=== PATIENT | female | born 1940 | race Caucasian/White ===

== ENCOUNTER 2020-03-30 15:22 | Outpatient (CLI) | payer OTHER, SELFPAY ==
--- NOTE | ~2020-03-30 | MM_ITS ---
EXAMINATION: MM screening [facility] BI w justyna HISTORY: Screening TECHNIQUE: Craniocaudal and mediolateral oblique 3-D tomosynthesis images were obtained and synthetic 2-D images were generated. CAD analysis was submitted and interpreted. COMPARISON: Comparison to multiple prior studies sequentially, with oldest reviewed study dated 08/2013. BREAST PARENCHYMAL COMPOSITION: The breasts are extremely dense, which lowers the sensitivity of mamm ography. FINDINGS: There are benign bilateral breast calcifications. There is no evidence of suspicious mass, calcification, or architectural distortion to suggest malignancy in either breast. There has been no suspicious interval change. IMPRESSION: 1. No mammographic evidence of malignancy. 2. Recommend routine screening mammography in one year. BI-RADS Category 2: Benign finding(s). Reviewed, dictated and finalized at location A. [place] [employer]
== END 2020-03-30 15:23 | disposition home or self-care (01) ==
PROVIDERS: PCP Family Medicine; Visit Provider Nurse Practitioner Family
DX: Z12.31 Encounter for screening mammogram for malignant neoplasm of breast (principal)
CPT/HCPCS: 77063; 77067

== ENCOUNTER 2021-07-19 13:57 | Outpatient (CLI) | payer OTHER, SELFPAY ==
--- NOTE | ~2021-07-19 | DEXA_ITS ---
Bone Density Report Name: THERESA CRAWFORD Age: 81 Sex: Female Ethnicity: White Date of : 1940 Indication: osteopenia; height loss; Referring Provider: MONICA GORDON Study: Bone densitometry was performed. Exam Date: July 19, 2021 Accession number: [id number] Bone Density: Region BMD T-score Z-score Classification AP Spine(L1-L4) 0.814 -2.1 0.7 Osteopenia Femoral Neck (Left) 0.624 -2.0 0.4 Osteopenia Total Hip (Left) 0.710 -1.9 0.3 Osteopenia Femoral Neck (Right) 0.693 -1.4 1.0 Osteopenia Total Hip (Right) 0.689 -2.1 0.1 Osteopenia Total Hip Mean 0.700 -2.0 0.2 Osteopenia World Health Organization criteria for BMD impression classify patients as: Normal (T-score at or above -1.0), Osteopenia (T-score between -1.0 and -2.5), or Osteoporosis (T-score at or below -2.5). 10-year Fracture Risk(1): Major Osteoporotic Fracture 15% Hip Fracture 4.6% Reported Risk Factors: [place] (), Neck BMD=0.624, BMI=23.3 (1) FRAX(R) Version 3.08. Fracture probability calculated for an untreated patient. Fracture probability may be lower if the patient has received treatment. Previous Exams: Region Exam Age BMD T-score BMD Change BMD Change Date g/cm2 vs Baseline vs Previous AP Spine (L1-L4) 07/19/2021 81 0.814 -2.1 0.003 (0.4%) 0.008 (1.0%) 02/26/2018 78 0.806 -2.2 -0.005 (-0.6%) -0.005 (-0.6%) 02/04/2016 76 0.811 -2.1 Total Hip(Left) 07/19/2021 81 0.710 -1.9 -0.072 (-9.2%) -0.111 (-13.5% 02/26/2018 78 0.821 -1.0 0.040 (5.1%)* 0.040 (5.1%)* 02/04/2016 76 0.781 -1.3 Total Hip(Right) 07/19/2021 81 0.689 -2.1 -0.055 (-7.3%) -0.101 (-12.8% 02/26/2018 78 0.791 -1.2 0.047 (6.3%)* 0.047 (6.3%)* 02/04/2016 76 0.744 -1.6 *Denotes significance at 95% confidence level, LSC for AP Spine = 0.022 g/cm2, LSC for Total Hip = 0.027 g/cm2 Clinical Information Provided by Patient: Has used the following medications: Vitamin D Patient maximum height was 67 Menopause Age: 49 Onset of menses at age 10 Number of children 2 Impression: The patient has low bone mass, based on the Total Spine T-score. The patient has an estimated ten-year risk of hip fracture of 4.6% and an estimated ten-year risk of major fracture of 15%, based on the WHO FRAX algorithm. The BMD for the Total Hip(Left) decreased, changing by -13.5% since the last DXA exam. The BMD for the Total Hip(Right) decreased,
== END 2021-07-19 13:58 | disposition home or self-care (01) ==
PROVIDERS: PCP Family Medicine; Visit Provider Nurse Practitioner
DX: Z78.0 Asymptomatic menopausal state (principal); M85.851 Other specified disorders of bone density and structure, right thigh; M85.852 Other specified disorders of bone density and structure, left thigh; M85.88 Other specified disorders of bone density and structure, other site
CPT/HCPCS: 77080

== ENCOUNTER 2021-12-19 11:22 | Emergency (ER) | payer OTHER, SELFPAY ==
[2021-12-19 11:30] VITALS: BP 129/86; PULSE 87; RESP 16; TEMP 36.5; O2SAT 97
[2021-12-19 11:33] VITALS: BP 129/86; PULSE 87; RESP 16; TEMP 36.5; O2SAT 97
--- NOTE | 2021-12-19 11:44 | ED.DIZZY ---
HPI - Dizziness General Chief Complaint: Dizziness Stated Complaint: dizzy Time Seen by Provider: 12/19/21 11:42 Mode of arrival: ambulatory Limitations: no limitations History of Present Illness HPI Narrative: 81-year-old female presents with concern for dizziness. She reports a sensation of the room spinning that she has had on and off for a while now, at least for more than 1 week. Reports today the dizziness was not improving like it has been over the past week. She reports history of similar symptoms. Reports she has an appointment with her primary care doctor on Sunday. She denies headache, weakness in any extremity, difficulty speaking or swallowing. She denies nasal congestion, rhinorrhea, sore throat, cough. MD elicited complaint: dizziness Related Data Allergies Allergy/AdvReac Type Severity Reaction Status Date / Time No Known Allergies Allergy Unverified 12/19/21 11:31 Review of Systems Review of Systems: CONSTITUTIONAL: Denies malaise, chills, sweats, or fever. EYES: Denies visual changes, ENT: Denies rhinorrhea, congestion, sinus pain, otalgia or sore throat. CARDIOVASCULAR: Denies chest pain, palpitations, or edema. RESPIRATORY: Denies cough or dyspnea. GASTROINTESTINAL: Denies nausea, vomiting NEUROLOGIC: Denies numbness, weakness, or headache. Reports dizziness All systems reviewed & are unremarkable except as noted in HPI and below PMFSH Past Medical History Medical History GERD without esophagitis Hyperlipidemia Hypertension Osteopenia started Fosamax 12/2016? Postmenopausal status (age-related) (natural) Vertigo Family History Family History Mother Family history of heart disease in male family member before age 55 Social History Social History Smoking status: Never smoker Second hand tobacco smoke exposure: No Alcohol intake: current Comments At time of signature, agree with nursing past medical, surgical, social and family history. There is no relevant family history pertinent to the presenting complaint Exam Narrative: GENERAL: Well-appearing, well-nourished, and in no acute distress. HEAD: Normocephalic, atraumatic. EYES: PERRLA, sclera clear, and EOMI. No nystagmus. ENT: Nares clear. Mucous membranes moist. TM pearly adorno with sharp light reflex on the left, dull light reflex and slightly bulging on the right no tragal tenderness. NECK: Supple. No lymphadenopathy. CHEST: No respiratory distress. Speaks in full sentences. HEART: Regular rate and rhythm. No murmur heard. Normal peripheral pulses. SKIN: Warm, dry, no visible rash. NEURO: Alert and oriented x3. No focal deficits. Cranial nerves II through XII grossly intact PSYCH: Normal mood and affect Course Course Emergency Course: Patient is aware of diagnosis, understands and agrees to treatment plan. Anticipatory guidance given. Patient agrees to follow-up as directed and is aware of reasons to seek care at the emergency department. Portions of this record may have been created with voice recognition software Level of Care: Express Care Visit Vital Signs Vital signs: Vital Signs Temperature 97.7 F 12/19/21 11:30 Pulse Rate 87 12/19/21 11:30 Respiratory Rate 16 12/19/21 11:30 Blood Pressure 129/86 12/19/21 11:30 Pulse Oximetry 97 12/19/21 11:30 Temperature 97.7 F 12/19/21 11:33 Pulse Rate 87 12/19/21 11:33 Respiratory Rate 16 12/19/21 11:33 Blood Pressure 129/86 12/19/21 11:33 Pulse Oximetry 97 12/19/21 11:33 Reviewed. MDM - Dizziness MDM Narrative Medical decision making narrative: Discussed limited diagnostic utility [facility] for dizziness, advised that I can do an examination including a neuro examination but I cannot rule out any serious causes of dizziness. Patient and her accompanying visitor madhav
== END 2021-12-19 11:59 | disposition home or self-care (01) ==
PROVIDERS: Emergency Provider Nurse Practitioner; PCP Nurse Practitioner
DX: R42 Dizziness and giddiness (principal); H65.01 Acute serous otitis media, right ear; K21.9 Gastro-esophageal reflux disease without esophagitis; E78.5 Hyperlipidemia, unspecified; I10 Essential (primary) hypertension; M85.80 Other specified disorders of bone density and structure, unspecified site
CPT/HCPCS: 99213; G0463

== ENCOUNTER → 2021-12-28 10:46 | Outpatient (CLI) | payer OTHER, SELFPAY ==
--- NOTE | ~2021-12-28 | US_ITS ---
EXAMINATION: US carotid duplex BI DATE: 12/28/2021 11:10 INDICATION: Dizziness TECHNIQUE: Grayscale, color Doppler, and pulsed Doppler images of the cervical carotid arteries were obtained. The degree of vessel stenosis is placed in one of the following categories: normal, <50%, 5 0-69%, >=70% but less than near-occlusion, near-occlusion, or total occlusion. Note that percent sten osis relative to normal distal artery lumen diameter is indirectly measured from velocity measurement s as described by Zhang, et al. Radiology 2003; 229:340-346. Notes: Normal: Peak systolic velocity <125 centimeters/sec and no plaque <50%. Peak systolic velocity <125 ( EDV <40; ICA/CCA PSV ratio <2.0; used these factors only a tandem lesions or low cardiac output or co ntralateral disease) 50-69 %: PSV 125-230 (EDV 40-100; ratio 2-4) >= 70% but less than near occlusion: PSV greater than 230 (EDV > 100; ratio> 4.0) Near Occlusion: PSV that is variable; markedly narrowed lumen Occlusion: Absent flow on color/spectral Doppler and no lumen on adorno scale. COMPARISON: None. FINDINGS: RIGHT: The right common carotid artery (CCA) peak systolic velocity (PSV) is 63 cm/s. The right internal car otid artery (ICA) PSV is 81 cm/s. The right ICA end-diastolic velocity (EDV) is 13 cm/s. The right IC A/CCA PSV ratio is 1.3. The external carotid artery (ECA) PSV is 83 cm/s. There is antegrade flow in the right vertebral artery. LEFT: The left CCA PSV is 77 cm/s. The left ICA PSV is 74 cm/s. The left ICA EDV is 13 cm/s. The left ICA/C CA PSV ratio is 1.0. The ECA PSV is 86 cm/s. There is antegrade flow in the left vertebral artery. IMPRESSION: 1. Less than 50% stenosis in the right internal carotid artery by sonographic criteria. 2. Less than 50% stenosis in the left internal carotid artery by sonographic criteria. Reviewed, dictated and finalized at location B. IMPRESSION: 1. Less than 50% stenosis in the right internal carotid artery by sonographic saturnino tompkins. 2. Less than 50% stenosis in the left internal carotid artery by sonographic rody cruz.
== END ==
PROVIDERS: PCP Nurse Practitioner; Visit Provider Nurse Practitioner
DX: I65.23 Occlusion and stenosis of bilateral carotid arteries (principal); R42 Dizziness and giddiness; R09.89 Other specified symptoms and signs involving the circulatory and respiratory systems
CPT/HCPCS: 93880

== ENCOUNTER 2022-02-09 09:23 | Observation (INO) | payer OTHER, SELFPAY ==
[2022-02-09] VITALS (8 sets, daily range): BP systolic 104–159; BP diastolic 48–130; PULSE 72–103; RESP 12–20; TEMP 36.6–38.1; O2SAT 89–98; BMI 22.6
--- NOTE | ~2022-02-09 | MR_ITS ---
EXAMINATION: MR MRCP wo/w con/w 3D wo ind DATE: 02/09/2022 18:03 INDICATION: Abnormal liver function tests. TECHNIQUE: Magnetic resonance imaging (MRI) of the abdomen was performed without and with 12 mL Multi Jesse intravenous contrast. Sequences included coronal T2-weighted FS FSE, coronal T2-weighted FSE, a xial T1-weighted LAVA, coronal FS FIESTA, axial dual-echo T1-weighted SPGR, coronal lava-FLEX, sagitt al T2-weighted FSE, axial T2-weighted FSE, and axial DWI. Thick-slab T2-weighted FSE images were obta ined for magnetic resonance cholangiopancreatography (MRCP). Maximum intensity projection 3-D reconst ructions of the volumetric data were created by the technologist. Postcontrast sequences included cor onal LAVA-flex and time course of axial T1-weighted LAVA. COMPARISON: CT abdomen and pelvis 02/09/2022, abdomen ultrasound 02/09/2022 FINDINGS: ABDOMEN MRI: There is a large sliding hiatal hernia. There are trace pleural effusions. Cardiomegaly is noted. No pericardial effusion. The liver is normal. The gallbladder is normal in size. The pancre atic duct is mildly dilated. There are dilated pancreatic duct sidechains. The spleen, adrenal glands , and right kidney are normal. There is a 10 mm cyst in left kidney. There is diverticulosis of the c olon without evidence of diverticulitis. There are no pathologically enlarged lymph nodes. There is n o free intraperitoneal fluid. ABDOMEN MRCP: The common duct is normal and measures 6 mm. IMPRESSION: 1. Large sliding hiatal hernia. 2. Mildly dilated pancreatic duct with dilated pancreatic duct sidechains, most likely chronic pancre atitis. Reviewed, dictated and finalized at location A. LIFT TRUCK OPERATOR IMPRESSION: 1. Large sliding hiatal hernia. 2. Mildly dilated pancreatic duct with dilated pancreatic duct sidechains, most likely chronic pancreatitis.
--- NOTE | ~2022-02-09 | CT_ITS ---
EXAMINATION: CT abdomen pelvis w con INDICATION: Abdominal pain TECHNIQUE: Computed tomographic images of the abdomen and pelvis were obtained after the administrati on of 100 cc of Omnipaque 350 intravenous contrast. The dose-length product (DLP) was 358.68 mGy-cm. Automated exposure control and iterative reconstruction technique were employed. COMPARISON: None available FINDINGS: Cardiomegaly is noted. There is calcified coronary artery atherosclerosis. There is a large hiatal hernia with much of the stomach intrathoracic in location. This results in mild passive atele ctasis in the adjacent lower lobes. The liver and adrenal glands are normal. There is a 7 mm hypoatte nuating lesion of the spleen likely reflecting a lymphangioma or hemangioma. Stones are present in th e gallbladder. There appears to be mild pericholecystic fat stranding. The common bile duct measures up to 8 mm. The pancreas is normal. The mildly prominent pancreatic duct measures up to 3 mm. There i s calcified atherosclerosis of the aorta and many of the other arteries. Cysts of the kidneys measure up to 12 mm on the left. No pathologically enlarged abdominal or pelvic lymph nodes are identified. Colonic diverticulosis is present without evidence of diverticulitis. There is no free intraperitonea l gas or evidence of bowel obstruction. There is an umbilical hernia containing fat. A moderate volum e of colonic stool is present. The appendix is normal. There is questionable wall thickening of the c ecum. There is moderate lumbar spondylosis. IMPRESSION: 1. Cholelithiasis with possible mild fat stranding adjacent to the gallbladder which could reflect ch olecystitis. Correlate for right upper quadrant tenderness. 2. Large hiatal hernia containing much of the stomach. 3. Questionable wall thickening of the cecum. Recommend correlation with colonoscopy history. Reviewed, dictated and finalized at location B. SAMPLER IMPRESSION: 1. Cholelithiasis with possible mild fat stranding adjacent to the gallbladder which could reflect cholecystitis. Correlate for right upper quadrant tendernes s. 2. Large hiatal hernia containing much of the stomach. 3. Questionable wall thickening of the cecum. Recommend correlation with colono scopy history.
--- NOTE | ~2022-02-09 | US_ITS ---
EXAMINATION: US abdomen limited DATE: 02/09/2022 16:08 INDICATION: Elevated liver function tests, possible cholecystitis TECHNIQUE: Multiple grayscale and Doppler ultrasound images of the abdomen were obtained. COMPARISON: CT from today FINDINGS: Bowel gas obscures visualization of the pancreas. The visualized portions of the pancreas a re unremarkable. The liver is normal with normal echogenicity and echotexture. No surface nodularity. Normal hepatopetal flow in the main portal vein. Stones are present in the nondistended gallbladder. There is no definite gallbladder wall thickening or pericholecystic fluid. The normal common bile du ct measures 6 mm. There is a questionable stone in the common bile duct. There was no sonographic Mur phy sign. IMPRESSION: 1. Cholelithiasis without definite additional findings of cholecystitis. 2. Possible choledocholithiasis. Reviewed, dictated and finalized at location B. [employer]
[2022-02-09 10:26] LABS: Basophils Percent Auto 0.3 % (0.2-1.2); Eosinophils Percent Auto 0.1 % (0-4.4); Hematocrit 44.1 % (37.0-47.0); Immature Granulocyte Absolute 0.03 K/mm3 (0.00-0.031); Immature Granulocyte Percent A 0.3 % (0-0.5); Lymphocytes Percent Auto 7.5 % (18.3-44.2); Mean Corpuscular HGB Conc 31.7 g/dl (32-36); Mean Corpuscular Hemoglobin 30.2 pg (26-34); Mean Corpuscular Volume 95.2 fl (80-100); Mean Platelet Volume 9.9 fl (7.4-10.4); Monocytes Absolute Auto 0.4 K/mm3 (0.1-0.6); Monocytes Percent Auto 3.2 % (2.6-8.5); Neutrophils Absolute Auto 10.6 K/mm3 (1.3-6.7); Neutrophils Percent Auto 88.6 % (45.5-73.1); Platelet Count Result 203 k/mm3 (150-375); Red Blood Count 4.63 M/mm3 (4.2-5.4); Red Cell Distribution Width 13.3 % (11.5-14.5)
[2022-02-09 10:37] LABS: Lactic Acid Reflex 3.3 mmol/L (0.7-2.0)
[2022-02-09 10:39] LABS: Alanine Aminotransferase 119 U/L (6-35); Albumin Level 4.3 g/dL (3.5-5.1); Alkaline Phosphatase 128 U/L (38-126); Anion Gap 15 mmol/L (8-16); Aspartate Amino Transferase 526 U/L (14-36); Blood Urea Nitrogen 15 mg/dL (7-17); Calcium 9.2 mg/dL (8.4-10.2); Carbon Dioxide 27 mmol/L (22-30); Chloride 103 mmol/L (98-107); Estimated CRCL calculation 43 ml/min; Estimated Glomerular Filt Rate > 60; Glucose 109 mg/dL (65-110); Lipase 276 U/L (23-300); Sodium 145 mmol/L (137-145)
--- NOTE | 2022-02-09 11:03 | ED.ABDPAIN ---
HPI - Abdominal Pain General Chief Complaint: Abdominal Pain Stated Complaint: abd pain Time Seen by Provider: 02/09/22 10:45 Source: patient and family Limitations: no limitations History of Present Illness HPI narrative: 82 years old white female presents with upper abdominal pain started last night associated with nausea and shaking and fever. She denies having similar symptoms. Last meal was this morning. History of hypertension, hyperlipidemia, does not smoke or drink or uses drugs, no history of abdominal surgery. She denies any chest pain or shortness of breath. She is not on aspirin or any anticoagulant medication Related Data Home Medications Medication Instructions Recorded Confirmed alendronate 70 mg tablet 70 mg PO WEEKLY 02/09/22 verapamil 180 mg 24 hr 240 mg PO DAILY 02/09/22 capsule,extended release Allergies Allergy/AdvReac Type Severity Reaction Status Date / Time No Known Allergies Allergy Verified 02/09/22 09:58 Review of Systems Review of Systems: All systems reviewed & are unremarkable except as noted in HPI and below PMFSH Past Medical History Medical History GERD without esophagitis Hyperlipidemia Hypertension Osteopenia started Fosamax 12/2016? Postmenopausal status (age-related) (natural) Vertigo Family History Family History Mother Family history of heart disease in male family member before age 55 Social History Social History Smoking status: Never smoker Second hand tobacco smoke exposure: No Alcohol intake: current Substance use: never Substance use type: does not use Exam Narrative: General appearance: Well-developed, well-nourished Skin: Normal color Head: Normocephalic, nontraumatic Eyes: Clear conjunctiva ENT: Oropharynx normal, ears normal, nose normal Neck: Supple, nontender Chest and respiratory: Airway patent, no respiratory distress, no accessory muscle use Heart: Regular rate/rhythm Abdomen: Soft, nontender, no organomegaly, quiet bowel sounds Vascular: Normal peripheral pulses, normal capillary refill. Musculoskeletal: Normal range of motion, nontender back Neurologic: Alert and oriented ?3, CNP is normal as tested, no gross motor deficit Course Consultations Consultation #1: Dr. Tovar Date: 02/09/22 Time: 14:07 Vital Signs Vital signs: Vital Signs Temperature 38.1 C H 02/09/22 09:56 Pulse Rate 103 H 02/09/22 09:56 Respiratory Rate 18 02/09/22 09:56 Blood Pressure 159/130 H 02/09/22 09:56 Pulse Oximetry 98 02/09/22 09:56 Temperature 38.1 C H 02/09/22 09:56 Pulse Rate 82 02/09/22 12:57 Respiratory Rate 14 02/09/22 12:57 Blood Pressure 104/77 02/09/22 12:57 Pulse Oximetry 89 L 02/09/22 12:58 Oxygen Delivery Nasal Cannula 02/09/22 12:58 Oxygen Flow Rate 2 02/09/22 12:58 MDM - Abdominal Pain Differential Diagnosis Differential diagnosis: Likely abdominal pain, acute appendicitis, constipation, diverticulitis and pancreatitis Lab Data Result diagrams: 02/09/22 10:20 02/09/22 10:20 Labs: Lab Results 02/09/22 02/09/22 02/09/22 Range/Units 10:20 10:20 10:20 WBC 12.0 H (4.5-10.0) K/mm3 RBC 4.63 (4.2-5.4) M/mm3 Hgb 14.0 (12.0-15.0) g/dL Hct 44.1 (37.0-47.0) % MCV 95.2 (80-100) fl MCH 30.2 (26-34) pg MCHC 31.7 L (32-36) g/dl RDW 13.3 (11.5-14.5) % Plt Count 203 (150-375) k/mm3 MPV 9.9 (7.4-10.4) fl Immature Gran % (Auto) 0.3 (0-0.5) % Neut % (Auto) 88.6 H (45.5
[2022-02-09] MEDS: SODIUM CHLORIDE 0.9% IV 1,000 ML 999 ML IV CONT (11:32)
[2022-02-09] MEDS: ONDANSETRON INJ 4 MG/2 ML VIAL IV PUSH (11:34)
[2022-02-09] MEDS: MORPHINE SULFATE (*CRX) 4 MG/ML INJ IV PUSH ×2 (11:36→16:51)
[2022-02-09 12:00] LABS: Appearance Urine Clear (Clear); Bilirubin Urine Negative (Negative); Blood Urine Trace-intact (Negative); Color Urine Yellow (Yellow); Glucose Urine UA Negative (Negative); Ketones Urine Negative (Negative); Leukocyte Esterase Ur Negative LEU/UL (Negative); Nitrate Urine Negative (Negative); Protein Urine Negative (Negative); Specific Grav Ur 1.015 (1.001-1.035)
[2022-02-09 12:13] LABS: Bacteria Urine Trace /hpf; Mucus Urine Rare /lpf; WBC Urine 0-3 /hpf
[2022-02-09 12:19] LABS: Add Urine Microscopic? YES
[2022-02-09 12:25] LABS: SARS-CoV-2 RNA PCR Negative
[2022-02-09 13:23] LABS: Reflex Lactic Acid Yes or No Add Lactic
--- NOTE | 2022-02-09 13:57 | PC.NURSE ---
ERP in to see pt for initial assessment.
--- NOTE | 2022-02-09 14:11 | ECG_ITS ---
Measurements Intervals Dike Rate: 74 P: 264 VT: 116 QRS: 9 QRSD: 101 T: 58 QT: 407 QTc: 452 Interpretive Statements ECTOPIC ATRIAL RHYTHM CHANGES TO SINUS RHYTHM LOW QRS VOLTAGE IN LIMB LEADS BORDERLINE R WAVE PROGRESSION, ANTERIOR LEADS BASELINE ARTIFACT- I, II, III, AVL, AVF NO PREVIOUS ECG AVAILABLE FOR COMPARISON ABNORMAL ECG Electronically Signed On 02-09-2022 14:39:51 WAFER CUTTER by Farrukh Fregoso D.O.
[2022-02-09 14:15] LABS: Lactic Acid 0.9 mmol/L (0.7-2.0)
--- NOTE | 2022-02-09 15:21 | PM.CNGS ---
Assessment and Plan Assessment and plan (1) Acute cholecystitis: Code(s): K81.0 - Acute cholecystitis Status: Acute Assessment and Plan: CT reviewed and showed cholelithiasis with possible mild inflammatory stranding without other findings of cholecystitis. She presented with leukocytosis, elevated LFTs, and fever. Her abdominal pain is the in the LLQ and she is only tender in this area, which is atypical for the gallbladder. Would recommend continuing IV antibiotics, IV fluids, keep NPO, and will order a RUQ abdominal ultrasound to further evaluate for acute cholecystitis. (2) Sepsis: Code(s): A41.9 - Sepsis, unspecified organism Status: Acute Assessment and Plan: Criteria met on admission with leukocytosis, fever, and tachycardia. Lactic acid also 3.3 but down to 0.9 after IV fluids. Could be related to acute cholecystitis, see plan above. No other obvious sources of infection. Continue IV antibiotics and IV fluids. No blood cx drawn prior to antibiotics, which could be ordered if she continues to have a fever. Management per Hospitalist. (3) Hiatal hernia: Code(s): K44.9 - Diaphragmatic hernia without obstruction or gangrene Status: Acute Assessment and Plan: Large hiatal hernia noted on CT. Does have some history of GERD. Patient was unaware of this and we discussed these findings. This is not her acute issue at this time and can be followed up as an outpatient. (4) GERD without esophagitis: Code(s): K21.9 - Gastro-esophageal reflux disease without esophagitis Status: Acute (5) History of colon polyps: Code(s): Z86.010 - Personal history of colonic polyps Status: Acute Assessment and Plan: Last documented colonoscopy was 2011 and she thought she had a repeat a few years ago here at [facility], but I do not see any record of this. Recommended f/u with PCP to evaluate need for repeat colonoscopy due to CT findings of possible cecal wall thickening. (6) Hypertension: Qualifiers: Hypertension type: essential hypertension Qualified Code(s): I10 - Essential (primary) hypertension Code(s): I10 - Essential (primary) hypertension Status: Acute Plan I have discussed the patient's case and plan of care with Dr. Tovar. Thank you for allowing us to see the patient in consultation and we will continue to follow along with you. History of Present Illness Consult details Consult date: 02/09/22 Reason for consult: other (Cholelithiasis with possible acute cholecystitis) Requesting physician: Nicholas Lopez MD Narrative: This is an 82-year-old woman with a history of GERD, hypertension, hyperlipidemia, and recent question of possible atrial fibrillation. She noticed a sudden onset mid to left lower abdominal pain about 1-2 hours after eating dinner last night. She reportedly ate a salad and BLT for dinner. Denies any nausea or vomiting. Her abdominal pain continued to worsen throughout the night. This morning, she woke up and ate toast for breakfast. She continued to have abdominal pain and called her daughter, who brought her into the ER for evaluation. In the ER, she did have 1 episode of vomiting and was found to have a temperature of a 100.6? F with a heart rate of 103. [place] [address], normal lipase, total bilirubin 1.0, AST 526, ALT 119, alk-phos 128. Lactic acid was found to be 3.3 and came down to 0.9 after IV fluid hydration. Urinalysis essentially negative. COVID negative. CT scan of the abdomen and pelvis showed cholelithiasis with possible mild fat stranding adjacent to the gallbladder which could reflect cholecystitis, large hiatal hernia containing much of the stomach, and questionable wall thickening of the cecum. The ED physician consulted our service due to the cholelithiasis with possible cholecystitis. She is now seen in the ER with her daughter. She lives alone and is indepe
--- NOTE | 2022-02-09 15:29 | PM.IMHP ---
H&P: HPI History of Present Illness Date/Time: 02/09/22 15:29 Chief Complaint: Abdominal pain Narrative: This is an 82-year-old female patient who presented to the emergency room today with upper abdominal pain that started last night. She also had nausea and fever and chills. She has not had any previous similar symptoms. Her last meal was this morning. The patient stated that she has been in the emergency room since 12/30 this morning. She has a history of hypertension and hyperlipidemia. The CT of the abdomen was read as 1. Cholelithiasis with possible mild fat stranding adjacent to the gallbladder which could reflect cholecystitis. Correlate for right upper quadrant tenderness. 2. Large hiatal hernia containing much of the stomach. 3. Questionable wall thickening of the cecum. Recommend correlation with colonoscopy history. Zosyn was started in the emergency room as well as IV fluids and morphine. When I talked to the patient she was no longer having any tenderness. Surgery has been consulted and ordered an ultrasound of the abdomen. White count is 12.0. Lactic acid 3.3 and is now 0.9. AST is 526 and ALT is 119 alkaline phosphatase 128. She was negative for COVID. The patient appears to be more comfortable now initially the patient was admitted to inpatient status and has been changed to observation status on the date of service of 02/09/2022. Review of Systems Review of Systems: See HPI All systems reviewed & are unremarkable except as noted in HPI and below Constitutional: Constitutional: Reports as per HPI and Reports no additional constitutional complaints Eyes: Eyes: Reports as per HPI and Reports no additional eye complaints ENT: Reports system reviewed and no additional complaints, except as documented and Reports Normal hearing present Cardiovascular: Cardiovascular: Reports no additional cardiovascular complaints Respiratory: Respiratory: Reports no additional respiratory complaints and Reports no additional respiratory complaints Gastrointestinal: Gastrointestinal: Reports as per HPI and Reports no additional gastrointestinal complaints Musculoskeletal: Musculoskeletal: Reports no additional musculoskeletal complaints Integumentary/Breasts: Skin/Breast: Reports system reviewed and no additional complaints, except as docu and Reports as per HPI Neurologic: Reports system reviewed and no additional complaints, except as documented, Reports as per HPI and Reports Normal hearing present Psychiatric: Psychiatric: Reports no additional psychiatric complaints and Reports as per HPI Endocrine: Endocrine: Reports no additional endocrine complaints Hematologic/Lymphatic: Hematologic/Lymphatic: Reports no additional hematologic/lymphatic complaints Allergic/Immunologic: Allergic/Immunologic: Reports no additional allergic/immunologic complaints [facility] Past Medical History Medical History GERD without esophagitis Hyperlipidemia Hypertension Osteopenia started Fosamax 12/2016? Postmenopausal status (age-related) (natural) Vertigo Surgical History Surgical History (Updated 02/09/22 @ 16:28 by Yecenia Patel NP) H/O cataract extraction H/O colonoscopy with polypectomy H/O dilation and curettage History of removal of pigmented skin lesion Family History Family History Mother Family history of heart disease in male family member before age 55 Social History Social History (Updated 02/09/22 @ 16:29 by Yecenia Patel NP) Social History: The patient is and lives alone. She has 2 children. 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 Her daughter is the durable power commercial litigation attorney for healthcare. Code status full code Smoking status: Never smoker Second curtis
[2022-02-09] MEDS: SODIUM CHLORIDE 0.9% IV 1,000 ML 125 ML IV CONT (16:12)
--- NOTE | 2022-02-09 16:15 | ADMGEN ---
This patient, Catalina Byrd, was admitted to Medical Room 258-01. Patient/family oriented to hospital policies and general routines including ID bracelet, bed and alarms, visiting hours, pain management, procedures, bathroom and other care routines, personal items, smoking policy, room service/diet, and visiting hours. Information on how to activate the Rapid Response Team has been discussed. Patient/Family are encouraged to report perceived risks to care and to ask questions if they do not understand what they are told or what they should do.
[2022-02-09] MEDS: PANTOPRAZOLE SODIUM IV 40 MG VIAL IV PUSH (20:21)
[2022-02-10 04:50] VITALS: BP 92/44; PULSE 60; RESP 12; TEMP 36.6; O2SAT 92
[2022-02-10] MEDS: SODIUM CHLORIDE 0.9% IV 500 ML IV CONT (05:05)
[2022-02-10 05:56] LABS: Alanine Aminotransferase 81 U/L (6-35); Albumin Level 3.2 g/dL (3.5-5.1); Alkaline Phosphatase 83 U/L (38-126); Anion Gap 10 mmol/L (8-16); Aspartate Amino Transferase 131 U/L (14-36); Bilirubin,Total 0.8 mg/dL (0.2-1.3); Blood Urea Nitrogen 15 mg/dL (7-17); CRP 5.5 mg/dL (<1.0); Calcium 7.9 mg/dL (8.4-10.2); Carbon Dioxide 26 mmol/L (22-30); Chloride 106 mmol/L (98-107); Estimated CRCL calculation 39 ml/min; Estimated Glomerular Filt Rate 60; Glucose 93 mg/dL (65-110); Potassium 3.7 mmol/L (3.4-5.0); Sodium 142 mmol/L (137-145)
[2022-02-10 05:57] LABS: Basophils Percent Auto 0.6 % (0.2-1.2); Eosinophils Absolute Auto 0.1 K/mm3 (0-0.3); Eosinophils Percent Auto 1.1 % (0-4.4); Hematocrit 37.4 % (37.0-47.0); Hemoglobin 11.7 g/dL (12.0-15.0); Immature Granulocyte Absolute 0.03 K/mm3 (0.00-0.031); Immature Granulocyte Percent A 0.4 % (0-0.5); Lymphocytes Absolute Auto 1.37 K/mm3 (0.9-3.2); Lymphocytes Percent Auto 18.9 % (18.3-44.2); Mean Corpuscular HGB Conc 31.3 g/dl (32-36); Mean Corpuscular Hemoglobin 30.5 pg (26-34); Mean Corpuscular Volume 97.7 fl (80-100); Mean Platelet Volume 10.6 fl (7.4-10.4); Monocytes Absolute Auto 0.7 K/mm3 (0.1-0.6); Monocytes Percent Auto 10.1 % (2.6-8.5); Neutrophils Percent Auto 68.9 % (45.5-73.1); Platelet Count Result 162 k/mm3 (150-375); Red Blood Count 3.83 M/mm3 (4.2-5.4); Red Cell Distribution Width 13.7 % (11.5-14.5); White Blood Count 7.2 K/mm3 (4.5-10.0)
[2022-02-10 06:28] VITALS: BP 114/57
[2022-02-10] MEDS: SODIUM CHLORIDE 0.9% IV 1,000 ML 125 ML IV CONT (07:19)
[2022-02-10 08:00] VITALS: BP 119/65; PULSE 57; RESP 18; TEMP 36.7; O2SAT 96
[2022-02-10 09:07] VITALS: O2SAT 94
[2022-02-10] MEDS: PANTOPRAZOLE SODIUM IV 40 MG VIAL IV PUSH ×2 (09:15→20:21)
--- NOTE | 2022-02-10 10:57 | PM.IMPN ---
Progress Note: A&P Assessment and Plan (1) Acute cholecystitis: Code(s): K81.0 - Acute cholecystitis Status: Acute Assessment and Plan: -The patient has been placed on Zosyn. -she has mild leukocytosis with white count being 12.0. -she was given morphine in the emergency room which seemed to control her pain. -this is her 1st attack of cholelithiasis. She has had no previous attacks. -surgery has been consulted. -she has elevated liver enzymes. I suspect that she may have choledocholithiasis. I did order MRCP and consult GI as well. -blood cultures are pending. -the patient had a fever initially. -patient is NPO -IV Zofran -continue with IV fluids. (2) History of colon polyps: Code(s): Z86.010 - Personal history of colonic polyps Status: Acute Assessment and Plan: -DATE OF PROCEDURE: July 27, 2011. HISTORY OF PRESENT ILLNESS: This very pleasant lady is being evaluated for colon cancer and polyp screening. POSTOPERATIVE DIAGNOSES: 1. Polyp of the cecum. 2. Scattered diverticulosis coli. 3. Polyp of the mid transverse colon. 4. Polyp at 30 cm. 5. Internal hemorrhoidal tissue. (3) Hyperlipidemia: Qualifiers: Hyperlipidemia type: unspecified Qualified Code(s): E78.5 - Hyperlipidemia, unspecified Code(s): E78.5 - Hyperlipidemia, unspecified Status: Acute Assessment and Plan: -hold simvastatin as the patient already has elevated liver enzymes. (4) Hypertension: Qualifiers: Hypertension type: essential hypertension Qualified Code(s): I10 - Essential (primary) hypertension Code(s): I10 - Essential (primary) hypertension Status: Acute Assessment and Plan: Patient's blood pressure is on the soft side. (5) GERD without esophagitis: Code(s): K21.9 - Gastro-esophageal reflux disease without esophagitis Status: Acute Assessment and Plan: -IV Protonix. Subjective Date/time seen: 02/10/22 10:57 Patient was seen during the morning rounds today. No new overnight complaints. Mild nausea, no vomiting. No sob or chest pain. Review of Systems Review of Systems: All systems reviewed & are unremarkable except as noted in HPI and below (the history and physical exam.) Constitutional: Constitutional: Reports as per HPI and Reports no additional constitutional complaints Eyes: Eyes: Reports as per HPI and Reports no additional eye complaints ENT: Reports system reviewed and no additional complaints, except as documented and Reports Normal hearing present Cardiovascular: Cardiovascular: Reports no additional cardiovascular complaints Respiratory: Respiratory: Reports no additional respiratory complaints and Reports no additional respiratory complaints Gastrointestinal: Gastrointestinal: Reports as per HPI and Reports no additional gastrointestinal complaints Musculoskeletal: Musculoskeletal: Reports no additional musculoskeletal complaints Integumentary/Breasts: Skin/Breast: Reports system reviewed and no additional complaints, except as docu and Reports as per HPI Neurologic: Reports system reviewed and no additional complaints, except as documented, Reports as per HPI and Reports Normal hearing present Psychiatric: Psychiatric: Reports no additional psychiatric complaints and Reports as per HPI Endocrine: Endocrine: Reports no additional endocrine complaints Hematologic/Lymphatic: Hematologic/Lymphatic: Reports no additional hematologic/lymphatic complaints Allergic/Immunologic: Allergic/Immunologic: Reports no additional allergic/immunologic complaints Exam Const: General: cooperative, healthy appearing, comfortable, no acute distress, well developed, alert, awake, Physically active, average body habitus and well nourished Nutritional Appearance: average body habitus and well nourished Orientation/consciousness: oriented to person, oriented to place, oriented to time and patient oriented x3 Limitations: n
--- NOTE | 2022-02-10 11:04 | PM.PNGS ---
Progress Note: A&P Assessment and Plan (1) Acute cholecystitis: Code(s): K81.0 - Acute cholecystitis Status: Acute Assessment and Plan: exam benign, labs improved, cont abx, long d/w pt and she would prefer conservative mgmt c abx, low fat diet, will start diet and if brendan well can d/c home c f/u as outpt Subjective Subjective Date/Time Seen: 02/10/22 11:04 Pt feels much better, no further pain, wants to eat and go home Review of Systems Review of Systems: All systems reviewed & are unremarkable except as noted in HPI and below Exam Const: General: cooperative, comfortable and no acute distress Resp: Auscultation: clear to auscultation bilaterally Cardio: Rate: regular rate Rhythm: regular rhythm GI: Inspection: normal to inspection, no edema and non-distended GI Palp: No abdominal tenderness, Yes Soft to palpation, No Tenderness to palpation present (GI), No Guarding due to palpation present (GI) and No Rigid due to palpation Objective Data Vital Signs Vital Signs: Vital Signs - 24 hr 02/09/22 11:56 02/09/22 12:57 02/09/22 12:58 Temperature Pulse Rate 80 82 Respiratory Rate 20 14 Blood Pressure 115/51 L 104/77 Pulse Oximetry 94 89 L Oxygen Delivery Nasal Cannula Oxygen Flow Rate 2 02/09/22 15:27 02/09/22 15:35 02/09/22 17:00 Temperature Pulse Rate 82 82 Respiratory Rate 16 16 Blood Pressure 122/58 L 122/70 Pulse Oximetry 95 95 Oxygen Delivery Room Air Oxygen Flow Rate 02/09/22 16:15 02/09/22 20:02 02/09/22 20:00 Temperature 36.6 C 36.7 C Pulse Rate 74 72 Respiratory Rate 16 12 Blood Pressure 120/72 115/48 L Pulse Oximetry 90 91 Oxygen Delivery Room Air Oxygen Flow Rate 02/10/22 04:50 02/10/22 06:28 02/10/22 09:07 Temperature 36.6 C Pulse Rate 60 Respiratory Rate 12 Blood Pressure 92/44 L 114/57 L Pulse Oximetry 92 94 Oxygen Delivery Room Air Oxygen Flow Rate 02/10/22 08:00 Temperature 36.7 C Pulse Rate 57 L Respiratory Rate 18 Blood Pressure 119/65 Pulse Oximetry 96 Oxygen Delivery Oxygen Flow Rate Intake/Output Intake/Output: Intake & Output 11/08/22 11/09/22 11/10/22 11/11/22 23:59 23:59 23:59 23:59 Intake Total 1100 1050 Output Total 0 300 Balance 1100 750 Meds/Results Medications: Active Medications Generic Name Dose Route Start Last Admin Trade Name Freq PRN Reason Stop Dose Admin Piperacillin/Tazobactam/Dextrose 3.375 gm in 50 mls @ 100 mls/hr 02/09/22 18:00 02/10/22 05:05 Zosyn 3.375 Gm/D5w 50ml Pm IVPB 100 mls/hr Q6HR ABBEY Administration Sodium Chloride 1,000 mls @ 83 mls/hr 02/09/22 14:15 02/10/22 07:19 Normal Saline Iv IV CONT 125 mls/hr .Q12H3M ABBEY Administration Morphine Sulfate 2 mg 02/10/22 05:02 Morphine Sulfate (*Crx) 2 Mg/Ml Inj IV PUSH Q4H PRN Pain Rated 7-10 Ondansetron HCl 4 mg 02/09/22 14:13 Ondansetron Inj 4 Mg/2 Ml Vial IV PUSH Q4H PRN Nausea Pantoprazole Sodium 40 mg 02/09/22 21:00 02/10/22 09:15 Pantoprazole Sodium Iv 40 Mg Vial IV PUSH 40 mg Q12HR ABBEY Administration Radiology Results: ITS Impressions Abdomen/Pelvis CT 02/09/22 10:53 IMPRESSION: 1. Cholelithiasis with possible mild fat stranding adjacent to the gallbladder which could reflect cholecystitis. Correlate for right upper quadrant tenderness. 2. Large hiatal hernia containing much of the stomach. 3. Questionable wall thickening of the cecum. Recommend correlation with colonoscopy history. Abdomen Ultrasound 02/09/22 16:20 IMPRESSION: 1. Cholelithiasis without definite additional findings of cholecystitis. 2. Possible choledocholithiasis. MRCP 02/09/22 18:04 IMPRESSION: 1. Large sliding hiatal hernia. 2. Mildly dilated pancreatic duct with dilated pancreatic duct sidechains, most likely chronic pancreatitis. Labs Labs: Laboratory Results - last 24 hr 02/09/22 02/09/22 02/09/22 11:4
--- NOTE | 2022-02-10 11:41 | WPDGICN ---
Assessment and Plan Assessment and plan (1) Sepsis: Code(s): A41.9 - Sepsis, unspecified organism Status: Acute Assessment and Plan: improved and doing better medical treatment (2) Acute cholecystitis: Code(s): K81.0 - Acute cholecystitis Status: Acute Assessment and Plan: surgery on board but she is responding to medical treatment MRCP reviewed, no need of ERCP (3) Abdominal pain: Code(s): R10.9 - Unspecified abdominal pain Status: Acute Assessment and Plan: resolved, agree to start diet as tolerated (4) Hiatal hernia: Code(s): K44.9 - Diaphragmatic hernia without obstruction or gangrene Status: Acute GI Consult Note Consult date/time: 02/10/22 11:41 Reason for consult: abdominal pain, cholecystitis HPI: Catalina Byrd is a 82 year old female with history of GERD, hypertension, atrial fibrillation.? She was admitted with sudden onset mid to left lower abdominal pain about 1-2 hours after eating dinner the night of admission that progressively worsened.?Denies any nausea or vomiting.? In the ER, she had 1 episode of vomiting and low grade fever with temperature of a 100.6? F with a heart rate of 103.? [place] [address], normal lipase, total bilirubin 1.0, AST 526, ALT 119, alk-phos 128.? Lactic acid was found to be 3.3 and came down to 0.9 after IV fluid hydration.? Urinalysis negative.? COVID negative.? CT scan of the abdomen and pelvis showed cholelithiasis with possible mild fat stranding adjacent to the gallbladder which could reflect cholecystitis, large hiatal hernia containing much of the stomach, and questionable wall thickening of the cecum.?MRCP reviewed and showed ?Large sliding hiatal hernia, mildly dilated pancreatic duct with dilated pancreatic duct sidechains, most likely chronic pancreatitis Her last colonoscopy with polypectomy was in 2011. She is feeling much better now. Review of Systems Review of Systems: All systems reviewed & are unremarkable except as noted in HPI and below Constitutional: Constitutional: Reports no additional constitutional complaints, Reports fever(s) (Only in the ER), Denies headache(s), Denies poor appetite and Denies weakness Eyes: Eyes: Reports no additional eye complaints ENT: Reports system reviewed and no additional complaints, except as documented Cardiovascular: Cardiovascular: Reports no additional cardiovascular complaints, Denies chest pain at rest, Denies chest pain with activity and Denies leg edema Respiratory: Respiratory: Reports no additional respiratory complaints, Denies cough and Denies dyspnea Gastrointestinal: Gastrointestinal: Reports as per HPI and Reports no additional gastrointestinal complaints Genitourinary: Genitourinary: Reports no additional female genitourinary complaints Musculoskeletal: Musculoskeletal: Reports no additional musculoskeletal complaints Integumentary/Breasts: Skin/Breast: Reports system reviewed and no additional complaints, except as docu Neurologic: Reports system reviewed and no additional complaints, except as documented Psychiatric: Psychiatric: Reports no additional psychiatric complaints [facility] Past Medical History Medical History (Updated 02/10/22 @ 12:12 by Berto Grant MD) Abdominal pain GERD without esophagitis Hyperlipidemia Hypertension Osteopenia started Fosamax 12/2016? Postmenopausal status (age-related) (natural) Vertigo Surgical History Surgical History (Updated 02/09/22 @ 16:28 by Yecenia Patel NP) H/O cataract extraction H/O colonoscopy with polypectomy H/O dilation and curettage History of removal of pigmented skin lesion Family History Family History Mother Family history of heart disease in male family member before age 55 Social History Social History (Updated 02/09/22 @ 16:29 by Yecenia Patel NP) Social His
--- NOTE | 2022-02-10 12:52 | PC.NURSE ---
On 02/10/22, the student, [Nathalia Coto], provided care and completed [facility] documentation on this patient. I have reviewed the student's documentation and agree with the findings.
[2022-02-10 13:49] VITALS: BP 114/41; PULSE 74; RESP 16; TEMP 36.6; O2SAT 93
[2022-02-10] MEDS: SODIUM CHLORIDE 0.9% IV 1,000 ML 83 ML IV CONT (17:27)
[2022-02-10 19:57] VITALS: BP 122/74; PULSE 67; RESP 16; TEMP 36.9; O2SAT 95
[2022-02-11 05:24] VITALS: BP 122/54; PULSE 72; RESP 20; TEMP 36.7; O2SAT 93
[2022-02-11 06:19] LABS: Hematocrit 35.2 % (37.0-47.0); Mean Corpuscular HGB Conc 31.3 g/dl (32-36); Mean Corpuscular Hemoglobin 30.4 pg (26-34); Mean Corpuscular Volume 97.2 fl (80-100); Mean Platelet Volume 10.8 fl (7.4-10.4); Platelet Count Result 158 k/mm3 (150-375); Red Blood Count 3.62 M/mm3 (4.2-5.4); Red Cell Distribution Width 13.6 % (11.5-14.5)
[2022-02-11 06:31] LABS: Alanine Aminotransferase 57 U/L (6-35); Alkaline Phosphatase 86 U/L (38-126); Anion Gap 6 mmol/L (8-16); Aspartate Amino Transferase 57 U/L (14-36); Bilirubin,Total 0.6 mg/dL (0.2-1.3); Blood Urea Nitrogen 16 mg/dL (7-17); Calcium 7.5 mg/dL (8.4-10.2); Carbon Dioxide 25 mmol/L (22-30); Chloride 110 mmol/L (98-107); Estimated CRCL calculation 39 ml/min; Estimated Glomerular Filt Rate 60; Glucose 94 mg/dL (65-110); Potassium 3.8 mmol/L (3.4-5.0); Sodium 141 mmol/L (137-145)
[2022-02-11] MEDS: PANTOPRAZOLE SODIUM IV 40 MG VIAL IV PUSH (08:52)
--- NOTE | 2022-02-11 09:06 | PM.IMPN ---
Progress Note: A&P Assessment and Plan (1) Acute cholecystitis: Code(s): K81.0 - Acute cholecystitis Status: Acute Assessment and Plan: Consult GI and surgery pending, continue Zosyn Abdominal ultrasound showed possible choledocholithiasis, MRCP ruled this out, only finding is cholelithiasis without cholecystitis, no need for ERCP, advance diet as tolerated, recommending low-fat diet Could potentially be discharged today on antibiotics if okay with GI and surgery teams and patient tolerating p.o. intake LFTs improved significantly, afebrile, leukocytosis resolved MRCP indicative of chronic pancreatitis but no acute cholecystitis suspected, lipase under 300, no signs of pancreatitis (2) History of colon polyps: Code(s): Z86.010 - Personal history of colonic polyps Status: Acute (3) Hyperlipidemia: Qualifiers: Hyperlipidemia type: unspecified Qualified Code(s): E78.5 - Hyperlipidemia, unspecified Code(s): E78.5 - Hyperlipidemia, unspecified Status: Acute (4) Hypertension: Qualifiers: Hypertension type: essential hypertension Qualified Code(s): I10 - Essential (primary) hypertension Code(s): I10 - Essential (primary) hypertension Status: Acute (5) GERD without esophagitis: Code(s): K21.9 - Gastro-esophageal reflux disease without esophagitis Status: Acute Assessment and Plan: Continue PPI Plan DVT prophylaxis with SCDs GI prophylaxis with PPI Code status full code Subjective Date/time seen: 02/11/22 09:06 Interval history: No overnight events noted. No chest pain or shortness of breath. No nausea, vomiting or diarrhea. No fevers or chills. Review of Systems Review of Systems: 12 point review of systems was assessed and was negative except as noted in the HPI Exam Narrative: General: No acute distress, alert and oriented per baseline HEENT: Atraumatic, normocephalic, mucous membranes moist CV: Regular rate and rhythm, S1, S2 Lungs: Clear to auscultation bilaterally, no rales or crackles noted, no wheezes, good air entry Abdomen: Soft, nontender, nondistended Extremities: Normal to inspection Skin: No rashes noted, no lesions or wounds seen Psych: Euthymic, normal affect Objective Data Vital Signs Vital Signs: Vital Signs - 24 hr 02/10/22 09:07 02/10/22 13:49 02/10/22 19:57 Temperature 97.9 F 98.5 F Pulse Rate 74 67 Respiratory Rate 16 16 Blood Pressure 114/41 L 122/74 Pulse Oximetry 94 93 95 Oxygen Delivery Room Air 02/11/22 05:24 Temperature 98.1 F Pulse Rate 72 Respiratory Rate 20 Blood Pressure 122/54 L Pulse Oximetry 93 Oxygen Delivery Intake/Output Intake/Output: Intake & Output 02/08/22 02/09/22 02/10/22 02/11/22 23:59 23:59 23:59 23:59 Intake Total 1100 2720 250 Output Total 0 600 600 Balance 1100 2120 -350 Meds/Results Medications: Active Medications Generic Name Dose Route Start Last Admin Trade Name Freq PRN Reason Stop Dose Admin Piperacillin/Tazobactam/Dextrose 3.375 gm in 50 mls @ 100 mls/hr 02/09/22 18:00 02/11/22 06:35 Zosyn 3.375 Gm/D5w 50ml Pm IVPB Infused Q6HR ABBEY Infusion Sodium Chloride 1,000 mls @ 83 mls/hr 02/09/22 14:15 02/10/22 19:40 Normal Saline Iv IV CONT Not Given .Q12H3M ABBEY Morphine Sulfate 2 mg 02/10/22 05:02 Morphine Sulfate (*Crx) 2 Mg/Ml Inj IV PUSH Q4H PRN Pain Rated 7-10 Ondansetron HCl 4 mg 02/09/22 14:13 Ondansetron Inj 4 Mg/2 Ml Vial IV PUSH Q4H PRN Nausea Pantoprazole Sodium 40 mg 02/09/22 21:00 02/11/22 08:52 Pantoprazole Sodium Iv 40 Mg Vial IV PUSH 40 mg Q12HR ABBEY Administration Radiology Results: ITS Impressions Abdomen/Pelvis CT 02/09/22 10:53 IMPRESSION: 1. Cholelithiasis with possible mild fat stranding adjacent to the gallbladder which could reflect cholecystitis. Correlate for right upper quadrant tenderness. 2. Large hiata
--- NOTE | 2022-02-11 12:47 | PM.DS ---
DS: Admitting Diagnosis Discharge Date February 11, 2022 Admitting Diagnosis Abdominal pain DS: Discharge Diagnosis Discharge Diagnosis (1) Acute cholecystitis: Code(s): K81.0 - Acute cholecystitis Status: Acute Assessment and Plan: Consult GI and surgery pending, continue Zosyn Abdominal ultrasound showed possible choledocholithiasis, MRCP ruled this out, only finding is cholelithiasis without cholecystitis, no need for ERCP, advance diet as tolerated, recommending low-fat diet Could potentially be discharged today on antibiotics if okay with GI and surgery teams and patient tolerating p.o. intake LFTs improved significantly, afebrile, leukocytosis resolved MRCP indicative of chronic pancreatitis but no acute cholecystitis suspected, lipase under 300, no signs of pancreatitis (2) History of colon polyps: Code(s): Z86.010 - Personal history of colonic polyps Status: Acute (3) Hyperlipidemia: Qualifiers: Hyperlipidemia type: unspecified Qualified Code(s): E78.5 - Hyperlipidemia, unspecified Code(s): E78.5 - Hyperlipidemia, unspecified Status: Acute (4) Hypertension: Qualifiers: Hypertension type: essential hypertension Qualified Code(s): I10 - Essential (primary) hypertension Code(s): I10 - Essential (primary) hypertension Status: Acute (5) GERD without esophagitis: Code(s): K21.9 - Gastro-esophageal reflux disease without esophagitis Status: Acute Assessment and Plan: Continue PPI Plan DVT prophylaxis with SCDs GI prophylaxis with PPI Code status full code DS: Summary Hospital Course Hospital Course: 82-year-old woman with a history of GERD, hypertension, hyperlipidemia, and recent question of possible atrial fibrillation.? She noticed a sudden onset mid to left lower abdominal pain about 1-2 hours after eating dinner last night.? She reportedly ate a salad and BLT for dinner.? Denies any nausea or vomiting.? Her abdominal pain continued to worsen throughout the night.? This morning, she woke up and ate toast for breakfast.? She continued to have abdominal pain and called her daughter, who brought her into the ER for evaluation.? In the ER, she did have 1 episode of vomiting and was found to have a temperature of a 100.6? F with a heart rate of 103.? [place] [address], normal lipase, total bilirubin 1.0, AST 526, ALT 119, alk-phos 128.? Lactic acid was found to be 3.3 and came down to 0.9 after IV fluid hydration.? Urinalysis essentially negative.? COVID negative.? CT scan of the abdomen and pelvis showed cholelithiasis with possible mild fat stranding adjacent to the gallbladder which could reflect cholecystitis, large hiatal hernia containing much of the stomach, and questionable wall thickening of the cecum.? The ED physician consulted our service due to the cholelithiasis with possible cholecystitis.? She is now seen in the ER with her daughter.? She lives alone and is independent.? She denies any abdominal pain at this time.? She reports her abdominal pain resolved after receiving the IV morphine in the ER.? She denies ever having this pain in the past.? No previous abdominal surgeries.? Her last colonoscopy with polypectomy was in 2011 and she was recommended to have a repeat colonoscopy in 5 years, but her daughter does not believe this is occurred.? She was also seen by a collar baster about a month ago for possible atrial fibrillation seen on an EKG by her PCP.? They had multiple EKGs in the office and were still unable to rule in or rule out atrial fibrillation, therefore she has had a body builder at home and supposed to be getting an echocardiogram. CT reviewed and showed cholelithiasis with possible mild inflammatory stranding without other findings of cholecystitis. She presented with leukocytosis, elevated LFTs, and fever. Her abdominal pain is the in the LLQ and she is only tender in this ar
== END 2022-02-11 13:32 | disposition home or self-care (01) ==
LOC: ANHED 14:13 → ANH2MED 17:10
PROVIDERS: Internal Medicine; Nurse Practitioner; Admitting Provider Family Medicine; Emergency Provider Emergency Medicine; PCP Nurse Practitioner; Visit Provider Student in an Organized Health Care Education/Training Program
DX: K80.00 Calculus of gallbladder with acute cholecystitis without obstruction (principal); A41.9 Sepsis, unspecified organism; K44.9 Diaphragmatic hernia without obstruction or gangrene; R10.10 Upper abdominal pain, unspecified; I10 Essential (primary) hypertension; E78.5 Hyperlipidemia, unspecified; R94.31 Abnormal electrocardiogram [ECG] [EKG]; N28.1 Cyst of kidney, acquired; K21.9 Gastro-esophageal reflux disease without esophagitis; Z20.822 Contact with and (suspected) exposure to COVID-19; K86.89 Other specified diseases of pancreas; M85.80 Other specified disorders of bone density and structure, unspecified site; K57.30 Diverticulosis of large intestine without perforation or abscess without bleeding; I70.0 Atherosclerosis of aorta; D72.829 Elevated white blood cell count, unspecified; F10.90 Alcohol use, unspecified, uncomplicated; R74.01 Elevation of levels of liver transaminase levels; Z86.010 Personal history of colon polyps; Z79.899 Other long term (current) drug therapy; Z82.49 Family history of ischemic heart disease and other diseases of the circulatory system
CPT/HCPCS: 36415; 51701; 74177; 74183; 76376; 76705; 80053; 81001; 83605; 83690; 83735; 84443; 85025; 85027; 86140; 87040; 93005; 96361; 96365; 96366; 96375; 96376; 99285; A9577; C9113; G0378; J2270; J2405; J2543; J7030; J7040; Q9967; U0003; U0005

== ENCOUNTER 2022-02-18 18:22 | Emergency (ER) | payer OTHER, SELFPAY ==
[2022-02-18] VITALS (22 sets, daily range): BP systolic 107–134; BP diastolic 65–93; PULSE 105–145; RESP 17–24; O2SAT 93–97
--- NOTE | ~2022-02-18 | XR_ITS ---
EXAMINATION: XR chest 1V Exam Date/Time: 02/18/2022 18:55 [facility] HISTORY: Unresponsive EPISODE, RIGHT SIDE WEAKNESS Comparison: CT 02/09/2022, x-ray RIBS 03/18/2013. RESULT: Lines, tubes, and devices: None. Lungs and pleura: Senescent change in bilateral perihilar and lower lung patchy densities, likely re presenting atelectasis. Cardiomediastinal silhouette: Stable. Large hernia. Other: No acute osseous or upper abdominal finding. IMPRESSION: No acute cardiopulmonary process. Reviewed, dictated and finalized at location K. GIACH
--- NOTE | ~2022-02-18 | CT_ITS ---
EXAMINATION: CT brain wo con DATE: 02/18/2022 19:04 INDICATION: Unresponsive . TECHNIQUE: Computed tomography (CT) of the head was performed without intravenous contrast. The mA wa s adjusted according to patient size. Iterative reconstruction technique was employed. The dose-lengt h product was 605.33 mGy-cm. COMPARISON: None FINDINGS: No acute intracranial hemorrhage or extra-axial fluid collection. 5.0 x 3.2 x 4.5 cm mixed density (including foci of fat), calcified likely extra-axial mass in the le ft anterior cranial fossa, with considerable surrounding vasogenic edema in the left hemisphere and 1 4 mm rightward midline shift (measured at point greatest displacement, at the anterior interhemispher ic fissure). No acute ischemic infarct. Unremarkable dural venous sinus attenuation. No acute osseous abnormality. There is erosion/fragmentation of the inner table of the skull at the b ase of the above-described mass which may suggest osseous origin/involvement. The aerated spaces are clear. Mild atrophy and chronic white matter change. 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 Atherosclerotic intracr anial calcification. Bilateral lens replacements. IMPRESSION: 5.0 cm mixed density likely extra-axial anterior cranial fossa. Intracranial mass with considerable a djacent vasogenic edema and 14 mm subfalcine herniation. Consider MRI without and with contrast for f urther evaluation. No CT evidence of acute infarct Results reported telephonically to Dr. Salazar by Dr. Gray at 7:16 PM on 02/18/2022. Reviewed, dictated and finalized at location K. 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 Intracranial ma ss with considerable adjacent vasogenic edema and 14 mm subfalcine herniation. Consider MRI without and with contrast for further evaluation. No CT evidence o f acute infarct Results reported telephonically to Dr. Salazar by Dr. Gray at 7:16 PM on .
--- NOTE | 2022-02-18 18:29 | ECG_ITS ---
Measurements Intervals [place] Rate: 145 P: [place]: 0 QRS: -22 QRSD: 111 T: 84 QT: 307 QTc: 478 Interpretive Statements ATRIAL FIBRILLATION WITH RAPID VENTRICULAR RESPONSE INCOMPLETE LEFT BUNDLE BRANCH BLOCK INFERIOR INFARCT, AGE INDETERMINATE ANTEROSEPTAL INFARCT, AGE INDETERMINATE ST-T WAVE ABNORMALITY IN HIGH LATERAL LEADS- CONSIDER ISCHEMIA BASELINE ARTIFACT- I, II, AVR, AVL, AVF, V6 ABNORMAL ECG COMPARED TO ECG 02/09/2022 14:35:06 ATRIAL FIBRILLATION NOW PRESENT MYOCARDIAL INFARCT FINDING NOW PRESENT Electronically Signed On 02-19-2022 6:58:24 FLARE STITCHER by Farrukh Fregoso D.O.
[2022-02-18 18:39] LABS: Glucose Point of Care 145 mg/dl (65-105)
--- NOTE | 2022-02-18 18:46 | PC.NURSE ---
Patient taken to CT at this time.
--- NOTE | 2022-02-18 18:56 | ED.AMS ---
HPI - Altered Mental Status General Chief Complaint: Altered Mental Status Stated Complaint: altered mental status Time Seen by Provider: 02/18/22 18:33 History of Present Illness HPI narrative: 82-year-old female presenting to the emergency department for evaluation of altered mental status. Patient does have a recent history of atrial fibrillation. Family states that the patient did have some increased confusion over the course of the day. Family member had been at the house and went to get the patient's mail. When he came back and he found the patient sitting in the recliner and had decreased responsiveness. Patient has no prior history of CVA and also no prior history of TIA. In route to the emergency department patient's mental status did begin to improve. Upon arrival in this department patient has no focal weakness. Only states that the patient is more confused than normal. Related Data Home Medications Medication Instructions Recorded Confirmed alendronate 70 mg tablet 70 mg PO WEEKLY 02/09/22 02/09/22 verapamil 180 mg 24 hr 240 mg PO DAILY 02/09/22 02/09/22 capsule,extended release Allergies Allergy/AdvReac Type Severity Reaction Status Date / Time No Known Allergies Allergy Verified 02/09/22 09:58 Review of Systems Review of Systems: CONSTITUTIONAL: Denies fever, chills, or sweats. EYES: Denies visual changes, redness, or discharge. ENT: Denies rhinorrhea, congestion, sore throat, or otalgia. CARDIOVASCULAR: Denies chest pain, palpitations, or edema. RESPIRATORY: Denies cough or dyspnea. GASTROINTESTINAL: Denies abdominal pain, nausea, vomiting, or diarrhea. GENITOURINARY: Denies dysuria or hematuria. SKIN: Denies rash or itching. MUSCULOSKELETAL: Denies back pain, joint pain, or myalgia. NEUROLOGIC: Altered mental status [facility] Past Medical History Medical History (Updated 02/18/22 @ 21:20 by Keyur Salazar MD) Abdominal pain GERD without esophagitis Hyperlipidemia Hypertension Osteopenia started Fosamax 12/2016? Postmenopausal status (age-related) (natural) Vertigo Surgical History Surgical History (Updated 02/09/22 @ 16:28 by Yecenia Patel NP) H/O cataract extraction H/O colonoscopy with polypectomy H/O dilation and curettage History of removal of pigmented skin lesion Family History Family History Mother Family history of heart disease in male family member before age 55 Social History Social History (Updated 02/09/22 @ 16:29 by Yecenia Patel NP) Social History: The patient is and lives alone. She has 2 children. 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 Her daughter is the durable power litigation attorney for healthcare. Code status full code Smoking status: Never smoker Second hand tobacco smoke exposure: No Alcohol intake: never Substance use: never Substance use type: does not use Lack of Transportation: No Lack of Food: Never True Current Housing: I Do Not Have Housing Concerned About Future Housing: No Difficulty Paying Gas/Electric Bills: No Difficulty Paying for Meds: No Currently Unemployed: No Education: Bachelor's Degree Difficulty w/ Childcare or Family Care: No Gender identity (if verbalized by the patient): Female Spiritual care concerns: No Exam Narrative: APPEARANCE: Well appearing, no pain, no distress, well-nourished. HEAD: normocephalic, atraumatic. EYES: PERRLA/EOMI, conjunctivae clear. NOSE: Normal no drainage THROAT: Pharynx clear, no exudate. NECK: Supple. No adenopathy, no masses. RESPIRATORY: Airway patent, respirations nonlabored. Clear to auscultation bilaterally, no rales, rhonchi, wheezing. CARDIOVASCULAR: Atrial fibrillation with rapid ventricular response ABDOMINAL: Soft, nontender, nondistended, normal bowel
[2022-02-18 19:04] LABS: Basophils Percent Auto 0.9 % (0.2-1.2); Eosinophils Percent Auto 0.6 % (0-4.4); Hematocrit 41.5 % (37.0-47.0); Hemoglobin 13.2 g/dL (12.0-15.0); Immature Granulocyte Absolute 0.09 K/mm3 (0.00-0.031); Lymphocytes Absolute Auto 2.86 K/mm3 (0.9-3.2); Mean Corpuscular HGB Conc 31.8 g/dl (32-36); Mean Corpuscular Hemoglobin 29.9 pg (26-34); Mean Corpuscular Volume 94.1 fl (80-100); Mean Platelet Volume 10.2 fl (7.4-10.4); Monocytes Percent Auto 11.5 % (2.6-8.5); Neutrophils Absolute Auto 5.1 K/mm3 (1.3-6.7); Platelet Count Result 291 k/mm3 (150-375); Red Blood Count 4.41 M/mm3 (4.2-5.4); Red Cell Distribution Width 13.5 % (11.5-14.5); White Blood Count 9.2 K/mm3 (4.5-10.0)
[2022-02-18 19:05] LABS: Basophils Absolute Auto 0.1 K/mm3 (0.0-0.1); Eosinophils Absolute Auto 0.1 K/mm3 (0-0.3); Monocytes Absolute Auto 1.1 K/mm3 (0.1-0.6)
--- NOTE | 2022-02-18 19:12 | PC.NURSE ---
Patient care report given to SCARLET Muse. All questions answered at this time and care turned over to SCARLET Muse.
[2022-02-18 19:14] LABS: Alanine Aminotransferase 18 U/L (6-35); Albumin Level 3.8 g/dL (3.5-5.1); Alkaline Phosphatase 97 U/L (38-126); Anion Gap 12 mmol/L (8-16); Aspartate Amino Transferase 27 U/L (14-36); Bilirubin,Total 0.4 mg/dL (0.2-1.3); Blood Urea Nitrogen 11 mg/dL (7-17); Calcium 8.7 mg/dL (8.4-10.2); Carbon Dioxide 21 mmol/L (22-30); Chloride 106 mmol/L (98-107); Estimated Glomerular Filt Rate > 60; Glucose 145 mg/dL (65-110); INR 1.2; Potassium 3.3 mmol/L (3.4-5.0); Prothrombin Time 14.4 Seconds (11.1-14.7); Sodium 139 mmol/L (137-145)
[2022-02-18] MEDS: SODIUM CHLORIDE 0.9% IV 1,000 ML 100 ML IV CONT (19:14)
[2022-02-18] MEDS: dilTIAZem HCl INJ 25 MG/5 ML VIAL 10 MG IV PUSH (19:14)
[2022-02-18 19:15] LABS: Partial Thromboplastin Time 28.8 SECONDS (22.3-36.8)
[2022-02-18] MEDS: dilTIAZem 100 MG/100 ML 100 MG/100 ML BAG IV CONT (19:22)
[2022-02-18 19:26] LABS: Troponin I < 0.012 ng/mL (0.000-0.034)
[2022-02-18 20:02] LABS: Appearance Urine Clear (Clear); Bilirubin Urine Negative (Negative); Blood Urine Trace-intact (Negative); Color Urine Yellow (Yellow); Glucose Urine UA Negative (Negative); Ketones Urine 1+ mg/dL (Negative); Leukocyte Esterase Ur Negative LEU/UL (Negative); Nitrate Urine Negative (Negative); Protein Urine Trace mg/dL (Negative); Specific Grav Ur >= 1.030 (1.001-1.035); Urobilinogen Urine 0.2 mg/dL (<2.0); pH Urine 5.5 (5.0-9.0)
[2022-02-18 20:08] LABS: Bacteria Urine Trace /hpf; Mucus Urine Rare /lpf; WBC Urine 0-3 /hpf
[2022-02-18 20:09] LABS: Add Urine Microscopic? YES
[2022-02-18] MEDS: levETIRAcetam 1000MG/NACL100ML 1,000 MG/100 ML BAG 400 MG IVPB (21:04)
--- NOTE | 2022-02-18 21:14 | PC.NURSE ---
[facility] called and postponed the ETA another 30-40 b/c the truck that was on the way rolled up on a 911 call. They will send the truck lights and sirens as soon as the truck is cleared. [facility] asking if patient can go without IV drip and panel monitor in which case they could send a basic truck sooner. [facility] informed patient cannot go without cm and IV drip.
== END 2022-02-18 22:12 | disposition short-term general hospital (02) ==
PROVIDERS: Emergency Medicine; Emergency Provider Emergency Medicine; PCP Nurse Practitioner
DX: I48.91 Unspecified atrial fibrillation (principal); R41.82 Altered mental status, unspecified; G93.89 Other specified disorders of brain; K21.9 Gastro-esophageal reflux disease without esophagitis; E78.5 Hyperlipidemia, unspecified; I10 Essential (primary) hypertension; M85.80 Other specified disorders of bone density and structure, unspecified site; Z98.49 Cataract extraction status, unspecified eye; I44.7 Left bundle-branch block, unspecified; R94.31 Abnormal electrocardiogram [ECG] [EKG]
CPT/HCPCS: 36415; 51701; 70450; 71045; 80053; 81001; 82948; 84484; 85025; 85610; 85730; 93005; 96365; 96366; 96368; 96375; 99285; J1100; J1953; J7030

== ENCOUNTER 2022-03-09 05:49 | Inpatient (IN) | payer OTHER, SELFPAY ==
[2022-03-09] VITALS (16 sets, daily range): BP systolic 99–153; BP diastolic 62–98; PULSE 74–139; RESP 16–22; TEMP 36.1–36.7; O2SAT 91–97; BMI 22.2
--- NOTE | ~2022-03-09 | CT_ITS ---
EXAMINATION: CT thoracic lumbar wo con DATE: 03/09/2022 06:42 INDICATION: Midline thoracic and lumbar pain with skin bruising. TECHNIQUE: Computed tomography (CT) of the thoracic and lumbar spine was performed without intravenou s contrast. Automated exposure control and iterative reconstruction technique were employed. The dose -length product was 1282.54 mGy-cm. COMPARISON: Thoracic and lumbar spine radiographs dated 03/18/[address] of the abdomen and pelvis d ated 02/09/2022 FINDINGS: Again seen is a moderate kyphosis centered at the thoracolumbar junction. No interval change in chron ic central endplate compression fractures with 20% central vertebral body height loss at T11 and T12. There is an acute appearing L1 compression fracture with 20% anterior to central vertebral body heig ht loss. Mild thoracic and lumbar spondylosis with multilevel mild disc height loss and small central disc protrusion resulting in mild central canal stenosis at T6-T7. Thoracic central canal is otherwi se patent throughout. There are disc bulges at L3-L4 through L5-S1 resulting in mild central canal st enosis at L3-L4 and L4-L5. Multilevel moderate to severe thoracic and mild lumbar facet osteoarthriti s with mild multilevel bilateral neural foraminal stenosis throughout the thoracic and lumbar spine. Calcified right upper lobe nodule consistent with old granulomatous disease. Small bilateral pleural effusions and compressive atelectasis in the dependent left side of both lungs. Scattered mild smooth septal line thickening consistent with mild pulmonary edema. Cardiomegaly with biatrial enlargement. Atherosclerotic coronary artery calcifications. Aortic valve calcification and mild ectasia of the a scending thoracic aorta which measures up to 4.1 cm in maximal diameter. No pathologically enlarged t horacic lymphadenopathy. Minimal edema in the fat immediately adjacent to the L1 compression fracture . Lumbar paravertebral soft tissues are otherwise unremarkable. IMPRESSION: 1. Acute L1 compression fracture with 20% anterior and central vertebral body height loss with no gina nge in additional mild T11 and T12 compression fractures. 2. Moderate kyphosis centered at the thoracolumbar junction with mild thoracic and lumbar spondylosis . 3. Likely congestive heart failure with cardiomegaly, mild pulmonary edema and small bilateral pleura l effusions. 4. Aortic valve calcific location and mildly ectatic ascending thoracic aorta measuring up to 4.1 cm. Reviewed, dictated and finalized at location [facility]. [employer] IMPRESSION: 1. Acute L1 compression fracture with 20% anterior and central vertebral body h eight loss with no change in additional mild T11 and T12 compression fractures. 2. Moderate kyphosis centered at the thoracolumbar junction with mild thoracic and lumbar spondylosis. 3. Likely congestive heart failure with cardiomegaly, mild pulmonary edema and small bilateral pleural effusions. 4. Aortic valve calcific location and mildly ectatic ascending thoracic aorta m easuring up to 4.1 cm.
--- NOTE | 2022-03-09 06:03 | ED.GENADULT ---
HPI - General Adult General Chief complaint: Back Pain/Injury <Meño Torrez MD - Last Filed: 03/09/22 19:11> Stated complaint: LOW BACK PAIN <Meño Torrez MD - Last Filed: 03/09/22 19:11> Time Seen by Provider: 03/09/22 06:02 <Meño Torrez MD - Last Filed: 03/09/22 19:11> History of Present Illness HPI narrative: 82-year-old female presenting ED with intermittent back pain over the last several days. Patient recently discharged from hospital and has been walking around the house with a walker. She has been complaining of intermittent back pain over last several days located in the lower thoracic spine. However last 2 nights this has gotten significantly worse. The patient denies any trauma, fever, chills, neurologic deficits, bowel incontinence, urinary difficulty. <Meño Torrez MD - Last Filed: 03/09/22 19:11> Related Data Home medications: Home Medications Medication Instructions Recorded Confirmed apixaban 5 mg tablet 2.5 mg PO BID 03/07/22 03/09/22 atorvastatin 40 mg tablet 40 mg PO DAILY 03/07/22 03/09/22 empagliflozin 10 mg tablet 10 mg PO DAILY 03/07/22 03/09/22 levetiracetam 500 mg tablet 500 mg PO Q12H 03/07/22 03/09/22 metoprolol tartrate 50 mg tablet 50 mg PO BID 03/07/22 03/09/22 prednisone 5 mg tablet 5 mg PO DAILY 03/07/22 03/09/22 sacubitril 24 mg-valsartan 26 mg 1 tablet PO BID 03/07/22 03/09/22 tablet spironolactone 25 mg tablet 12.5 mg PO DAILY 03/07/22 03/09/22 meclizine 12.5 mg tablet 12.5 mg PO TID PRN Dizziness 03/09/22 03/09/22 <Meño Torrez MD - Last Filed: 03/09/22 19:11> Allergies/adverse reactions: Allergies Allergy/AdvReac Type Severity Reaction Status Date / Time No Known Allergies Allergy Verified 03/07/22 13:32 <Meño Torrez MD - Last Filed: 03/09/22 19:11> Review of Systems Review of Systems: CONSTITUTIONAL: Denies night sweats. EYES: No eye pain ENT: Denies rhinorrhea CARDIOVASCULAR: Denies palpitations RESPIRATORY: Denies hemoptysis GASTROINTESTINAL: Denies hematemesis GENITOURINARY: Denies hematuria. SKIN: Denies rash MUSCULOSKELETAL: Denies myalgia. NEUROLOGIC: Denies weakness. PSYCHIATRIC: Denies delusions <Meño Torrez MD - Last Filed: 03/09/22 19:11> [facility] Past Medical History Medical History: Medical History Abdominal pain Afib Atrial fibrillation with rapid ventricular response Diabetes GERD without esophagitis History of colon polyps Hyperlipidemia Hypertension Osteopenia started Fosamax 12/2016? Postmenopausal status (age-related) (natural) Vertigo <Meño Torrez MD - Last Filed: 03/09/22 19:11> Surgical History Surgical History: Surgical History H/O cataract extraction H/O colonoscopy with polypectomy H/O dilation and curettage History of removal of pigmented skin lesion <Meño Torrez MD - Last Filed: 03/09/22 19:11> Family History Family History: Family History Mother Family history of heart disease in male family member before age 55 <Meño Torrez MD - Last Filed: 03/09/22 19:11> Social History Social History: Social History Social History: The patient is and lives alone. She has 2 children. 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 Her daughter is the durable power energy attorney for healthcare. Code status full code Smoking status: Never smoker Second hand tobacco smoke exposure: No Alcohol intake: never Substance use: never Substance use type: does not use Lack of Transportation: No Lack of Food: Never True Current Housing: I Have Housing Concerned About Future H
[2022-03-09] MEDS: methocarbamoL 750 MG TABLET 1500 MG PO (06:41)
[2022-03-09] MEDS: HYDROcodone/acetaminophen (*CRX) 5-325 MG TABLET 1 TAB PO (06:41)
[2022-03-09 07:45] LABS: Glucose Point of Care 112 mg/dl (65-105)
--- NOTE | 2022-03-09 07:46 | PC.NURSE ---
BS 112
[2022-03-09 08:08] LABS: Basophils Percent Auto 0.2 % (0.2-1.2); Eosinophils Percent Auto 0.1 % (0-4.4); Hemoglobin 12.4 g/dL (12.0-15.0); Immature Granulocyte Absolute 0.11 K/mm3 (0.00-0.031); Immature Granulocyte Percent A 0.7 % (0-0.5); Lymphocytes Absolute Auto 1.84 K/mm3 (0.9-3.2); Lymphocytes Percent Auto 12.1 % (18.3-44.2); Mean Corpuscular HGB Conc 31.8 g/dl (32-36); Mean Corpuscular Hemoglobin 30.4 pg (26-34); Mean Corpuscular Volume 95.6 fl (80-100); Mean Platelet Volume 11.5 fl (7.4-10.4); Monocytes Percent Auto 6.3 % (2.6-8.5); Neutrophils Absolute Auto 12.2 K/mm3 (1.3-6.7); Neutrophils Percent Auto 80.6 % (45.5-73.1); Platelet Count Result 171 k/mm3 (150-375); Red Blood Count 4.08 M/mm3 (4.2-5.4); Red Cell Distribution Width 14.6 % (11.5-14.5); White Blood Count 15.2 K/mm3 (4.5-10.0)
[2022-03-09 08:15] LABS: Alanine Aminotransferase 11 U/L (6-35); Albumin Level 3.1 g/dL (3.5-5.1); Alkaline Phosphatase 98 U/L (38-126); Anion Gap 1 mmol/L (8-16); Aspartate Amino Transferase 14 U/L (14-36); Bilirubin,Total 0.8 mg/dL (0.2-1.3); Blood Urea Nitrogen 18 mg/dL (7-17); Calcium 8.3 mg/dL (8.4-10.2); Carbon Dioxide 23 mmol/L (22-30); Chloride 106 mmol/L (98-107); Estimated Glomerular Filt Rate > 60; Glucose 115 mg/dL (65-110); Potassium 3.6 mmol/L (3.4-5.0); Sodium 130 mmol/L (137-145)
[2022-03-09 08:34] LABS: Erythrocyte Sedimentation Rate 16 mm/hr (0-20)
--- NOTE | 2022-03-09 09:57 | ECG_ITS ---
Measurements Intervals [place] Rate: 132 P: ID: 0 QRS: 15 QRSD: 103 T: 95 QT: 299 QTc: 444 Interpretive Statements ATRIAL FIBRILLATION WITH RAPID VENTRICULAR RESPONSE INDETERMINATE AXIS LOW QRS VOLTAGE IN EXTREMITY LEADS [QRS DEFLECTION < 0.5 mV IN LIMB LEADS] INCOMPLETE LEFT BUNDLE BRANCH BLOCK COMPARED TO ECG 02/18/2022 18:33:41 NO SIGNIFICANT CHANGES Electronically Signed On 03-10-2022 7:26:55 [employer] by Kapil Figueroa M.D.
[2022-03-09] MEDS: SODIUM CHLORIDE 0.9% IV 1,000 ML 999 ML IV CONT (10:07)
[2022-03-09 10:20] LABS: Influenza A QL RT-PCR Negative (Negative); Influenza B QL RT-PCR Negative (Negative); RSV RNA, RT-PCR Negative (Negative); SARS-CoV-2 RNA PCR Negative
[2022-03-09 10:42] LABS: Appearance Urine Clear (Clear); Bilirubin Urine Negative (Negative); Blood Urine Trace-lysed (Negative); Color Urine Yellow (Yellow); Glucose Urine UA 3+ mg/dL (Negative); Ketones Urine 1+ mg/dL (Negative); Leukocyte Esterase Ur Negative LEU/UL (Negative); Nitrate Urine Negative (Negative); Protein Urine Negative (Negative); Urobilinogen Urine 0.2 mg/dL (<2.0)
[2022-03-09 10:46] LABS: Troponin I 0.052 ng/mL (0.000-0.034)
[2022-03-09 10:50] LABS: Mucus Urine Rare /lpf; RBC Urine 0-2 /hpf (0-2); Squamous Epithelial Cell Urine Rare /hpf (Few); WBC Urine 0-3 /hpf
[2022-03-09 11:05] LABS: Add Urine Microscopic? YES
[2022-03-09] MEDS: SODIUM CHLORIDE 0.9% IV 1,000 ML 60 ML IV CONT (11:16)
[2022-03-09] MEDS: DIGOXIN INJ 250 MCG/ML 2 ML AMP (*BKC) 500 MCG IV PUSH (11:16)
--- NOTE | 2022-03-09 12:37 | PM.IMHP ---
H&P: HPI History of Present Illness Date/Time: 03/09/22 12:37 Chief Complaint: Lower back pain Narrative: This is an 82-year-old female patient who is a poor historian. She came in today with acute on chronic lower back pain. She also has a history of atrial fibrillation on anticoagulation. Her white count was noted to be 15.2. Her sodium is 130. Her troponin is 0.052. Her C reactive protein is 3.0. She is found to be negative for influenza A/B RSV and COVID. Thoracic lumbar and spine CT was read as . Acute L1 compression fracture with 20% anterior and central vertebral body height loss with no change in additional CHRONIC mild T11 and T12 compression fractures. The patient was given IV fluids, Zofran, Vicodin, Robaxin, and digoxin. The patient remains in AFib with RVR I did order Lopressor IV. The patient tells me that she is only having pain when she moves. Dr. Cortes was consulted per the ED provider due to elevated cardiac enzymes. Her EKG was read as atrial fibrillation with rapid ventricular response of 132. Probable inferior myocardial infarction probably old. The patient is being admitted to inpatient status on the date of service of 03/09/2022. Review of Systems Review of Systems: See HPI. The patient is a poor historian. All systems reviewed & are unremarkable except as noted in HPI and below Constitutional: Constitutional: Reports as per HPI and Reports no additional constitutional complaints Eyes: Eyes: Reports as per HPI and Reports no additional eye complaints ENT: Reports system reviewed and no additional complaints, except as documented and Reports Normal hearing present Cardiovascular: Cardiovascular: Reports no additional cardiovascular complaints Respiratory: Respiratory: Reports no additional respiratory complaints and Reports no additional respiratory complaints Gastrointestinal: Gastrointestinal: Reports as per HPI and Reports no additional gastrointestinal complaints Musculoskeletal: Musculoskeletal: Reports no additional musculoskeletal complaints Integumentary/Breasts: Skin/Breast: Reports system reviewed and no additional complaints, except as docu and Reports as per HPI Neurologic: Reports system reviewed and no additional complaints, except as documented, Reports as per HPI and Reports Normal hearing present Psychiatric: Psychiatric: Reports no additional psychiatric complaints and Reports as per HPI Endocrine: Endocrine: Reports no additional endocrine complaints Hematologic/Lymphatic: Hematologic/Lymphatic: Reports no additional hematologic/lymphatic complaints Allergic/Immunologic: Allergic/Immunologic: Reports no additional allergic/immunologic complaints [facility] Past Medical History Medical History (Updated 03/09/22 @ 14:43 by Yecenia Patel NP) Abdominal pain Afib Atrial fibrillation with rapid ventricular response Diabetes GERD without esophagitis History of colon polyps Hyperlipidemia Hypertension Osteopenia started Fosamax 12/2016? Postmenopausal status (age-related) (natural) Vertigo Surgical History Surgical History H/O cataract extraction H/O colonoscopy with polypectomy H/O dilation and curettage History of removal of pigmented skin lesion Family History Family History Mother Family history of heart disease in male family member before age 55 Social History Social History (Updated 03/09/22 @ 14:18 by Yecenia Patel NP) Social History: The patient is and lives alone. She has 2 children. 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 Her daughter is the durable power family law attorney for healthcare. Code status full code Smoking status: Never smoker Second hand tobacco smoke exposure: No Alcohol intak
[2022-03-09] MEDS: METOPROLOL TARTRATE INJ 5 MG/5 ML VIAL IV PUSH (13:28)
[2022-03-09 14:12] LABS: Troponin I 0.046 ng/mL (0.000-0.034)
[2022-03-09 15:04] LABS: Digoxin 1.1 ng/mL (0.8-2.0)
--- NOTE | 2022-03-09 15:36 | PM.CNCAR ---
Assessment and Plan Assessment and plan (1) Atrial fibrillation with rapid ventricular response: Code(s): I48.91 - Unspecified atrial fibrillation Status: Acute Assessment and Plan: Paroxysmal atrial fibrillation. Currently in atrial fibrillation with rapid ventricular response. She is asymptomatic. Discontinue digoxin Her home metoprolol tartrate 50 mg b.i.d. has been restarted which I agree with 5mg IV Lopressor p.r.n. Systemic anticoagulation for stroke prophylaxis with apixaban 5mg b.i.d. (does not require dose adjustment, her weight is >60kg) Obtain 2D echocardiogram with Doppler If unable to adequately rate control her with metoprolol would recommend amiodarone. History of Present Illness History of Present Illness Consult date/time: 03/09/22 15:36 Requesting physician: Nicholas Lopez MD Consult reason: atrial fibrillation Reason For Visit: Acute L1 Compression Fracture,A Fib w/RVR Narrative: Ms. Byrd is an 82-year-old female with a past medical history of hypertension, hyperlipidemia, GERD, vertigo and osteopenia. This is a patient who was recently seen in our office by Dr. Gandhi because of concern for atrial fibrillation. Patient did not have any prior history of atrial fibrillation but EKG performed in her primary care doctor's office raised concern for this. EKGs performed in our office could not rule or rule out atrial fibrillation. Therefore, she was placed on a 30 day hospital monitor which she wore for 19 days. The monitor did reveal a 13% atrial fibrillation burden. The patient had not followed up because she was hospitalized at [facility]. She comes to the hospital today with complaint of back pain was found to have a lumbar fracture. In the emergency department she was found to be in atrial fibrillation with rapid ventricular response. She was given digoxin which has helped control her heart rate to some extent. Currently, she remains in atrial fibrillation with a heart rate in the 110-120bpm range. She denies any palpitations, chest pain, shortness of breath. She is in a significant amount of pain because of her back fracture. Review of Systems Constitutional: Constitutional: Denies chills, Denies fever(s), Denies headache(s) and Denies malaise Eyes: Eyes: Denies change in vision ENT: Reports Normal hearing present, Denies dizziness, Denies headache(s) and Denies hearing loss Cardiovascular: Cardiovascular: Denies chest pain, Denies chest pain at rest, Denies chest pain with activity, Denies syncope, Denies leg edema, Denies palpitations, Denies dyspnea and Denies dyspnea on exertion Respiratory: Respiratory: Denies cough, Denies dyspnea, Denies dyspnea on exertion and Denies wheezing Gastrointestinal: Gastrointestinal: Denies abdominal pain, Denies constipation and Denies diarrhea Genitourinary: Genitourinary: Denies hematuria and Denies dysuria Musculoskeletal: Musculoskeletal: Denies myalgias, Denies arthralgias and Denies muscle cramps Integumentary/Breasts: Skin/Breast: Denies wounds Neurologic: Reports Normal hearing present, Denies confusion, Denies dizziness, Denies syncope and Denies headache(s) Psychiatric: Psychiatric: Denies anxiety, Denies confusion and Denies depression Endocrine: Endocrine: Denies cold intolerance, Denies flushing, Denies heat intolerance and Denies palpitations Hematologic/Lymphatic: Hematologic/Lymphatic: Denies easy bleeding and Denies easy bruising Allergic/Immunologic: Allergic/Immunologic: Denies wheezing PMFSH Past Medical History Medical History Abdominal pain Afib Atrial fibrillation with rapid ventricular response Diabetes GERD without esophagitis History of colon polyps Hyperlipidemia Hypertension Osteopenia started Fosamax 12/2016? Postmenopausal status (age-related) (natural) Vertigo Surgical History Surgical History
[2022-03-09 16:45] LABS: Anion Gap 4 mmol/L (8-16); Blood Urea Nitrogen 15 mg/dL (7-17); Calcium 7.8 mg/dL (8.4-10.2); Carbon Dioxide 25 mmol/L (22-30); Chloride 109 mmol/L (98-107); Estimated CRCL calculation 57 ml/min; Estimated Glomerular Filt Rate > 60; Glucose 144 mg/dL (65-110); Potassium 3.9 mmol/L (3.4-5.0); Sodium 138 mmol/L (137-145)
[2022-03-09 17:01] LABS: Troponin I 0.056 ng/mL (0.000-0.034)
[2022-03-09] MEDS: fentaNYL CITRATE INJ (*CRX) 100 MCG/2 ML VIAL 25 MCG IV PUSH ×2 (17:11→21:49)
--- NOTE | 2022-03-09 17:29 | WPDNEUROSGCN ---
Assessment and Plan Assessment and plan (1) Compression fracture: Status: Acute Plan Assessment: This patient presents with the acute onset of back pain. She denies any trauma. However, was able to his Ca fairly acute looking abrasion across her right thoracolumbar paraspinal area. She does not know how this abrasion developed. She appears to be neurologically intact. Recommendations: I am going to arrange for her to have a lumbosacral corset to wear when she is out of bed. Physical therapy and occupational therapy will be useful in helping mobilize her. If she does not respond to bracing in the next week or 2, then vertebroplasty or kyphoplasty may be worthwhile considering. She should have neurologic checks with her vital signs. I should be contacted with any deterioration in her neurologic status. She will need follow-up with neurosurgery in approximately 6 weeks with x-rays of the lumbar spine. I attempted to reach her daughter, Elizabeth, and left a voicemail. Please feel free to contact me at [phone] to discuss this further. 60 minutes were spent in the activities documented in this note. Greater than 50% of the time was spent [id number] with the patient. [facility] Past Medical History Medical History Abdominal pain Afib Atrial fibrillation with rapid ventricular response Diabetes GERD without esophagitis History of colon polyps Hyperlipidemia Hypertension Osteopenia started Fosamax 12/2016? Postmenopausal status (age-related) (natural) Vertigo Surgical History Surgical History H/O cataract extraction H/O colonoscopy with polypectomy H/O dilation and curettage History of removal of pigmented skin lesion Family History Family History Mother Family history of heart disease in male family member before age 55 Social History Social History Social History: The patient is and lives alone. She has 2 children. 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 Her daughter is the durable power waist pleater for healthcare. Code status full code Smoking status: Never smoker Second hand tobacco smoke exposure: No Alcohol intake: never Substance use: never Substance use type: does not use Lack of Transportation: No Lack of Food: Never True Current Housing: I Have Housing Concerned About Future Housing: No Difficulty Paying Gas/Electric Bills: No Difficulty Paying for Meds: No Currently Unemployed: No Education: Bachelor's Degree Difficulty w/ Childcare or Family Care: No Gender identity (if verbalized by the patient): Female Spiritual care concerns: No Meds Home Medications and Allergies Home Medications Medication Instructions Recorded Confirmed Type omeprazole 20 mg capsule,delayed 20 mg PO DAILY #90 caps 10/27/21 03/09/22 Rx release cholecalciferol (vitamin D3) 50 See Rx Instructions .Route 11/14/21 03/09/22 Rx mcg (2,000 unit) tablet (Vitamin .COMPLEX #90 tabs D3) apixaban 5 mg tablet 2.5 mg PO BID 03/07/22 03/09/22 History atorvastatin 40 mg tablet 40 mg PO DAILY 03/07/22 03/09/22 History empagliflozin 10 mg tablet 10 mg PO DAILY 03/07/22 03/09/22 History levetiracetam 500 mg tablet 500 mg PO Q12H 03/07/22 03/09/22 History metoprolol tartrate 50 mg tablet 50 mg PO BID 03/07/22 03/09/22 History prednisone 5 mg tablet 5 mg PO DAILY 03/07/22 03/09/22 History sacubitril 24 mg-valsartan 26 mg 1 tablet PO BID 03/07/22 03/09/22 History tablet spironolactone 25 mg tablet 12.5 mg PO DAILY 03/07/22 03/09/22 History meclizine 12.5 mg tablet 12.5 mg PO TID PRN Dizziness 03/09/22 03/09/22 History [place]
[2022-03-09] MEDS: SACUBITRIL/VALSARTAN 24-26 MG TABLET 1 TAB PO (17:30)
[2022-03-09] MEDS: APIXABAN 2.5 MG TABLET PO (17:30)
[2022-03-09 17:32] LABS: Glucose Point of Care 170 mg/dl (65-105)
[2022-03-09 17:38] LABS: Eosinophil Urine None Seen % (None Seen)
[2022-03-09] MEDS: levETIRAcetam 500 MG TABLET PO (20:09)
[2022-03-09] MEDS: METOPROLOL TARTRATE 50 MG TAB PO (20:09)
[2022-03-09 20:57] LABS: Glucose Point of Care 127 mg/dl (65-105)
[2022-03-10] VITALS (16 sets, daily range): BP systolic 104–146; BP diastolic 58–98; PULSE 90–125; RESP 14–18; TEMP 36–36.6; O2SAT 91–98
[2022-03-10] MEDS: HYDROcodone/acetaminophen (*CRX) 5-325 MG TABLET 1 TAB PO (00:23)
[2022-03-10 05:11] LABS: Basophils Percent Auto 0.3 % (0.2-1.2); Eosinophils Percent Auto 0.4 % (0-4.4); Hematocrit 40.6 % (37.0-47.0); Hemoglobin 12.7 g/dL (12.0-15.0); Immature Granulocyte Absolute 0.09 K/mm3 (0.00-0.031); Immature Granulocyte Percent A 0.8 % (0-0.5); Lymphocytes Absolute Auto 1.96 K/mm3 (0.9-3.2); Lymphocytes Percent Auto 17.8 % (18.3-44.2); Mean Corpuscular HGB Conc 31.3 g/dl (32-36); Mean Corpuscular Hemoglobin 30.2 pg (26-34); Mean Corpuscular Volume 96.4 fl (80-100); Mean Platelet Volume 11.6 fl (7.4-10.4); Monocytes Absolute Auto 0.7 K/mm3 (0.1-0.6); Monocytes Percent Auto 5.9 % (2.6-8.5); Neutrophils Absolute Auto 8.3 K/mm3 (1.3-6.7); Neutrophils Percent Auto 74.8 % (45.5-73.1); Platelet Count Result 190 k/mm3 (150-375); Red Blood Count 4.21 M/mm3 (4.2-5.4); Red Cell Distribution Width 14.6 % (11.5-14.5)
[2022-03-10 05:27] LABS: Anion Gap 4 mmol/L (8-16); Blood Urea Nitrogen 13 mg/dL (7-17); Calcium 7.8 mg/dL (8.4-10.2); Carbon Dioxide 24 mmol/L (22-30); Chloride 111 mmol/L (98-107); Estimated CRCL calculation 49 ml/min; Estimated Glomerular Filt Rate > 60; Glucose 102 mg/dL (65-110); Lactic Acid Reflex 1.4 mmol/L (0.7-2.0); Potassium 3.8 mmol/L (3.4-5.0); Sodium 139 mmol/L (137-145)
[2022-03-10 05:34] LABS: Hemoglobin A1C 6.8 % (<5.7)
[2022-03-10 08:55] LABS: Glucose Point of Care 106 mg/dl (65-105)
[2022-03-10] MEDS: APIXABAN 2.5 MG TABLET PO ×2 (08:57→18:16)
[2022-03-10] MEDS: PANTOPRAZOLE 40 MG TABLET PO (08:58)
[2022-03-10] MEDS: SACUBITRIL/VALSARTAN 24-26 MG TABLET 1 TAB PO (08:58)
[2022-03-10] MEDS: METOPROLOL TARTRATE 50 MG TAB PO (08:58)
[2022-03-10] MEDS: CHOLECALCIFEROL 1,000 UNITS TABLET 1000 UNITS BY MOUTH (08:58)
[2022-03-10] MEDS: EMPAGLIFLOZIN 10 MG TABLET PO (08:58)
[2022-03-10] MEDS: predniSONE 5 MG TABLET PO (08:58)
[2022-03-10] MEDS: ATORVASTATIN 40 MG TABLET PO (08:58)
[2022-03-10] MEDS: levETIRAcetam 500 MG TABLET PO ×2 (08:58→21:58)
[2022-03-10] MEDS: fentaNYL CITRATE INJ (*CRX) 100 MCG/2 ML VIAL 25 MCG IV PUSH ×2 (09:01→13:31)
--- NOTE | 2022-03-10 09:19 | PM.PNCARD ---
Progress Note: A&P Assessment and Plan (1) Atrial fibrillation with rapid ventricular response: Code(s): I48.91 - Unspecified atrial fibrillation Status: Acute Assessment and Plan: Paroxysmal atrial fibrillation. Currently in atrial fibrillation with rapid ventricular response. She is asymptomatic. Metoprolol not providing adequate rate control Will initiate IV amiodarone this morning 5mg IV Lopressor p.r.n. Systemic anticoagulation for stroke prophylaxis with apixaban 5mg b.i.d. (does not require dose adjustment, her weight is >60kg) Echo pending Subjective Date/time seen: 03/10/22 09:19 Cardiology follow up for atrial fibrillation Interval history: She remains in atrial fibrillation this morning with rate ranging mostly from 120-140. She is in a significant amount of pain from her back injury but denies any palpitations, shortness of breath, chest pain Review of Systems Constitutional: Constitutional: Denies chills, Denies fever(s), Denies headache(s) and Denies malaise Eyes: Eyes: Denies change in vision ENT: Reports Normal hearing present, Denies dizziness, Denies headache(s) and Denies hearing loss Cardiovascular: Cardiovascular: Denies chest pain, Denies chest pain at rest, Denies chest pain with activity, Denies syncope, Denies leg edema, Denies palpitations, Denies dyspnea and Denies dyspnea on exertion Respiratory: Respiratory: Denies cough, Denies dyspnea, Denies dyspnea on exertion and Denies wheezing Gastrointestinal: Gastrointestinal: Denies abdominal pain, Denies constipation and Denies diarrhea Genitourinary: Genitourinary: Denies hematuria and Denies dysuria Musculoskeletal: Musculoskeletal: Denies myalgias, Denies arthralgias and Denies muscle cramps Integumentary/Breasts: Skin/Breast: Denies wounds Neurologic: Reports Normal hearing present, Denies confusion, Denies dizziness, Denies syncope and Denies headache(s) Psychiatric: Psychiatric: Denies anxiety, Denies confusion and Denies depression Endocrine: Endocrine: Denies cold intolerance, Denies flushing, Denies heat intolerance and Denies palpitations Hematologic/Lymphatic: Hematologic/Lymphatic: Denies easy bleeding and Denies easy bruising Allergic/Immunologic: Allergic/Immunologic: Denies wheezing Exam Const: General: no acute distress, alert, awake and uncomfortable; No confusion Orientation/consciousness: patient oriented x3 and No confusion HENMT: Head: normal to inspection Eyes: General: appearance normal, both eyes and all related structures Pupils: Equal, round and reactive pupils present Neck: Neck: normal visual inspection, supple and no JVD Carotids: normal carotid upstroke Resp: Effort & Inspection: normal respiratory effort Auscultation: clear to auscultation bilaterally Cardio: Rhythm: abnormal rhythm irregularly irregular Heart sounds: S1 normal heart sound present, S2 normal heart sound present and no murmurs GI: Auscultation: normal bowel sounds Skin: General skin exam: normal color Neuro: General: patient oriented x3 and No confusion Cranial nerves: Yes Equal, round and reactive pupils present and Yes Normal hearing present Extrem: General: normal to inspection Psych: Appearance: grossly normal Mental Status: mental status grossly normal Objective Data Vital Signs Vital Signs: Vital Signs - 24 hr 03/09/22 10:08 03/09/22 11:06 03/09/22 11:16 Temperature Pulse Rate 90 74 139 H Respiratory Rate 21 H 17 Blood Pressure 101/86 118/86 Pulse Oximetry 95 96 Oxygen Delivery 03/09/22 12:13 03/09/22 13:28 03/09/22 13:49 Temperature Pulse Rate 114 H 123 H 97 Respiratory Rate 17 20 Blood Pressure 141/72 H 142/98 H Pulse Oximetry 94 94 Oxygen Delivery 03/09/22 13:54 03/09/22 14:35 03/09/22 14:35 Temperature 36.1 C L Pulse Rate 97 86 86 Respiratory Rate 16 Blood Pressure 153/72 H Pulse Oximetry 91 Oxygen Delivery 03/09/22 16:00 03/09/22
--- NOTE | 2022-03-10 09:42 | PCPTNOTE ---
Attempted PT evaluation. pt brace not present and per RN pt resting at this time. Will follow
[2022-03-10] MEDS: AMIODARONE 150 MG/D5W 100 ML 150 MG/100 ML BAG 600 MG IV CONT (10:35)
[2022-03-10] MEDS: AMIODARONE 360 MG/D5W 200 ML 360 MG/200 ML BAG 33.33 MG IV CONT (11:16)
[2022-03-10 12:11] LABS: Glucose Point of Care 132 mg/dl (65-105)
--- NOTE | 2022-03-10 13:43 | PM.IMPN ---
Progress Note: A&P Assessment and Plan (1) Atrial fibrillation with rapid ventricular response: Code(s): I48.91 - Unspecified atrial fibrillation Status: Acute Assessment and Plan: The patient has chronic AFib on apixaban and metoprolol -noted to have AFib/RVR in ED -the patient was given digoxin and Lopressor in the emergency room with improvement. -RVR persistent despite metoprolol -Amio added with benefit. -Continue apixaban. -Appreciate cards input (2) Acute hyponatremia: Code(s): E87.1 - Hypo-osmolality and hyponatremia Status: Acute Assessment and Plan: Na 130 on admission. Suspect SIADH from pain or related to the spironolactone -started on gently hydration -Na better and normal -stop IV fluids (3) Closed compression fracture of L1 vertebra: Code(s): S32.010A - Wedge compression fracture of first lumbar vertebra, initial encounter for closed fracture Status: Acute Assessment and Plan: CT showing acute L1 compression fracture with chronic T11 and T12 fractures -PT and OT consulted -neurosurgery consulted and appreciate their input -continue current analgesics -lumosacral corset recommended. (4) GERD without esophagitis: Code(s): K21.9 - Gastro-esophageal reflux disease without esophagitis Status: Acute Assessment and Plan: Stable. Continue with omeprazole (5) Hypertension: Qualifiers: Hypertension type: essential hypertension Qualified Code(s): I10 - Essential (primary) hypertension Code(s): I10 - Essential (primary) hypertension Status: Acute Assessment and Plan: Patient's blood pressure was reviewed on 03/10 Blood pressure remains well controlled. Will continue current medications. (6) Congestive heart failure: Code(s): I50.9 - Heart failure, unspecified Status: Acute Assessment and Plan: -type unknown. Her chest x-ray shows cardiomegaly with possible pulmonary congestion. -the patient had been on spironolactone but it is on hold due to the low sodium. -continue with Entresto and metoprolol -follow up on Echo -Cardiology following (7) Diabetes: Code(s): E11.9 - Type 2 diabetes mellitus without complications Status: Acute Assessment and Plan: A1c 6.8. The patient's blood glucose was reviewed on 03/10 Glucose remains well controlled. Continue AccuCheks covering with sliding scale. Hypoglycemia protocol available as needed. Continue to monitor (8) Elevated troponin: Code(s): R77.8 - Other specified abnormalities of plasma proteins Status: Acute Assessment and Plan: Troponins elevated but flat. Probably related to the AFib with RVR. EKG showing no acute findings and overall no significant changes from prior. Follow up on echo results. Subjective Date/time seen: 03/10/22 13:43 Interval history: 82yo female with AFib, DM and CHF here for low back pain. Patient states her back pain is better today. No chest pain. Denies palpitations. No shortness of breath. She has not been out of bed yet today. Heart rate was poorly controlled so amiodarone started today. Exam Narrative: AF 97.2 115/86 95 14 91%ra Gen - NARD Chest - Left basilar crackles otherwise clear CV - irregularly irregular. Telemetry showing atrial fibrillation with heart rate currently controlled. Abd - Soft, NT/ND, Positive BS Ext - No pedal edema Psych - Nml mood buth odd affect Skin - Warm and dry Objective Data Vital Signs Vital Signs: Vital Signs - 24 hr 03/09/22 13:49 03/09/22 13:54 03/09/22 14:35 Temperature Pulse Rate 97 97 86 Respiratory Rate 20 Blood Pressure 142/98 H Pulse Oximetry 94 Oxygen Delivery 03/09/22 14:35 03/09/22 16:00 03/09/22 16:00 Temperature 96.9 F L 98.0 F Pulse Rate 86 113 H 113 H Respiratory Rate 16 20 Blood Pressure 153/72 H 127/76 Pulse Oximetry 91
[2022-03-10 16:51] LABS: Glucose Point of Care 139 mg/dl (65-105)
--- NOTE | 2022-03-10 16:57 | PCCCNOTE ---
Phone call received from Kapil Landeros requesting PT notes to be reviewed. Fax'd available PT notes as requested.
[2022-03-10] MEDS: AMIODARONE 360 MG/D5W 200 ML 360 MG/200 ML BAG 16.67 MG IV CONT (18:15)
[2022-03-10 21:02] LABS: Glucose Point of Care 109 mg/dl (65-105)
[2022-03-11] VITALS (17 sets, daily range): BP systolic 90–147; BP diastolic 53–110; PULSE 94–130; RESP 14–18; TEMP 36.1–36.7; O2SAT 92–98
--- NOTE | 2022-03-11 | ECHO_ITS ---
Patient Info Name: Catalina Byrd Age: 82 years : 1940 Gender: Female Ht: 66 in Wt: 138 lbs BSA: 1.71 m2 HR: 93 bpm BP: 124 / 88 mmHg Heart Rhythm: Atrial Fibrillation Technical Quality: Good Exam Date: 03/11/2022 7:07 AM Exam Location: [facility] Card Pulmonary Patient Status: Inpatient Admit Date: 03/09/2022 Staff Ordering Physician: Yecenia Patel NP Equity Sales Assistant: Samantha Garcia RDCS Attending Provider: Benita Espinal DO Referring Physician: Amanda CRAWFORD; Exam Type: CA echo doppler color flow Study Info Indications I51.7 - Cardiomegaly Complete two-dimensional, color flow and Doppler transthoracic echocardiogram is performed. Summary 1. Complete two-dimensional, color flow and Doppler transthoracic echocardiogram is performed. 2. Normal left ventricular size and systolic contractility. 3. Severely dilated left atrium. 4. Thickened myxomatous appearing mitral valve leaflets with significant posterior leaflet prolapse and moderate regurgitation. 5. Trivial aortic regurgitation. Left Ventricle Left ventricular chamber dimension is normal. Left ventricular systolic function is normal, estimated at 60-65%. The left ventricular diastolic function is indeterminate. Right Ventricle Right ventricular chamber dimension is normal. Left Atria Left atrial chamber dimension is severely enlarged. Right Atria Right atrial chamber dimension is mildly enlarged. Aortic Valve The aortic valve is normal. Pulmonic Valve The pulmonic valve is normal. There is trace pulmonic regurgitation. Mitral Valve The mitral valve has thickened leaflets and posterior prolapse. There is moderate mitral valve regurgitation. Tricuspid Valve The tricuspid valve leaflets are normal. Pericardium/Pleural The pericardium appears normal. Aorta The aortic root size at the sinus of Valsalva is normal. Left Ventricular Outflow Tract Name Value Normal LVOT 2D LVOT Diameter 2.1 cm LVOT Doppler LVOT Peak Gradient 2 mmHg LVOT Mean Gradient 1 mmHg LVOT VTI 12 cm LVOT VTI/AV VTI Ratio 0.6 LVOT Stroke Volume 40 ml LVOT CO 11.6 l/min LVOT CI 6.8 l/min/m2 Pulmonic Valve Name Value Normal PV Doppler PV Peak Gradient 2 mmHg Mitral Valve Name Value Normal MV Doppler MV Peak Gradient 13 mmHg MV Mean Gradient 6 mmHg
[2022-03-11] MEDS: HYDROcodone/acetaminophen (*CRX) 5-325 MG TABLET 1 TAB PO ×2 (05:01→16:53)
[2022-03-11] MEDS: AMIODARONE 360 MG/D5W 200 ML 360 MG/200 ML BAG 16.67 MG IV CONT ×2 (05:10→16:47)
[2022-03-11 05:55] LABS: Albumin Level 3.1 g/dL (3.5-5.1); Anion Gap 6 mmol/L (8-16); Blood Urea Nitrogen 14 mg/dL (7-17); Calcium 7.9 mg/dL (8.4-10.2); Carbon Dioxide 25 mmol/L (22-30); Chloride 105 mmol/L (98-107); Estimated CRCL calculation 49 ml/min; Estimated Glomerular Filt Rate > 60; Glucose 105 mg/dL (65-110); Magnesium 1.9 mg/dL (1.6-2.3); Phosphorus 3.3 mg/dL (2.5-4.5); Potassium 3.8 mmol/L (3.4-5.0); Sodium 136 mmol/L (137-145)
[2022-03-11] MEDS: predniSONE 5 MG TABLET PO (09:42)
[2022-03-11] MEDS: SACUBITRIL/VALSARTAN 24-26 MG TABLET 1 TAB PO (09:42)
[2022-03-11] MEDS: EMPAGLIFLOZIN 10 MG TABLET PO (09:43)
[2022-03-11] MEDS: APIXABAN 2.5 MG TABLET PO ×2 (09:43→16:53)
[2022-03-11] MEDS: ATORVASTATIN 40 MG TABLET PO (09:43)
[2022-03-11] MEDS: CHOLECALCIFEROL 1,000 UNITS TABLET 1000 UNITS BY MOUTH (09:43)
[2022-03-11] MEDS: PANTOPRAZOLE 40 MG TABLET PO (09:43)
[2022-03-11] MEDS: levETIRAcetam 500 MG TABLET PO ×2 (09:43→21:21)
--- NOTE | 2022-03-11 10:15 | PM.IMPN ---
Progress Note: A&P Assessment and Plan (1) Atrial fibrillation with rapid ventricular response: Code(s): I48.91 - Unspecified atrial fibrillation Status: Acute Assessment and Plan: The patient has chronic AFib on apixaban and metoprolol -noted to have AFib/RVR felt related to pain and given digoxin and Lopressor in the ED with improvement. -RVR persistent despite metoprolol so changed to Amio added but still tachycardic at rest -Continue apixaban. -add back low dose metoprolol -Appreciate cards input (2) Acute hyponatremia: Code(s): E87.1 - Hypo-osmolality and hyponatremia Status: Acute Assessment and Plan: Na 130 on admission. Suspect SIADH from pain or related to the spironolactone -started on gently hydration -Na better and remaining normal -follow (3) Closed compression fracture of L1 vertebra: Code(s): S32.010A - Wedge compression fracture of first lumbar vertebra, initial encounter for closed fracture Status: Acute Assessment and Plan: CT showing acute L1 compression fracture with chronic T11 and T12 fractures -PT and OT following -neurosurgery consulted and appreciate their input -continue current analgesics -lumbosacral corset recommended (4) Elevated troponin: Code(s): R77.8 - Other specified abnormalities of plasma proteins Status: Acute Assessment and Plan: Troponins elevated but flat. Probably related to the AFib with RVR. EKG showing no acute findings and overall no significant changes from prior. Follow up on echo results. (5) Hypertension: Qualifiers: Hypertension type: essential hypertension Qualified Code(s): I10 - Essential (primary) hypertension Code(s): I10 - Essential (primary) hypertension Status: Acute Assessment and Plan: Patient's blood pressure was reviewed on 03/11 Blood pressure remains well controlled. Will continue current medications. Monitor to see how she toelrates metoprolol (6) Congestive heart failure: Code(s): I50.9 - Heart failure, unspecified Status: Acute Assessment and Plan: -type unknown. Her chest x-ray shows cardiomegaly with possible pulmonary congestion. -the patient had been on spironolactone but it is on hold due to the low sodium. -continue with Entresto and resume metoprolol -follow up on Echo -Cardiology following (7) Diabetes: Code(s): E11.9 - Type 2 diabetes mellitus without complications Status: Acute Assessment and Plan: A1c 6.8. The patient's blood glucose was reviewed on 03/11 Glucose remains well controlled. Continue AccuCheks covering with sliding scale. Hypoglycemia protocol available as needed. Continue to monitor (8) GERD without esophagitis: Code(s): K21.9 - Gastro-esophageal reflux disease without esophagitis Status: Acute Assessment and Plan: Stable. Continue with omeprazole Subjective Date/time seen: 03/11/22 10:15 Interval history: 82yo female with AFib, DM and CHF here for low back pain. Patient is feeling okay. She slept poorly last night secondary to interruptions. She continues to have the low back pain. No chest pain or abdominal pain. No nausea or vomiting. She was up to the chair yesterday. She is walking to the bathroom with therapy. Her daughter is in the room and she was updated with patient permission. Daughter is requesting halfway placement for patient. Exam Narrative: AF 98.1 123/73 120 14 93% room air Gen - NARD Chest - few basilar rhonchi that improved with deep inspiration, nml RR CV - tachycardic, irregular. Telemetry showing atrial fibrillation with poorly controlled heart rate. Abd - Soft, NT/ND, Positive BS Ext - No pedal edema. 2+ DP bilaterally Psych - Nml mood but odd affect; ST[place] Skin - feet are cool to touch Objective Data Vital Signs Vital Signs: Vital Signs - 24 hr 03/10/22
--- NOTE | 2022-03-11 12:07 | PM.PNCARD ---
Progress Note: A&P Assessment and Plan (1) Atrial fibrillation with rapid ventricular response: Code(s): I48.91 - Unspecified atrial fibrillation Status: Acute Plan 82-year-old lady with atrial fibrillation previous event monitor demonstrated about 13% AF burden she is currently in AF in a persistent fashion. Evaluation at [facility] did apparently demonstrate reduced ejection fraction. A beta-stanley was not providing adequate rate control. Evaluation as a shaver study also demonstrated LV systolic dysfunction possibly tachycardia mediated. She will resume her metoprolol and increase the dose to 50 mg b.i.d. at this time. Hopefully this will provide reasonable rate control along with the amiodarone that has been started yesterday. It is also possible that the amiodarone will convert this patient to sinus rhythm. Will continue to follow with you. Kapil Figueroa MD [facility] Subjective Date/time seen: Date of service: 03/11/22 12:08 Interval history: Follow-up visit in this 82-year-old woman with: Paroxysmal atrial fibrillation during this hospital stay appears to be essentially persistent. She is hospitalized because of a significant compression fracture and lumbar back pain. Patient is resting comfortably actually sleeping in the chair when I came in the room to see her does not have any cardiac complaints. He was started on intravenous amiodarone yesterday to try to provide better rate control. Heart rate is still 110-120. Metoprolol for some reason had been stopped. Notes from design studio consultant at [facility] as well as Dr. Gandhi from our practice have been reviewed. Exam Const: General: comfortable and no acute distress Other: Elderly lady comfortable sitting in the chair sleeping upon awakening does not have any cardiac complaints HENMT: Mouth: Yes dry mucous membranes Eyes: Sclera: sclerae normal Neck: Neck: supple and no JVD Resp: Effort & Inspection: normal respiratory effort Cardio: Rate: tachycardic Rhythm: abnormal rhythm irregularly irregular GI: GI Palp: Yes Soft to palpation Auscultation: normal bowel sounds Skin: General skin exam: normal color Neuro: Other: Alert and oriented Objective Data Vital Signs Vital Signs: Vital Signs - 24 hr 03/10/22 14:28 03/10/22 16:00 03/10/22 18:15 Temperature 36.0 C L Pulse Rate 97 113 H Respiratory Rate 14 Blood Pressure 104/58 L 104/58 L Pulse Oximetry 98 Oxygen Delivery Room Air 03/10/22 14:00 03/10/22 16:00 03/10/22 18:00 Temperature Pulse Rate 93 100 92 Respiratory Rate Blood Pressure Pulse Oximetry Oxygen Delivery 03/10/22 16:00 03/10/22 20:00 03/11/22 00:00 Temperature 36.6 C 36.1 C L Pulse Rate 117 H 119 H Respiratory Rate 16 18 Blood Pressure 119/69 147/110 H Pulse Oximetry 94 94 Oxygen Delivery Room Air 03/11/22 00:00 03/11/22 04:00 03/11/22 05:08 Temperature Pulse Rate 120 H Respiratory Rate Blood Pressure Pulse Oximetry Oxygen Delivery Room Air Room Air 03/11/22 05:10 03/11/22 04:00 03/10/22 20:00 Temperature 36.1 C L Pulse Rate 122 H 114 H 94 Respiratory Rate 18 Blood Pressure 124/88 Pulse Oximetry 97 Oxygen Delivery 03/10/22 22:00 03/11/22 00:00 03/11/22 02:00 Temperature Pulse Rate 98 114 H 113 H Respiratory Rate Blood Pressure Pulse Oximetry Oxygen Delivery 03/11/22 04:00 03/11/22 06:00 03/11/22 08:00 Temperature 36.7 C Pulse Rate 106 H 103 H 120 H Respiratory Rate 14 Blood Pressure 123/73 Pulse Oximetry 93 Oxygen Delivery 03/11/22 11:21 03/11/22 08:00 Temperature Pulse Rate 106 H Respiratory Rate Blood Pressure Pulse Oximetry Oxygen Delivery Room Air Intake/Output Intake/Output: Intake & Output 03/08/22 03/09/22 03/10/22 03/11/22 23:59 23:59 23:59 23:59 Intake Total 1060 1875 690 Output Total 150 1575 650 Balance
[2022-03-11] MEDS: METOPROLOL TARTRATE 25 MG TABLET PO (12:31)
[2022-03-11 13:24] LABS: Glucose Point of Care 219 mg/dl (65-105)
[2022-03-11 16:34] LABS: Glucose Point of Care 149 mg/dl (65-105)
[2022-03-11 20:44] LABS: Glucose Point of Care 188 mg/dl (65-105)
[2022-03-11] MEDS: METOPROLOL TARTRATE 50 MG TAB PO (21:22)
[2022-03-12] VITALS (16 sets, daily range): BP systolic 92–144; BP diastolic 47–90; PULSE 55–130; RESP 12–30; TEMP 36.1–36.7; O2SAT 95–100
[2022-03-12] MEDS: HYDROcodone/acetaminophen (*CRX) 5-325 MG TABLET 1 TAB PO ×2 (00:38→09:16)
[2022-03-12] MEDS: AMIODARONE 360 MG/D5W 200 ML 360 MG/200 ML BAG 16.67 MG IV CONT (03:57)
[2022-03-12 04:59] LABS: Anion Gap 2 mmol/L (8-16); Blood Urea Nitrogen 14 mg/dL (7-17); Calcium 7.8 mg/dL (8.4-10.2); Carbon Dioxide 26 mmol/L (22-30); Chloride 108 mmol/L (98-107); Estimated CRCL calculation 49 ml/min; Estimated Glomerular Filt Rate > 60; Glucose 104 mg/dL (65-110); Magnesium 2.1 mg/dL (1.6-2.3); Potassium 3.3 mmol/L (3.4-5.0); Sodium 136 mmol/L (137-145)
[2022-03-12 08:24] LABS: Glucose Point of Care 101 mg/dl (65-105)
[2022-03-12] MEDS: POTASSIUM CHLORIDE 20 MEQ PACKET (FOR LIQUID) 40 MEQ PO (09:07)
[2022-03-12] MEDS: levETIRAcetam 500 MG TABLET PO ×2 (09:08→20:56)
[2022-03-12] MEDS: SACUBITRIL/VALSARTAN 24-26 MG TABLET 1 TAB PO ×2 (09:08→17:43)
[2022-03-12] MEDS: predniSONE 5 MG TABLET PO (09:08)
[2022-03-12] MEDS: PANTOPRAZOLE 40 MG TABLET PO (09:08)
[2022-03-12] MEDS: CHOLECALCIFEROL 1,000 UNITS TABLET 1000 UNITS BY MOUTH (09:08)
[2022-03-12] MEDS: APIXABAN 2.5 MG TABLET PO ×2 (09:08→17:43)
[2022-03-12] MEDS: EMPAGLIFLOZIN 10 MG TABLET PO (09:09)
[2022-03-12] MEDS: ATORVASTATIN 40 MG TABLET PO (09:09)
[2022-03-12] MEDS: METOPROLOL TARTRATE 50 MG TAB PO ×2 (09:09→20:56)
[2022-03-12 11:53] LABS: Glucose Point of Care 201 mg/dl (65-105)
[2022-03-12] MEDS: INSULIN ASPART (*BKC) 100 UNITS/ML SUB-Q (13:17)
--- NOTE | 2022-03-12 13:32 | ECG_ITS ---
Measurements Intervals [place] Rate: P: AL: QRS: QRSD: T: QT: QTc: Interpretive Statements Sinus rhythm INCOMPLETE LEFT BUNDLE BRANCH BLOCK Electronically Signed On 03-14-2022 16:14:57 [employer] by Tash Gandhi M.D.
--- NOTE | 2022-03-12 14:34 | PM.PNCARD ---
Progress Note: A&P Assessment and Plan (1) Atrial fibrillation with rapid ventricular response: Code(s): I48.91 - Unspecified atrial fibrillation Status: Acute Plan 82-year-old lady with paroxysmal atrial fibrillation. Started on amiodarone treatment over the weekend because of persistent AF. She has now medically converted to sinus rhythm. IV has been. She will start a maintenance dose of oral amiodarone. All keep the metoprolol going for now and observe her heart rate. Systemic anticoagulation with apixaban is in place. Kapil Figueroa MD [facility] Subjective Date/time seen: Date of service: 03/12/22 14:34 Interval history: Follow-up visit in this 82-year-old woman with: Paroxysmal atrial fibrillation which became more persistent during this hospitalization. Following loading with IV amiodarone for couple of days she has converted to sinus rhythm/sinus bradycardia. IV amiodarone has been discontinued. Today she is resting comfortably in bed does not have any cardiac complaints. Still reporting some mid to low back pain that is problematic if she tries to move. Exam Const: General: comfortable and no acute distress Other: Pleasant elderly lady sleeping with the head of the bed elevated about 30? when I came in the room to see her. HENMT: Mouth: Yes moist mucous membranes Eyes: Sclera: sclerae normal Neck: Neck: supple Resp: Effort & Inspection: normal respiratory effort Auscultation: clear to auscultation bilaterally Cardio: Rate: regular rate Rhythm: regular rhythm GI: GI Palp: Yes Soft to palpation Auscultation: normal bowel sounds Skin: General skin exam: normal color Neuro: Other: Alert and oriented x3 Objective Data Vital Signs Vital Signs: Vital Signs - 24 hr 03/11/22 16:00 03/11/22 16:47 03/11/22 16:47 Temperature 36.6 C Pulse Rate 94 96 96 Respiratory Rate 16 Blood Pressure 90/53 L Pulse Oximetry 92 Oxygen Delivery 03/11/22 16:00 03/11/22 18:00 03/11/22 16:00 Temperature Pulse Rate 96 106 H Respiratory Rate Blood Pressure Pulse Oximetry Oxygen Delivery Room Air 03/11/22 20:00 03/11/22 21:22 03/12/22 00:00 Temperature 36.5 C 36.2 C L Pulse Rate 95 101 H 97 Respiratory Rate 18 18 Blood Pressure 108/67 116/75 Pulse Oximetry 98 97 Oxygen Delivery 03/11/22 20:00 03/12/22 00:00 03/11/22 20:00 Temperature Pulse Rate 119 H Respiratory Rate Blood Pressure Pulse Oximetry Oxygen Delivery Room Air Room Air 03/11/22 22:00 03/12/22 00:00 03/12/22 02:00 Temperature Pulse Rate 97 96 91 Respiratory Rate Blood Pressure Pulse Oximetry Oxygen Delivery 03/12/22 04:00 03/12/22 04:00 03/12/22 04:00 Temperature 36.4 C Pulse Rate 105 H 110 H Respiratory Rate 18 Blood Pressure 141/73 H Pulse Oximetry 100 Oxygen Delivery Room Air 03/12/22 06:00 03/12/22 08:00 03/12/22 09:09 Temperature 36.3 C L Pulse Rate 112 H 115 H 130 H Respiratory Rate 30 H Blood Pressure 144/90 H Pulse Oximetry 99 Oxygen Delivery 03/12/22 08:00 03/12/22 08:00 03/12/22 10:00 Temperature Pulse Rate 128 H 110 H Respiratory Rate Blood Pressure Pulse Oximetry Oxygen Delivery Room Air 03/12/22 12:00 03/12/22 12:00 Temperature 36.1 C L Pulse Rate 55 L 57 L Respiratory Rate 16 Blood Pressure 92/47 L Pulse Oximetry 95 Oxygen Delivery Intake/Output Intake/Output: Intake & Output 03/09/22 03/10/22 03/11/22 03/12/22 23:59 23:59 23:59 23:59 Intake Total 1060 1875 1510 450 Output Total 150 1575 1350 870 Balance 910 300 160 -420 Meds/Results Medications: Active Medications Generic Name Dose Route Start Last Admin Trade Name Freq PRN Reason Stop Dose Admin Acetaminophen 650 mg 03/11/22 10:28 Acetaminophen 325 Mg Tablet PO Q6H PRN Pain Rated 5 or Less Hydrocodone Bitart/Acetaminophen 1 tab 03/11/22 10:29 03/12/22 09:16
[2022-03-12 16:37] LABS: Glucose Point of Care 144 mg/dl (65-105)
[2022-03-12] MEDS: AMIODARONE HCL 200 MG TABLET PO (17:43)
--- NOTE | 2022-03-12 19:01 | PM.IMPN ---
Progress Note: A&P Assessment and Plan (1) Atrial fibrillation with rapid ventricular response: Code(s): I48.91 - Unspecified atrial fibrillation Status: Acute Assessment and Plan: The patient has AFib on apixaban and metoprolol -noted to have AFib/RVR felt related to pain and given digoxin and Lopressor in the ED with improvement. -RVR persistent despite metoprolol so Amio added and metoprolol stopped -still tachycardic at rest so metoprolol added back -she converted to NSR -Echo showing EF 60-65% with indeterminate diastolic dysfunction and MVP and moderate MR. LA severely dilated so may not maintain NSR. -Continue apixaban. -Continue oral Amiodarone -Appreciate cards input (2) Acute hyponatremia: Code(s): E87.1 - Hypo-osmolality and hyponatremia Status: Acute Assessment and Plan: Na 130 on admission. Suspect SIADH from pain or related to the spironolactone -started on gently hydration -Na better and remaining normal -IV fluids off now -follow (3) Closed compression fracture of L1 vertebra: Code(s): S32.010A - Wedge compression fracture of first lumbar vertebra, initial encounter for closed fracture Status: Acute Assessment and Plan: CT showing acute L1 compression fracture with chronic T11 and T12 fractures -PT and OT following -neurosurgery consulted and appreciate their input -continue current analgesics -lumbosacral corset recommended and is at bedside (4) Elevated troponin: Code(s): R77.8 - Other specified abnormalities of plasma proteins Status: Acute Assessment and Plan: Troponins elevated but flat. Probably related to the AFib with RVR. EKG showing no acute findings and overall no significant changes from prior. Echo as above (5) Hypertension: Qualifiers: Hypertension type: essential hypertension Qualified Code(s): I10 - Essential (primary) hypertension Code(s): I10 - Essential (primary) hypertension Status: Acute Assessment and Plan: Patient's blood pressure was reviewed on 03/12 Blood pressure remains well controlled. Will continue current medications. (6) Congestive heart failure: Code(s): I50.9 - Heart failure, unspecified Status: Acute Assessment and Plan: -Chronic diastolic CHF. Her chest x-ray shows cardiomegaly with possible pulmonary congestion. -the patient had been on spironolactone but it is on hold due to the low sodium. -continue with Entresto and metoprolol -Echo as above -Cardiology following (7) Diabetes: Code(s): E11.9 - Type 2 diabetes mellitus without complications Status: Acute Assessment and Plan: A1c 6.8. The patient's blood glucose was reviewed on 03/12 Glucose remains reasonably well controlled. Continue AccuCheks covering with sliding scale. Hypoglycemia protocol available as needed. Continue to monitor (8) GERD without esophagitis: Code(s): K21.9 - Gastro-esophageal reflux disease without esophagitis Status: Acute Assessment and Plan: Stable. Continue with omeprazole Subjective Date/time seen: 03/12/22 19:01 Interval history: 82yo female with AFib, DM and CHF here for low back pain. Up walking to the bathroom. No CP or SOB. Feels better. Exam Narrative: AF 97.2 101/53 63 12 96% room air Gen - NARD Chest - distant,clear BS CV - RRR. Telemetry showing NSR now Abd - Soft, NT/ND, Positive BS Ext - No pedal edema Psych - Nml mood but odd affect; [place] Skin - warm and dry Objective Data Vital Signs Vital Signs: Vital Signs - 24 hr 03/11/22 20:00 03/11/22 21:22 03/12/22 00:00 Temperature 97.7 F 97.2 F L Pulse Rate 95 101 H 97 Respiratory Rate 18 18 Blood Pressure 108/67 116/75 Pulse Oximetry 98 97 Oxygen Delivery 03/11/22 20:00 03/12/22 00:00 03/11/22 20:00 Temperature Pulse Rate 119 H Respiratory Rate Blood Pressure
[2022-03-12 20:19] LABS: Glucose Point of Care 148 mg/dl (65-105)
[2022-03-13] VITALS (12 sets, daily range): BP systolic 124–132; BP diastolic 55–74; PULSE 56–103; RESP 18; TEMP 36.5–36.9; O2SAT 97–99
[2022-03-13] MEDS: HYDROcodone/acetaminophen (*CRX) 5-325 MG TABLET 1 TAB PO ×3 (02:19→15:31)
[2022-03-13 04:54] LABS: Anion Gap 2 mmol/L (8-16); Blood Urea Nitrogen 13 mg/dL (7-17); Calcium 7.7 mg/dL (8.4-10.2); Carbon Dioxide 27 mmol/L (22-30); Chloride 109 mmol/L (98-107); Estimated CRCL calculation 43 ml/min; Estimated Glomerular Filt Rate > 60; Glucose 96 mg/dL (65-110); Magnesium 2.1 mg/dL (1.6-2.3); Potassium 3.6 mmol/L (3.4-5.0); Sodium 138 mmol/L (137-145)
[2022-03-13] MEDS: APIXABAN 2.5 MG TABLET PO ×2 (08:24→16:04)
[2022-03-13] MEDS: SACUBITRIL/VALSARTAN 24-26 MG TABLET 1 TAB PO ×2 (08:24→16:03)
[2022-03-13] MEDS: EMPAGLIFLOZIN 10 MG TABLET PO (08:24)
[2022-03-13] MEDS: ATORVASTATIN 40 MG TABLET PO (08:24)
[2022-03-13] MEDS: PANTOPRAZOLE 40 MG TABLET PO (08:25)
[2022-03-13] MEDS: CHOLECALCIFEROL 1,000 UNITS TABLET 1000 UNITS BY MOUTH (08:25)
[2022-03-13] MEDS: levETIRAcetam 500 MG TABLET PO (08:25)
[2022-03-13] MEDS: METOPROLOL TARTRATE 50 MG TAB PO (08:25)
[2022-03-13] MEDS: predniSONE 5 MG TABLET PO (08:26)
--- NOTE | 2022-03-13 09:13 | PM.PNCARD ---
Progress Note: A&P Assessment and Plan (1) Atrial fibrillation with rapid ventricular response: Code(s): I48.91 - Unspecified atrial fibrillation Status: Acute Assessment and Plan: Paroxysmal atrial fibrillation. Converted to sinus rhythm over the weekend on amiodarone. She remains in sinus rhythm this morning. Continue maintenance dose of amiodarone 200 mg daily Systemic anticoagulation for stroke prophylaxis with apixaban 5mg b.i.d. (does not require dose adjustment, her weight is >60kg) Echo Showed normal LV size and systolic function. She does have a severely dilated left atrium. Significant mitral posterior leaflet prolapse and moderate regurgitation Cardiology will sign off. Please not hesitate to contact us with any questions. Subjective Date/time seen: 03/13/22 09:13 cardiology follow-up for atrial fibrillation Interval history: She converted to sinus rhythm over the weekend. No chest pain, palpitations. Her back pain has significantly improved. States that she only has pain when she moves in certain positions in the pain lasts about 1 minute. She is eager to be discharged. Review of Systems Constitutional: Constitutional: Denies chills, Denies fever(s), Denies headache(s) and Denies malaise Eyes: Eyes: Denies change in vision ENT: Reports Normal hearing present, Denies dizziness, Denies headache(s) and Denies hearing loss Cardiovascular: Cardiovascular: Denies chest pain, Denies chest pain at rest, Denies chest pain with activity, Denies syncope, Denies leg edema, Denies palpitations, Denies dyspnea and Denies dyspnea on exertion Respiratory: Respiratory: Denies cough, Denies dyspnea, Denies dyspnea on exertion and Denies wheezing Gastrointestinal: Gastrointestinal: Denies abdominal pain, Denies constipation and Denies diarrhea Genitourinary: Genitourinary: Denies hematuria and Denies dysuria Musculoskeletal: Musculoskeletal: Denies myalgias, Denies arthralgias and Denies muscle cramps Integumentary/Breasts: Skin/Breast: Denies wounds Neurologic: Reports Normal hearing present, Denies confusion, Denies dizziness, Denies syncope and Denies headache(s) Psychiatric: Psychiatric: Denies anxiety, Denies confusion and Denies depression Endocrine: Endocrine: Denies cold intolerance, Denies flushing, Denies heat intolerance and Denies palpitations Hematologic/Lymphatic: Hematologic/Lymphatic: Denies easy bleeding and Denies easy bruising Allergic/Immunologic: Allergic/Immunologic: Denies wheezing Exam Const: General: comfortable, no acute distress, alert and awake; No confusion Orientation/consciousness: patient oriented x3 and No confusion Other: Pleasant elderly lady sitting in bed with HOB at 30 degrees HENMT: Head: normal to inspection Mouth: Yes moist mucous membranes and Yes dry mucous membranes Eyes: General: appearance normal, both eyes and all related structures Sclera: sclerae normal Pupils: Equal, round and reactive pupils present Neck: Neck: normal visual inspection, supple and no JVD Carotids: normal carotid upstroke Resp: Effort & Inspection: normal respiratory effort Auscultation: clear to auscultation bilaterally Cardio: Rate: regular rate Rhythm: regular rhythm Heart sounds: S1 normal heart sound present, S2 normal heart sound present and no murmurs Peripheral pulses: Peripheral pulses 2+ throughout GI: Auscultation: normal bowel sounds Skin: General skin exam: normal color Neuro: General: patient oriented x3 and No confusion Cranial nerves: Yes Equal, round and reactive pupils present and Yes Normal hearing present Other: Alert and oriented x3 Extrem: General: normal to inspection Psych: Appearance: grossly normal Mental Status: mental status grossly normal Objective Data Vital Signs Vital Signs: Vital Signs - 24 hr 03/12/22 10:00 03/12/22 12:00 03/12/22 12:00 Temperature 36.1 C L Pulse Rate 110 H 55 L 57 L Respiratory Rate 16 Blood P
[2022-03-13] MEDS: AMIODARONE HCL 200 MG TABLET PO (09:32)
[2022-03-13] MEDS: MAGNESIUM HYDROXIDE SUSP 30 ML UDC PO (11:27)
[2022-03-13] MEDS: polyethylene glycoL 3350 17 GM POWD.PACK PO (11:27)
[2022-03-13 12:20] LABS: Glucose Point of Care 130 mg/dl (65-105)
--- NOTE | 2022-03-13 15:05 | PM.DS ---
DS: Admitting Diagnosis Discharge Date 03/13/22 Admitting Diagnosis Back pain DS: Discharge Diagnosis Discharge Diagnosis (1) Atrial fibrillation with rapid ventricular response: Code(s): I48.91 - Unspecified atrial fibrillation Status: Acute (2) Acute hyponatremia: Code(s): E87.1 - Hypo-osmolality and hyponatremia Status: Acute (3) Closed compression fracture of L1 vertebra: Code(s): S32.010A - Wedge compression fracture of first lumbar vertebra, initial encounter for closed fracture Status: Acute (4) Elevated troponin: Code(s): R77.8 - Other specified abnormalities of plasma proteins Status: Acute (5) Hypertension: Qualifiers: Hypertension type: essential hypertension Qualified Code(s): I10 - Essential (primary) hypertension Code(s): I10 - Essential (primary) hypertension Status: Acute (6) Congestive heart failure: Code(s): I50.9 - Heart failure, unspecified Status: Acute (7) Diabetes: Code(s): E11.9 - Type 2 diabetes mellitus without complications Status: Acute (8) GERD without esophagitis: Code(s): K21.9 - Gastro-esophageal reflux disease without esophagitis Status: Acute DS: Summary Hospital Course Reason for hospitalization: 82yo female with AFib, DM? and CHF here for low back pain and found to have AFib/RVR. Please see H&P for details Hospital Course: The patient presented with acute on chronic lower back pain. The patient has a hx of AFib on apixaban and metoprolol. She was recently cardioverted. She had tachycardia felt related to pain and given digoxin and Lopressor in the ED with temporary improvement. Tachycardia persistent despite metoprolol so Amiodarone added. We continued her Eliquis. She converted to NSR. Troponins elevated but flat.? Probably related to the AFib with RVR.? EKG showing no acute findings and overall no significant changes from prior.? Echo showing EF 60-65% with indeterminate diastolic dysfunction and MVP and moderate MR. LA severely dilated so may not maintain NSR. Na was 130 on admission. Suspect SIADH from pain and/or related to the spironolactone. She was rehydrated with resolution of the hyponatremia. On admission, CT showing acute L1 compression fracture with chronic T11 and T12 fractures. Neurosurgery was consulted and a lumbosacral corset recommended and was at bedside. She worked with PT/OT. She did well with therapy. She was able to be discharged to rehab facility on 03/13/22. Status at Discharge Cognitive/behavioral status at discharge: Stable Time Spent with Patient Time attestation: Total time spent providing and/or coordinating discharge services: 35 minutes Time spent: Greater than 30 minutes Exam Narrative: AF 97.7 132/59 72 18 97% room air Gen - NARD Chest - CTA bilaterally CV - RRR. S1/S2 Abd - Soft, NT/ND, Positive BS Ext - No pedal edema Psych - Nml mood but odd affect; [place] Skin - warm and dry DS: Data Data Completed and Pending Labs on day of discharge: Labs from last 24 hours 03/13/22 03/13/22 03/12/22 11:57 04:05 20:00 Sodium 138 Potassium 3.6 Chloride 109 H Carbon Dioxide 27 Anion Gap 2 L BUN 13 Creatinine 0.80 Estim Creat Clear Calc 43 Estimated GFR > 60 Glucose 96 POC Capillary Glucose 130 H 148 H Calcium 7.7 L Magnesium 2.1 03/12/22 16:22 Sodium Potassium Chloride Carbon Dioxide Anion Gap BUN Creatinine Estim Creat Clear Calc Estimated GFR Glucose POC Capillary Glucose 144 H Calcium Magnesium Discharge Plan Discharge Attending physician on discharge: Bebo Jones Consulting providers: Jose Cortes ; Kapil Luque Discharging Clinician: Bbeo Jones Anticipated Discharge Date/Time: 03/13/22 15:16 Patient Disposition: SNF Activity: as tolerated Diet: diabetic Discharge Instructions: Us
[2022-03-13] MEDS: BISACODYL 10 MG SUPPOSITORY RECTAL (15:32)
[2022-03-13 15:56] LABS: EDCOVIDSCREEN Negative (Negative)
[2022-03-13 17:05] LABS: Glucose Point of Care 93 mg/dl (65-105)
[2022-03-13 20:11] LABS: Osmolality, Urine 404 mOsm/kg (50-1200)
== END 2022-03-13 17:45 | DRG 309 ==
LOC: ANHED 10:33 → ANHIMU 03-10 14:13
PROVIDERS: Emergency Medicine; Nurse Practitioner; Admitting Provider Student in an Organized Health Care Education/Training Program; Emergency Provider Emergency Medicine; PCP Family Medicine; Visit Provider Internal Medicine
DX: I48.19 Other persistent atrial fibrillation (principal); E22.2 Syndrome of inappropriate secretion of antidiuretic hormone; I50.32 Chronic diastolic (congestive) heart failure; S32.010A Wedge compression fracture of first lumbar vertebra, initial encounter for closed fracture; S30.810A Abrasion of lower back and pelvis, initial encounter; X58.XXXA Exposure to other specified factors, initial encounter; Z20.822 Contact with and (suspected) exposure to COVID-19; R00.0 Tachycardia, unspecified; I11.0 Hypertensive heart disease with heart failure; E11.9 Type 2 diabetes mellitus without complications; R77.8 Other specified abnormalities of plasma proteins; K21.9 Gastro-esophageal reflux disease without esophagitis; E78.5 Hyperlipidemia, unspecified; M85.80 Other specified disorders of bone density and structure, unspecified site; D72.829 Elevated white blood cell count, unspecified; Z79.01 Long term (current) use of anticoagulants; Z98.49 Cataract extraction status, unspecified eye
CPT/HCPCS: 36415; 51701; 72128; 72131; 80048; 80053; 80069; 80162; 81001; 82948; 83036; 83605; 83735; 83935; 84443; 84484; 85025; 85652; 85999; 86140; 87426; 87637; 93005; 93306; 97110; 97165; 97530; 97535; 99285; A9270; C9803; J0282; J1160; J1815; J3010; J7030; J7512

== ENCOUNTER 2022-03-20 19:57 | Observation (INO) | payer OTHER, SELFPAY ==
[2022-03-20] VITALS (19 sets, daily range): BP systolic 112–138; BP diastolic 59–67; PULSE 55–74; RESP 14–27; TEMP 36.4; O2SAT 92–99
--- NOTE | ~2022-03-20 | XR_ITS ---
XR chest 1V DATE: 03/20/2022 21:10 INDICATION: Altered mental state. History of hypertension. Atrial fibrillation with rapid ventricular response. Diabetes mellitus. TECHNIQUE: AP chest COMPARISON: 02/18/2022 AP chest FINDINGS: Cardiomegaly. There is aortic arch calcification and aortic unfolding. Large hiatal hernia. There is suggestion of bilateral lower lung infiltrate and/or atelectasis, greater on the left. The lungs otherwise appear clear. No pulmonary vascular congestion or pleural effusion or pneumothorax is detected. Bilateral glenohumeral osteoarthritis. There is suggestion of bilateral rotator cuff atrophy. Osteopenia. Levoscoliosis and degenerative change of the thoracic and lumbar spine. IMPRESSION: Cardiomegaly Suggestion of bilateral lower lung infiltrate or atelectasis, greater on the left Aortic atherosclerosis Large hiatal hernia Reviewed, dictated and finalized at location [facility]. 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
--- NOTE | ~2022-03-20 | CT_ITS ---
EXAMINATION: CT brain wo con DATE: 03/20/2022 20:58 INDICATION: Altered mental state. Patient overdosed on home medications. History of hypertension, sei zures, brain mass. TECHNIQUE: Computed tomography (CT) of the head was performed without intravenous contrast. The mA wa s adjusted according to patient size. Iterative reconstruction technique was employed. Exam dose: 98 3.67 mGy-cm total exam DLP. COMPARISON: 02/18/2022 CT brain FINDINGS: Again noted is a heterogeneous left frontal likely extra-axial mass with prominent calcific ations and some foci of fat, with very prominent surrounding vasogenic edema, measuring up to approxi mately 3.2 x 5 cm. There is some effacement of the left frontal horn and mild approximately 8 mm rightward midline shift in the frontal region, but considerably diminished compared to 02/18/2022. No intracranial hemorrhage. Bilateral carotid siphon internal carotid artery calcifications. Bilateral vertebral artery and basil ar artery calcifications. There is nonspecific diminished attenuation of the cerebral white matter, l ikely due to chronic small vessel ischemic changes. No subdural or epidural hematoma is noted. No fracture or bone destruction of the cranial vault. Included paranasal sinuses and mastoid air cell s are unremarkable. 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 Reviewed, dictated and finalized at location [facility]. 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
--- NOTE | 2022-03-20 20:40 | ECG_ITS ---
Measurements Intervals [place] Rate: 62 P: -42 MT: 128 QRS: -23 QRSD: 111 T: 43 QT: 418 QTc: 425 Interpretive Statements SINUS RHYTHM WITH OCCASIONAL SUPRAVENTRICULAR PREMATURE COMPLEXES POSSIBLE ANTERIOR MYOCARDIAL INFARCTION , OF INDETERMINATE AGE [30 ms Q WAVE IN V3/V4, OR R < 0.2 mV IN V4] INFERIOR MYOCARDIAL INFARCTION , PROBABLY OLD [40+ ms Q WAVE AND/OR ST/T ABNORMALITY IN II/aVF] ABNORMAL ECG COMPARED TO ECG 03/09/2022 10:11:27 SINUS RHYTHM NOW PRESENT MYOCARDIAL INFARCT FINDING NOW PRESENT Electronically Signed On 03-21-2022 15:30:48 [employer] by Huseyin Valadez M.D.
[2022-03-20] MEDS: SODIUM CHLORIDE 0.9% IV 1,000 ML 999 ML IV CONT (21:08)
[2022-03-20 21:19] LABS: Basophils Percent Auto 0.3 % (0.2-1.2); Hematocrit 45.9 % (37.0-47.0); Hemoglobin 14.1 g/dL (12.0-15.0); Immature Granulocyte Absolute 0.08 K/mm3 (0.00-0.031); Lymphocytes Absolute Auto 0.53 K/mm3 (0.9-3.2); Lymphocytes Percent Auto 6.8 % (18.3-44.2); Mean Corpuscular HGB Conc 30.7 g/dl (32-36); Mean Corpuscular Hemoglobin 29.4 pg (26-34); Mean Corpuscular Volume 95.8 fl (80-100); Mean Platelet Volume 10.7 fl (7.4-10.4); Monocytes Absolute Auto 0.4 K/mm3 (0.1-0.6); Monocytes Percent Auto 4.8 % (2.6-8.5); Neutrophils Absolute Auto 6.8 K/mm3 (1.3-6.7); Neutrophils Percent Auto 87.1 % (45.5-73.1); Platelet Count Result 351 k/mm3 (150-375); Red Blood Count 4.79 M/mm3 (4.2-5.4); Red Cell Distribution Width 14.7 % (11.5-14.5); White Blood Count 7.8 K/mm3 (4.5-10.0)
[2022-03-20 21:36] LABS: INR 1.2; Partial Thromboplastin Time 27.4 SECONDS (22.3-36.8); Prothrombin Time 14.8 Seconds (11.1-14.7)
[2022-03-20 21:38] LABS: Lactic Acid Reflex 1.8 mmol/L (0.7-2.0)
[2022-03-20 21:39] LABS: Alanine Aminotransferase 10 U/L (6-35); Albumin Level 3.9 g/dL (3.5-5.1); Alkaline Phosphatase 152 U/L (38-126); Anion Gap 4 mmol/L (8-16); Aspartate Amino Transferase 21 U/L (14-36); Bilirubin,Total 0.7 mg/dL (0.2-1.3); Blood Urea Nitrogen 30 mg/dL (7-17); Calcium 8.6 mg/dL (8.4-10.2); Carbon Dioxide 30 mmol/L (22-30); Chloride 101 mmol/L (98-107); Estimated Glomerular Filt Rate > 60; Glucose 171 mg/dL (65-110); Potassium 4.9 mmol/L (3.4-5.0); Sodium 135 mmol/L (137-145)
[2022-03-20 21:48] LABS: Troponin I < 0.012 ng/mL (0.000-0.034)
[2022-03-20 22:10] LABS: Glucose Point of Care 146 mg/dl (65-105)
[2022-03-20 22:41] LABS: Add Urine Microscopic? YES; Appearance Urine Clear (Clear); Bilirubin Urine Negative (Negative); Blood Urine Trace-Intact (Negative); Color Urine Light Yellow (Yellow); Glucose Urine UA 3+ mg/dL (Negative); Ketones Urine Negative (Negative); Leukocyte Esterase Ur Negative LEU/UL (Negative); Nitrate Urine Negative (Negative); Protein Urine Negative (Negative); pH Urine 5.5 (5.0-9.0)
[2022-03-20 22:49] LABS: Bacteria Urine 1+ /hpf; Budding Yeast Urine Present /hpf; Mucus Urine Rare /lpf; Squamous Epithelial Cell Urine Rare /hpf (Few); WBC Urine 0-3 /hpf
--- NOTE | 2022-03-20 23:15 | ED.GENADULT ---
HPI - General Adult General Chief complaint: Overdose Stated complaint: took am meds with pm meds by accident Time Seen by Provider: 03/20/22 20:06 History of Present Illness HPI narrative: Patient is an 82-year-old female who presents ER with altered mental status and accidental ingestion of home medications. She took her morning medications this evening. They consisted into hypertensives and oral antihyperglycemic's. Patient recently diagnosed with meningioma. She had vasogenic edema and was evaluated [facility]. She opted against surgical treatment. She has been managed with some prednisone. Patient is also on Keppra. She is on a blood thinner for her atrial fibrillation. Patient poor historian about what is occurring so history provided by daughter. She is also the POA Related Data Home Medications Medication Instructions Recorded Confirmed apixaban 5 mg tablet 2.5 mg PO BID 03/07/22 03/09/22 atorvastatin 40 mg tablet 40 mg PO DAILY 03/07/22 03/09/22 empagliflozin 10 mg tablet 10 mg PO DAILY 03/07/22 03/09/22 levetiracetam 500 mg tablet 500 mg PO Q12H 03/07/22 03/09/22 metoprolol tartrate 50 mg tablet 50 mg PO BID 03/07/22 03/09/22 prednisone 5 mg tablet 5 mg PO DAILY 03/07/22 03/09/22 sacubitril 24 mg-valsartan 26 mg 1 tablet PO BID 03/07/22 03/09/22 tablet spironolactone 25 mg tablet 12.5 mg PO DAILY 03/07/22 03/09/22 meclizine 12.5 mg tablet 12.5 mg PO TID PRN Dizziness 03/09/22 03/09/22 Allergies Allergy/AdvReac Type Severity Reaction Status Date / Time No Known Allergies Allergy Verified 03/07/22 13:32 Review of Systems Review of Systems: ROS unobtainable: Yes unobtainable due to mental status PMFSH Past Medical History Medical History Abdominal pain Afib Atrial fibrillation with rapid ventricular response Diabetes GERD without esophagitis History of colon polyps Hyperlipidemia Hypertension Osteopenia started Fosamax 12/2016? Postmenopausal status (age-related) (natural) Vertigo Surgical History Surgical History H/O cataract extraction H/O colonoscopy with polypectomy H/O dilation and curettage History of removal of pigmented skin lesion Family History Family History Mother Family history of heart disease in male family member before age 55 Social History Social History Social History: The patient is and lives alone. She has 2 children. 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 Her daughter is the durable power attorney lawyer for healthcare. Code status full code Smoking status: Never smoker Second hand tobacco smoke exposure: No Alcohol intake: never Substance use: never Substance use type: does not use Lack of Transportation: No Lack of Food: Never True Current Housing: I Have Housing Concerned About Future Housing: No Difficulty Paying Gas/Electric Bills: No Difficulty Paying for Meds: No Currently Unemployed: No Education: Bachelor's Degree Difficulty w/ Childcare or Family Care: No Gender identity (if verbalized by the patient): Female Spiritual care concerns: No Exam Narrative: GENERAL: Chronically ill-appearing, well-nourished, and in no acute distress. HEAD: Normocephalic, atraumatic. EYES: PERRL and EOMI. ENT: Mucous membranes moist. CHEST: Clear to auscultation. No respiratory distress. HEART: Regular rate and rhythm. Normal peripheral pulses. ABDOMEN: Soft, nontender, nondistended. EXTREMITIES: Normal range of motion. No edema. SKIN: Warm, dry, no rash. NEURO: Alert and oriented x2-3. PSYCH: Normal mood and affect. Course Course Emergency Course: I had a josh
[2022-03-21] VITALS (31 sets, daily range): BP systolic 97–131; BP diastolic 42–91; PULSE 53–75; RESP 14–29; TEMP 36.3–36.4; O2SAT 86–98; BMI 22.4; BMI 21.2
--- NOTE | 2022-03-21 00:20 | PM.IMHP ---
H&P: HPI History of Present Illness Date/Time: 03/21/22 00:20 Chief Complaint: OD on own meds Narrative: This is an 82-year-old female with past medical history significant for atrial fibrillation, rate controlled, GERD, Type 2 diabetes mellitus, osteopenia, meningioma. patient was brought to the emergency room after she took a handful of hold her medications from the morning time this happen in the presence of her daughter she was brought for evaluation after this incident however patient has been in her usual state of health she was recently diagnosed with meningioma which is being treated medically. daughter is also inquiring about the snf placement as well. Preliminary workup has been essentially nonrevealing. Patient tested negative for influenza A, influenza B and COVID-19. Review of Systems Review of Systems: ROS unobtainable: Yes unobtainable due to mental status (dementia) [facility] Past Medical History Medical History Abdominal pain Afib Atrial fibrillation with rapid ventricular response Diabetes GERD without esophagitis History of colon polyps Hyperlipidemia Hypertension Osteopenia started Fosamax 12/2016? Postmenopausal status (age-related) (natural) Vertigo Surgical History Surgical History H/O cataract extraction H/O colonoscopy with polypectomy H/O dilation and curettage History of removal of pigmented skin lesion Family History Family History Mother Family history of heart disease in male family member before age 55 Social History Social History Social History: The patient is and lives alone. She has 2 children. 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 Her daughter is the durable power litigation attorney associate for healthcare. Code status full code Smoking status: Never smoker Second hand tobacco smoke exposure: No Alcohol intake: never Substance use: never Substance use type: does not use Lack of Transportation: No Lack of Food: Never True Current Housing: I Have Housing Concerned About Future Housing: No Difficulty Paying Gas/Electric Bills: No Difficulty Paying for Meds: No Currently Unemployed: No Education: Bachelor's Degree Difficulty w/ Childcare or Family Care: No Gender identity (if verbalized by the patient): Female Spiritual care concerns: No Meds Home Medications and Allergies Home Medications Medication Instructions Recorded Confirmed Type omeprazole 20 mg capsule,delayed 20 mg PO DAILY #90 caps 10/27/21 03/09/22 Rx release cholecalciferol (vitamin D3) 50 See Rx Instructions .Route 11/14/21 03/09/22 Rx mcg (2,000 unit) tablet (Vitamin .COMPLEX #90 tabs D3) apixaban 5 mg tablet 2.5 mg PO BID 03/07/22 03/09/22 History atorvastatin 40 mg tablet 40 mg PO DAILY 03/07/22 03/09/22 History empagliflozin 10 mg tablet 10 mg PO DAILY 03/07/22 03/09/22 History levetiracetam 500 mg tablet 500 mg PO Q12H 03/07/22 03/09/22 History metoprolol tartrate 50 mg tablet 50 mg PO BID 03/07/22 03/09/22 History prednisone 5 mg tablet 5 mg PO DAILY 03/07/22 03/09/22 History sacubitril 24 mg-valsartan 26 mg 1 tablet PO BID 03/07/22 03/09/22 History tablet spironolactone 25 mg tablet 12.5 mg PO DAILY 03/07/22 03/09/22 History meclizine 12.5 mg tablet 12.5 mg PO TID PRN Dizziness 03/09/22 03/09/22 History acetaminophen 325 mg tablet (Mapap 650 mg PO Q6H PRN Pain Rated 5 Or 03/13/22 Rx (acetaminophen)) Less #30 tabs amiodarone 200 mg tablet (Pacerone) 200 mg PO DAILY@0800 #30 tabs 03/13/22 Rx polyethylene glycol 3350 17 gram 17 g PO QAM #14 ea 03/13/22 Rx oral powder packet (Miralax) hydrocodone
[2022-03-21 01:47] LABS: Influenza A QL RT-PCR Negative (Negative); Influenza B QL RT-PCR Negative (Negative); SARS-CoV-2 RNA PCR Negative
--- NOTE | 2022-03-21 01:55 | PC.NURSE ---
Per Verbal read back order Dr. Owusu give 0.5mg of Dilaudid instead of the 4mg of morphine for the patient pain.
[2022-03-21] MEDS: ONDANSETRON INJ 4 MG/2 ML VIAL IV PUSH (02:00)
[2022-03-21] MEDS: HYDROmorphone HCL INJ (*CRX) 1 MG/ML SYR 0.5 MG IV PUSH (02:00)
--- NOTE | 2022-03-21 02:11 | PC.NURSE ---
Patient has call light and keeps screaming down the kwok that she needs water. patient brought water and informed on how to use a call light.
--- NOTE | 2022-03-21 03:20 | PC.NURSE ---
Patient keeps yelling down the kwok at this time stating she needs to be repositioned. Patient keeps stating that this is ridiculous to be stuck in an uncomfortable bed all night. I am so mad I do not even want to be here but I have no way to leave.
--- NOTE | 2022-03-21 04:50 | PC.NURSE ---
Patient yelling down the kwok help. This RN and tech went in the room to put the patient on a bed judd. patient stated this is uncomfortable THis RN asked her if a bedside commode would work better the patient stated no
--- NOTE | 2022-03-21 06:15 | PC.NURSE ---
The patient was yelling down the kwok help. This RN went into the room. Patient states, I just want someone in my room I am uncomfortable this is ridiculous to stay in this room all night. This nurse informed the patient this is the only room we have available at thiss time. THis nurse brought this patient more blankets and more water. This patient tucked into bed at this time.
[2022-03-21] MEDS: DEXAMETHASONE 2 MG TABLET 10 MG PO (09:28)
--- NOTE | 2022-03-21 10:16 | PM.IMPN ---
Progress Note: A&P Assessment and Plan (1) Ingestion, drug, inadvertent or accidental: Code(s): T50.901A - Poisoning by unspecified drugs, medicaments and biological substances, accidental (unintentional), initial encounter Status: Acute Assessment and Plan: Patient took a handful of her home medications which includes antihypertensives, oral hypoglycemic agents, vitamins, statin, apixaban, Keppra. Sounds as though she took both her morning and evening dose at the same time. No adverse effects. Blood pressure is stable. Continue to monitor. patient can no longer be responsible for her home medications and will need 24 hour assistance. reportedly, patient's daughter is considering detention placement. Appreciate care coordination assistance. (2) Meningioma: Code(s): D32.9 - Benign neoplasm of meninges, unspecified Status: Acute Assessment and Plan: Per ED physician, recently diagnosed with meningioma with vasogenic edema, evaluated at [facility]. Patient opted for conservative management and is on prednisone 5 mg daily which will be continued following reconciliation of home medications. (3) Afib: Code(s): I48.91 - Unspecified atrial fibrillation Status: Acute Assessment and Plan: Recent admission for rapid ventricular response. Rate is controlled at this time. Continue with home medication regimen amiodarone 200 mg daily and metoprolol tartrate 50 mg b.i.d. Low dose Eliquis for stroke prophylaxis. (4) Hypertension: Qualifiers: Hypertension type: essential hypertension Qualified Code(s): I10 - Essential (primary) hypertension Code(s): I10 - Essential (primary) hypertension Status: Acute Assessment and Plan: Blood pressures are stable. Resume p.o. antihypertensives following medication reconciliation. (5) Closed compression fracture of L1 vertebra: Code(s): S32.010A - Wedge compression fracture of first lumbar vertebra, initial encounter for closed fracture Status: Acute Assessment and Plan: Recently admitted for this and evaluated by neurosurgery. Lumbosacral corset recommended when out of bed. Hopefully this can be brought from home and continued. Will proceed with PT / OT evaluation during admission. (6) GERD without esophagitis: Code(s): K21.9 - Gastro-esophageal reflux disease without esophagitis Status: Acute Assessment and Plan: No acute issues. Pantoprazole 40 mg daily. (7) Diabetes: Code(s): E11.9 - Type 2 diabetes mellitus without complications Status: Acute Assessment and Plan: Blood sugars are well controlled. Begin Accu-Cheks, sliding scale insulin, and hypoglycemic protocol. Resume home Jardiance. Check A1c Subjective Date/time seen: 03/21/22 10:16 Interval history: Date of service: 03/21/2022 Catalina Byrd is an 82-year-old female with a history of atrial fibrillation on chronic anticoagulation, diabetes, hypertension, hyperlipidemia, osteopenia, and recent hospitalization from 03/09 through 03/13 for atrial fibrillation with rapid ventricular response and acute L1 compression fracture with T11 and T12 compression fractures who is seen in follow-up after accidental ingestion of her home medications. The patient took a handful of her home medications in the presence of her daughter. She was unable to indicate why she did this but then later states I just got eager. it sounds as though she has been having some issues with confusion and has been a poor historian on review of previous provider notes. She does not seem to have any adverse effects from taking her home medications. She denies any loss of consciousness, fatigue, nausea, vomiting, dizziness, lightheadedness, increased confusion. Denies feeling weak but indicates that she has been having a hard time taking care for self. She states that she needs help getting ou
--- NOTE | 2022-03-21 11:51 | ADMGEN ---
This patient, Catalina Byrd, was admitted to Virtual Bed 3rd Floor-4, REMAINS BOARDED IN ED 11. UNABLE TO CONFIRM HOME MEDICATIONS AT TIME DUE TO PT. POOR HISTORIAN. CARE COORDINATION STATES PT'S DAUGHTER IS ON WAY BACK TO HOSPITAL FROM NEAR [facility]. Patient/family oriented to hospital policies and general routines including ID bracelet, bed and alarms, visiting hours, pain management, procedures, bathroom and other care routines, personal items, smoking policy, room service/diet, and visiting hours. Information on how to activate the Rapid Response Team has been discussed. Patient/Family are encouraged to report perceived risks to care and to ask questions if they do not understand what they are told or what they should do.
--- NOTE | 2022-03-21 11:59 | PCPTNOTE ---
Pt. refused to participate in phyical therapy evaluation at this time. Following. Nursing updated and aware.
--- NOTE | 2022-03-21 12:04 | PCOTNOTE ---
Pt. refused to participate in occupational therapy evaluation at this time. Following. Nursing updated and aware.
[2022-03-21 12:16] LABS: Glucose Point of Care 223 mg/dl (65-105)
[2022-03-21] MEDS: INSULIN ASPART (*BKC) 100 UNITS/ML SUB-Q (12:28)
--- NOTE | 2022-03-21 12:44 | PC.NURSE ---
pt's daughters, Nicci and Bina are here. Verified admit information. Home medications verified at this time.
--- NOTE | 2022-03-21 16:05 | PC.NURSE ---
floor nurse taking over pt. floor nurse to discharge patient. Floor nose given report.
--- NOTE | 2022-03-21 17:22 | PC.NURSE ---
report called to 315.1 nurse, Nikki. Dr. Hayes notified that pt's family would like to take her home tonight. Pt's daughter notified that has been notified of their wishes.
--- NOTE | 2022-03-21 17:33 | ADMGEN ---
This patient, Catalina Byrd, was admitted to [facility] Surg Room 315-01 at 1730. Patient/family oriented to hospital policies and general routines including ID bracelet, bed and alarms, visiting hours, pain management, procedures, bathroom and other care routines, personal items, smoking policy, room service/diet, and visiting hours. Information on how to activate the Rapid Response Team has been discussed. Patient/Family are encouraged to report perceived risks to care and to ask questions if they do not understand what they are told or what they should do.
[2022-03-21 17:48] LABS: Glucose Point of Care 106 mg/dl (65-105)
--- NOTE | 2022-03-21 20:23 | PC.NURSE ---
pharmacy was called no medication on floor of this pt at this time.
[2022-03-21] MEDS: APIXABAN 2.5 MG TABLET PO (20:39)
[2022-03-21] MEDS: levETIRAcetam 500 MG TABLET PO (20:39)
[2022-03-21] MEDS: METOPROLOL TARTRATE 50 MG TAB PO (20:40)
[2022-03-21] MEDS: SACUBITRIL/VALSARTAN 24-26 MG TABLET 1 TAB PO (20:40)
[2022-03-21 21:24] LABS: Glucose Point of Care 251 mg/dl (65-105)
[2022-03-21] MEDS: MORPHINE SULFATE (*CRX) 4 MG/ML INJ IV PUSH (21:25)
[2022-03-22 06:00] VITALS: BP 130/52; PULSE 61; RESP 16; TEMP 36.5; O2SAT 95
[2022-03-22] MEDS: HYDROcodone/acetaminophen (*CRX) 5-325 MG TABLET 1 TAB PO (06:36)
[2022-03-22 07:15] LABS: Hematocrit 39.2 % (37.0-47.0); Hemoglobin 12.4 g/dL (12.0-15.0); Mean Corpuscular HGB Conc 31.6 g/dl (32-36); Mean Corpuscular Hemoglobin 30.3 pg (26-34); Mean Corpuscular Volume 95.8 fl (80-100); Mean Platelet Volume 11.3 fl (7.4-10.4); Platelet Count Result 313 k/mm3 (150-375); Red Blood Count 4.09 M/mm3 (4.2-5.4); Red Cell Distribution Width 14.7 % (11.5-14.5); White Blood Count 10.4 K/mm3 (4.5-10.0)
[2022-03-22 07:16] LABS: Anion Gap 2 mmol/L (8-16); Blood Urea Nitrogen 26 mg/dL (7-17); Calcium 8.3 mg/dL (8.4-10.2); Carbon Dioxide 27 mmol/L (22-30); Chloride 109 mmol/L (98-107); Estimated CRCL calculation 43 ml/min; Estimated Glomerular Filt Rate > 60; Glucose 113 mg/dL (65-110); Potassium 4.4 mmol/L (3.4-5.0); Sodium 138 mmol/L (137-145)
[2022-03-22 08:01] LABS: Glucose Point of Care 127 mg/dl (65-105)
[2022-03-22 08:13] VITALS: PULSE 61
[2022-03-22] MEDS: APIXABAN 2.5 MG TABLET PO (08:13)
[2022-03-22] MEDS: CHOLECALCIFEROL 1,000 UNITS TABLET 2000 UNITS PO (08:13)
[2022-03-22] MEDS: ATORVASTATIN 40 MG TABLET PO (08:13)
[2022-03-22] MEDS: AMIODARONE HCL 200 MG TABLET PO (08:13)
[2022-03-22] MEDS: levETIRAcetam 500 MG TABLET PO (08:13)
[2022-03-22] MEDS: METOPROLOL TARTRATE 50 MG TAB PO (08:13)
[2022-03-22] MEDS: SPIRONOLACTONE 12.5 MG TABLET PO (08:14)
[2022-03-22] MEDS: predniSONE 5 MG TABLET PO (08:14)
[2022-03-22] MEDS: SACUBITRIL/VALSARTAN 24-26 MG TABLET 1 TAB PO (08:14)
[2022-03-22 08:26] LABS: Hemoglobin A1C 6.8 % (<5.7)
[2022-03-22] MEDS: EMPAGLIFLOZIN 10 MG TABLET PO (09:21)
[2022-03-22] MEDS: ACETAMINOPHEN 325 MG TABLET 650 MG PO (11:08)
--- NOTE | 2022-03-22 11:44 | PM.DS ---
DS: Admitting Diagnosis Discharge Date 03/22/2022 Admitting Diagnosis Medication Ingestion DS: Discharge Diagnosis Discharge Diagnosis (1) Ingestion, drug, inadvertent or accidental: Code(s): T50.901A - Poisoning by unspecified drugs, medicaments and biological substances, accidental (unintentional), initial encounter Status: Acute Assessment and Plan: Patient took both morning and evening doses of her home medications in the morning. No adverse effects noted. Blood pressure remained stable and no change in orientation/alertness. Patient can no longer be responsible for her home medications and will need 24 hour assistance. patient's daughter will be staying with her and they are in the process of transitioning to assisted living/alf facility (2) Meningioma: Code(s): D32.9 - Benign neoplasm of meninges, unspecified Status: Acute Assessment and Plan: Per ED physician, recently diagnosed with meningioma with vasogenic edema, evaluated at [facility]. Patient opted for conservative management and is on prednisone 5 mg daily (3) Afib: Code(s): I48.91 - Unspecified atrial fibrillation Status: Acute Assessment and Plan: Recent admission for rapid ventricular response. Rate controlled during this admission. Continue with home medication regimen amiodarone 200 mg daily and metoprolol tartrate 50 mg b.i.d. Low dose Eliquis for stroke prophylaxis. (4) Hypertension: Qualifiers: Hypertension type: essential hypertension Qualified Code(s): I10 - Essential (primary) hypertension Code(s): I10 - Essential (primary) hypertension Status: Acute Assessment and Plan: blood pressure stable. Continue home antihypertensives (5) Closed compression fracture of L1 vertebra: Code(s): S32.010A - Wedge compression fracture of first lumbar vertebra, initial encounter for closed fracture Status: Acute Assessment and Plan: Recently admitted for this and evaluated by neurosurgery. Lumbosacral corset recommended when out of bed. Patient's daughter reports patient has not had improvement with this and has been unwilling to use on several occasions. They will continue to follow-up with neurosurgery as an outpatient to consider alternative options for management (6) GERD without esophagitis: Code(s): K21.9 - Gastro-esophageal reflux disease without esophagitis Status: Acute Assessment and Plan: No acute issues. Pantoprazole 40 mg daily. (7) Diabetes: Code(s): E11.9 - Type 2 diabetes mellitus without complications Status: Acute Assessment and Plan: Blood sugars well controlled. continue home Jardiance DS: Summary Hospital Course Hospital Course: date of admission: 03/20/2022 date of discharge: 03/22/2022 Catalina Byrd is an 82-year-old female with a history of atrial fibrillation on chronic anticoagulation, diabetes, hypertension, hyperlipidemia, osteopenia, and recent hospitalization from 03/09 through 03/13 for atrial fibrillation with rapid ventricular response and acute L1 compression fracture with T11 and T12 compression fractures? who presented to the emergency department on 03/20/2022 following accidental ingestion of home medications. On presentation to the ED, her vital signs were stable, she was afebrile, laboratory workup essentially unremarkable. patient was admitted to the hospitalist service for further evaluation and management. Please see above for further details. Decision made for patient's daughter to stay with her full-time until alf or assisted living facility can be arranged. Patient will no longer be responsible for her own medications and will be monitored at all times. Spoke with the patient's daughter, Bina, via phone to provide updates on patient's hospital course and answer all questions. Discussed worrisome signs and symptoms for
[2022-03-22 12:18] LABS: Glucose Point of Care 201 mg/dl (65-105)
== END 2022-03-22 13:25 | disposition home or self-care (01) ==
LOC: ANHED 03-21 00:10 → ANH3MEDSUR 03-21 02:38
PROVIDERS: Admitting Provider Internal Medicine; Emergency Provider Emergency Medicine; PCP Family Medicine; Visit Provider Physician Assistant
DX: T50.901A Poisoning by unspecified drugs, medicaments and biological substances, accidental (unintentional), initial encounter (principal); D32.9 Benign neoplasm of meninges, unspecified; I48.91 Unspecified atrial fibrillation; I10 Essential (primary) hypertension; S32.010A Wedge compression fracture of first lumbar vertebra, initial encounter for closed fracture; K21.9 Gastro-esophageal reflux disease without esophagitis; E11.9 Type 2 diabetes mellitus without complications; G93.6 Cerebral edema; R41.82 Altered mental status, unspecified; I70.0 Atherosclerosis of aorta; R94.31 Abnormal electrocardiogram [ECG] [EKG]; Z20.822 Contact with and (suspected) exposure to COVID-19; E78.5 Hyperlipidemia, unspecified; M85.80 Other specified disorders of bone density and structure, unspecified site; R42 Dizziness and giddiness; K44.9 Diaphragmatic hernia without obstruction or gangrene; Z79.01 Long term (current) use of anticoagulants; Z79.52 Long term (current) use of systemic steroids; Z79.899 Other long term (current) drug therapy
CPT/HCPCS: 36415; 51701; 70450; 71045; 80048; 80053; 81001; 82948; 83036; 83605; 84484; 85025; 85027; 85610; 85730; 87636; 93005; 96374; 96375; 97161; 99285; A9270; G0378; J1170; J1815; J2270; J2405; J7030; J7512; J8540

== ENCOUNTER 2022-04-17 13:49 | Outpatient (CLI) | payer OTHER, SELFPAY ==
--- NOTE | ~2022-04-17 | XR_ITS ---
XR lumbar spine 2-3V DATE: 04/17/2022 14:11 INDICATION: Fracture TECHNIQUE: AP, lateral views COMPARISON: 03/2022 CT thoracic and lumbar spine FINDINGS: There is diffuse osteopenia. There appears to be interval increased fracture deformity at L1 with severe anterior wedging and prom inent increased loss of height, apparent new posterior projection at the spinal canal. Multilevel mild to moderate degenerative disc disease. There is associated mild retrolisthesis at L3- 4. The sacroiliac joints are intact. Calcification of the abdominal aorta without apparent aneurysm. IMPRESSION: Severe burst fracture of L1, increased in severity since 03/09/2022 Reviewed, dictated and finalized at location B. [employer]CHNICIAN
== END 2022-04-17 13:50 | disposition home or self-care (01) ==
LOC: ANHIMG 13:53
PROVIDERS: PCP Family Medicine; Visit Provider Neurological Surgery
DX: M54.50 Low back pain, unspecified (principal); S32.010A Wedge compression fracture of first lumbar vertebra, initial encounter for closed fracture; S32.011A Stable burst fracture of first lumbar vertebra, initial encounter for closed fracture; T14.90XA Injury, unspecified, initial encounter
CPT/HCPCS: 72100

== ENCOUNTER 2022-04-29 10:04 | Outpatient (CLI) | payer OTHER, SELFPAY ==
[2022-04-29 11:26] LABS: Alanine Aminotransferase 23 U/L (6-35); Alkaline Phosphatase 82 U/L (38-126); Anion Gap 8 mmol/L (8-16); Aspartate Amino Transferase 21 U/L (14-36); Bilirubin,Total 1.4 mg/dL (0.2-1.3); Blood Urea Nitrogen 39 mg/dL (7-17); Calcium 8.4 mg/dL (8.4-10.2); Carbon Dioxide 22 mmol/L (22-30); Chloride 109 mmol/L (98-107); Estimated Glomerular Filt Rate 60; Glucose 432 mg/dL (65-110); Potassium 5.7 mmol/L (3.4-5.0); Sodium 139 mmol/L (137-145)
[2022-04-29 13:45] LABS: Appearance Urine Slightly Cloudy (Clear); Bilirubin Urine Negative (Negative); Blood Urine Trace-lysed (Negative); Color Urine Light Yellow (Yellow); Glucose Urine UA 3+ mg/dL (Negative); Ketones Urine Trace mg/dL (Negative); Leukocyte Esterase Ur Negative LEU/UL (NEGATIVE); Nitrate Urine Negative (Negative); Protein Urine Negative (Negative); Specific Grav Ur 1.015 (1.001-1.035); Urobilinogen Urine 0.2 mg/dL (<2.0); pH Urine 5.5 (5.0-9.0)
[2022-04-29 13:55] LABS: Budding Yeast Urine Present /hpf; RBC Urine 0-2 /hpf (0-2); WBC Urine 0-3 /hpf (0-3)
[2022-04-29 14:02] LABS: Add Urine Microscopic? YES
== END 2022-04-29 10:05 | disposition home or self-care (01) ==
PROVIDERS: PCP Family Medicine; Visit Provider Nurse Practitioner
DX: R39.9 Unspecified symptoms and signs involving the genitourinary system (principal); E87.1 Hypo-osmolality and hyponatremia
CPT/HCPCS: 36415; 80053; 81001; 87086; 87088

== ENCOUNTER 2022-04-30 18:39 | Observation (INO) | payer OTHER, SELFPAY ==
[2022-04-30] VITALS (14 sets, daily range): BP systolic 99–117; BP diastolic 37–63; PULSE 55–89; RESP 14–27; TEMP 36.4; O2SAT 95–100
--- NOTE | ~2022-04-30 | XR_ITS ---
EXAMINATION: XR chest 1V portable DATE: 04/30/2022 19:21 INDICATION: Cough. TECHNIQUE: A single frontal view of the chest was obtained. COMPARISON: Chest single view 03/20/2022, CT abdomen and pelvis 02/09/2022 FINDINGS: There is mild atelectasis in left perihilar region. No pleural effusion or pneumothorax. Ca rdiomegaly is noted. There is a large hiatal hernia. IMPRESSION: 1. Large hiatal hernia. 2. Mild atelectasis in left perihilar region. 3. Cardiomegaly. Reviewed, dictated and finalized at location A. CULTURAL CROP FARM MANAGER
--- NOTE | ~2022-04-30 | CT_ITS ---
EXAMINATION: CT lumbar spine wo con DATE: 05/01/2022 13:42 INDICATION: Pain in back. TECHNIQUE: Computed tomography (CT) of the lumbar spine was performed without intravenous contrast. A utomated exposure control and iterative reconstruction technique were employed. The dose-length produ ct was 415.73 mGy-cm. COMPARISON: Lumbar spine CT 03/09/2022 FINDINGS: Partially visualized is a hiatal hernia. There are small pleural effusions. There is 4 degr ees dextrocurvature of lumbar spine. There is a burst fracture of L1 with 2/5 loss of height centrall y. Intervertebral disc heights are normal. The following disc levels are specifically discussed: L1-L2: The disc does not extend beyond the endplate margin. There is moderate right and severe left f acet joint osteoarthritis. There is no neural foraminal stenosis. There is no central canal stenosis. L2-L3: The disc is bulging. There is mild bilateral facet joint osteoarthritis. There is mild bilater al neural foraminal stenosis. There is no central canal stenosis. L3-L4: The disc is bulging. There is mild bilateral facet joint osteoarthritis. There is moderate and mild left neural foraminal stenosis. There is mild central canal stenosis. L4-L5: The disc is bulging. There is moderate bilateral facet joint osteoarthritis. There is moderate right and mild left neural foraminal stenosis. There is mild central canal stenosis. L5-S1: The disc is bulging. There is severe bilateral facet joint osteoarthritis. There is mild bilat eral neural foraminal stenosis. There is mild central canal stenosis. IMPRESSION: 1. L1 burst fracture, worsened from 03/09/2022. 2. Moderate lumbar spondylosis. Reviewed, dictated and finalized at location A. OMETALLURGICAL ENGINEER
--- NOTE | ~2022-04-30 | CT_ITS ---
EXAMINATION: CT brain wo con DATE: 04/30/2022 19:10 INDICATION: Confusion. TECHNIQUE: Computed tomography (CT) of the head was performed without intravenous contrast. The mA wa s adjusted according to patient size. Iterative reconstruction technique was employed. The dose-lengt h product was 605.33 mGy-cm. COMPARISON: Head CT 03/20/2022, 02/18/22 FINDINGS: There is a 5.5 x 3.7 cm extra-axial mass with calcifications and foci of fat overlying left frontal lobe. There is surrounding low-attenuation vasogenic edema. There are scattered areas of low attenuation in the cerebral white matter. There is no intracranial hemorrhage or acute ischemic infa rct. There is 7 mm rightward midline shift. The ventricles are normal in size. The paranasal sinuses are clear. There are likely changes of ocular lens replacement surgeries. IMPRESSION: 1. 5.5 cm extra-axial mass overlying left frontal lobe, stable from 02/18/2022, likely a meningioma. 2. 7 mm rightward midline shift. 3. Mild nonspecific cerebral white matter disease, which likely represents chronic small vessel ische rashmi disease. Reviewed, dictated and finalized at location A. OLATE TEMPERER IMPRESSION: 1. 5.5 cm extra-axial mass overlying left frontal lobe, stable from 02/18/2022, likely a meningioma. 2. 7 mm rightward midline shift. 3. 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
--- NOTE | 2022-04-30 18:52 | ECG_ITS ---
Measurements Intervals [place] Rate: 61 P: 32 [place]: 177 QRS: -9 QRSD: 110 T: 25 QT: 426 QTc: 431 Interpretive Statements SINUS RHYTHM ATRIAL PREMATURE COMPLEX INCOMPLETE LEFT BUNDLE BRANCH BLOCK ANTEROSEPTAL INFARCT, AGE INDETERMINATE INFERIOR INFARCT, AGE INDETERMINATE BASELINE ARTIFACT- I, II, III, AVL, AVF, V2 ABNORMAL ECG COMPARED TO ECG 03/20/2022 20:04:29 NO SIGNIFICANT CHANGES Electronically Signed On 04-30-2022 19:48:46 SERVICE ARCHITECT by Farrukh Fregoso D.O.
--- NOTE | 2022-04-30 19:00 | ED.GENADULT ---
HPI - General Adult General Chief complaint: Altered Mental Status Stated complaint: altered mental status Time Seen by Provider: 04/30/22 18:48 Source: RN notes reviewed History of Present Illness HPI narrative: Patient presents emergency department from [facility] via EMS for altered mental status. Per the family the patient is usually awake and alert x3 and is only been awake alert x2 the patient is also been more weak not getting up and moving around is much also noted to have a decreased appetite. The patient does have a known history of a brain mass that the family has elected to not treat surgically as she is currently on steroids and was recently changed to Decadron at the beginning of April for her vasogenic edema the patient has had no fevers or chills she denies any chest pain shortness of breath abdominal pain nausea or vomiting or any other symptoms Related Data Home Medications Medication Instructions Recorded Confirmed apixaban 5 mg tablet 2.5 mg PO BID 03/07/22 04/19/22 atorvastatin 40 mg tablet 40 mg PO DAILY 03/07/22 04/19/22 empagliflozin 10 mg tablet 10 mg PO DAILY 03/07/22 04/19/22 levetiracetam 500 mg tablet 500 mg PO Q12H 03/07/22 04/19/22 prednisone 5 mg tablet 5 mg PO DAILY 03/07/22 04/19/22 sacubitril 24 mg-valsartan 26 mg 1 tablet PO BID 03/07/22 04/19/22 tablet spironolactone 25 mg tablet 12.5 mg PO DAILY 03/07/22 04/19/22 polyethylene glycol 3350 17 17 g PO .COMPLEX 03/29/22 04/19/22 gram/dose oral powder (Miralax) cholecalciferol (vitamin D3) 50 2,000 unit PO DAILY 04/07/22 04/19/22 mcg (2,000 unit) tablet (Vitamin D3) metoprolol tartrate 50 mg tablet 25 mg PO BID 04/24/22 Allergies Allergy/AdvReac Type Severity Reaction Status Date / Time No Known Allergies Allergy Verified 04/30/22 21:27 Review of Systems Review of Systems: Gen.: Denies fevers or chills ENT: Denies congestion Respiratory: Denies shortness of breath or cough CV: Denies chest pain or palpitations GI: Denies abdominal pain nausea, emesis or diarrhea Musculoskeletal: Denies back pain or muscle pain Neuro: Reports weakness Skin: Denies rash Except as documented, all other systems reviewed and negative [facility] Past Medical History Medical History Abdominal pain Afib Atrial fibrillation with rapid ventricular response Diabetes GERD without esophagitis History of colon polyps Hyperlipidemia Hypertension Osteopenia started Fosamax 12/2016? Postmenopausal status (age-related) (natural) Vertigo Surgical History Surgical History H/O cataract extraction H/O colonoscopy with polypectomy H/O dilation and curettage History of removal of pigmented skin lesion Family History Family History Mother Family history of heart disease in male family member before age 55 Social History Social History Social History: The patient is and lives alone. She has 2 children. 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 Her daughter is the durable power car rental agent for healthcare. Code status full code Smoking status: Never smoker Second hand tobacco smoke exposure: No Alcohol intake: never Substance use: never Substance use type: does not use Lack of Transportation: No Lack of Food: Never True Current Housing: I Have Housing Concerned About Future Housing: No Difficulty Paying Gas/Electric Bills: No Difficulty Paying for Meds: No Currently Unemployed: No Education: Bachelor's Degree Difficulty w/ Childcare or Family Care: No Living arrangements: alone Occupation/Education: retired Gender identity (if verbalized by the patient): Fema
[2022-04-30] MEDS: SODIUM CHLORIDE 0.9% IV 1,000 ML 999 ML IV CONT (19:29)
--- NOTE | 2022-04-30 19:51 | PC.NURSE ---
1909 Assumed pt care from SCARLET Arana
[2022-04-30 20:15] LABS: Alanine Aminotransferase 17 U/L (6-35); Albumin Level 2.6 g/dL (3.5-5.1); Alkaline Phosphatase 83 U/L (38-126); Anion Gap 3 mmol/L (8-16); Aspartate Amino Transferase 15 U/L (14-36); Bilirubin,Total 1.6 mg/dL (0.2-1.3); Blood Urea Nitrogen 32 mg/dL (7-17); Calcium 7.9 mg/dL (8.4-10.2); Carbon Dioxide 22 mmol/L (22-30); Chloride 105 mmol/L (98-107); Creatine Kinase 56 U/L (30-135); Estimated CRCL calculation 42 ml/min; Estimated Glomerular Filt Rate > 60; Glucose 384 mg/dL (65-110); Potassium 4.5 mmol/L (3.4-5.0); Sodium 130 mmol/L (137-145)
[2022-04-30 20:57] LABS: Basophils Percent Auto 0.2 % (0.2-1.2); Hematocrit 38.5 % (37.0-47.0); Hemoglobin 12.1 g/dL (12.0-15.0); Immature Granulocyte Absolute 0.24 K/mm3 (0.00-0.031); Immature Granulocyte Percent A 2.2 % (0-0.5); Immature Platelet Fraction Pct 5.9 % (0.9-11.2); Lymphocytes Absolute Auto 0.29 K/mm3 (0.9-3.2); Lymphocytes Percent Auto 2.7 % (18.3-44.2); Mean Corpuscular HGB Conc 31.4 g/dl (32-36); Mean Corpuscular Hemoglobin 30.1 pg (26-34); Mean Corpuscular Volume 95.8 fl (80-100); Mean Platelet Volume 11.2 fl (7.4-10.4); Monocytes Absolute Auto 0.3 K/mm3 (0.1-0.6); Monocytes Percent Auto 3.1 % (2.6-8.5); Neutrophils Percent Auto 91.8 % (45.5-73.1); Red Blood Count 4.02 M/mm3 (4.2-5.4); Red Cell Distribution Width 16.6 % (11.5-14.5); White Blood Count 10.9 K/mm3 (4.5-10.0)
[2022-04-30 21:08] LABS: Lactic Acid Reflex 1.9 mmol/L (0.7-2.0)
[2022-04-30 21:10] LABS: INR 1.5; Prothrombin Time 17.5 Seconds (11.1-14.7)
[2022-04-30 21:11] LABS: Partial Thromboplastin Time 23.6 SECONDS (22.3-36.8)
[2022-04-30 21:31] LABS: Platelet Clumps Present; Platelet Estimate Adequate (Adequate)
[2022-04-30 21:32] LABS: Acanthocytes 1+ (NORMAL); Burr Cells 1+ (NORMAL); Ovalocytes 1+ (NORMAL); Poikilocytosis 1+ (NORMAL); Schistocytes None Seen (NORMAL)
[2022-04-30] MEDS: SODIUM CHLORIDE 0.9% IV 500 ML 999 ML IV CONT (21:37)
[2022-04-30 21:45] LABS: Appearance Urine Cloudy (Clear); Bilirubin Urine Negative (Negative); Blood Urine Negative (Negative); Color Urine Yellow (Yellow); Glucose Urine UA 3+ mg/dL (Negative); Ketones Urine 1+ mg/dL (Negative); Leukocyte Esterase Ur Negative LEU/UL (Negative); Nitrate Urine Negative (Negative); Protein Urine Negative (Negative); Urobilinogen Urine 0.2 mg/dL (<2.0); pH Urine 5.5 (5.0-9.0)
[2022-04-30 21:53] LABS: Bacteria Urine Trace /hpf; Budding Yeast Urine Present /hpf; Mucus Urine Rare /lpf; RBC Urine 0-2 /hpf (0-2); WBC Urine 0-3 /hpf
[2022-04-30 22:00] LABS: Add Urine Microscopic? YES
--- NOTE | 2022-04-30 22:02 | PM.IMHP ---
H&P: HPI History of Present Illness Date/Time: 04/30/22 22:02 Chief Complaint: Failure to thrive Narrative: This is an 82-year-old female with past medical history significant for type diabetes mellitus, meningioma, GERD, hypertension, atrial fibrillation, patient resides at assisted living facility was brought to the emergency room for evaluation by her daughter due to generalized weakness patient has not been able to get out of bed on her own has not been able to walk short distances according to daughter dizzy is something that she usually does noted a progressive decline over the course of 4 weeks or so. Patient also with lumbar vertebrae fracture and has been incontinent as well. History has been mainly obtained from daughter who is at bedside patient is oriented to person can not tell why she is in the hospital. Preliminary workup has been essentially nonrevealing. A CT of the head was reported as: FINDINGS: There is a 5.5 x 3.7 cm extra-axial mass with calcifications and foci of fat overlying left frontal lobe. There is surrounding low-attenuation vasogenic edema. There are scattered areas of low attenuation in the cerebral white matter. There is no intracranial hemorrhage or acute ischemic infarct. There is 7 mm rightward midline shift. The ventricles are normal in size. The paranasal sinuses are clear. There are likely changes of ocular lens replacement surgeries. IMPRESSION: 1. 5.5 cm extra-axial mass overlying left frontal lobe, stable from 02/18/2022, likely a meningioma. 2. 7 mm rightward midline shift. 3. Mild nonspecific cerebral white matter disease, which likely represents chronic small vessel ischemic disease. A chest x-ray was reported as: FINDINGS: There is mild atelectasis in left perihilar region. No pleural effusion or pneumothorax. Cardiomegaly is noted. There is a large hiatal hernia. IMPRESSION: 1. Large hiatal hernia. 2. Mild atelectasis in left perihilar region. 3. Cardiomegaly. Review of Systems Review of Systems: ROS unobtainable: Yes unobtainable due to mental status (Delirium) [facility] Past Medical History Medical History Abdominal pain Afib Atrial fibrillation with rapid ventricular response Diabetes GERD without esophagitis History of colon polyps Hyperlipidemia Hypertension Osteopenia started Fosamax 12/2016? Postmenopausal status (age-related) (natural) Vertigo Surgical History Surgical History H/O cataract extraction H/O colonoscopy with polypectomy H/O dilation and curettage History of removal of pigmented skin lesion Family History Family History Mother Family history of heart disease in male family member before age 55 Social History Social History Social History: The patient is and lives alone. She has 2 children. 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 Her daughter is the durable power associate attorney for healthcare. Code status full code Smoking status: Never smoker Second hand tobacco smoke exposure: No Alcohol intake: never Substance use: never Substance use type: does not use Lack of Transportation: No Lack of Food: Never True Current Housing: I Have Housing Concerned About Future Housing: No Difficulty Paying Gas/Electric Bills: No Difficulty Paying for Meds: No Currently Unemployed: No Education: Bachelor's Degree Difficulty w/ Childcare or Family Care: No Living arrangements: alone Occupation/Education: retired Gender identity (if verbalized by the patient): Female Spiritual care concerns: No Meds Home Medications and Allergies Home Medications Medicatio
[2022-04-30 22:27] LABS: Influenza A QL RT-PCR Negative (Negative); Influenza B QL RT-PCR Negative (Negative); SARS-CoV-2 RNA PCR Negative
[2022-04-30] MEDS: SODIUM CHLORIDE 0.9% IV 1,000 ML 80 ML IV CONT (23:01)
[2022-05-01] VITALS (10 sets, daily range): BP systolic 92–124; BP diastolic 40–60; PULSE 50–83; RESP 12–18; TEMP 36.2–36.8; O2SAT 95–100; BMI 23.8
[2022-05-01] MEDS: METOPROLOL TARTRATE 50 MG TAB PO ×2 (01:19→10:18)
[2022-05-01] MEDS: levETIRAcetam 500 MG TABLET PO ×3 (01:19→20:13)
[2022-05-01] MEDS: APIXABAN 2.5 MG TABLET PO ×3 (01:20→20:14)
[2022-05-01] MEDS: ACETAMINOPHEN 325 MG TABLET 650 MG PO (01:20)
[2022-05-01] MEDS: SACUBITRIL/VALSARTAN 24-26 MG TABLET 1 TAB PO ×3 (01:20→20:14)
--- NOTE | 2022-05-01 02:58 | PC.NURSE ---
Pt admitted to room 246 from the ER via cart. Pt resides at assisted living facility. Alert to self, year and states a different hospital. Pt forgetful. Unable to state why she is here. Yells at times and can be demanding. IVF infusing. Turn reposition, pt screams in pain. Pt states lower back hurts. Wound noted to mid-lower back . Pictures taken . Tolerated some water and jello. Coughed after eating some jello. Has teeth glasses left home. States new hearing aids ordered and was to get this week. Monitor fall precautions.
[2022-05-01] MEDS: HYDROcodone/acetaminophen (*CRX) 5-325 MG TABLET 1 TAB PO ×2 (05:26→18:06)
[2022-05-01 06:23] LABS: Alanine Aminotransferase 15 U/L (6-35); Albumin Level 2.1 g/dL (3.5-5.1); Alkaline Phosphatase 67 U/L (38-126); Anion Gap 3 mmol/L (8-16); Aspartate Amino Transferase 14 U/L (14-36); Bilirubin,Total 1.2 mg/dL (0.2-1.3); Blood Urea Nitrogen 27 mg/dL (7-17); Calcium 7.2 mg/dL (8.4-10.2); Carbon Dioxide 22 mmol/L (22-30); Chloride 110 mmol/L (98-107); Estimated CRCL calculation 57 ml/min; Estimated Glomerular Filt Rate > 60; Glucose 294 mg/dL (65-110); Sodium 135 mmol/L (137-145)
[2022-05-01 06:25] LABS: Basophils Percent Auto 0.2 % (0.2-1.2); Hematocrit 36.1 % (37.0-47.0); Hemoglobin 11.5 g/dL (12.0-15.0); Immature Granulocyte Percent A 1.9 % (0-0.5); Immature Platelet Fraction Pct 6.8 % (0.9-11.2); Lymphocytes Absolute Auto 0.29 K/mm3 (0.9-3.2); Lymphocytes Percent Auto 2.8 % (18.3-44.2); Mean Corpuscular HGB Conc 31.9 g/dl (32-36); Mean Corpuscular Hemoglobin 30.6 pg (26-34); Mean Platelet Volume 11.8 fl (7.4-10.4); Monocytes Absolute Auto 0.5 K/mm3 (0.1-0.6); Monocytes Percent Auto 4.8 % (2.6-8.5); Neutrophils Absolute Auto 9.3 K/mm3 (1.3-6.7); Neutrophils Percent Auto 90.3 % (45.5-73.1); Platelet Count Result 100 k/mm3 (150-375); Red Blood Count 3.76 M/mm3 (4.2-5.4); Red Cell Distribution Width 16.5 % (11.5-14.5); White Blood Count 10.4 K/mm3 (4.5-10.0)
--- NOTE | 2022-05-01 09:15 | PCOTNOTE ---
Attempted to see pt. for occupational therapy evaluation. Pt. has lumbosacral corset for out of bed activity from prior admit (03/09/22) with acute vertebral fx., which is not present in room at this time. Not mobilizing pt. until present due to safety concerns. Per nursing daughter will be visiting soon. Following.
[2022-05-01] MEDS: AMIODARONE HCL 200 MG TABLET PO (10:18)
[2022-05-01] MEDS: CHOLECALCIFEROL 1,000 UNITS TABLET 2000 UNITS PO (10:18)
[2022-05-01] MEDS: PANTOPRAZOLE 40 MG TABLET PO (10:18)
[2022-05-01] MEDS: predniSONE 5 MG TABLET PO (10:19)
--- NOTE | 2022-05-01 15:10 | PM.IMPN ---
Progress Note: A&P Assessment and Plan (1) Altered mental status: Code(s): R41.82 - Altered mental status, unspecified Status: Acute Assessment and Plan: Patient is confused Only oriented to self Has no recollections of events does not know which is in the hospital CT of the head reviewed 05/01/2022 interval history: 82-year-old female with different lobe mass was seen at the [facility] the neurosurgery recommended surgery to remove the mass however patient family has decided with conservative management with steroid, patient was started on dexamethasone however with medication patient is more agitated, and family is concerned about the dose of the medication, we have consulted neurologist further evaluation and management and further recommendation to follow, patient also has lumbar spine burst compression fracture on recent CT scan however a pain is worsening and we were consulted spine surgeon for further recommendation, unfortunately patient is unable to provide any review of symptoms, daughter is present in the room and discussed. (2) Weakness: Code(s): R53.1 - Weakness Status: Acute Assessment and Plan: Patient has been on oral steroids Compression fracture at L1 High has been nonambulatory PT OT consult (3) Dehydration: Code(s): E86.0 - Dehydration Status: Acute Assessment and Plan: Gentle hydration (4) Meningioma: Code(s): D32.9 - Benign neoplasm of meninges, unspecified Status: Acute Assessment and Plan: Medical management (5) Vasogenic cerebral edema: Code(s): G93.6 - Cerebral edema Status: Acute Assessment and Plan: No oral steroids (6) Afib: Code(s): I48.91 - Unspecified atrial fibrillation Status: Acute Assessment and Plan: Rate controlled (7) Closed compression fracture of L1 vertebra: Qualifiers: Encounter type: subsequent encounter Code(s): S32.010A - Wedge compression fracture of first lumbar vertebra, initial encounter for closed fracture Status: Acute Assessment and Plan: Consider neurosurgery consult (8) GERD without esophagitis: Code(s): K21.9 - Gastro-esophageal reflux disease without esophagitis Status: Acute Assessment and Plan: Co continue PPI Subjective Date/time seen: 05/01/22 15:10 Failure to thrive HPI-Narrative: This is an 82-year-old female with past medical history significant for type diabetes mellitus, meningioma, GERD, hypertension, atrial fibrillation,? patient resides at assisted living facility was brought to the emergency room for evaluation by her daughter due to generalized weakness patient has not been able to get out of bed on her own has not been able to walk short distances according to daughter dizzy is something that she usually does noted a progressive decline over the course of 4 weeks or so.? Patient also with lumbar vertebrae fracture and has been incontinent as well.? History has been mainly obtained from daughter who is at bedside patient is oriented to person can not tell why she is in the hospital.? Preliminary workup has been essentially nonrevealing.? A CT of the head was reported as: FINDINGS: There is a 5.5 x 3.7 cm extra-axial mass with calcifications and foci of fat overlying left frontal lobe. There is surrounding low-attenuation vasogenic edema. There are scattered areas of low attenuation in the cerebral white matter. There is no intracranial hemorrhage or acute ischemic infarct. There is 7 mm rightward midline shift. The ventricles are normal in size. The paranasal sinuses are clear. There are likely changes of ocular lens replacement surgeries. IMPRESSION: 1. 5.5 cm extra-axial mass overlying left frontal lobe, stable from 02/18/2022, likely a meningioma. 2. 7 mm rightward midline shift. 3. Mild nonspecific cerebral white matter disease, which likely represents chronic small vessel ischemic dis
[2022-05-01] MEDS: METOPROLOL TARTRATE 25 MG TABLET PO (20:13)
[2022-05-02] VITALS (10 sets, daily range): BP systolic 100–111; BP diastolic 48–58; PULSE 55–94; RESP 18–20; TEMP 36–36.6; O2SAT 96–98
[2022-05-02] MEDS: AMIODARONE HCL 200 MG TABLET PO (08:18)
[2022-05-02] MEDS: PANTOPRAZOLE 40 MG TABLET PO (08:18)
[2022-05-02] MEDS: polyethylene glycoL 3350 17 GM POWD.PACK PO (08:18)
[2022-05-02] MEDS: SACUBITRIL/VALSARTAN 24-26 MG TABLET 1 TAB PO ×2 (08:19→20:22)
[2022-05-02] MEDS: APIXABAN 2.5 MG TABLET PO ×2 (08:19→20:23)
[2022-05-02] MEDS: METOPROLOL TARTRATE 25 MG TABLET PO ×2 (08:19→20:23)
[2022-05-02] MEDS: predniSONE 5 MG TABLET PO (08:20)
[2022-05-02] MEDS: CHOLECALCIFEROL 1,000 UNITS TABLET 2000 UNITS PO (08:20)
[2022-05-02] MEDS: levETIRAcetam 500 MG TABLET PO ×2 (08:20→20:23)
--- NOTE | 2022-05-02 09:03 | WPDNEURCNPN ---
Assessment and Plan Assessment and plan (1) Altered mental status: Code(s): R41.82 - Altered mental status, unspecified Status: Acute (2) Weakness: Code(s): R53.1 - Weakness Status: Acute (3) Meningioma: Code(s): D32.9 - Benign neoplasm of meninges, unspecified Status: Acute (4) Vasogenic cerebral edema: Code(s): G93.6 - Cerebral edema Status: Acute Plan Catalina Byrd is a 82 year old female with a history of atrial fibrillation, hypertension, hyperlipidemia, meningioma presenting due to altered mental status. She has a history of meningioma which was being treated with steroids for associated vasogenic edema. Steroids are currently being held, presumably due to concerns for mental status changes and generalized weakness. Family has elected against surgical intervention as recommended by [facility] Neurosurgery. - Patient was previously getting Decadron 4mg QID, will reduce to 2mg BID and see if any improvement in mental status Consult date: 05/02/22 Reason for consult: Brain mass HPI: Catalina Byrd is a 82 year old female with a history of atrial fibrillation, hypertension, hyperlipidemia, meningioma presenting due to altered mental status. Patient came from assisted living and was brought in due to progressive generalized weakness as well as change in mentation. At baseline, patient is AOx3, but more recently has been AOx2. She has not been able to get out of bed or walk short distances. Daughter has noted a progressive decline over the course of 4 weeks which has also included urinary incontinence. Patient was taken to [place] ED where she had a CT head which showed L frontal extra-axial mass with 7mm midline shift, which is unchanged from CT obtained in March 2022. Infectious work-up including urinalysis was negative. Patient has had evaluation for the meningioma at [facility] and family elected for nonsurgical management. She was discharged on oral steroids and is currently on 5mg daily. She also has known L1 burst fracture, which seems to have worsened as noted on CT from this admission. Neurosurgery has been consulted. Patient denies any headache, vision changes, or any new focal neurological deficits. Review of Systems Constitutional: Constitutional: Reports weakness Eyes: Eyes: Reports no additional eye complaints ENT: Reports system reviewed and no additional complaints, except as documented Cardiovascular: Cardiovascular: Reports no additional cardiovascular complaints Respiratory: Respiratory: Reports no additional respiratory complaints Gastrointestinal: Gastrointestinal: Reports no additional gastrointestinal complaints Genitourinary: Genitourinary: Reports no additional female genitourinary complaints Musculoskeletal: Musculoskeletal: Reports back pain Integumentary/Breasts: Skin/Breast: Reports system reviewed and no additional complaints, except as docu Neurologic: Reports as per HPI Psychiatric: Psychiatric: Reports confusion PMFSH Past Medical History Medical History Abdominal pain Afib Atrial fibrillation with rapid ventricular response Diabetes GERD without esophagitis History of colon polyps Hyperlipidemia Hypertension Osteopenia started Fosamax 12/2016? Postmenopausal status (age-related) (natural) Vertigo Surgical History Surgical History H/O cataract extraction H/O colonoscopy with polypectomy H/O dilation and curettage History of removal of pigmented skin lesion Family History Family History Mother Family history of heart disease in male family member before age 55 Social History Social History Social History: The patient is and lives alone. She has 2 children. 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
--- NOTE | 2022-05-02 10:57 | PCPTNOTE ---
Patient refused treatment this session. Patient reported she has been up today and does not want to get back up at this time to work with therapy.
[2022-05-02] MEDS: HYDROcodone/acetaminophen (*CRX) 5-325 MG TABLET 1 TAB PO ×2 (12:23→20:22)
--- NOTE | 2022-05-02 12:27 | PM.IMPN ---
Progress Note: A&P Assessment and Plan (1) Altered mental status: Code(s): R41.82 - Altered mental status, unspecified Status: Acute Assessment and Plan: Patient is confused Only oriented to self Has no recollections of events does not know which is in the hospital CT of the head reviewed 05/02/2022 interval history: 82-year-old female with different lobe mass was seen at the [facility] the neurosurgery recommended surgery to remove the mass however patient family has decided with conservative management with steroid, patient was started on dexamethasone however with medication patient is more agitated, and family is concerned about the dose of the medication, we have consulted neurologist further evaluation and management and further recommendation to follow, today patient was seen by the neurologist and we discussed and plan is start lower dose of dexamathasone at 2mg BID and monitor, I also called patient daughter and discussed neurologist plan, this is more like palliative care, will have PT?OT worked with patient and patient may benefit from rehab, patient also has lumbar spine burst compression fracture on recent CT scan however a pain is worsening and we were consulted spine surgeon for further recommendation, repeat lumbar spine showed worsening of compression fracture,, unfortunately patient is unable to provide any review of symptoms. (2) Weakness: Code(s): R53.1 - Weakness Status: Acute Assessment and Plan: Patient has been on oral steroids Compression fracture at L1 High has been nonambulatory PT OT consult (3) Dehydration: Code(s): E86.0 - Dehydration Status: Acute Assessment and Plan: Gentle hydration (4) Meningioma: Code(s): D32.9 - Benign neoplasm of meninges, unspecified Status: Acute Assessment and Plan: Medical management (5) Vasogenic cerebral edema: Code(s): G93.6 - Cerebral edema Status: Acute Assessment and Plan: No oral steroids (6) Afib: Code(s): I48.91 - Unspecified atrial fibrillation Status: Acute Assessment and Plan: Rate controlled (7) Closed compression fracture of L1 vertebra: Qualifiers: Encounter type: subsequent encounter Code(s): S32.010A - Wedge compression fracture of first lumbar vertebra, initial encounter for closed fracture Status: Acute Assessment and Plan: Consider neurosurgery consult (8) GERD without esophagitis: Code(s): K21.9 - Gastro-esophageal reflux disease without esophagitis Status: Acute Assessment and Plan: Co continue PPI Subjective Date/time seen: 05/02/22 12:27 05/02/2022 interval history: 82-year-old female with different lobe mass was seen at the [facility] the neurosurgery recommended surgery to remove the mass however patient family has decided with conservative management with steroid, patient was started on dexamethasone however with medication patient is more agitated, and family is concerned about the dose of the medication, we have consulted neurologist further evaluation and management and further recommendation to follow, today patient was seen by the neurologist and we discussed and plan is start lower dose of dexamathasone at 2mg BID and monitor, I also called patient daughter and discussed neurologist plan, this is more like palliative care, will have PT?OT worked with patient and patient may benefit from rehab, patient also has lumbar spine burst compression fracture on recent CT scan however a pain is worsening and we were consulted spine surgeon for further recommendation, repeat lumbar spine showed worsening of compression fracture,, unfortunately patient is unable to provide any review of symptoms. Review of Systems Review of Systems: ROS unobtainable: Yes unobtainable due to mental status (Delirium) Exam Narrative: elderly frail Patient is comfortable, NAD HEENT: eye
--- NOTE | 2022-05-02 13:14 | WPDNEUROSGCN ---
Assessment and Plan Assessment and plan (1) Compression fracture of first lumbar vertebra: Code(s): S32.010A - Wedge compression fracture of first lumbar vertebra, initial encounter for closed fracture Status: Acute Assessment and Plan: Catalina Byrd is a 82 year old female who is familiar to me after being seen for an L1 fracture.? March 2022, she was consulted by Dr Luque who recommended an LSO, PT and OT.?At last visit 04/18/2022 her pain had significantly improved and she was able to accomplish her ADLs without difficulty.? Today upon examination, she appeared uncomfortable laying in the hospital bed, complained of pain to her ymail low back and with raising her RLE off the bed, pain to her low back was present. Repeat CT completed with showed progression of L1 compression fracture. It was discussed at a previous office visit as well as the consultation today about a possibility of a L1 kyphoplasty for pain relief to her fracture. The patient reported that she is against and does not wish to proceed with the kyphoplasty or any interventional treatments to her low back. At this point, we would recommend pain control as well as continuation of OT and PT. Case was discussed with Dr. Fletcher Review of Systems Review of Systems: All systems reviewed & are unremarkable except as noted in HPI and below PMFSH Past Medical History Medical History (Updated 05/02/22 @ 13:25 by Maite Stauffer APRN) Abdominal pain Afib Atrial fibrillation with rapid ventricular response Compression fracture of first lumbar vertebra Diabetes GERD without esophagitis History of colon polyps Hyperlipidemia Hypertension Osteopenia started Fosamax 12/2016? Postmenopausal status (age-related) (natural) Vertigo Surgical History Surgical History H/O cataract extraction H/O colonoscopy with polypectomy H/O dilation and curettage History of removal of pigmented skin lesion Family History Family History Mother Family history of heart disease in male family member before age 55 Social History Social History Social History: The patient is and lives alone. She has 2 children. 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 Her daughter is the durable power energy attorney for healthcare. Code status full code Smoking status: Never smoker Second hand tobacco smoke exposure: No Alcohol intake: never Substance use: never Substance use type: does not use Lack of Transportation: No Lack of Food: Never True Current Housing: I Have Housing Concerned About Future Housing: No Difficulty Paying Gas/Electric Bills: No Difficulty Paying for Meds: No Currently Unemployed: No Education: Bachelor's Degree Difficulty w/ Childcare or Family Care: No Living arrangements: alone Occupation/Education: retired Gender identity (if verbalized by the patient): Female Spiritual care concerns: No Meds Home Medications and Allergies Home Medications Medication Instructions Recorded Confirmed Type apixaban 5 mg tablet 2.5 mg PO BID 03/07/22 04/30/22 History atorvastatin 40 mg tablet 40 mg PO DAILY 03/07/22 04/30/22 History empagliflozin 10 mg tablet 10 mg PO DAILY 03/07/22 04/30/22 History levetiracetam 500 mg tablet 500 mg PO Q12H 03/07/22 04/30/22 History sacubitril 24 mg-valsartan 26 mg 1 tablet PO BID 03/07/22 04/30/22 History tablet acetaminophen 325 mg tablet (Mapap 650 mg PO Q6H PRN Pain Rated 5 Or 03/13/22 04/30/22 Rx (acetaminophen)) Less #30 tabs polyethylene glycol 3350 17 17 g PO .COMPLEX 03/29/22 04/30/22 History gram/dose oral powder (Miralax) cholecalciferol (vitamin D3) 50 2,000 unit PO DAILY
--- NOTE | 2022-05-02 13:33 | PCPTNOTE ---
Attempted to see patient for PT, however patient refused due to low back pain and patient not feeling well. Assisted patient with getting more comfortable in bed. RN aware of pain.
[2022-05-03] VITALS (11 sets, daily range): BP systolic 98–118; BP diastolic 50–63; PULSE 67–85; RESP 18–20; TEMP 36.2–36.7; O2SAT 96–98
[2022-05-03] MEDS: CHOLECALCIFEROL 1,000 UNITS TABLET 2000 UNITS PO (10:54)
[2022-05-03] MEDS: APIXABAN 2.5 MG TABLET PO ×2 (10:55→20:47)
[2022-05-03] MEDS: AMIODARONE HCL 200 MG TABLET PO (10:55)
[2022-05-03] MEDS: levETIRAcetam 500 MG TABLET PO ×2 (10:55→20:47)
[2022-05-03] MEDS: SACUBITRIL/VALSARTAN 24-26 MG TABLET 1 TAB PO ×2 (10:55→20:47)
[2022-05-03] MEDS: METOPROLOL TARTRATE 25 MG TABLET PO ×2 (10:56→20:46)
[2022-05-03] MEDS: PANTOPRAZOLE 40 MG TABLET PO (10:56)
[2022-05-03] MEDS: predniSONE 10 MG TABLET PO (10:57)
[2022-05-03] MEDS: predniSONE 2.5 MG TABLET PO (10:58)
--- NOTE | 2022-05-03 11:52 | WPDNEUROPN ---
Progress Note: A&P Assessment and Plan (1) Altered mental status: Code(s): R41.82 - Altered mental status, unspecified Status: Acute (2) Weakness: Code(s): R53.1 - Weakness Status: Acute (3) Meningioma: Code(s): D32.9 - Benign neoplasm of meninges, unspecified Status: Acute (4) Vasogenic cerebral edema: Code(s): G93.6 - Cerebral edema Status: Acute (5) Compression fracture of first lumbar vertebra: Code(s): S32.010A - Wedge compression fracture of first lumbar vertebra, initial encounter for closed fracture Status: Acute Plan Catalina Byrd is a 82 year old female with a history of atrial fibrillation, hypertension, hyperlipidemia, meningioma presenting due to altered mental status. She has a history of meningioma which is being treated with steroids for associated vasogenic edema. Steroid dose was reduced in hopes of improving mental status and generalized weakness. CK was normal, so steroid induced myopathy seems less likely. Patient appears more agitated today. Family has elected against surgical intervention as recommended by [facility]. Subjective Date/time seen: 05/03/22 11:52 Interval history: Catalina Byrd is a 82 year old female with a history of atrial fibrillation, hypertension, hyperlipidemia, meningioma presenting due to altered mental status. Patient came from assisted living and was brought in due to progressive generalized weakness as well as change in mentation. At baseline, patient is AOx3, but more recently has been AOx2. She has not been able to get out of bed or walk short distances. Daughter has noted a progressive decline over the course of 4 weeks which has also included urinary incontinence. Patient was taken to [place] ED where she had a CT head which showed L frontal extra-axial mass with 7mm midline shift, which is unchanged from CT obtained in March 2022. Infectious work-up including urinalysis was negative.? Patient has had evaluation for the [facility]ioma at [facility] and family elected for nonsurgical management. She was discharged on oral steroids . She also has known L1 burst fracture, which seems to have worsened as noted on CT from this admission. Neurosurgery has been consulted. Patient's daughter reports that when patient was receiving Decadron while admitted to [facility], she had a negative reaction to it so she was switched from Decadron 16mg per day to Prednisone 25mg per day. Daughter felt that patient was doing much better on the Prednisone compared to the Decadron, but still seemed to have worsening in cognition as well as overall functioning over the past 10 days. Yesterday, switched Decadron to predisone (at reduced dose of 12.5mg daily). CK level from 04/30 is normal. Review of Systems Review of Systems: ROS unobtainable: Yes unobtainable due to mental status Exam Const: General: comfortable and no acute distress HENMT: Mouth: Yes moist mucous membranes Eyes: Pupils: Equal, round and reactive pupils present EOM: EOMs intact bilaterally Resp: Effort & Inspection: normal respiratory effort Skin: General skin exam: normal color Neuro: Other: AOx self only. PERRL, EOMI, face symmetric. Upper extremity strength 4/5 bilaterally, lower extremity strength 2/5 bilaterally (no antigravity movement), patellar reflexes 2+ bilaterally, sensation is intact bilaterally to noxious stimuli. Extrem: General: normal to inspection Objective Data Vital Signs Vital Signs: Vital Signs - 24 hr 05/02/22 14:18 05/02/22 18:25 05/02/22 20:23 Temperature 36.4 C 36.4 C Pulse Rate 72 70 84 Respiratory Rate 18 18 Blood Pressure 108/58 L 110/57 L Pulse Oximetry 97 96 Oxygen Delivery 05/02/22 20:00 05/02/22 20:00 05/03/22 00:00 Temperature 36.6 C 36.5 C Pulse Rate 77 67 Respiratory Rate 18 18 Blood Pressure 111/55 L 98/50 L Pulse Oximetry 96 97 Oxygen Delivery Room Air 05/03/22 04:00 05/03/22 08:00 0
--- NOTE | 2022-05-03 14:46 | PM.IMPN ---
Progress Note: A&P Assessment and Plan (1) Altered mental status: Code(s): R41.82 - Altered mental status, unspecified Status: Acute Assessment and Plan: Patient is confused Only oriented to self Has no recollections of events does not know which is in the hospital CT of the head reviewed 05/03/2022 interval history: 82-year-old female with frontal lobe mass was seen at the [facility] the neurosurgery recommended surgery to remove the mass however patient family has decided with conservative management with steroid, patient was started on dexamethasone however with the medication patient is more agitated, and family is concerned about the dose of the medication, we have consulted neurologist further evaluation and management and further recommendation to follow, today patient was seen by the neurologist and we discussed and plan is start lower dose of dexamathasone at 2mg BID and monitor, however neurologist spoke with patient daughter and have decided to start on low dose of prednisone as patient is able tolerate, on 05/02 I also called patient daughter and discussed neurologist plan, this is more like palliative care, will have PT?OT worked with patient and patient may benefit from rehab, discussed with PT patient is too tired and does not want to participate in PT. patient also has lumbar spine burst compression fracture on recent CT scan however a pain is worsening and we were consulted spine surgeon for further recommendation, repeat lumbar spine showed worsening of compression fracture,, patient was seen by spine service and recommended kyphoplasty, however patient refused any surgical intervention, will continue PT/OT, unfortunately patient is unable to provide any review of symptoms. (2) Weakness: Code(s): R53.1 - Weakness Status: Acute Assessment and Plan: Patient has been on oral steroids Compression fracture at L1 High has been nonambulatory PT OT consult (3) Dehydration: Code(s): E86.0 - Dehydration Status: Acute Assessment and Plan: Gentle hydration (4) Meningioma: Code(s): D32.9 - Benign neoplasm of meninges, unspecified Status: Acute Assessment and Plan: Medical management (5) Vasogenic cerebral edema: Code(s): G93.6 - Cerebral edema Status: Acute Assessment and Plan: No oral steroids (6) Afib: Code(s): I48.91 - Unspecified atrial fibrillation Status: Acute Assessment and Plan: Rate controlled (7) Closed compression fracture of L1 vertebra: Qualifiers: Encounter type: subsequent encounter Code(s): S32.010A - Wedge compression fracture of first lumbar vertebra, initial encounter for closed fracture Status: Acute Assessment and Plan: Consider neurosurgery consult (8) GERD without esophagitis: Code(s): K21.9 - Gastro-esophageal reflux disease without esophagitis Status: Acute Assessment and Plan: Co continue PPI Subjective Date/time seen: 05/03/22 14:46 05/03/2022 interval history: 82-year-old female with frontal lobe mass was seen at the [facility] the neurosurgery recommended surgery to remove the mass however patient family has decided with conservative management with steroid, patient was started on dexamethasone however with the medication patient is more agitated, and family is concerned about the dose of the medication, we have consulted neurologist further evaluation and management and further recommendation to follow, today patient was seen by the neurologist and we discussed and plan is start lower dose of dexamathasone at 2mg BID and monitor, however neurologist spoke with patient daughter and have decided to start on low dose of prednisone as patient is able tolerate, on 05/02 I also called patient daughter and discussed neurologist plan, this is more like palliative care, will have PT?OT worked with patient and patient may benefit from r
[2022-05-03] MEDS: HYDROcodone/acetaminophen (*CRX) 5-325 MG TABLET 1 TAB PO (16:50)
[2022-05-04] VITALS (8 sets, daily range): BP systolic 100–115; BP diastolic 52–60; PULSE 66–84; RESP 14–20; TEMP 36.4–36.8; O2SAT 96–99
--- NOTE | 2022-05-04 08:17 | PCPTNOTE ---
Attempted to see patient for PT, however patient refused. Encouraged patient to participate in therapy and patient continued to refuse.
[2022-05-04] MEDS: polyethylene glycoL 3350 17 GM POWD.PACK PO (08:53)
[2022-05-04] MEDS: levETIRAcetam 500 MG TABLET PO (08:53)
[2022-05-04] MEDS: AMIODARONE HCL 200 MG TABLET PO (08:54)
[2022-05-04] MEDS: PANTOPRAZOLE 40 MG TABLET PO (08:54)
[2022-05-04] MEDS: CHOLECALCIFEROL 1,000 UNITS TABLET 2000 UNITS PO (08:55)
[2022-05-04] MEDS: METOPROLOL TARTRATE 25 MG TABLET PO (08:56)
[2022-05-04] MEDS: predniSONE 2.5 MG TABLET PO (08:56)
[2022-05-04] MEDS: predniSONE 10 MG TABLET PO (08:56)
[2022-05-04] MEDS: APIXABAN 2.5 MG TABLET PO (08:56)
[2022-05-04] MEDS: SACUBITRIL/VALSARTAN 24-26 MG TABLET 1 TAB PO (08:57)
--- NOTE | 2022-05-04 13:37 | PCPTNOTE ---
Asked patient if she wanted to work with PT this afternoon while assisting nursing pull patient up in bed. Patient refused PT this afternoon, stating no way!
--- NOTE | 2022-05-04 14:28 | PM.DS ---
DS: Admitting Diagnosis Discharge Date 05/04/2022 Admitting Diagnosis Failure to thrive DS: Discharge Diagnosis Discharge Diagnosis (1) Altered mental status: Code(s): R41.82 - Altered mental status, unspecified Status: Acute Assessment and Plan: Patient is confused Only oriented to self Has no recollections of events does not know which is in the hospital CT of the head reviewed 05/03/2022 interval history: 82-year-old female with frontal lobe mass was seen at the [facility] the neurosurgery recommended surgery to remove the mass however patient family has decided with conservative management with steroid, patient was started on dexamethasone however with the medication patient is more agitated, and family is concerned about the dose of the medication, we have consulted neurologist further evaluation and management and further recommendation to follow, today patient was seen by the neurologist and we discussed and plan is start lower dose of dexamathasone at 2mg BID and monitor, however neurologist spoke with patient daughter and have decided to start on low dose of prednisone as patient is able tolerate, on 05/02 I also called patient daughter and discussed neurologist plan, this is more like palliative care, will have PT?OT worked with patient and patient may benefit from rehab, discussed with PT patient is too tired and does not want to participate in PT. patient also has lumbar spine burst compression fracture on recent CT scan however a pain is worsening and we were consulted spine surgeon for further recommendation, repeat lumbar spine showed worsening of compression fracture,, patient was seen by spine service and recommended kyphoplasty, however patient refused any surgical intervention, will continue PT/OT, unfortunately patient is unable to provide any review of symptoms. (2) Weakness: Code(s): R53.1 - Weakness Status: Acute Assessment and Plan: Patient has been on oral steroids Compression fracture at L1 High has been nonambulatory PT OT consult (3) Dehydration: Code(s): E86.0 - Dehydration Status: Resolved Assessment and Plan: Gentle hydration (4) Meningioma: Code(s): D32.9 - Benign neoplasm of meninges, unspecified Status: Chronic Assessment and Plan: Medical management (5) Vasogenic cerebral edema: Code(s): G93.6 - Cerebral edema Status: Acute Assessment and Plan: No oral steroids (6) Afib: Code(s): I48.91 - Unspecified atrial fibrillation Status: Acute Assessment and Plan: Rate controlled (7) Closed compression fracture of L1 vertebra: Qualifiers: Encounter type: subsequent encounter Code(s): S32.010A - Wedge compression fracture of first lumbar vertebra, initial encounter for closed fracture Status: Acute Assessment and Plan: Consider neurosurgery consult (8) GERD without esophagitis: Code(s): K21.9 - Gastro-esophageal reflux disease without esophagitis Status: Acute Assessment and Plan: Co continue PPI DS: Summary Hospital Course Reason for hospitalization: Failure to thrive Narrative: This is an 82-year-old female with past medical history significant for type diabetes mellitus, meningioma, GERD, hypertension, atrial fibrillation,? patient resides at assisted living facility was brought to the emergency room for evaluation by her daughter due to generalized weakness patient has not been able to get out of bed on her own has not been able to walk short distances according to daughter dizzy is something that she usually does noted a progressive decline over the course of 4 weeks or so.? Patient also with lumbar vertebrae fracture and has been incontinent as well.? History has been mainly obtained from daughter who is at bedside patient is oriented to person can not tell why she is in the hospital.? Preliminary workup has been essentially no
--- NOTE | 2022-05-04 15:49 | PC.NURSE ---
On 05/04/22, the student, [Yvonne Gonzalez], provided care and completed [facility] documentation on this patient. I have reviewed the student's documentation and agree with the findings.
[2022-05-04 17:05] LABS: EDCOVIDSCREEN Negative (Negative)
== END 2022-05-04 19:24 | disposition home health service (06) ==
LOC: ANHED 22:13 → ANH2MED 23:22
PROVIDERS: Admitting Provider Internal Medicine; Emergency Provider Emergency Medicine; PCP Family Medicine; Visit Provider Family Medicine
DX: R41.82 Altered mental status, unspecified (principal); R53.1 Weakness; E86.0 Dehydration; D32.9 Benign neoplasm of meninges, unspecified; G93.6 Cerebral edema; I48.91 Unspecified atrial fibrillation; S32.010A Wedge compression fracture of first lumbar vertebra, initial encounter for closed fracture; Z20.822 Contact with and (suspected) exposure to COVID-19; K21.9 Gastro-esophageal reflux disease without esophagitis; R63.0 Anorexia; M47.816 Spondylosis without myelopathy or radiculopathy, lumbar region; Z68.23 Body mass index [BMI] 23.0-23.9, adult; R90.82 White matter disease, unspecified; R94.31 Abnormal electrocardiogram [ECG] [EKG]; K44.9 Diaphragmatic hernia without obstruction or gangrene; J98.11 Atelectasis; E11.9 Type 2 diabetes mellitus without complications; E78.5 Hyperlipidemia, unspecified; I11.9 Hypertensive heart disease without heart failure; M85.80 Other specified disorders of bone density and structure, unspecified site; Z79.52 Long term (current) use of systemic steroids; Z79.01 Long term (current) use of anticoagulants; Z79.891 Long term (current) use of opiate analgesic; Z79.899 Other long term (current) drug therapy; Z82.49 Family history of ischemic heart disease and other diseases of the circulatory system
CPT/HCPCS: 36415; 51702; 70450; 71045; 72131; 80053; 81001; 82550; 83605; 85025; 85055; 85610; 85730; 87426; 87636; 93005; 96360; 96361; 97161; 97165; 97530; 97535; 99285; A9270; C9803; G0378; J7030; J7040; J7512

== ENCOUNTER 2022-05-04 22:27 | Inpatient (IN) | payer OTHER, SELFPAY ==
[2022-05-04 22:22] VITALS: BP 103/56; PULSE 88; RESP 18; TEMP 36.6; O2SAT 97
[2022-05-04 22:27] VITALS: BP 103/56; PULSE 72; RESP 17; O2SAT 97
--- NOTE | 2022-05-04 22:39 | ECG_ITS ---
Measurements Intervals [place] Rate: 85 P: 39 [place]: 181 QRS: -6 QRSD: 114 T: 59 QT: 397 QTc: 473 Interpretive Statements SINUS RHYTHM WITH FREQUENT SUPRAVENTRICULAR PREMATURE COMPLEXES INCOMPLETE LEFT BUNDLE BRANCH BLOCK COMPARED TO ECG 04/30/2022 18:59:07 ATRIAL ECTOPIC ACTIVITY IS SEEN MORE FREQUENTLY Electronically Signed On 05-05-2022 14:45:16 BRIDGE MANAGER by Kapil Figueroa M.D.
[2022-05-04 22:45] VITALS: BP 101/58
[2022-05-04 23:05] LABS: Basophils Percent Auto 0.1 % (0.2-1.2); Eosinophils Percent Auto 0.4 % (0-4.4); Hematocrit 39.2 % (37.0-47.0); Hemoglobin 12.6 g/dL (12.0-15.0); Immature Granulocyte Absolute 0.22 K/mm3 (0.00-0.031); Immature Granulocyte Percent A 2.3 % (0-0.5); Immature Platelet Fraction Pct 7.5 % (0.9-11.2); Lymphocytes Absolute Auto 0.51 K/mm3 (0.9-3.2); Lymphocytes Percent Auto 5.3 % (18.3-44.2); Mean Corpuscular HGB Conc 32.1 g/dl (32-36); Mean Corpuscular Hemoglobin 29.7 pg (26-34); Mean Corpuscular Volume 92.5 fl (80-100); Mean Platelet Volume 11.9 fl (7.4-10.4); Monocytes Absolute Auto 0.2 K/mm3 (0.1-0.6); Monocytes Percent Auto 2.3 % (2.6-8.5); Neutrophils Absolute Auto 8.7 K/mm3 (1.3-6.7); Neutrophils Percent Auto 89.6 % (45.5-73.1); Platelet Count Result 90 k/mm3 (150-375); Red Blood Count 4.24 M/mm3 (4.2-5.4); Red Cell Distribution Width 17.1 % (11.5-14.5); White Blood Count 9.7 K/mm3 (4.5-10.0)
[2022-05-04 23:17] LABS: INR 1.1; Partial Thromboplastin Time 27.1 SECONDS (22.3-36.8); Prothrombin Time 13.9 Seconds (11.1-14.7)
[2022-05-04 23:28] LABS: Alanine Aminotransferase 23 U/L (6-35); Albumin Level 2.5 g/dL (3.5-5.1); Alkaline Phosphatase 95 U/L (38-126); Anion Gap 2 mmol/L (8-16); Aspartate Amino Transferase 25 U/L (14-36); Blood Urea Nitrogen 23 mg/dL (7-17); Calcium 8.2 mg/dL (8.4-10.2); Carbon Dioxide 29 mmol/L (22-30); Chloride 105 mmol/L (98-107); Estimated CRCL calculation 69 ml/min; Estimated Glomerular Filt Rate > 60; Glucose 230 mg/dL (65-110); Potassium 4.2 mmol/L (3.4-5.0); Sodium 136 mmol/L (137-145)
[2022-05-05] VITALS (11 sets, daily range): BP systolic 86–120; BP diastolic 49–68; PULSE 60–91; RESP 12–17; TEMP 36.1–36.9; O2SAT 92–99; BMI 24.3; BMI 24.5
[2022-05-05] MEDS: LACTATED RINGERS 1,000 ML 999 ML IV CONT (00:13)
[2022-05-05 00:22] LABS: Appearance Urine Cloudy (Clear); Bilirubin Urine Negative (Negative); Blood Urine Trace-intact (Negative); Color Urine Yellow (Yellow); Glucose Urine UA 3+ mg/dL (Negative); Ketones Urine Negative (Negative); Leukocyte Esterase Ur Negative LEU/UL (Negative); Nitrate Urine Negative (Negative); Protein Urine Trace mg/dL (Negative); Specific Grav Ur 1.015 (1.001-1.035); Urobilinogen Urine 0.2 mg/dL (<2.0)
[2022-05-05 00:34] LABS: Mucus Urine Rare /lpf; RBC Urine >75 /hpf (0-2); WBC Urine >75 /hpf
[2022-05-05 00:44] LABS: Add Urine Microscopic? YES
[2022-05-05] MEDS: predniSONE 10 MG TABLET 12.5 MG PO (01:24)
[2022-05-05 03:33] LABS: Influenza A QL RT-PCR Negative (Negative); Influenza B QL RT-PCR Negative (Negative); RSV RNA, RT-PCR Negative (Negative); SARS-CoV-2 RNA PCR Negative
--- NOTE | 2022-05-05 05:25 | ED.GENADULT ---
HPI - General Adult General Chief complaint: Altered Mental Status Stated complaint: DEHYDRATION, LETHARGY Time Seen by Provider: 05/04/22 23:27 History of Present Illness HPI narrative: Patient sent from rehab for hypotension, patient denies any symptoms. Her blood pressure has been the same as when she was discharged from here, with maps above 60s. I did speak with her daughter at bedside who states that she had recent been taking 60 mg of Decadron daily for 2 weeks, and had suddenly had this stopped, and we do suspect this likely is causing some of these symptoms. Related Data Home Medications Medication Instructions Recorded Confirmed apixaban 5 mg tablet 2.5 mg PO BID 03/07/22 05/05/22 atorvastatin 40 mg tablet 40 mg PO DAILY 03/07/22 05/05/22 empagliflozin 10 mg tablet 10 mg PO DAILY 03/07/22 05/05/22 sacubitril 24 mg-valsartan 26 mg 1 tablet PO BID 03/07/22 05/05/22 tablet polyethylene glycol 3350 17 17 g PO .COMPLEX 03/29/22 05/05/22 gram/dose oral powder (Miralax) cholecalciferol (vitamin D3) 50 2,000 unit PO DAILY 04/07/22 05/05/22 mcg (2,000 unit) tablet (Vitamin D3) metoprolol tartrate 50 mg tablet 50 mg PO BID 04/24/22 05/05/22 Allergies Allergy/AdvReac Type Severity Reaction Status Date / Time No Known Allergies Allergy Verified 05/05/22 03:45 Review of Systems Review of Systems: CONST: No fever. HEENT: No sore throat C/V: No chest pain RESP: No cough GI: No abdominal pain : No dysuria. M/S: Muscle weakness and pain SKIN: No rash. NEURO: [No headache or focal numbness or weakness] PSYCH: [No depression] [facility] Past Medical History Medical History Abdominal pain Afib Atrial fibrillation with rapid ventricular response Compression fracture of first lumbar vertebra Diabetes GERD without esophagitis History of colon polyps Hyperlipidemia Hypertension Osteopenia started Fosamax 12/2016? Postmenopausal status (age-related) (natural) Vertigo Surgical History Surgical History H/O cataract extraction H/O colonoscopy with polypectomy H/O dilation and curettage History of removal of pigmented skin lesion Family History Family History Mother Family history of heart disease in male family member before age 55 Social History Social History Social History: The patient is and lives alone. She has 2 children. 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 Her daughter is the durable power privacy attorney for healthcare. Code status full code Smoking status: Never smoker Second hand tobacco smoke exposure: No Alcohol intake: never Substance use: never Substance use type: does not use Lack of Transportation: No Lack of Food: Never True Current Housing: I Have Housing Concerned About Future Housing: No Difficulty Paying Gas/Electric Bills: No Difficulty Paying for Meds: No Currently Unemployed: No Education: Bachelor's Degree Difficulty w/ Childcare or Family Care: No Living arrangements: alone Occupation/Education: retired Gender identity (if verbalized by the patient): Female Spiritual care concerns: No Exam Narrative: EXAMINATION OF ORGAN SYSTEMS/BODY AREAS: Constitutional: Vital signs per nursing GENERAL:[No acute distress, non-toxic appearing.] HEAD: Normal with no signs of head trauma. EYES: EOMI, conjunctiva normal ENT: Hearing grossly intact LUNGS: Nonlabored breathing. HEART: [Regular rate and rhythm] ABD: [Soft], [nontender to palpation] EXT: Normal range of motion SKIN: [No rashes or lesions.] NEURO: [Alert and oriented x 3. No gross focal sensory or strength deficits.] PSYCH: Normal af
--- NOTE | 2022-05-05 08:00 | PC.NURSE ---
At approximately 06:45 patient used call light and reported chest pain that radiates to jaw with a rating of 8 and the quality being crushing. Checked on patient and administered Dumont-5. Consulted with charge nurses Laura and Mariely and ordered a stat EKG and a troponin lab to be drawn, with EKG showing atrial fibrillation with RVR. Shortly after received ordered from Dr. Miranda and administered metoprolol and her home medication diltiazem. At 07:55 patient reported 0 pain. Will continue to monitor.
[2022-05-05] MEDS: PANTOPRAZOLE 40 MG TABLET PO (09:32)
[2022-05-05] MEDS: levETIRAcetam 500 MG TABLET PO ×2 (09:32→21:09)
[2022-05-05] MEDS: ATORVASTATIN 40 MG TABLET PO (09:34)
[2022-05-05] MEDS: CHOLECALCIFEROL 1,000 UNITS TABLET 2000 UNITS PO (09:34)
[2022-05-05] MEDS: AMIODARONE HCL 200 MG TABLET PO (09:34)
[2022-05-05] MEDS: EMPAGLIFLOZIN 10 MG TABLET PO (09:34)
[2022-05-05] MEDS: APIXABAN 2.5 MG TABLET PO ×2 (09:35→17:33)
[2022-05-05] MEDS: METOPROLOL TARTRATE 50 MG TAB PO ×2 (09:35→21:09)
--- NOTE | 2022-05-05 11:26 | PCOTNOTE ---
Attempted to see patient for OT evaluation. Patient declining at this time reporting she is too tired. Will continue to attempt.
[2022-05-05 11:43] LABS: Glucose Point of Care 279 mg/dl (65-105)
--- NOTE | 2022-05-05 12:05 | PCPTNOTE ---
Waiting on complete work up prior to initiating PT.
--- NOTE | 2022-05-05 13:00 | PM.IMHP ---
H&P: HPI History of Present Illness Date/Time: 05/05/22 13:00 Chief Complaint: Hypotension Narrative: Date of service: 05/05/2022 Catalina Byrd is an 82-year-old female with a history of atrial fibrillation maintained on chronic anticoagulation, diabetes, hypertension, hyperlipidemia, and recent admission from 04/30-05/04/22 for evaluation of altered mental status and weakness who presented to the ED last night for evaluation of hypotension. Patient was discharged yesterday to SNF. Upon arrival to facility, there was concern that her blood pressure was too low after discussion with the facility physician, patient and family was informed that she could not remain at the facility due to her hypotension and was sent to the ER for evaluation. The patient is oriented and answers questions appropriately, though does occasionally become confused and is an unreliable historian. Her daughter is present at the bedside and provides the majority of the history. Her daughter begins by summarizing recent admissions, stating that the patient was fully independent until 4 months ago in January when she was found to have a brain mass. She was started on dexamethasone and reportedly had an adverse reaction to this, causing hallucinations, agitation, and multiple other unwanted symptoms, therefore this was stopped and patient has been maintained on prednisone. She has then been at assisted living and her course has been complicated by an L1 compression fracture. She states that in April she ran out of prednisone and her providers at [facility] put her back on p.o. dexamethasone rather than refilling the prednisone. After she started taking this, she had significant decline with increased weakness, fatigue, difficulty sleeping, and hallucinations. Her mental status declined and she was admitted to the hospital at that time. Her dexamethasone was stopped and she was transitioned to prednisone 12.5 mg daily per Neurology recommendations. At this time, her daughter requests that dexamethasone be placed on her allergy list. Based on her clinical status at her last hospitalization, she was determined to require SNF and was discharged yesterday to facility where she was found to be hypotensive and was sent back to the ED. Upon presentation, her blood pressure was 103/56 with additional vital signs stable, mild thrombocytopenia, BUN 23, glucose 230, UA slightly abnormal. She has been admitted to the hospitalist service for observation. The patient complains of feeling lack of energy for a couple of days but does not offer any symptoms. She denies dizziness, lightheadedness, weakness, dysuria, hematuria, nausea, vomiting, fever, or chills. Review of Systems Review of Systems: All systems reviewed & are unremarkable except as noted in HPI and below PMFSH Past Medical History Medical History Abdominal pain Afib Atrial fibrillation with rapid ventricular response Compression fracture of first lumbar vertebra Diabetes GERD without esophagitis History of colon polyps Hyperlipidemia Hypertension Osteopenia started Fosamax 12/2016? Postmenopausal status (age-related) (natural) Vertigo Surgical History Surgical History H/O cataract extraction H/O colonoscopy with polypectomy H/O dilation and curettage History of removal of pigmented skin lesion Family History Family History Mother Family history of heart disease in male family member before age 55 Social History Social History (Updated 05/05/22 @ 13:46 by Luh Yost PA-C) Social History: The patient is and lives alone. She has 2 children. 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 Her daug
[2022-05-05 17:22] LABS: Glucose Point of Care 129 mg/dl (65-105)
[2022-05-05 20:02] LABS: Glucose Point of Care 181 mg/dl (65-105)
[2022-05-06] VITALS (7 sets, daily range): BP systolic 87–112; BP diastolic 43–57; PULSE 67–94; RESP 16–18; TEMP 36.3–36.4; O2SAT 94–99
[2022-05-06 07:48] LABS: Anion Gap 0 mmol/L (8-16); Blood Urea Nitrogen 15 mg/dL (7-17); Calcium 7.9 mg/dL (8.4-10.2); Carbon Dioxide 32 mmol/L (22-30); Chloride 105 mmol/L (98-107); Estimated CRCL calculation 69 ml/min; Estimated Glomerular Filt Rate > 60; Glucose 114 mg/dL (65-110); Potassium 3.6 mmol/L (3.4-5.0); Sodium 137 mmol/L (137-145)
[2022-05-06 07:53] LABS: Basophils Percent Auto 0.4 % (0.2-1.2); Eosinophils Absolute Auto 0.1 K/mm3 (0-0.3); Eosinophils Percent Auto 1.4 % (0-4.4); Hematocrit 39.8 % (37.0-47.0); Hemoglobin 12.7 g/dL (12.0-15.0); Immature Granulocyte Absolute 0.29 K/mm3 (0.00-0.031); Immature Platelet Fraction Pct 6.7 % (0.9-11.2); Lymphocytes Percent Auto 6.3 % (18.3-44.2); Mean Corpuscular HGB Conc 31.9 g/dl (32-36); Mean Corpuscular Hemoglobin 29.8 pg (26-34); Mean Corpuscular Volume 93.4 fl (80-100); Mean Platelet Volume 11.4 fl (7.4-10.4); Monocytes Absolute Auto 0.2 K/mm3 (0.1-0.6); Monocytes Percent Auto 1.9 % (2.6-8.5); Neutrophils Absolute Auto 8.3 K/mm3 (1.3-6.7); Platelet Count Result 103 k/mm3 (150-375); Red Blood Count 4.26 M/mm3 (4.2-5.4); Red Cell Distribution Width 17.3 % (11.5-14.5); White Blood Count 9.6 K/mm3 (4.5-10.0)
[2022-05-06] MEDS: METOPROLOL TARTRATE 50 MG TAB PO ×2 (08:24→21:02)
[2022-05-06] MEDS: EMPAGLIFLOZIN 10 MG TABLET PO (08:24)
[2022-05-06] MEDS: levETIRAcetam 500 MG TABLET PO ×2 (08:24→21:02)
[2022-05-06] MEDS: predniSONE 10 MG TABLET PO (08:25)
[2022-05-06] MEDS: CHOLECALCIFEROL 1,000 UNITS TABLET 2000 UNITS PO (08:25)
[2022-05-06] MEDS: PANTOPRAZOLE 40 MG TABLET PO (08:25)
[2022-05-06] MEDS: predniSONE 2.5 MG TABLET PO (08:25)
[2022-05-06] MEDS: APIXABAN 2.5 MG TABLET PO ×2 (08:25→19:45)
[2022-05-06] MEDS: ATORVASTATIN 40 MG TABLET PO (08:25)
[2022-05-06] MEDS: AMIODARONE HCL 200 MG TABLET PO (08:25)
[2022-05-06] MEDS: ACETAMINOPHEN 325 MG TABLET 650 MG PO ×2 (08:34→21:00)
[2022-05-06 08:35] LABS: Glucose Point of Care 139 mg/dl (65-105)
--- NOTE | 2022-05-06 08:38 | PM.CNCAR ---
Assessment and Plan Assessment and plan (1) Hypotension: Code(s): I95.9 - Hypotension, unspecified Status: Acute Assessment and Plan: probably combination of UTI plus minus adrenal insufficiency +/- dehydration. Regardless she is better at this point. Continue current drug regimen. Will add back her Entresto 24/26 mg b.i.d. and hopefully be able to resume her spironolactone before discharge (2) UTI (urinary tract infection): Code(s): N39.0 - Urinary tract infection, site not specified Status: Acute (3) Afib: Code(s): I48.91 - Unspecified atrial fibrillation Status: Acute Assessment and Plan: continue metoprolol, amiodarone and Eliquis (4) Hyperlipidemia: Qualifiers: Hyperlipidemia type: unspecified Qualified Code(s): E78.5 - Hyperlipidemia, unspecified Code(s): E78.5 - Hyperlipidemia, unspecified Status: Acute Assessment and Plan: continue statin (5) Congestive heart failure: Code(s): I50.9 - Heart failure, unspecified Status: Acute Assessment and Plan: continue current regimen but will add back Entresto 24/26 mg p.o. b.i.d.. Hold spironolactone for now. Gradually add back to her regimen if BP tolerates History of Present Illness History of Present Illness Consult date/time: 05/06/22 08:38 Requesting physician: Luh Yost PA-C Consult reason: Other (Hypotension) Reason For Visit: hypotension Narrative: date of service 05/06/2022 Reason for consultation: Hypotension Requesting provider: Luh sales history: Patient is an 82-year-old female who has a history of chronic atrial fibrillation, anticoagulation, diabetes hypertension hyperlipidemia who was recently hospitalized for several days for altered mental status and weakness. [facility] and was admitted within 24 hours for concern of low blood pressure. Patient had been on steroids and they were switched to dexamethasone from prednisone per physician's at [facility]. Blood pressure here at the hospital is normal to mildly low. She currently denies any chest pain, shortness breath, syncope, presyncope, paroxysmal nocturnal dyspnea, orthopnea, edema palpitations. She has been put back on her prednisone and is without specific complaint today. Review of Systems Review of Systems: All systems reviewed & are unremarkable except as noted in HPI and below Constitutional: Constitutional: Denies chills Eyes: Eyes: Denies blurry vision ENT: Reports Normal hearing present Cardiovascular: Cardiovascular: Denies chest pain Respiratory: Respiratory: Denies chest congestion and Denies cough Gastrointestinal: Gastrointestinal: Denies abdominal pain Genitourinary: Genitourinary: Denies hematuria Musculoskeletal: Musculoskeletal: Denies back pain Integumentary/Breasts: Skin/Breast: Denies erythema Neurologic: Denies Abnormal speech present Psychiatric: Psychiatric: Denies anxiety and Reports confusion Endocrine: Endocrine: Denies excessive sweating Hematologic/Lymphatic: Hematologic/Lymphatic: Denies easy bleeding Allergic/Immunologic: Allergic/Immunologic: Denies GI upset with certain foods PMFSH Past Medical History Medical History Abdominal pain Afib Atrial fibrillation with rapid ventricular response Compression fracture of first lumbar vertebra Diabetes GERD without esophagitis History of colon polyps Hyperlipidemia Hypertension Osteopenia started Fosamax 12/2016? Postmenopausal status (age-related) (natural) Vertigo Surgical History Surgical History H/O cataract extraction H/O colonoscopy with polypectomy H/O dilation and curettage History of removal of pigmented skin lesion Family History Family History
--- NOTE | 2022-05-06 09:58 | PCOTNOTE ---
Attempted OT evaluation, despite encouragement to participate with OT, patient yelled No, No . Will follow. RN notified.
--- NOTE | 2022-05-06 11:41 | PC.NURSE ---
I bladder scanned the patient because she reports urinary urgency and difficulty voiding. Bladder scanner shows 226 ml. Patient resting comfortably in bed. Luh ALVAREZ notified.
[2022-05-06 11:53] LABS: Glucose Point of Care 140 mg/dl (65-105)
--- NOTE | 2022-05-06 13:51 | P.PNIM_ITS ---
Progress Note: A&P Assessment and Plan (1) Hypotension: Code(s): I95.9 - Hypotension, unspecified Status: Acute Assessment and Plan: Patient presented after episode of hypotension following arrival to her SNF. Blood pressure reading unknown at that time but facility did not feel she could be cared for there any longer and pt transported back to ED. BP was 103/56 on arrival. Blood pressures have been stable today. * Initially felt to be related to withdrawal from steroids however pt has been appropriately tapered and no marked change in BP * Cortisol level evaluated and is just above upper limit of normal * Consult to cardiology per family wishes for evaluation of hypotension. * Resume home Entresto * If BP still remaining stable, will add back home spironolactone * Limit narcotics to avoid hypotension (2) Dehydration: Code(s): E86.0 - Dehydration Status: Resolved Assessment and Plan: Resolved. Concern for dehydration on presentation and BUN noted to be slightly elevated. * Received 1 L IV fluids in the ED * Patient appears euvolemic on exam (3) Meningioma: Code(s): D32.9 - Benign neoplasm of meninges, unspecified Status: Chronic Assessment and Plan: Diagnosed January 2022. Managed by [facility]. Pt has declined surgical intervention and is managed with palliative steroids for vasogenic cerebral edema * Continue prednisone 12.5 mg BID. Dose was determined at last admission (04/30- 05/04/22) following Neurology evaluation. (4) Compression fracture of first lumbar vertebra: Code(s): S32.010A - Wedge compression fracture of first lumbar vertebra, initial encounter for closed fracture Status: Chronic Assessment and Plan: Onset March 2022. She has been evaluated by Neurosurgery at this facility. * TLSO brace recommended * Kypoplasty recommended however pt has declined surgical intervention * Supportive care. PT/OT appreciated * As above, limit narcotics given hypotension (5) Abnormal urinalysis: Code(s): R82.90 - Unspecified abnormal findings in urine Status: Acute Assessment and Plan: UA slightly abnormal. Pt does not indicate symptoms and no findings to indicate acute infection. * Hold on antibiotics at this time while awaiting urine culture (6) Thrombocytopenia: Code(s): D69.6 - Thrombocytopenia, unspecified Status: Acute Assessment and Plan: Platelet count slightly improved today at 100 * Monitor CBC with differential * No issues, continue monitoring (7) Diabetes: Code(s): E11.9 - Type 2 diabetes mellitus without complications Status: Acute Assessment and Plan: A1c 6.8. Blood sugars are slightly elevated, likely secondary to steroids * Continue Accu-Cheks, sliding scale insulin, hypoglycemic protocol * Continue home Jardiance (8) Afib: Code(s): I48.91 - Unspecified atrial fibrillation Status: Acute Assessment and Plan: Rate is controlled * Continue amiodarone and Eliquis for stroke prophylaxis Subjective Date/time seen: 05/06/22 13:51 Interval history: Date of service: 05/06/2022 Catalina Byrd is an 82-year-old female with a history of atrial fibrillation maintained on chronic anticoagulation, diabetes, hypertension, hyperlipidemia, and recent admission from 04/30-05/04/22 for evaluation of altered mental status and weakness who is seen in follow up for hypotension. The patient is awake and alert today, however is a poor hi
--- NOTE | 2022-05-06 13:51 | PM.IMPN ---
Progress Note: A&P Assessment and Plan (1) Hypotension: Code(s): I95.9 - Hypotension, unspecified Status: Acute Assessment and Plan: Patient presented after episode of hypotension following arrival to her SNF. Blood pressure reading unknown at that time but facility did not feel she could be cared for there any longer and pt transported back to ED. BP was 103/56 on arrival. Blood pressures have been stable today. Initially felt to be related to withdrawal from steroids however pt has been appropriately tapered and no marked change in BP Cortisol level evaluated and is just above upper limit of normal Consult to cardiology per family wishes for evaluation of hypotension. Resume home Entresto If BP still remaining stable, will add back home spironolactone Limit narcotics to avoid hypotension (2) Dehydration: Code(s): E86.0 - Dehydration Status: Resolved Assessment and Plan: Resolved. Concern for dehydration on presentation and BUN noted to be slightly elevated. Received 1 L IV fluids in the ED Patient appears euvolemic on exam (3) Meningioma: Code(s): D32.9 - Benign neoplasm of meninges, unspecified Status: Chronic Assessment and Plan: Diagnosed January 2022. Managed by [facility]. Pt has declined surgical intervention and is managed with palliative steroids for vasogenic cerebral edema Continue prednisone 12.5 mg BID. Dose was determined at last admission (04/30-05/04/22) following Neurology evaluation. (4) Compression fracture of first lumbar vertebra: Code(s): S32.010A - Wedge compression fracture of first lumbar vertebra, initial encounter for closed fracture Status: Chronic Assessment and Plan: Onset March 2022. She has been evaluated by Neurosurgery at this facility. TLSO brace recommended Kypoplasty recommended however pt has declined surgical intervention Supportive care. PT/OT appreciated As above, limit narcotics given hypotension (5) Abnormal urinalysis: Code(s): R82.90 - Unspecified abnormal findings in urine Status: Acute Assessment and Plan: UA slightly abnormal. Pt does not indicate symptoms and no findings to indicate acute infection. Hold on antibiotics at this time while awaiting urine culture (6) Thrombocytopenia: Code(s): D69.6 - Thrombocytopenia, unspecified Status: Acute Assessment and Plan: Platelet count slightly improved today at 100 Monitor CBC with differential No issues, continue monitoring (7) Diabetes: Code(s): E11.9 - Type 2 diabetes mellitus without complications Status: Acute Assessment and Plan: A1c 6.8. Blood sugars are slightly elevated, likely secondary to steroids Continue Accu-Cheks, sliding scale insulin, hypoglycemic protocol Continue home Jardiance (8) Afib: Code(s): I48.91 - Unspecified atrial fibrillation Status: Acute Assessment and Plan: Rate is controlled Continue amiodarone and Eliquis for stroke prophylaxis Subjective Date/time seen: 05/06/22 13:51 Interval history: Date of service: 05/06/2022 Catalina Byrd is an 82-year-old female with a history of atrial fibrillation maintained on chronic anticoagulation, diabetes, hypertension, hyperlipidemia, and recent admission from 04/30-05/04/22 for evaluation of altered mental status and weakness who is seen in follow up for hypotension. The patient is awake and alert today, however is a poor historian. She is not able to provide any useful history. She states that she is feeling well and offers no complaints. Review of Systems Review of Systems: ROS unobtainable: Yes unobtainable due to mental status Exam Narrative: General:?thin, well-appearing 82-year-old female,? sitting up in bed, comfortable, NARD Neuro: awake, alert and oriented x4, speech clear, no focal neuro deficits noted, exhibits confusion HEENMT:?n
[2022-05-06 16:39] LABS: Glucose Point of Care 176 mg/dl (65-105)
[2022-05-06] MEDS: SACUBITRIL/VALSARTAN 24-26 MG TABLET 1 TAB PO (21:02)
[2022-05-07] VITALS (8 sets, daily range): BP systolic 82–95; BP diastolic 40–52; PULSE 64–76; RESP 13–16; TEMP 36.3–36.9; O2SAT 90–95
[2022-05-07 07:45] LABS: Glucose Point of Care 121 mg/dl (65-105)
[2022-05-07 08:10] LABS: Hematocrit 36.1 % (37.0-47.0); Hemoglobin 11.7 g/dL (12.0-15.0); Immature Platelet Fraction Pct 6.6 % (0.9-11.2); Mean Corpuscular HGB Conc 32.4 g/dl (32-36); Mean Corpuscular Hemoglobin 30.3 pg (26-34); Mean Corpuscular Volume 93.5 fl (80-100); Mean Platelet Volume 11.6 fl (7.4-10.4); Platelet Count Result 99 k/mm3 (150-375); Red Blood Count 3.86 M/mm3 (4.2-5.4); Red Cell Distribution Width 17.7 % (11.5-14.5); White Blood Count 6.4 K/mm3 (4.5-10.0)
[2022-05-07 08:20] LABS: Anion Gap 1 mmol/L (8-16); Blood Urea Nitrogen 18 mg/dL (7-17); Calcium 7.1 mg/dL (8.4-10.2); Carbon Dioxide 28 mmol/L (22-30); Chloride 105 mmol/L (98-107); Estimated CRCL calculation 69 ml/min; Estimated Glomerular Filt Rate > 60; Glucose 113 mg/dL (65-110); Potassium 3.2 mmol/L (3.4-5.0); Sodium 134 mmol/L (137-145)
--- NOTE | 2022-05-07 09:17 | PM.PNCARD ---
Progress Note: A&P Assessment and Plan (1) Hypotension: Code(s): I95.9 - Hypotension, unspecified Status: Acute Assessment and Plan: probably combination of UTI plus minus adrenal insufficiency +/- dehydration. Patient has dropped blood pressure again today. Will DC her Entresto. (2) UTI (urinary tract infection): Code(s): N39.0 - Urinary tract infection, site not specified Status: Acute (3) Afib: Code(s): I48.91 - Unspecified atrial fibrillation Status: Acute Assessment and Plan: continue metoprolol, amiodarone and Eliquis (4) Hyperlipidemia: Qualifiers: Hyperlipidemia type: unspecified Qualified Code(s): E78.5 - Hyperlipidemia, unspecified Code(s): E78.5 - Hyperlipidemia, unspecified Status: Acute Assessment and Plan: continue statin (5) Congestive heart failure: Code(s): I50.9 - Heart failure, unspecified Status: Acute Assessment and Plan: Discontinue Entresto and spironolactone for now because of hypotension. (6) Hypokalemia: Code(s): E87.6 - Hypokalemia Status: Acute Assessment and Plan: KCL 40 mEq p.o. x1 Subjective Date/time seen: 05/07/22 09:17 Interval history: Catalina Byrd is an 82-year-old female with a history of atrial fibrillation maintained on chronic anticoagulation, diabetes, hypertension, hyperlipidemia, and recent admission from 04/30-05/04/22 for evaluation of altered mental status and weakness who is seen in follow up for hypotension. Date of service 05/07/2022: She feels weak but no chest pain or shortness of breath. Blood pressure is low this morning. Review of Systems Review of Systems: All systems reviewed & are unremarkable except as noted in HPI and below Constitutional: Constitutional: Denies chills and Denies excessive sweating Eyes: Eyes: Denies blurry vision ENT: Reports Normal hearing present Cardiovascular: Cardiovascular: Denies chest pain Respiratory: Respiratory: Denies chest congestion and Denies cough Gastrointestinal: Gastrointestinal: Denies abdominal pain Genitourinary: Genitourinary: Denies hematuria Musculoskeletal: Musculoskeletal: Denies back pain Integumentary/Breasts: Skin/Breast: Denies erythema Neurologic: Reports Normal hearing present, Denies Abnormal speech present and Reports confusion Psychiatric: Psychiatric: Denies anxiety and Reports confusion Endocrine: Endocrine: Denies excessive sweating Hematologic/Lymphatic: Hematologic/Lymphatic: Denies easy bleeding Allergic/Immunologic: Allergic/Immunologic: Denies GI upset with certain foods Exam Narrative: Awake alert oriented. Appears stated age Const: General: comfortable, no acute distress and confusion Orientation/consciousness: confusion HENMT: Face/Nose/Sinus: Normal nares present Mouth: Yes moist mucous membranes Eyes: Sclera: sclerae normal Neck: Neck: supple Thyroid: abnormal thyroid Carotids: no bruits Chest: Other: no reproducible chest wall pain to palpation Resp: Effort & Inspection: normal respiratory effort Auscultation: clear to auscultation bilaterally Cardio: Rate: regular rate Rhythm: abnormal rhythm irregularly irregular Heart sounds: Murmur heart sound present GI: Inspection: non-distended Auscultation: normal bowel sounds Skin: General skin exam: normal color Neuro: General: confusion Cranial nerves: Yes Normal hearing present Speech: normal speech and No Abnormal speech present Sensory Exam: normal sensation Extrem: General: normal to inspection and no edema Psych: Affect: normal affect Objective Data Vital Signs Vital Signs: Vital Signs - 24 hr 05/06/22 10:07 05/06/22 14:40 05/06/22 21:02 Temperature Pulse Rate 67 78 Respiratory Rate Blood Pressure 92/45 L Pulse Oximetry 96 Oxygen Delivery Room Air 05/06/22 21:59 05/06/22 20:00 05/07/22 05:39 Temperature 36.4 C L 36
[2022-05-07] MEDS: predniSONE 2.5 MG TABLET PO (10:11)
[2022-05-07] MEDS: predniSONE 10 MG TABLET PO (10:11)
[2022-05-07] MEDS: APIXABAN 2.5 MG TABLET PO ×2 (10:11→17:34)
[2022-05-07] MEDS: ATORVASTATIN 40 MG TABLET PO (10:11)
[2022-05-07] MEDS: PANTOPRAZOLE 40 MG TABLET PO (10:12)
[2022-05-07] MEDS: METOPROLOL TARTRATE 50 MG TAB PO ×2 (10:12→21:49)
[2022-05-07] MEDS: CHOLECALCIFEROL 1,000 UNITS TABLET 2000 UNITS PO (10:12)
[2022-05-07] MEDS: AMIODARONE HCL 200 MG TABLET PO (10:13)
[2022-05-07] MEDS: ACETAMINOPHEN 325 MG TABLET 650 MG PO ×3 (10:13→21:54)
[2022-05-07] MEDS: levETIRAcetam 500 MG TABLET PO ×2 (10:13→21:49)
[2022-05-07] MEDS: EMPAGLIFLOZIN 10 MG TABLET PO (10:14)
[2022-05-07] MEDS: polyethylene glycoL 3350 17 GM POWD.PACK PO (10:14)
[2022-05-07 11:15] LABS: Glucose Point of Care 185 mg/dl (65-105)
[2022-05-07] MEDS: SODIUM CHLORIDE 0.9% IV 500 ML 100 ML IV CONT (14:12)
[2022-05-07] MEDS: POTASSIUM CHLORIDE 20 MEQ TABLET 40 MEQ PO (14:13)
--- NOTE | 2022-05-07 14:26 | P.PNIM_ITS ---
Progress Note: A&P Assessment and Plan (1) Hypotension: Code(s): I95.9 - Hypotension, unspecified Status: Acute Assessment and Plan: Patient presented after episode of hypotension following arrival to her SNF. Blood pressure reading unknown at that time but facility did not feel she could be cared for there any longer and pt transported back to ED. BP was 103/56 on arrival. Blood pressures have been stable today. * Initially felt to be related to withdrawal from steroids however pt has been appropriately tapered and no marked change in BP * Cortisol level evaluated and is just above upper limit of normal * Consult to cardiology per family wishes for evaluation of hypotension. * Home Entresto restarted yesterday evening blood pressures are low again today. Entresto has been discontinued * May be related to infection * Gently rehydrate the patient * Limit narcotics to avoid hypotension (2) UTI (urinary tract infection): Code(s): N39.0 - Urinary tract infection, site not specified Status: Acute Assessment and Plan: urine culture with growth of >100k E coli * begin IV ceftriaxone * await susceptibility report (3) Dehydration: Code(s): E86.0 - Dehydration Status: Resolved Assessment and Plan: Resolved. Concern for dehydration on presentation and BUN noted to be slightly elevated. * Received 1 L IV fluids in the ED * Will provide gentle IV fluid rehydration today * Continue to encourage PO intake (4) Meningioma: Code(s): D32.9 - Benign neoplasm of meninges, unspecified Status: Chronic Assessment and Plan: Diagnosed January 2022. Managed by [facility]. Pt has declined surgical intervention and is managed with palliative steroids for vasogenic cerebral edema * Continue prednisone 12.5 mg BID. Dose was determined at last admission (04/30- 05/04/22) following Neurology evaluation. (5) Compression fracture of first lumbar vertebra: Code(s): S32.010A - Wedge compression fracture of first lumbar vertebra, initial encounter for closed fracture Status: Chronic Assessment and Plan: Onset March 2022. She has been evaluated by Neurosurgery at this facility. * TLSO brace recommended * Kypoplasty recommended however pt has declined surgical intervention * Supportive care. PT/OT appreciated * As above, limit narcotics given hypotension (6) Thrombocytopenia: Code(s): D69.6 - Thrombocytopenia, unspecified Status: Acute Assessment and Plan: platelet count remaining stable * Monitor CBC with differential * No issues, continue monitoring (7) Diabetes: Code(s): E11.9 - Type 2 diabetes mellitus without complications Status: Acute Assessment and Plan: A1c 6.8. Blood sugars are slightly elevated, likely secondary to steroids * Continue Accu-Cheks, sliding scale insulin, hypoglycemic protocol * Continue home Jardiance (8) Afib: Code(s): I48.91 - Unspecified atrial fibrillation Status: Acute Assessment and Plan: Rate is controlled * Continue amiodarone and Eliquis for stroke prophylaxis Subjective Date/time seen: 05/07/22 14:26 Interval history: date of service: 05/07/2022 Catalina Byrd is an 82-year-old female with a history of atrial fibrillation maintained on chronic anticoagulation, diabetes, hypertension, hyperlipidemia, and recent admission from 04/30-05/04/22 for evaluation of altered mental status and weakness who is seen in
--- NOTE | 2022-05-07 14:26 | PM.IMPN ---
Progress Note: A&P Assessment and Plan (1) Hypotension: Code(s): I95.9 - Hypotension, unspecified Status: Acute Assessment and Plan: Patient presented after episode of hypotension following arrival to her SNF. Blood pressure reading unknown at that time but facility did not feel she could be cared for there any longer and pt transported back to ED. BP was 103/56 on arrival. Blood pressures have been stable today. Initially felt to be related to withdrawal from steroids however pt has been appropriately tapered and no marked change in BP Cortisol level evaluated and is just above upper limit of normal Consult to cardiology per family wishes for evaluation of hypotension. Home Entresto restarted yesterday evening blood pressures are low again today. Entresto has been discontinued May be related to infection Gently rehydrate the patient Limit narcotics to avoid hypotension (2) UTI (urinary tract infection): Code(s): N39.0 - Urinary tract infection, site not specified Status: Acute Assessment and Plan: urine culture with growth of >100k E coli begin IV ceftriaxone await susceptibility report (3) Dehydration: Code(s): E86.0 - Dehydration Status: Resolved Assessment and Plan: Resolved. Concern for dehydration on presentation and BUN noted to be slightly elevated. Received 1 L IV fluids in the ED Will provide gentle IV fluid rehydration today Continue to encourage PO intake (4) Meningioma: Code(s): D32.9 - Benign neoplasm of meninges, unspecified Status: Chronic Assessment and Plan: Diagnosed January 2022. Managed by [facility]. Pt has declined surgical intervention and is managed with palliative steroids for vasogenic cerebral edema Continue prednisone 12.5 mg BID. Dose was determined at last admission (04/30-05/04/22) following Neurology evaluation. (5) Compression fracture of first lumbar vertebra: Code(s): S32.010A - Wedge compression fracture of first lumbar vertebra, initial encounter for closed fracture Status: Chronic Assessment and Plan: Onset March 2022. She has been evaluated by Neurosurgery at this facility. TLSO brace recommended Kypoplasty recommended however pt has declined surgical intervention Supportive care. PT/OT appreciated As above, limit narcotics given hypotension (6) Thrombocytopenia: Code(s): D69.6 - Thrombocytopenia, unspecified Status: Acute Assessment and Plan: platelet count remaining stable Monitor CBC with differential No issues, continue monitoring (7) Diabetes: Code(s): E11.9 - Type 2 diabetes mellitus without complications Status: Acute Assessment and Plan: A1c 6.8. Blood sugars are slightly elevated, likely secondary to steroids Continue Accu-Cheks, sliding scale insulin, hypoglycemic protocol Continue home Jardiance (8) Afib: Code(s): I48.91 - Unspecified atrial fibrillation Status: Acute Assessment and Plan: Rate is controlled Continue amiodarone and Eliquis for stroke prophylaxis Subjective Date/time seen: 05/07/22 14:26 Interval history: date of service: 05/07/2022 Catalina Byrd is an 82-year-old female with a history of atrial fibrillation maintained on chronic anticoagulation, diabetes, hypertension, hyperlipidemia, and recent admission from 04/30-05/04/22 for evaluation of altered mental status and weakness who is seen in follow up for hypotension. patient is resting comfortably. She does asleep the encounter her daughter is present at the bedside reports that she was awake for quite a while this morning and was coherent and answering all questions appropriately. Patient does not provide any history to me. Review of Systems Review of Systems: All systems reviewed & are unremarkable except as noted in HPI and below Exam Narrative: General:?thin, well-mary
[2022-05-07 16:45] LABS: Glucose Point of Care 192 mg/dl (65-105)
[2022-05-07 22:03] LABS: Glucose Point of Care 184 mg/dl (65-105)
[2022-05-08] VITALS (10 sets, daily range): BP systolic 82–138; BP diastolic 44–93; PULSE 67–92; RESP 14–20; TEMP 36.2–36.8; O2SAT 95–98
[2022-05-08 06:31] LABS: Hematocrit 33.9 % (37.0-47.0); Hemoglobin 10.9 g/dL (12.0-15.0); Immature Platelet Fraction Pct 5.1 % (0.9-11.2); Mean Corpuscular HGB Conc 32.2 g/dl (32-36); Mean Corpuscular Hemoglobin 30.4 pg (26-34); Mean Corpuscular Volume 94.7 fl (80-100); Platelet Count Result 106 k/mm3 (150-375); Red Blood Count 3.58 M/mm3 (4.2-5.4); Red Cell Distribution Width 17.6 % (11.5-14.5); White Blood Count 5.5 K/mm3 (4.5-10.0)
[2022-05-08 06:37] LABS: Anion Gap -2 mmol/L (8-16); Blood Urea Nitrogen 17 mg/dL (7-17); Carbon Dioxide 27 mmol/L (22-30); Chloride 106 mmol/L (98-107); Estimated CRCL calculation 69 ml/min; Estimated Glomerular Filt Rate > 60; Glucose 105 mg/dL (65-110); Sodium 131 mmol/L (137-145)
[2022-05-08 08:12] LABS: Glucose Point of Care 115 mg/dl (65-105)
[2022-05-08] MEDS: ATORVASTATIN 40 MG TABLET PO (08:29)
[2022-05-08] MEDS: CHOLECALCIFEROL 1,000 UNITS TABLET 2000 UNITS PO (08:29)
[2022-05-08] MEDS: PANTOPRAZOLE 40 MG TABLET PO (08:29)
[2022-05-08] MEDS: levETIRAcetam 500 MG TABLET PO ×2 (08:29→21:14)
[2022-05-08] MEDS: predniSONE 10 MG TABLET PO (08:29)
[2022-05-08] MEDS: EMPAGLIFLOZIN 10 MG TABLET PO (08:29)
[2022-05-08] MEDS: APIXABAN 2.5 MG TABLET PO ×2 (08:29→16:46)
[2022-05-08] MEDS: predniSONE 2.5 MG TABLET PO (08:31)
[2022-05-08] MEDS: AMIODARONE HCL 200 MG TABLET PO (08:38)
[2022-05-08] MEDS: ACETAMINOPHEN 325 MG TABLET 650 MG PO (08:46)
[2022-05-08 11:45] LABS: Glucose Point of Care 186 mg/dl (65-105)
[2022-05-08 16:15] LABS: Glucose Point of Care 147 mg/dl (65-105)
--- NOTE | 2022-05-08 16:36 | P.PNIM_ITS ---
Progress Note: A&P Assessment and Plan (1) Hypotension: Code(s): I95.9 - Hypotension, unspecified Status: Acute Assessment and Plan: Patient presented after episode of hypotension following arrival to her SNF. Blood pressure reading unknown at that time but facility did not feel she could be cared for there any longer and pt transported back to ED. BP was 103/56 on arrival. Blood pressures have been stable today. * Initially felt to be related to withdrawal from steroids however pt has been appropriately tapered and no marked change in BP * Cortisol level evaluated and is just above upper limit of normal * Consult to cardiology per family wishes for evaluation of hypotension. * Home Entresto has been discontinued * May be related to infection. see below * Patient has been appropriately rehydrated and is tolerating p.o. intake * Limit narcotics to avoid hypotension * Blood pressures are improving today (2) UTI (urinary tract infection): Code(s): N39.0 - Urinary tract infection, site not specified Status: Acute Assessment and Plan: urine culture with growth of >100k E coli and >100k Enterococcus * discontinue IV ceftriaxone * begin p.o. Augmentin for coverage of E coli * begin p.o. Zyvox for coverage of Enterococcus * discussed case with Infectious Disease PharmD (3) Dehydration: Code(s): E86.0 - Dehydration Status: Resolved Assessment and Plan: Resolved. Concern for dehydration on presentation and BUN noted to be slightly elevated. * patient has been appropriately rehydrated with IV fluids and is tolerating p.o. intake (4) Meningioma: Code(s): D32.9 - Benign neoplasm of meninges, unspecified Status: Chronic Assessment and Plan: Diagnosed January 2022. Managed by [facility]. Pt has declined surgical intervention and is managed with palliative steroids for vasogenic cerebral edema * Continue prednisone 12.5 mg BID. Dose was determined at last admission (04/30- 05/04/22) following Neurology evaluation. (5) Compression fracture of first lumbar vertebra: Code(s): S32.010A - Wedge compression fracture of first lumbar vertebra, initial encounter for closed fracture Status: Chronic Assessment and Plan: Onset March 2022. She has been evaluated by Neurosurgery at this facility. * TLSO brace recommended * Kypoplasty recommended however pt has declined surgical intervention * Supportive care. PT/OT appreciated * As above, limit narcotics given hypotension (6) Thrombocytopenia: Code(s): D69.6 - Thrombocytopenia, unspecified Status: Acute Assessment and Plan: platelet count remaining stable * Monitor CBC with differential * No issues, continue monitoring (7) Diabetes: Code(s): E11.9 - Type 2 diabetes mellitus without complications Status: Acute Assessment and Plan: A1c 6.8. Blood sugars are slightly elevated, likely secondary to steroids * Continue Accu-Cheks, sliding scale insulin, hypoglycemic protocol * Continue home Jardiance (8) Afib: Code(s): I48.91 - Unspecified atrial fibrillation Status: Acute Assessment and Plan: Rate is controlled * Continue amiodarone and Eliquis for stroke prophylaxis Time Spent With Patient Time: 50 minutes spent on this encounter Time with patient: Greater than 35 minutes Subjective Date/time seen: 05/08/22 16:36 Interval history: date of service: 05/07/2022 Catalina Menjivar
--- NOTE | 2022-05-08 16:36 | PM.IMPN ---
Progress Note: A&P Assessment and Plan (1) Hypotension: Code(s): I95.9 - Hypotension, unspecified Status: Acute Assessment and Plan: Patient presented after episode of hypotension following arrival to her SNF. Blood pressure reading unknown at that time but facility did not feel she could be cared for there any longer and pt transported back to ED. BP was 103/56 on arrival. Blood pressures have been stable today. Initially felt to be related to withdrawal from steroids however pt has been appropriately tapered and no marked change in BP Cortisol level evaluated and is just above upper limit of normal Consult to cardiology per family wishes for evaluation of hypotension. Home Entresto has been discontinued May be related to infection. see below Patient has been appropriately rehydrated and is tolerating p.o. intake Limit narcotics to avoid hypotension Blood pressures are improving today (2) UTI (urinary tract infection): Code(s): N39.0 - Urinary tract infection, site not specified Status: Acute Assessment and Plan: urine culture with growth of >100k E coli and >100k Enterococcus discontinue IV ceftriaxone begin p.o. Augmentin for coverage of E coli begin p.o. Zyvox for coverage of Enterococcus discussed case with Infectious Disease PharmD (3) Dehydration: Code(s): E86.0 - Dehydration Status: Resolved Assessment and Plan: Resolved. Concern for dehydration on presentation and BUN noted to be slightly elevated. patient has been appropriately rehydrated with IV fluids and is tolerating p.o. intake (4) Meningioma: Code(s): D32.9 - Benign neoplasm of meninges, unspecified Status: Chronic Assessment and Plan: Diagnosed January 2022. Managed by [facility]. Pt has declined surgical intervention and is managed with palliative steroids for vasogenic cerebral edema Continue prednisone 12.5 mg BID. Dose was determined at last admission (04/30-05/04/22) following Neurology evaluation. (5) Compression fracture of first lumbar vertebra: Code(s): S32.010A - Wedge compression fracture of first lumbar vertebra, initial encounter for closed fracture Status: Chronic Assessment and Plan: Onset March 2022. She has been evaluated by Neurosurgery at this facility. TLSO brace recommended Kypoplasty recommended however pt has declined surgical intervention Supportive care. PT/OT appreciated As above, limit narcotics given hypotension (6) Thrombocytopenia: Code(s): D69.6 - Thrombocytopenia, unspecified Status: Acute Assessment and Plan: platelet count remaining stable Monitor CBC with differential No issues, continue monitoring (7) Diabetes: Code(s): E11.9 - Type 2 diabetes mellitus without complications Status: Acute Assessment and Plan: A1c 6.8. Blood sugars are slightly elevated, likely secondary to steroids Continue Accu-Cheks, sliding scale insulin, hypoglycemic protocol Continue home Jardiance (8) Afib: Code(s): I48.91 - Unspecified atrial fibrillation Status: Acute Assessment and Plan: Rate is controlled Continue amiodarone and Eliquis for stroke prophylaxis Time Spent With Patient Time: 50 minutes spent on this encounter Time with patient: Greater than 35 minutes Subjective Date/time seen: 05/08/22 16:36 Interval history: date of service: 05/07/2022 Catalina Byrd is an 82-year-old female with a history of atrial fibrillation maintained on chronic anticoagulation, diabetes, hypertension, hyperlipidemia, and recent admission from 04/30-05/04/22 for evaluation of altered mental status and weakness who is seen in follow up for hypotension. Patient is more awake today. She is sitting up in a chair. States that she is feeling well. She denies dizziness, lightheadedness, weakness. She was able to get up to the chair using
[2022-05-08] MEDS: AMOXICILLIN/CLAVULANATE K 500-125 MG TAB 1 TABLET PO (21:14)
[2022-05-08] MEDS: LINEZOLID 600 MG TABLET PO (21:15)
[2022-05-08 21:26] LABS: Glucose Point of Care 153 mg/dl (65-105)
[2022-05-09 06:00] VITALS: BP 114/53; PULSE 78; RESP 18; TEMP 36.1; O2SAT 95
[2022-05-09 08:11] LABS: Glucose Point of Care 112 mg/dl (65-105)
[2022-05-09] MEDS: APIXABAN 2.5 MG TABLET PO (10:11)
[2022-05-09] MEDS: LINEZOLID 600 MG TABLET PO (10:11)
[2022-05-09] MEDS: ATORVASTATIN 40 MG TABLET PO (10:11)
[2022-05-09] MEDS: predniSONE 10 MG TABLET PO (10:11)
[2022-05-09] MEDS: AMOXICILLIN/CLAVULANATE K 500-125 MG TAB 1 TABLET PO (10:11)
[2022-05-09] MEDS: PANTOPRAZOLE 40 MG TABLET PO (10:11)
[2022-05-09] MEDS: CHOLECALCIFEROL 1,000 UNITS TABLET 2000 UNITS PO (10:11)
[2022-05-09] MEDS: polyethylene glycoL 3350 17 GM POWD.PACK PO (10:12)
[2022-05-09] MEDS: EMPAGLIFLOZIN 10 MG TABLET PO (10:12)
[2022-05-09] MEDS: predniSONE 2.5 MG TABLET PO (10:12)
[2022-05-09] MEDS: levETIRAcetam 500 MG TABLET PO (10:12)
[2022-05-09 10:19] VITALS: PULSE 82
[2022-05-09] MEDS: AMIODARONE HCL 200 MG TABLET PO (10:19)
[2022-05-09] MEDS: METOPROLOL TARTRATE 50 MG TAB PO (10:19)
[2022-05-09 11:38] LABS: Glucose Point of Care 125 mg/dl (65-105)
--- NOTE | 2022-05-09 13:11 | P.DS_ITS ---
DS: Admitting Diagnosis Discharge Date 05/09/22 Admitting Diagnosis Hypotension DS: Discharge Diagnosis Discharge Diagnosis (1) Hypotension: Code(s): I95.9 - Hypotension, unspecified Status: Acute Assessment and Plan: Patient presented after episode of hypotension following arrival to her SNF. Blood pressure reading unknown at that time but facility did not feel she could be cared for there any longer and pt transported back to ED. BP was 103/56 on arrival. * Initially felt to be related to withdrawal from steroids however pt has been appropriately tapered and no marked change in BP * Cortisol level evaluated and is just above upper limit of normal * Patient was seen in consultation by Cardiology during admission for recommendations regarding her cardiac medications that decrease blood pressure * Entresto was restarted, however patient again developed hypotension, therefore this will be held indefinitely until follow-up with her crystal flat grinder. Will also hold spironolactone * Continue metoprolol tartrate 50 mg b.i.d. with parameters. Hold if systolic BP <100 * Patient was appropriately rehydrated during admission * Blood pressures remain stable, suspect patient to be at her baseline. Goal systolic BP >90 * Limit narcotics to avoid hypotension * Kole hose when out of bed * BP will be monitored at facility and patient will follow-up with PCP for review (2) UTI (urinary tract infection): Code(s): N39.0 - Urinary tract infection, site not specified Status: Acute Assessment and Plan: urine culture with growth of >100k E coli and >100k Enterococcus * Initially received IV ceftriaxone during admission * 2/6 transitioed to p.o. Augmentin for coverage of E coli * 2/6 patient started on Zyvox for coverage of Enterococcus * Case reviewed with Infectious Disease PharmD (3) Dehydration: Code(s): E86.0 - Dehydration Status: Resolved Assessment and Plan: Resolved. Concern for dehydration on presentation and BUN noted to be slightly elevated. * patient was appropriately rehydrated with IV fluids and is tolerating p.o. intake (4) Meningioma: Code(s): D32.9 - Benign neoplasm of meninges, unspecified Status: Chronic Assessment and Plan: Diagnosed January 2022. Managed by [facility]. Pt has declined surgical intervention and is managed with palliative steroids for vasogenic cerebral edema * Continue prednisone 12.5 mg BID. Dose was determined at last admission (04/30- 05/04/22) following Neurology evaluation. (5) Compression fracture of first lumbar vertebra: Code(s): S32.010A - Wedge compression fracture of first lumbar vertebra, initial encounter for closed fracture Status: Chronic Assessment and Plan: Onset March 2022. She has been evaluated by Neurosurgery at this facility. * Continue TLSO brace * Kyphoplasty recommended however pt has declined surgical intervention * Supportive care provided. Participated in PT/OT during admission and will c ontinue therapy at SNF * As above, limit narcotics given hypotension (6) Thrombocytopenia: Code(s): D69.6 - Thrombocytopenia, unspecified Status: Acute Assessment and Plan: platelet count remained stable * Continue with outpatient monitoring (7) Diabetes: Code(s): E11.9 - Type 2 diabetes mellitus without complications Status: Acute Assessment and Plan: A1c 6.8. Blood sugars remained stable * Continue home Jardiance (8) Afib:
--- NOTE | 2022-05-09 13:11 | PM.DS ---
DS: Admitting Diagnosis Discharge Date 05/09/22 Admitting Diagnosis Hypotension DS: Discharge Diagnosis Discharge Diagnosis (1) Hypotension: Code(s): I95.9 - Hypotension, unspecified Status: Acute Assessment and Plan: Patient presented after episode of hypotension following arrival to her SNF. Blood pressure reading unknown at that time but facility did not feel she could be cared for there any longer and pt transported back to ED. BP was 103/56 on arrival. Initially felt to be related to withdrawal from steroids however pt has been appropriately tapered and no marked change in BP Cortisol level evaluated and is just above upper limit of normal Patient was seen in consultation by Cardiology during admission for recommendations regarding her cardiac medications that decrease blood pressure Entresto was restarted, however patient again developed hypotension, therefore this will be held indefinitely until follow-up with her hydrotherapist. Will also hold spironolactone Continue metoprolol tartrate 50 mg b.i.d. with parameters. Hold if systolic BP <100 Patient was appropriately rehydrated during admission Blood pressures remain stable, suspect patient to be at her baseline. Goal systolic BP >90 Limit narcotics to avoid hypotension Kole hose when out of bed BP will be monitored at facility and patient will follow-up with PCP for review (2) UTI (urinary tract infection): Code(s): N39.0 - Urinary tract infection, site not specified Status: Acute Assessment and Plan: urine culture with growth of >100k E coli and >100k Enterococcus Initially received IV ceftriaxone during admission 05/08 transitioed to p.o. Augmentin for coverage of E coli 05/08 patient started on Zyvox for coverage of Enterococcus Case reviewed with Infectious Disease PharmD (3) Dehydration: Code(s): E86.0 - Dehydration Status: Resolved Assessment and Plan: Resolved. Concern for dehydration on presentation and BUN noted to be slightly elevated. patient was appropriately rehydrated with IV fluids and is tolerating p.o. intake (4) Meningioma: Code(s): D32.9 - Benign neoplasm of meninges, unspecified Status: Chronic Assessment and Plan: Diagnosed January 2022. Managed by [facility]. Pt has declined surgical intervention and is managed with palliative steroids for vasogenic cerebral edema Continue prednisone 12.5 mg BID. Dose was determined at last admission (04/30-05/04/22) following Neurology evaluation. (5) Compression fracture of first lumbar vertebra: Code(s): S32.010A - Wedge compression fracture of first lumbar vertebra, initial encounter for closed fracture Status: Chronic Assessment and Plan: Onset March 2022. She has been evaluated by Neurosurgery at this facility. Continue TLSO brace Kyphoplasty recommended however pt has declined surgical intervention Supportive care provided. Participated in PT/OT during admission and will continue therapy at SNF As above, limit narcotics given hypotension (6) Thrombocytopenia: Code(s): D69.6 - Thrombocytopenia, unspecified Status: Acute Assessment and Plan: platelet count remained stable Continue with outpatient monitoring (7) Diabetes: Code(s): E11.9 - Type 2 diabetes mellitus without complications Status: Acute Assessment and Plan: A1c 6.8. Blood sugars remained stable Continue home Jardiance (8) Afib: Code(s): I48.91 - Unspecified atrial fibrillation Status: Acute Assessment and Plan: Rate is controlled Continue amiodarone and Eliquis for stroke prophylaxis Metoprolol tartrate with parameters as above DS: Summary Hospital Course Hospital Course: Date of admission: 05/05/2022 Date of discharge: 05/09/2022 Catalina Byrd is an 82-year-old female with a history of atrial fibrillation maintained on chronic antic
[2022-05-09 14:00] VITALS: BP 94/47; PULSE 68; RESP 18; TEMP 36.6; O2SAT 97
[2022-05-09 14:28] LABS: EDCOVIDSCREEN Negative (Negative)
== END 2022-05-09 14:50 | DRG 312 ==
LOC: ANHED 05-05 02:46 → ANH3MEDSUR 05-05 03:11
PROVIDERS: Admitting Provider Internal Medicine; Emergency Provider Emergency Medicine; PCP Family Medicine; Visit Provider Physician Assistant
DX: I95.2 Hypotension due to drugs (principal); M48.56XA Collapsed vertebra, not elsewhere classified, lumbar region, initial encounter for fracture; N39.0 Urinary tract infection, site not specified; T50.0X5A Adverse effect of mineralocorticoids and their antagonists, initial encounter; T46.5X5A Adverse effect of other antihypertensive drugs, initial encounter; I11.0 Hypertensive heart disease with heart failure; I50.9 Heart failure, unspecified; Z20.822 Contact with and (suspected) exposure to COVID-19; B96.20 Unspecified Escherichia coli [E. coli] as the cause of diseases classified elsewhere; B95.2 Enterococcus as the cause of diseases classified elsewhere; M85.80 Other specified disorders of bone density and structure, unspecified site; E86.0 Dehydration; D69.6 Thrombocytopenia, unspecified; E11.9 Type 2 diabetes mellitus without complications; I48.91 Unspecified atrial fibrillation; K21.9 Gastro-esophageal reflux disease without esophagitis; E87.6 Hypokalemia; E78.5 Hyperlipidemia, unspecified; Z79.01 Long term (current) use of anticoagulants; Z98.42 Cataract extraction status, left eye; Z98.41 Cataract extraction status, right eye; Z66 Do not resuscitate
CPT/HCPCS: 36415; 51701; 80048; 80053; 81001; 82533; 82948; 85025; 85027; 85055; 85610; 85730; 87077; 87086; 87147; 87186; 87426; 87637; 93005; 96365; 96366; 97161; 97165; 97530; 97535; 99285; A9270; C9803; G0378; J0696; J7040; J7120; J7512

== ENCOUNTER 2023-06-12 12:11 | Emergency (ER) | payer OTHER, SELFPAY ==
--- NOTE | ~2023-06-12 | CT_ITS ---
EXAMINATION: CT lumbar spine wo con DATE: 06/12/2023 14:43 INDICATION: Low back pain. TECHNIQUE: Computed tomography (CT) of the lumbar spine was performed without intravenous contrast. A utomated exposure control and iterative reconstruction technique were employed. The dose-length produ ct was 649.28 mGy-cm. COMPARISON: CT lumbar spine 05/01/22 FINDINGS: There is a large sliding hiatal hernia. Cardiomegaly is noted. There are gallstones in the gallbladder, which is normal in size. There is calcified atherosclerosis of the aorta and many of the other arteries. There is gas in the bladder lumen, likely from recent instrumentation. There is 5 de grees dextrocurvature of thoracolumbar spine. There are chronic compression fractures of T11 and T12 with 1/5 loss of height. There is a chronic burst fracture of L1 with 3/5 loss of height and retropul jose luis of bone 2 mm into central spinal canal, worsened from 05/01/22. Intervertebral disc heights are n ormal. The following disc levels are specifically discussed: L1-L2: The disc is bulging. There is moderate and severe left facet joint osteoarthritis. There is no neural foraminal stenosis. There is mild central canal stenosis. L2-L3: The disc is bulging. There is moderate bilateral facet joint osteoarthritis. There is mild yamil ateral neural foraminal stenosis. There is mild central canal stenosis. L3-L4: The disc is bulging. There is moderate bilateral facet joint osteoarthritis. There is mild yamil ateral neural foraminal stenosis. There is mild central canal stenosis. L4-L5: The disc is bulging. There is severe right and moderate left facet joint osteoarthritis. There is moderate right and mild left neural foraminal stenosis. There is mild central canal stenosis. L5-S1: The disc is bulging. There is severe bilateral facet joint osteoarthritis. There is mild bilat eral neural foraminal stenosis. There is mild central canal stenosis. IMPRESSION: 1. Moderate right neural foraminal stenosis at L4-L5. Otherwise mild lumbar spondylosis. Reviewed, dictated and finalized at location A. IMPRESSION: 1. Moderate right neural foraminal stenosis at L4-L5. Otherwise mild lumbar spo ndylosis.
[2023-06-12 12:11] VITALS: BP 133/65; PULSE 57; RESP 15; TEMP 36.9; O2SAT 95
--- NOTE | 2023-06-12 14:16 | ED.BACK ---
HPI - Back Pain/Injury General Chief Complaint: Back Pain/Injury Stated Complaint: back pain Time Seen by Provider: 06/12/23 12:34 History of Present Illness HPI Narrative: patient is an 83-year-old female presenting with lower back pain. Patient's daughter is at bedside and helps with the history. States that she has had back pain for the last week. States that it was most severe today. She has had back pain in the past related to compression fractures. She has been using Tylenol with moderate relief. Patient states that it is all lower midline back pain. No numbness or weakness, bladder or bowel incontinence, saddle anesthesia. Patient walks with a walker at baseline. No recent trauma. Related Data Home Medications Medication Instructions Recorded Confirmed apixaban 5 mg tablet 2.5 mg PO BID 03/07/22 01/24/23 atorvastatin 40 mg tablet 40 mg PO DAILY 03/07/22 01/24/23 empagliflozin 10 mg tablet 10 mg PO DAILY 03/07/22 01/24/23 metoprolol tartrate 50 mg tablet 50 mg PO BID 04/24/22 01/24/23 apixaban 2.5 mg tablet (Eliquis) 2.5 mg PO BID 10/10/22 01/24/23 calcium carbonate 600 mg calcium 600 mg PO BID 10/10/22 01/24/23 (1,500 mg) tablet (Calcium) empagliflozin 10 mg tablet 10 mg PO DAILY 10/10/22 01/24/23 (Jardiance) prednisone 20 mg tablet 20 mg PO DAILY 10/10/22 01/24/23 Allergies Allergy/AdvReac Type Severity Reaction Status Date / Time dexamethasone [From Decadron] AdvReac Severe Hallucinati Verified 06/12/23 12:23 ng Review of Systems Review of Systems: All systems reviewed & are unremarkable except as noted in HPI and below PMFSH Past Medical History Medical History Abdominal pain Afib Atrial fibrillation with rapid ventricular response Closed compression fracture of L1 vertebra Compression fracture Compression fracture of first lumbar vertebra Diabetes Elevated troponin GERD without esophagitis History of colon polyps Hyperglycemia Hyperlipidemia Hypertension Intracranial mass Meningioma Osteopenia started Fosamax 12/2016? Postmenopausal status (age-related) (natural) UTI (urinary tract infection) Vertigo Weakness Surgical History Surgical History H/O cataract extraction H/O colonoscopy with polypectomy H/O dilation and curettage History of removal of pigmented skin lesion Family History Family History Mother Family history of heart disease in male family member before age 55 Social History Social History Social History: The patient is and lives alone. She has 2 children. 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 Her daughter is the durable power state's attorney for healthcare. She wishes to be DNR Smoking packs per day: 0 Smoking cigarettes per day: 0.0 Years smoked: 0 Smoking pack-years: 0.00 Smoking status: Never smoker Second hand tobacco smoke exposure: No Alcohol intake: never Substance use: never Substance use type: does not use Do You Feel Safe in your Home?: Yes Lack of Transportation: No Lack of Food: Never True Current Housing: I Have Housing Concerned About Future Housing: No Difficulty Paying Gas/Electric Bills: No Difficulty Paying for Meds: No Currently Unemployed: No Education: Bachelor's Degree Difficulty w/ Childcare or Family Care: No Living arrangements: assisted living Occupation/Education: retired Gender identity (if verbalized by the patient): Female Spiritual care concerns: No Exam Narrative: GENERAL: Nontoxic, in no acute distress, pleasant cooperative HEAD: Normocephalic, atraumatic. EYES: PERRLA and EOMI. ENT:
[2023-06-12] MEDS: IBUPROFEN 600 MG TABLET PO (14:28)
[2023-06-12] MEDS: HYDROcodone/acetaminophen (*CRX) 5-325 MG TABLET 1 TAB PO (14:29)
[2023-06-12 14:55] VITALS: BP 122/61; PULSE 52; RESP 14; O2SAT 97
[2023-06-12 15:58] VITALS: BP 127/66; PULSE 56; RESP 15; TEMP 36.8; O2SAT 96
== END 2023-06-12 16:03 ==
PROVIDERS: Emergency Provider Emergency Medicine; PCP Family Medicine
DX: M54.50 Low back pain, unspecified (principal); I48.91 Unspecified atrial fibrillation; E11.9 Type 2 diabetes mellitus without complications; E78.5 Hyperlipidemia, unspecified; K21.9 Gastro-esophageal reflux disease without esophagitis; M85.80 Other specified disorders of bone density and structure, unspecified site; Z66 Do not resuscitate; Z86.010 Personal history of colon polyps; Z87.440 Personal history of urinary (tract) infections; Z98.49 Cataract extraction status, unspecified eye; M47.816 Spondylosis without myelopathy or radiculopathy, lumbar region; M48.061 Spinal stenosis, lumbar region without neurogenic claudication; Z79.01 Long term (current) use of anticoagulants
CPT/HCPCS: 72131; 99284; A9270

== ENCOUNTER 2023-08-01 20:04 | Outpatient (NON) | payer OTHER, SELFPAY | END 2023-08-01 20:05 | disposition home or self-care (01) | LOC: ANHLAB 20:06 | PROVIDERS: PCP Family Medicine; Visit Provider Nurse Practitioner Family | DX: R30.0 Dysuria (principal) | CPT/HCPCS: 87086; 87088 ==

== ENCOUNTER 2024-01-31 15:30 | Outpatient (CLI) | payer OTHER, SELFPAY ==
[2024-01-31 18:35] LABS: Basophils Absolute Auto 0.1 K/mm3 (0.0-0.1); Basophils Percent Auto 0.6 % (0.2-1.2); Hematocrit 42.8 % (37.0-47.0); Immature Granulocyte Absolute 0.32 K/mm3 (0.00-0.031); Immature Granulocyte Percent A 3.6 % (0-0.5); Lymphocytes Absolute Auto 0.84 K/mm3 (0.9-3.2); Lymphocytes Percent Auto 9.6 % (18.3-44.2); Mean Corpuscular HGB Conc 30.4 g/dl (32-36); Mean Corpuscular Hemoglobin 29.1 pg (26-34); Mean Corpuscular Volume 95.7 fl (80-100); Mean Platelet Volume 11.4 fl (7.4-10.4); Monocytes Absolute Auto 0.5 K/mm3 (0.1-0.6); Monocytes Percent Auto 5.6 % (2.6-8.5); Neutrophils Absolute Auto 7.1 K/mm3 (1.3-6.7); Neutrophils Percent Auto 80.6 % (45.5-73.1); Platelet Count Result 218 k/mm3 (150-375); Red Blood Count 4.47 M/mm3 (4.2-5.4); Red Cell Distribution Width 16.7 % (11.5-14.5); White Blood Count 8.8 K/mm3 (4.5-10.0)
[2024-01-31 18:54] LABS: Alanine Aminotransferase 20 U/L (6-35); Albumin Level 3.1 g/dL (3.5-5.1); Alkaline Phosphatase 129 U/L (38-126); Anion Gap 8 mmol/L (4-12); Aspartate Amino Transferase 36 U/L (14-36); Bilirubin,Total 0.9 mg/dL (0.2-1.3); Blood Urea Nitrogen 28 mg/dL (7-17); Calcium 8.8 mg/dL (8.4-10.2); Carbon Dioxide 26 mmol/L (22-30); Chloride 104 mmol/L (98-107); Cholesterol 159 mg/dL (0-200); Estimated Glomerular Filt Rate > 60; Glucose 257 mg/dL (65-110); HDL Direct 74 mg/dL; Potassium 4.2 mmol/L (3.4-5.0); Sodium 138 mmol/L (137-145); Triglycerides 180 mg/dL (<150)
[2024-01-31 19:05] LABS: LDL Cholesterol Direct 52 mg/dL
[2024-01-31 19:56] LABS: Folic Acid 10.9 ng/mL (2.76->20)
[2024-01-31 21:36] LABS: Iron 52 ug/dL (37-170); Vitamin D 25 Hydroxy 45.5 ng/mL
[2024-01-31 21:41] LABS: Percent Iron Saturation 16 % (20-50)
[2024-01-31 22:40] LABS: Hemoglobin A1C 10.7 % (<5.7)
[2024-01-31 23:21] LABS: Free T4 Free Thyroxine Reflex 1.19 ng/dL (0.78-2.19)
== END 2024-01-31 15:31 | disposition home or self-care (01) ==
PROVIDERS: PCP Family Medicine; Visit Provider Family Medicine
DX: D64.9 Anemia, unspecified (principal); R73.03 Prediabetes; I10 Essential (primary) hypertension; I48.91 Unspecified atrial fibrillation; E55.9 Vitamin D deficiency, unspecified; Z13.220 Encounter for screening for lipoid disorders
CPT/HCPCS: 36415; 80053; 80061; 82306; 82607; 82728; 82746; 83036; 83540; 83550; 84439; 84443; 84480; 85025

== ENCOUNTER 2024-02-19 16:50 | Observation (INO) | payer OTHER, SELFPAY ==
--- NOTE | ~2024-02-19 | CT_ITS ---
EXAMINATION: CT cervical spine wo con DATE: 02/19/2024 18:09 INDICATION: Fall. TECHNIQUE: Computed tomography (CT) of the cervical spine was performed without intravenous contrast. Automated exposure control and iterative reconstruction technique were employed. The dose-length pro duct was 113.31 mGy-cm. COMPARISON: None FINDINGS: There is mild scarring at the lung apices. There are bilateral mastoid effusions. Alignment is normal. Vertebral body heights are normal. There is mildly decreased disc height at C5-C6 and sev erely decreased disc height at C6-C7. The following disc levels are specifically discussed: C2-C3: There is mild left uncovertebral joint osteoarthritis. There is severe bilateral facet joint o steoarthritis. There is no neural foraminal stenosis. There is no central canal stenosis. C3-C4: There is moderate bilateral uncovertebral joint osteoarthritis. There is moderate bilateral fa cet joint osteoarthritis. There is mild bilateral neural foraminal stenosis. There is no central tena l stenosis. C4-C5: There is mild bilateral uncovertebral joint osteoarthritis. There is severe left facet joint o steoarthritis. There is mild left neural foraminal stenosis. There is no central canal stenosis. C5-C6: There is mild bilateral uncovertebral joint osteoarthritis. There is severe bilateral facet christo int osteoarthritis. There is mild bilateral neural foraminal stenosis. There is no central canal sten osis. C6-C7: There is severe bilateral uncovertebral joint osteoarthritis. There is severe bilateral facet joint osteoarthritis. There is mild bilateral neural foraminal stenosis. There is mild central canal stenosis. C7-T1: There is no uncovertebral joint osteoarthritis. There is severe bilateral facet joint osteoart hritis. There is mild bilateral neural foraminal stenosis. There is no central canal stenosis. IMPRESSION: 1. No fracture. 2. Severe cervical spondylosis. Reviewed, dictated and finalized at location A. RY MACHINE MECHANIC SUPERVISOR
--- NOTE | ~2024-02-19 | XR_ITS ---
CHEST RADIOGRAPH CLINICAL HISTORY: SOB . COMPARISON: 02/19/2024 TECHNIQUE: Single portable view of the chest. FINDINGS Redemonstration of a large hiatal hernia. The remainder of the cardiomediastinal silhouette is partially obscured, but otherwise unremarkable. Blunting of the left costophrenic sulcus is identified, suggesting a small left-sided pleural effusio n. Increased interstitial markings are identified bilaterally, findings suggesting mild pulmonary vascul ar congestion. The remainder of the lungs are clear. IMPRESSION: Large hiatal hernia with a small left-sided pleural effusion and mild pulmonary vascular congestion. Reviewed, dictated and finalized at location A. IGINAL CEREMONIAL CELEBRANT
--- NOTE | ~2024-02-19 | XR_ITS ---
EXAMINATION: XR hip BI 2V w AP pelvis DATE: 02/19/2024 17:56 INDICATION: Falls. TECHNIQUE: An anteroposterior view of the pelvis and 2 views of each hip were obtained. COMPARISON: None. FINDINGS: Alignment is normal. No fracture. There is mild osteoarthritis of the hips. There is mild l umbar spondylosis. IMPRESSION: 1. Mild osteoarthritis of the hips. Reviewed, dictated and finalized at location A. CH ADJUSTER
--- NOTE | ~2024-02-19 | CT_ITS ---
EXAMINATION: CT brain wo con DATE: 02/19/2024 18:01 INDICATION: Fall. TECHNIQUE: Computed tomography (CT) of the head was performed without intravenous contrast. The mA wa s adjusted according to patient size. Iterative reconstruction technique was employed. The dose-lengt h product was 605.33 mGy-cm. COMPARISON: Head CT 04/30/2022 FINDINGS: There is a 5.4 x 3.1 cm extra-axial mass overlying left frontal lobe, consistent with a men ingioma. Again seen is low attenuation vasogenic edema in the white matter adjacent to the mass. Ther e are prominent perivascular spaces in the basal ganglia. There is no acute ischemic infarct or intra cranial hemorrhage. There is 7 mm rightward subfalcine midline shift. There are scattered areas of lo w attenuation in the cerebral white matter, which is within normal limits for the patient's age. The ventricles are normal in size. There are likely changes of ocular lens replacement surgeries. There a re coronary artery calcifications. There are bilateral mastoid effusions. IMPRESSION: 1. Stable 5.4 cm meningioma overlying left frontal lobe. 2. Stable 7 mm rightward midline shift. Reviewed, dictated and finalized at location A. CIDE SQUAD SERGEANT
--- NOTE | ~2024-02-19 | XR_ITS ---
EXAMINATION: XR chest 1V DATE: 02/19/2024 17:56 INDICATION: Hypotension. TECHNIQUE: A single frontal view of the chest was obtained. COMPARISON: Chest single view 04/30/2022 FINDINGS: There is a large hiatal hernia. There is a diffuse interstitial pattern, consistent mild pu lmonary edema. There are airspace opacities in left lower lung zone. No pleural effusion or pneumotho rax. The heart size is normal. IMPRESSION: 1. Mild pulmonary edema. 2. Airspace opacities in left lower lung zone, consistent with atelectasis versus pneumonia. 3. Large hiatal hernia. Reviewed, dictated and finalized at location A. R FABRICATION TECHNICIAN IMPRESSION: 1. Mild pulmonary edema. 2. Airspace opacities in left lower lung zone, consistent with atelectasis vers us pneumonia. 3. Large hiatal hernia.
[2024-02-19 17:01] VITALS: BP 120/56; PULSE 86; RESP 14; TEMP 36.8; O2SAT 100
--- NOTE | 2024-02-19 17:32 | ECG_ITS ---
Test Date: 2024-02-19 17:41:29 Measurements Intervals [place] Rate: 56 P: 81 ID: [id number] QRS: -55 QRSD: 133 T: 65 QT: 493 QTc: 477 Interpretive Statements SINUS BRADYCARDIA WITH FIRST DEGREE AV BLOCK LEFT AXIS DEVIATION LEFT BUNDLE BRANCH BLOCK BASELINE ARTIFACT- I, II, III, AVR, AVL, V1-V2 ABNORMAL ECG No previous ECG available for comparison Electronically Signed On 02-19-2024 20:31:24 EMBEDDED SOFTWARE DEVELOPMENT ENGINEER by Farrukh Fregoso D.O.
--- NOTE | 2024-02-19 17:35 | ED.WEAKNESS ---
HPI - Weakness General Chief complaint: Weakness <Kiah Wright PA-C - Last Filed: 02/19/24 20:15> Stated complaint: weak <Kiah Wright PA-C - Last Filed: 02/19/24 20:15> Time Seen by Provider: 02/19/24 17:01 <Kiah Wright PA-C - Last Filed: 02/19/24 20:15> History of Present Illness HPI Narrative: 84-year-old female with history of diabetes, AFib on apixaban, hyperlipidemia, hypertension, dementia, thrombocytopenia presents to the ED via EMS from [facility] with daughter at bedside for hypotension. Patient's daughter provides history. States a few weeks ago she went to her PCPs office, Dr. Boyd. patient's blood pressure was found to be low and was advised that the patient her blood pressure tract twice daily at the assisted living facility. Patient started states today when the patient's blood pressure was checked it was 60 systolic and then on recheck was 70 systolic. The patient was transported to the ED for further evaluation. Patient's daughter states the patient has had 3 falls in the past week. All have been unwitnessed. It is unknown if she hit her head or lost consciousness. states for approximately 2 months the patient has become less conversational and has been moaning and groaning more. she has not complained of any focal pain. She has skin tears and abrasions throughout her extremities. last Tdap unknown. No Tdap identified on chart review. Upon questioning the patient denies chest pain, shortness of breath, cough or congestion, neck pain or back pain, extremity injury, abdominal pain, dysuria. No known fevers, nausea, vomiting or diarrhea. Patient normally ambulates with a walker. Patient's daughter does not desire for the patient be placed in a usp but instead would rather his stay in assisted living. <Kiah Wright PA-C - Last Filed: 02/19/24 20:15> Related Data Home medications: Home Medications Medication Instructions Recorded Confirmed metoprolol tartrate 50 mg tablet 50 mg PO BID 04/24/22 02/19/24 apixaban 2.5 mg tablet (Eliquis) 2.5 mg PO BID 10/10/22 02/19/24 calcium carbonate (Calcium 600) 600 mg PO BID 10/10/22 02/19/24 prednisone 20 mg tablet 20 mg PO DAILY 10/10/22 02/19/24 atorvastatin 40 mg tablet 40 mg PO QHS 01/31/24 02/19/24 <Kiah Wright PA-C - Last Filed: 02/19/24 20:15> Allergies/Adverse reactions: Allergies Allergy/AdvReac Type Severity Reaction Status Date / Time dexamethasone [From Decadron] AdvReac Severe Hallucinati Verified 01/31/24 14:23 ng <Kiah Wright PA-C - Last Filed: 02/19/24 20:15> Review of Systems Review of Systems: All systems reviewed & are unremarkable except as noted in HPI and below <Kiah Wright PA-C - Last Filed: 02/19/24 20:15> [facility] Past Medical History Medical History: Medical History Afib Closed compression fracture of L1 vertebra Compression fracture of first lumbar vertebra Dementia Diabetes Elevated troponin Gait abnormality GERD without esophagitis History of colon polyps Hyperlipidemia Hypertension Meningioma Osteopenia started Fosamax 12/2016? Poor weight gain in adult Postmenopausal status (age-related) (natural) Thrombocytopenia Weakness <Kiah Wright PA-C - Last Filed: 02/19/24 20:15> Surgical History Surgical History: Surgical History H/O cataract extraction H/O colonoscopy with polypectomy H/O dilation and curettage History of removal of pigmented skin lesion <Kiah Wright PA-C - Last Filed: 02/19/24 20:15> Family History Family History: Family History Mother Family history of heart disease in male family member before age 55 <Kiah Wright PA-C - Last Filed: 02/19/24 20:15> Social History Social History: Social History Social History: The patient is and lives alone. She has 2 children. 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 Her daughter is the durable power principal administrative clerk for healthcare. She wishes to be DNR Smoking packs per day: 0 Smoking cigarettes per day: 0.0 Years smoked: 0 Smoking pack-years: 0.00 Smoking status: Never smoker Second hand tobacco smoke exposure: No Alcohol intake: never Substance use: never Substance use type: does not use Do You Feel Safe in your Home?: Yes Lack of Transportation: No Lack of Food: Never True Current Housing: I Have Housing Concerned About Future Housing: No Difficulty Paying Gas/Electric Bills: No Difficulty Paying for Meds: No Currently Unemployed: No Education: Bachelor's Degree Difficulty w/ Childcare or Family Care: No Living arrangements: assisted living Occupation/Education: retired Gender identity (if verbalized by the patient): Female Spiritual care concerns: No <Kiah Wright PA-C - Last Filed: 02/19/24 20:15> Exam Narrative: GENERAL: Elderly, cachectic, and in no acute distress. HEAD: Normocephalic, atraumatic. EYES: PERRLA and EOMI. ENT: Nares clear, no rhinorrhea or epistaxis. Mucous membranes moist. NECK: no midline cervical spinous tenderness, step-offs or deformities. BACK: No midline thoracolumbar spinous tenderness, step-offs or deformities CHEST: Clear to auscultation. No respiratory distress. HEART: Regular rate and rhythm. No murmur heard. Normal peripheral pulses. ABDOMEN: Soft, nontender, nondistended, normal active bowel sounds. EXTREMITIES: tenderness to the right hip on palpation with no obvious deformity. Full active and passive range of motion of all extremities. No tenderness remainder of extremities. DP and radial pulses are 2+. Sensation intact. SKIN: several skin tears with overlying healing scabs to the upper and lower extremities. Small area of ecchymosis to the right lateral hip and right lower extremity. Small scab to the right mid back with surrounding blanching erythema. No purulence, no crepitus NEURO: No focal deficits. Alert and oriented x1. Moving all extremities spontaneously <Kiah Wright PA-C - Last Filed: 02/19/24 20:15> Course SR. PRICING ANALYST/PA Physician Supervision For this patient encounter, I reviewed the SR. PRICING ANALYST or PA documentation, treatment plan, and medical decision making and had [id number] time with this patient. I performed all aspects of the MDM as documented. <Damir Araya MD - Last Filed: 02/20/24 01:05> Vital Signs Vital signs: Vital Signs Temperature 98.3 F 02/19/24 17:01 Pulse Rate 86 02/19/24 17:01 Respiratory Rate 14 02/19/24 17:01 Blood Pressure 120/56 L 02/19/24 17:01 Pulse Oximetry 100 02/19/24 17:01 Temperature 97.0 F L 02/19/24 22:00 Pulse Rate 58 L 02/19/24 22:00 Respiratory Rate 14 02/19/24 22:00 Blood Pressure 106/50 L 02/19/24 22:00 Pulse Oximetry 96 02/19/24 22:00 Oxygen Delivery Room Air 02/19/24 22:23 <Kiah Wright PA-C - Last Filed: 02/19/24 20:15> Vital Signs Temperature 98.3 F 02/19/24 17:01 Pulse Rate 86 02/19/24 17:01 Respiratory Rate 14 02/19/24 17:01 Blood Pressure 120/56 L 02/19/24 17:01 Pulse Oximetry 100 02/19/24 17:01 Temperature 97.0 F L 02/19/24 22:00 Pulse Rate 58 L 02/19/24 22:00 Respiratory Rate 14 02/19/24 22:00 Blood Pressure 106/50 L 02/19/24 22:00 Pulse Oximetry 96 02/19/24 22:00 Oxygen Delivery Room Air 02/19/24 22:23 <Damir Araya MD - Last Filed: 02/20/24 01:05> MDM - Weakness MDM Narrative Medical decision making narrative: 84-year-old female presents emergency department via EMS from [place] her cyst is living with daughter at bedside for hypotension and frequent falls. See HPI for further history. triage vitals with blood pressure 120/56. She is afebrile. Exam significant for the above. EKG shows sinus bradycardia with first-degree AV block, rate is 56, prolonged GA interval at 2:21 a.m., normal QRS duration, normal QTC, Q-waves in the anterior leads, Q-waves in the inferior leads, no ST elevations or depressions. Troponin is within normal limits. CBC shows no leukocytosis. Hemoglobin 11.1. Hemoglobin is ranged from 10.9 to 12 in the past couple of years. Chemistries show mild elevation in BUN of 26, no significant changes. CK less than 20 UA with 51-100 wbc's, trace leuk esterase consistent with UTI. Urine culture is pending. CT brain shows stable 5.4 cm meningioma overlying the frontal lobe is stable 7 mm rightward midline shift. This is known to the family and they are not desiring further management. CT cervical spine shows no fracture. X-ray of the bilateral hip shows mild osteoarthritis of the hips. Patient family updated on workup. Her Tdap was updated given several skin tears. there are none that need closure. suspect symptoms may be secondary to UTI. She was started on Rocephin. Blood cultures are pending. she received a L of fluids from EMS. She has not been hypotensive in the ED. Discussed the case with the hospitalist agrees the plan for admission. Advises med/surge. <Kiah Wright PA-C - Last Filed: 02/19/24 20:15> 84-year-old female presents emergency department via EMS from [place] her cyst is living with daughter at bedside for hypotension and frequent falls. See HPI for further history. triage vitals with blood pressure 120/56. She is afebrile. Exam significant for the above. EKG shows sinus bradycardia with first-degree AV block, rate is 56, prolonged GA interval at 2:21 a.m., normal QRS duration, normal QTC, Q-waves in the anterior leads, Q-waves in the inferior leads, no ST elevations or depressions. Troponin is within normal limits. CBC shows no leukocytosis. Hemoglobin 11.1. Hemoglobin is ranged from 10.9 to 12 in the past couple of years. Chemistries show mild elevation in BUN of 26, no significant changes. CK less than 20 UA with 51-100 wbc's, trace leuk esterase consistent with UTI. Urine culture is pending. CT brain shows stable 5.4 cm meningioma overlying the frontal lobe is stable 7 mm rightward midline shift. This is known to the family and they are not desiring further management. CT cervical spine shows no fracture. X-ray of the bilateral hip shows mild osteoarthritis of the hips. Patient family updated on workup. Her Tdap was updated given several skin tears. There are none that need closure. Suspect symptoms may be secondary to UTI. She was started on Rocephin. Blood cultures are pending. She received a L of fluids from EMS. She has not been hypotensive in the ED. Discussed the case with the hospitalist agrees the plan for admission. Advises med/surge. <Damir Araya MD - Last Filed: 02/20/24 01:05> Lab Data Result diagrams: 02/19/24 17:40 02/19/24 17:40 <Kiah Wright PA-C - Last Filed: 02/19/24 20:15> Labs: Lab Results 02/19/24 02/19/24 02/19/24 Range/Units 17:04 17:40 17:42 WBC 8.1 (4.5-10.0) K/mm3 RBC 3.73 L (4.2-5.4) M/mm3 Hgb 11.1 L (12.0-15.0) g/dL Hct 35.8 L (37.0-47.0) % MCV 96.0 (80-100) fl MCH 29.8 (26-34) pg MCHC 31.0 L (32-36) g/dl RDW 16.9 H (11.5-14.5) % Plt Count 183 (150-375) k/mm3 MPV 10.4 (7.4-10.4) fl Immature Gran % (Auto) 4.8 H (0-0.5) % Neut % (Auto) 79.1 H (45.5-73.1) % Lymph % (Auto) 8.8 L (18.3-44.2) % [place] % (Auto) 6.9 (2.6-8.5) % Eos % (Auto) 0.0 (0-4.4) % Baso % (Auto) 0.4 (0.2-1.2) % Lymph # (Auto) 0.71 L (0.9-3.2) K/mm3 [place] # (Auto) 0.6 (0.1-0.6) K/mm3 Eos # (Auto) 0.0 (0-0.3) K/mm3 Baso # (Auto) 0.0 (0.0-0.1) K/mm3 Abs Immat Gran (auto) 0.39 H (0.00-0.031) K/mm3 Absolute Neuts (auto) 6.4 (1.3-6.7) K/mm3 Absolute Nucleated RBC 0.000 (0.0-0.012) K/mm3 Nucleated RBC % 0.0 (0.0-0.2) % PT 14.9 H (11.1-14.7) Seconds INR 1.1 APTT 26.1 (22.3-36.8) Seconds Sodium 138 (137-145) mmol/L Potassium 4.1 (3.4-5.0) mmol/L Chloride 108 H (98-107) mmol/L Carbon Dioxide 26 (22-30) mmol/L Anion Gap 4 (4-12) mmol/L BUN 26 H (7-17) mg/dL Creatinine 0.80 (0.7-1.0) mg/dL Estim Creat Clear Calc Not Reportable Estimated GFR > 60 (59 - ) Glucose 189 H (65-110) mg/dL Lactic Acid (0.7-2.0) mmol/L Calcium 8.2 L (8.4-10.2) mg/dL Total Bilirubin 0.7 (0.2-1.3) mg/dL AST 27 (14-36) U/L ALT 16 (6-35) U/L Alkaline Phosphatase 100 (38-126) U/L Total Creatine Kinase < 20 L (30-135) U/L Troponin I (0.000-0.034) ng/mL NT-Pro-B Natriuret Pep (19.9-100) pg/mL Total Protein 5.0 L (6.3-8.2) g/dL Albumin 2.5 L (3.5-5.1) g/dL Urine Color Yellow (Yellow) Urine Appearance Cloudy H (Clear) Urine pH 5.0 (5.0-9.0) Ur Specific Brilliant 1.035 (1.001-1.035) Urine Protein Negative (Negative) mg/dL Urine Glucose (UA) 3+ H (Negative) mg/dL Urine Ketones Negative (Negative) mg/dL Ur Blood (Man) Negative (Negative) Urine Nitrate Negative (Negative) Urine Bilirubin Negative (Negative) Urine Urobilinogen 0.2 (<2.0) mg/dL Add Ur Microanalysis Reviewed Leukocyte Esterase Rfl Trace H (Negative) SHAILESH/UL Urine RBC 0-2 (0-2) /hpf Urine WBC 51-100 H (0-3) /hpf Ur Squamous Epith Cells None seen (Few) /hpf Urine Bacteria Rare /hpf Urine Casts 0-2 Urine Yeast (Budding) Present H (None) /hpf 02/19/24 02/19/24 Range/Units 17:42 20:08 WBC (4.5-10.0) K/mm3 RBC (4.2-5.4) M/mm3 Hgb (12.0-15.0) g/dL Hct (37.0-47.0) % MCV (80-100) fl MCH (26-34) pg MCHC (32-36) g/dl RDW (11.5-14.5) % Plt Count (150-375) k/mm3 MPV (7.4-10.4) fl Immature Gran % (Auto) (0-0.5) % Neut % (Auto) (45.5-73.1) % Lymph % (Auto) (18.3-44.2) % [place] % (Auto) (2.6-8.5) % Eos % (Auto) (0-4.4) % Baso % (Auto) (0.2-1.2) % Lymph # (Auto) (0.9-3.2) K/mm3 [place] # (Auto) (0.1-0.6) K/mm3 Eos # (Auto) (0-0.3) K/mm3 Baso # (Auto) (0.0-0.1) K/mm3 Abs Immat Gran (auto) (0.00-0.031) K/mm3 Absolute Neuts (auto) (1.3-6.7) K/mm3 Absolute Nucleated RBC (0.0-0.012) K/mm3 Nucleated RBC % (0.0-0.2) % PT (11.1-14.7) Seconds INR APTT (22.3-36.8) Seconds Sodium (137-145) mmol/L Potassium (3.4-5.0) mmol/L Chloride (98-107) mmol/L Carbon Dioxide (22-30) mmol/L Anion Gap (4-12) mmol/L BUN (7-17) mg/dL Creatinine (0.7-1.0) mg/dL Estim Creat Clear Calc Estimated GFR (59 - ) Glucose (65-110) mg/dL Lactic Acid 2.8 H (0.7-2.0) mmol/L Calcium (8.4-10.2) mg/dL Total Bilirubin (0.2-1.3) mg/dL AST (14-36) U/L ALT (6-35) U/L Alkaline Phosphatase (38-126) U/L Total Creatine Kinase Cancelled (30-135) U/L Troponin I 0.013 (0.000-0.034) ng/mL NT-Pro-B Natriuret Pep 1000 H (19.9-100) pg/mL Total Protein (6.3-8.2) g/dL Albumin (3.5-5.1) g/dL Urine Color (Yellow) Urine Appearance (Clear) Urine pH (5.0-9.0) Ur Specific Brilliant (1.001-1.035) Urine Protein (Negative) mg/dL Urine Glucose (UA) (Negative) mg/dL Urine Ketones (Negative) mg/dL Ur Blood (Man) (Negative) Urine Nitrate (Negative) Urine Bilirubin (Negative) Urine Urobilinogen (<2.0) mg/dL Add Ur Microanalysis Leukocyte Esterase Rfl (Negative) SHAILESH/UL Urine RBC (0-2) /hpf Urine WBC (0-3) /hpf Ur Squamous Epith Cells (Few) /hpf Urine Bacteria /hpf Urine Casts Urine Yeast (Budding) (None) /hpf <Kiah Wright PA-C - Last Filed: 02/19/24 20:15> Lab Results 02/19/24 02/19/24 02/19/24 Range/Units 17:04 17:40 17:42 WBC 8.1 (4.5-10.0) K/mm3 RBC 3.73 L (4.2-5.4) M/mm3 Hgb 11.1 L (12.0-15.0) g/dL Hct 35.8 L (37.0-47.0) % MCV 96.0 (80-100) fl MCH 29.8 (26-34) pg MCHC 31.0 L (32-36) g/dl RDW 16.9 H (11.5-14.5) % Plt Count 183 (150-375) k/mm3 MPV 10.4 (7.4-10.4) fl Immature Gran % (Auto) 4.8 H (0-0.5) % Neut % (Auto) 79.1 H (45.5-73.1) % Lymph % (Auto) 8.8 L (18.3-44.2) % [place] % (Auto) 6.9 (2.6-8.5) % Eos % (Auto) 0.0 (0-4.4) % Baso % (Auto) 0.4 (0.2-1.2) % Lymph # (Auto) 0.71 L (0.9-3.2) K/mm3 [place] # (Auto) 0.6 (0.1-0.6) K/mm3 Eos # (Auto) 0.0 (0-0.3) K/mm3 Baso # (Auto) 0.0 (0.0-0.1) K/mm3 Abs Immat Gran (auto) 0.39 H (0.00-0.031) K/mm3 Absolute Neuts (auto) 6.4 (1.3-6.7) K/mm3 Absolute Nucleated RBC 0.000 (0.0-0.012) K/mm3 Nucleated RBC % 0.0 (0.0-0.2) % PT 14.9 H (11.1-14.7) Seconds INR 1.1 APTT 26.1 (22.3-36.8) Seconds Sodium 138 (137-145) mmol/L Potassium 4.1 (3.4-5.0) mmol/L Chloride 108 H (98-107) mmol/L Carbon Dioxide 26 (22-30) mmol/L Anion Gap 4 (4-12) mmol/L BUN 26 H (7-17) mg/dL Creatinine 0.80 (0.7-1.0) mg/dL Estim Creat Clear Calc Not Reportable Estimated GFR > 60 (59 - ) Glucose 189 H (65-110) mg/dL Lactic Acid (0.7-2.0) mmol/L Calcium 8.2 L (8.4-10.2) mg/dL Total Bilirubin 0.7 (0.2-1.3) mg/dL AST 27 (14-36) U/L ALT 16 (6-35) U/L Alkaline Phosphatase 100 (38-126) U/L Total Creatine Kinase < 20 L (30-135) U/L Troponin I (0.000-0.034) ng/mL NT-Pro-B Natriuret Pep (19.9-100) pg/mL Total Protein 5.0 L (6.3-8.2) g/dL Albumin 2.5 L (3.5-5.1) g/dL Urine Color Yellow (Yellow) Urine Appearance Cloudy H (Clear) Urine pH 5.0 (5.0-9.0) Ur Specific Brilliant 1.035 (1.001-1.035) Urine Protein Negative (Negative) mg/dL Urine Glucose (UA) 3+ H (Negative) mg/dL Urine Ketones Negative (Negative) mg/dL Ur Blood (Man) Negative (Negative) Urine Nitrate Negative (Negative) Urine Bilirubin Negative (Negative) Urine Urobilinogen 0.2 (<2.0) mg/dL Add Ur Microanalysis Reviewed Leukocyte Esterase Rfl Trace H (Negative) SHAILESH/UL Urine RBC 0-2 (0-2) /hpf Urine WBC 51-100 H (0-3) /hpf Ur Squamous Epith Cells None seen (Few) /hpf Urine Bacteria Rare /hpf Urine Casts 0-2 Urine Yeast (Budding) Present H (None) /hpf 02/19/24 02/19/24 Range/Units 17:42 20:08 WBC (4.5-10.0) K/mm3 RBC (4.2-5.4) M/mm3 Hgb (12.0-15.0) g/dL Hct (37.0-47.0) % MCV (80-100) fl MCH (26-34) pg MCHC (32-36) g/dl RDW (11.5-14.5) % Plt Count (150-375) k/mm3 MPV (7.4-10.4) fl Immature Gran % (Auto) (0-0.5) % Neut % (Auto) (45.5-73.1) % Lymph % (Auto) (18.3-44.2) % [place] % (Auto) (2.6-8.5) % Eos % (Auto) (0-4.4) % Baso % (Auto) (0.2-1.2) % Lymph # (Auto) (0.9-3.2) K/mm3 [place] # (Auto) (0.1-0.6) K/mm3 Eos # (Auto) (0-0.3) K/mm3 Baso # (Auto) (0.0-0.1) K/mm3 Abs Immat Gran (auto) (0.00-0.031) K/mm3 Absolute Neuts (auto) (1.3-6.7) K/mm3 Absolute Nucleated RBC (0.0-0.012) K/mm3 Nucleated RBC % (0.0-0.2) % PT (11.1-14.7) Seconds INR APTT (22.3-36.8) Seconds Sodium (137-145) mmol/L Potassium (3.4-5.0) mmol/L Chloride (98-107) mmol/L Carbon Dioxide (22-30) mmol/L Anion Gap (4-12) mmol/L BUN (7-17) mg/dL Creatinine (0.7-1.0) mg/dL Estim Creat Clear Calc Estimated GFR (59 - ) Glucose (65-110) mg/dL Lactic Acid 2.8 H (0.7-2.0) mmol/L Calcium (8.4-10.2) mg/dL Total Bilirubin (0.2-1.3) mg/dL AST (14-36) U/L ALT (6-35) U/L Alkaline Phosphatase (38-126) U/L Total Creatine Kinase Cancelled (30-135) U/L Troponin I 0.013 (0.000-0.034) ng/mL NT-Pro-B Natriuret Pep 1000 H (19.9-100) pg/mL Total Protein (6.3-8.2) g/dL Albumin (3.5-5.1) g/dL Urine Color (Yellow) Urine Appearance (Clear) Urine pH (5.0-9.0) Ur Specific [place]illiant (1.001-1.035) Urine Protein (Negative) mg/dL Urine Glucose (UA) (Negative) mg/dL Urine Ketones (Negative) mg/dL Ur Blood (Man) (Negative) Urine Nitrate (Negative) Urine Bilirubin (Negative) Urine Urobilinogen (<2.0) mg/dL Add Ur Microanalysis Leukocyte Esterase Rfl (Negative) SHAILESH/UL Urine RBC (0-2) /hpf Urine WBC (0-3) /hpf Ur Squamous Epith Cells (Few) /hpf Urine Bacteria /hpf Urine Casts Urine Yeast (Budding) (None) /hpf <Damir Araya MD - Last Filed: 02/20/24 01:05> Discharge Plan Discharge Clinical Impression: Acute UTI, Acute hypotension <Kiah Wright PA-C - Last Filed: 02/19/24 20:15> Patient Disposition: Still a Patient <TARI Reddy Last Filed: 02/19/24 20:15> Condition: Stable <Kiah Wright PA-C - Last Filed: 02/19/24 20:15>
[2024-02-19 17:38] LABS: Add Urine Microscopic? YES; Appearance Urine Cloudy (Clear); Bacteria Urine Rare /hpf; Bilirubin Urine Negative (Negative); Blood Urine Negative (Negative); Budding Yeast Urine Present /hpf; Color Urine Yellow (Yellow); Glucose Urine UA 3+ mg/dL (Negative); Ketones Urine Negative (Negative); Leukocyte Esterase Ur Trace LEU/UL (Negative); Need Manual Microscopic Reviewed; Nitrate Urine Negative (Negative); Non Pathogenic Casts 0-2; Protein Urine Negative (Negative); RBC Urine 0-2 /hpf (0-2); Specific Grav Ur 1.035 (1.001-1.035); Squamous Epithelial Cell Urine None Seen /hpf (Few); Urobilinogen Urine 0.2 mg/dL (<2.0); WBC Urine 51-100 /hpf (0-3)
[2024-02-19 17:46] LABS: Basophils Percent Auto 0.4 % (0.2-1.2); Hematocrit 35.8 % (37.0-47.0); Hemoglobin 11.1 g/dL (12.0-15.0); Immature Granulocyte Absolute 0.39 K/mm3 (0.00-0.031); Immature Granulocyte Percent A 4.8 % (0-0.5); Lymphocytes Absolute Auto 0.71 K/mm3 (0.9-3.2); Lymphocytes Percent Auto 8.8 % (18.3-44.2); Mean Corpuscular Hemoglobin 29.8 pg (26-34); Mean Platelet Volume 10.4 fl (7.4-10.4); Monocytes Absolute Auto 0.6 K/mm3 (0.1-0.6); Monocytes Percent Auto 6.9 % (2.6-8.5); Neutrophils Absolute Auto 6.4 K/mm3 (1.3-6.7); Neutrophils Percent Auto 79.1 % (45.5-73.1); Platelet Count Result 183 k/mm3 (150-375); Red Blood Count 3.73 M/mm3 (4.2-5.4); Red Cell Distribution Width 16.9 % (11.5-14.5); White Blood Count 8.1 K/mm3 (4.5-10.0)
[2024-02-19 17:56] LABS: Creatine Kinase < 20 U/L (30-135)
[2024-02-19 17:58] LABS: Alanine Aminotransferase 16 U/L (6-35); Albumin Level 2.5 g/dL (3.5-5.1); Alkaline Phosphatase 100 U/L (38-126); Anion Gap 4 mmol/L (4-12); Aspartate Amino Transferase 27 U/L (14-36); Bilirubin,Total 0.7 mg/dL (0.2-1.3); Blood Urea Nitrogen 26 mg/dL (7-17); Calcium 8.2 mg/dL (8.4-10.2); Carbon Dioxide 26 mmol/L (22-30); Chloride 108 mmol/L (98-107); Estimated Glomerular Filt Rate > 60; Glucose 189 mg/dL (65-110); Potassium 4.1 mmol/L (3.4-5.0); Sodium 138 mmol/L (137-145)
[2024-02-19 18:02] LABS: INR 1.1; Partial Thromboplastin Time 26.1 Seconds (22.3-36.8); Prothrombin Time 14.9 Seconds (11.1-14.7)
[2024-02-19 18:09] LABS: NT Pro B Type Natriuretic Pept 1000 pg/mL (19.9-100); Troponin I 0.013 ng/mL (0.000-0.034)
--- NOTE | 2024-02-19 19:37 | PM.IMHP ---
H&P: HPI History of Present Illness Date/Time: 02/19/24 19:37 Chief Complaint: altered mental status Narrative: This is an 84-year-old female with past medical history significant for atrial fibrillation, rate controlled anticoagulated, orally controlled type 2 diabetes mellitus, compression fracture of lumbar vertebrae, dementia, GERD, gait abnormality, osteopenia, thrombocytopenia. Patient was brought to the emergency room due to generalized weakness, fall, altered mental status. Most of the history was obtained from daughter who is at bedside patient is lethargic. Preliminary workup was significant for urinalysis with wbc's 50-100 per high-power field, chest x-ray showed opacities. patient has been admitted for further evaluation management and treatment EXAMINATION: XR chest 1V DATE: 02/19/2024 17:56 INDICATION: Hypotension. TECHNIQUE: A single frontal view of the chest was obtained. COMPARISON: Chest single view 04/30/2022 FINDINGS: There is a large hiatal hernia. There is a diffuse interstitial pattern, consistent mild pulmonary edema. There are airspace opacities in left lower lung zone. No pleural effusion or pneumothorax. The heart size is normal. IMPRESSION: 1. Mild pulmonary edema. 2. Airspace opacities in left lower lung zone, consistent with atelectasis versus pneumonia. 3. Large hiatal hernia. EXAMINATION: XR hip BI 2V w AP pelvis DATE: 02/19/2024 17:56 INDICATION: Falls. TECHNIQUE: An anteroposterior view of the pelvis and 2 views of each hip were obtained. COMPARISON: None. FINDINGS: Alignment is normal. No fracture. There is mild osteoarthritis of the hips. There is mild lumbar spondylosis. IMPRESSION: 1. Mild osteoarthritis of the hips. EXAMINATION: CT brain wo con DATE: 02/19/2024 18:01 INDICATION: Fall. TECHNIQUE: Computed tomography (CT) of the head was performed without intravenous contrast. The mA was adjusted according to patient size. Iterative reconstruction technique was employed. The dose-length product was 605.33 mGy-cm. COMPARISON: Head CT 04/30/2022 FINDINGS: There is a 5.4 x 3.1 cm extra-axial mass overlying left frontal lobe, consistent with a meningioma. Again seen is low attenuation vasogenic edema in the white matter adjacent to the mass. There are prominent perivascular spaces in the basal ganglia. There is no acute ischemic infarct or intracranial hemorrhage. There is 7 mm rightward subfalcine midline shift. There are scattered areas of low attenuation in the cerebral white matter, which is within normal limits for the patient's age. The ventricles are normal in size. There are likely changes of ocular lens replacement surgeries. There are coronary artery calcifications. There are bilateral mastoid effusions. IMPRESSION: 1. Stable 5.4 cm meningioma overlying left frontal lobe. 2. Stable 7 mm rightward midline shift. Review of Systems Review of Systems: ROS unobtainable: Yes unobtainable due to mental status ( obtundation/lethargy) REPLACED BY [facility] Past Medical History Medical History Afib Closed compression fracture of L1 vertebra Compression fracture of first lumbar vertebra Dementia Diabetes Elevated troponin Gait abnormality GERD without esophagitis History of colon polyps Hyperlipidemia Hypertension Meningioma Osteopenia started Fosamax 12/2016? Poor weight gain in adult Postmenopausal status (age-related) (natural) Thrombocytopenia Weakness Surgical History Surgical History H/O cataract extraction H/O colonoscopy with polypectomy H/O dilation and curettage History of removal of pigmented skin lesion Family History Family History Mother Family history of heart disease in male family member before age 55 Social History Social History Social History: The patient is and lives alone. She has 2 children. 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 Her daughter is the durable power attorney recruiter for healthcare. She wishes to be DNR Smoking packs per day: 0 Smoking cigarettes per day: 0.0 Years smoked: 0 Smoking pack-years: 0.00 Smoking status: Never smoker Second hand tobacco smoke exposure: No Alcohol intake: never Substance use: never Substance use type: does not use Do You Feel Safe in your Home?: No Lack of Transportation: No Lack of Food: Never True Current Housing: I Have Housing Concerned About Future Housing: No Difficulty Paying Gas/Electric Bills: No Difficulty Paying for Meds: No Currently Unemployed: No Education: Bachelor's Degree Difficulty w/ Childcare or Family Care: No Living arrangements: assisted living Occupation/Education: retired Gender identity (if verbalized by the patient): Female Spiritual care concerns: No Meds Home Medications and Allergies Home Medications Medication Instructions Recorded Confirmed Type acetaminophen 325 mg tablet (Mapap 650 mg PO Q6H PRN Pain Rated 5 Or 03/13/22 02/19/24 Rx (acetaminophen)) Less #30 tabs amiodarone 200 mg tablet (Pacerone) 200 mg PO DAILY@0800 #30 tabs 04/11/22 02/19/24 Rx omeprazole 20 mg capsule,delayed 20 mg PO DAILY #90 caps 04/20/22 02/19/24 Rx release metoprolol tartrate 50 mg tablet 50 mg PO BID 04/24/22 02/19/24 History levetiracetam 500 mg tablet 500 mg PO Q12H #60 tabs 05/04/22 02/19/24 Rx prednisone 2.5 mg tablet 2.5 mg PO DAILY@0800 #30 tabs 05/04/22 02/19/24 Rx cholecalciferol (vitamin D3) 50 2,000 unit PO DAILY #90 tabs 05/08/22 02/19/24 Rx mcg (2,000 unit) tablet (Vitamin D3) apixaban 2.5 mg tablet (Eliquis) 2.5 mg PO BID 10/10/22 02/19/24 History calcium carbonate (Calcium 600) 600 mg PO BID 10/10/22 02/19/24 History prednisone 20 mg tablet 20 mg PO DAILY 10/10/22 02/19/24 History hydrocolloid dressing 4 X 4 #5 ea 08/06/23 02/19/24 Rx atorvastatin 40 mg tablet 40 mg PO QHS 01/31/24 02/19/24 History blood sugar diagnostic (Blood #100 ea 02/06/24 02/19/24 Rx Glucose Test strips) blood-glucose meter (Blood Glucose #1 ea 02/06/24 02/19/24 Rx Monitoring kit) empagliflozin 25 mg tablet 25 mg PO QAM #90 tabs 02/06/24 02/19/24 Rx (Jardiance) lancets 33 gauge #100 ea 02/06/24 02/19/24 Rx metformin 500 mg tablet,extended 500 mg PO BID #180 tabs 02/06/24 02/19/24 Rx release 24 hr blood-glucose sensor (Dexcom G7 #1 ea 02/14/24 02/19/24 Rx Sensor device) Allergies Allergy/AdvReac Type Severity Reaction Status Date / Time dexamethasone [From Decadron] AdvReac Severe Hallucinati Verified 01/31/24 14:23 ng Vital Signs Vital Signs - 24 hr 02/19/24 17:01 Temperature 98.3 F Pulse Rate 86 Respiratory Rate 14 Blood Pressure 120/56 L Pulse Oximetry 100 Exam Narrative: laying in a stretcher Const: General: comfortable, no acute distress, well developed, lethargic, patient obtunded and thin Nutritional Appearance: thin Orientation/consciousness: patient obtunded and lethargic HENMT: Head: normal to inspection, normocephalic and atraumatic Ears: hearing grossly normal bilaterally Face/Nose/Sinus: normal facial exam Face and sinus: normal facial exam Eyes: General: appearance normal, both eyes and all related structures Pupils: Equal, round and reactive pupils present EOM: EOMs intact bilaterally Neck: Neck: full ROM, no lymphadenopathy and no JVD Thyroid: thyroid normal Lymphatic: no lymphadenopathy noted Resp: Effort & Inspection: normal respiratory effort and able to speak in complete sentences Auscultation: clear to auscultation bilaterally Cardio: Jugular venous distension: no JVD Rate: regular rate Rhythm: regular rhythm Heart sounds: S1 normal heart sound present and S2 normal heart sound present GI: GI Palp: Yes Soft to palpation and Yes No hepatosplenomegaly present : General: Yes deferred Skin: Rashes: no rashes Wounds: no wounds Neuro: General: no focal motor deficits, CN's II-XI intact bilaterally and Unable to assess gait Cranial nerves: Yes CN's II-XII intact bilaterally and Yes Equal, round and reactive pupils present Cognition (Neuro): abnormal cognition ( obtundation/lethargy) Speech: normal speech Gait exam (Neuro): Unable to assess gait Motor exam (neuro): 5/5 motor strength present throughout Extrem: General: normal to inspection, full ROM, no joint enlargement and no pedal edema Other: bruises at different stages of healing H&P: Results Labs Labs: Short CBC 02/19/24 Range/Units 17:40 WBC 8.1 (4.5-10.0) K/mm3 Hgb 11.1 L (12.0-15.0) g/dL Hct 35.8 L (37.0-47.0) % Plt Count 183 (150-375) k/mm3 BMP 02/19/24 17:40 Sodium 138 Potassium 4.1 Chloride 108 H Carbon Dioxide 26 BUN 26 H Creatinine 0.80 Glucose 189 H Calcium 8.2 L Cardiac Enzymes 02/19/24 02/19/24 Range/Units 17:42 17:42 Total Creatine Kinase < 20 L Cancelled (30-135) U/L Troponin I 0.013 (0.000-0.034) ng/mL Liver Function 02/19/24 Range/Units 17:40 Total Bilirubin 0.7 (0.2-1.3) mg/dL AST 27 (14-36) U/L ALT 16 (6-35) U/L Alkaline Phosphatase 100 (38-126) U/L Albumin 2.5 L (3.5-5.1) g/dL Urine 02/19/24 Range/Units 17:04 Urine Color Yellow (Yellow) Urine Appearance Cloudy H (Clear) Urine pH 5.0 (5.0-9.0) Ur Specific [place] 1.035 (1.001-1.035) Urine Protein Negative (Negative) mg/dL Urine Glucose (UA) 3+ H (Negative) mg/dL Assessment and Plan Assessment and plan (1) Acute UTI: Code(s): N39.0 - Urinary tract infection, site not specified Status: Acute (2) Opacity of lung on imaging study: Code(s): R91.8 - Other nonspecific abnormal finding of lung field Status: Acute (3) Acute hypotension: Code(s): I95.9 - Hypotension, unspecified Status: Acute (4) Dementia: Qualifiers: Dementia behavioral or psychological symptom: without behavioral, psychotic, or mood disturbance or anxiety Dementia severity: moderate Dementia type: unspecified type Qualified Code(s): F03.B0 - Unspecified dementia, moderate, without behavioral disturbance, psychotic disturbance, mood disturbance, and anxiety Code(s): F03.90 - Unspecified dementia, unspecified severity, without behavioral disturbance, psychotic disturbance, mood disturbance, and anxiety Status: Acute (5) Gait abnormality: Code(s): R26.9 - Unspecified abnormalities of gait and mobility Status: Acute (6) Chronic low back pain: Code(s): M54.50 - Low back pain, unspecified; G89.29 - Other chronic pain Status: Acute (7) Afib: Qualifiers: Atrial fibrillation type: paroxysmal Qualified Code(s): I48.0 - Paroxysmal atrial fibrillation Code(s): I48.91 - Unspecified atrial fibrillation Status: Acute (8) Fall: Code(s): W19.XXXA - Unspecified fall, initial encounter Status: Acute Hospitalist MIPS Advance Care Plan I have confirmed that the patient's Advanced Care Plan is present, code status is documented, or surrogate decision maker is listed in patient medical record.: Yes Medication Reconciliation I have utilized all available resources to obtain, update and review the patients current medications (includes all prescriptions, OTC, herbals, cannabis, and nutritional supplements).: Yes
[2024-02-19 20:05] VITALS: BP 123/59; PULSE 76; RESP 19; O2SAT 97
[2024-02-19 20:33] LABS: Lactic Acid Reflex 2.8 mmol/L (0.7-2.0)
--- NOTE | 2024-02-19 21:05 | PC.NURSE ---
Naomi ALVAREZ notified of bladder scan results, Naomi HARRINGTON order for jiménez catheter
[2024-02-19 21:16] VITALS: BMI 15.4
[2024-02-19 22:00] VITALS: BP 106/50; PULSE 58; RESP 14; TEMP 36.1; O2SAT 96
--- NOTE | 2024-02-19 22:19 | ADMGEN ---
This patient, Catalina Byrd, was admitted to [address] [place] [address] Room 333-01 at 2200. Patient/family oriented to hospital policies and general routines including ID bracelet, bed and alarms, visiting hours, pain management, procedures, bathroom and other care routines, personal items, smoking policy, room service/diet, and visiting hours. Information on how to activate the Rapid Response Team has been discussed. Patient/Family are encouraged to report perceived risks to care and to ask questions if they do not understand what they are told or what they should do.
[2024-02-19 22:25] LABS: Glucose Point of Care 120 mg/dl (65-105)
[2024-02-19] MEDS: SODIUM CHLORIDE 0.9% IV 1,000 ML 999 ML IV CONT (22:43)
[2024-02-19 23:19] LABS: Reflex Lactic Acid Yes or No Add Lactic
[2024-02-19 23:56] LABS: Lactic Acid 1.5 mmol/L (0.7-2.0)
[2024-02-20] MEDS: levETIRAcetam 500 MG TABLET PO ×3 (00:43→20:23)
[2024-02-20] MEDS: AZITHROMYCIN 500 MG/NS 250 ML 500 MG/250 ML BAG 250 MG IVPB (00:44)
--- NOTE | 2024-02-20 04:39 | PC.NURSE ---
pt repeatedly yelling out oww . after this RN asked multiple times, patient finally answered that everything hurts. pt resumed yelling out oww and would not answer any more questions or attempt to take tylenol. warm blanket applied to patient and patient turned and repositioned for comfort.
[2024-02-20 05:29] VITALS: BP 116/50; PULSE 55; RESP 16; TEMP 36.2; O2SAT 94
[2024-02-20 08:58] VITALS: PULSE 64
[2024-02-20] MEDS: PANTOPRAZOLE 40 MG TABLET PO (08:58)
[2024-02-20] MEDS: AMIODARONE HCL 200 MG TABLET PO (08:58)
[2024-02-20] MEDS: APIXABAN 2.5 MG TABLET PO ×2 (08:58→20:23)
[2024-02-20] MEDS: predniSONE 2.5 MG TABLET PO (08:59)
[2024-02-20] MEDS: EMPAGLIFLOZIN 25 MG TABLET PO (08:59)
[2024-02-20 09:04] VITALS: PULSE 64
[2024-02-20] MEDS: METOPROLOL TARTRATE 50 MG TAB PO (09:04)
[2024-02-20 11:47] VITALS: BMI 15.4
[2024-02-20] MEDS: ACETAMINOPHEN 500 MG TABLET 1000 MG PO (11:47)
[2024-02-20 13:38] LABS: Procalcitonin 0.1 ng/mL
[2024-02-20 14:00] VITALS: BP 120/60; PULSE 58; RESP 18; TEMP 35.8; O2SAT 97
--- NOTE | 2024-02-20 16:21 | PM.IMPN ---
Progress Note: A&P Assessment and Plan (1) Acute UTI: Code(s): N39.0 - Urinary tract infection, site not specified Status: Acute Assessment and Plan: - UA growing budding yeast with 51-100 WBC's and trace leukocyte esterase. - Unclear if true UTI. - WBC's wnl. - Unsure of urinary symptoms as pt confused. - Hold abx for now. - Repeat UA ordered. - Follow cultures. (2) Opacity of lung on imaging study: Code(s): R91.8 - Other nonspecific abnormal finding of lung field Status: Acute Assessment and Plan: CXR: IMPRESSION: 1. Mild pulmonary edema. 2. Airspace opacities in left lower lung zone, consistent with atelectasis versus pneumonia. 3. Large hiatal hernia. - Patient does not appear to be undergoing any infectious process. - No signs of cardiopulmonary symptoms. - Good O2 sats > 90 % on RA. - Hold abx for now. - Follow cultures. (3) Acute hypotension: Code(s): I95.9 - Hypotension, unspecified Status: Acute Assessment and Plan: - Possibly secondary to BP medications. - DBP trending low with episodes of bradycardia. - Metoprolol dose reduced. - Continue to monitor and adjust meds as needed. (4) Dementia: Qualifiers: Dementia behavioral or psychological symptom: without behavioral, psychotic, or mood disturbance or anxiety Dementia severity: moderate Dementia type: unspecified type Qualified Code(s): F03.B0 - Unspecified dementia, moderate, without behavioral disturbance, psychotic disturbance, mood disturbance, and anxiety Code(s): F03.90 - Unspecified dementia, unspecified severity, without behavioral disturbance, psychotic disturbance, mood disturbance, and anxiety Status: Acute Assessment and Plan: - Appears stable. - Resume home meds. - Assist with care. (5) Gait abnormality: Code(s): R26.9 - Unspecified abnormalities of gait and mobility Status: Acute Assessment and Plan: - PT eval and treatment. - Fall precautions. - May possibly need rehab placement. (6) Chronic low back pain: Code(s): M54.50 - Low back pain, unspecified; G89.29 - Other chronic pain Status: Acute Assessment and Plan: - Pain meds PRN. (7) Afib: Qualifiers: Atrial fibrillation type: paroxysmal Qualified Code(s): I48.0 - Paroxysmal atrial fibrillation Code(s): I48.91 - Unspecified atrial fibrillation Status: Acute Assessment and Plan: - Rate well controlled. - Continue amiodarone, metoprolol and apixaban. (8) Fall: Code(s): W19.XXXA - Unspecified fall, initial encounter Status: Acute Assessment and Plan: - Possibly secondary to deconditioning +/vs hypotension +/vs bradycardia vs other. - Orthostatic vitals ordered. - PT/OT eval and treatment. - Fall precautions. (9) Meningioma: Code(s): D32.9 - Benign neoplasm of meninges, unspecified Status: Chronic Assessment and Plan: - Stable per CT head. - Continue PO steroids. (10) Diabetes: Qualifiers: Diabetes mellitus complication status: without complication Diabetes mellitus penitentiary insulin use: without intermediate teacher use Diabetes mellitus type: type 2 Qualified Code(s): E11.9 - Type 2 diabetes mellitus without complications Code(s): E11.9 - Type 2 diabetes mellitus without complications Status: Acute Assessment and Plan: - Fairly well controlled due to poor PO intake. - Continue Jardiance. - Monitor BG closely AC & HS. Plan PT/OT eval and treatment. Safety monitoring and assist with care. May need placement. Time Spent With Patient Time with patient: 25 - 35 minutes Subjective Date/time seen: 02/20/24 12:21 Patient able to state her name when prompted by daughter seated bedside otherwise no other verbal response thereafter. Daughter states patient normally ambulates at her assisted living but has been having difficulty getting up by herself recently, able to ambulate self with walker after she gets assistance getting up from chair. Interval history: Patient calm on bedrest and looks to be in no acute distress. Review of Systems Review of Systems: ROS unobtainable: Yes unobtainable due to mental status Exam Narrative: General: Very weak and fragile appearing elderly female. HEENT: Atraumatic, PERRL, EOM, Moist mucosa. NECK: Supple. Lungs: Clear bilaterally. Heart: Irregularly irregular, no murmurs. Abdomen: Soft, non-tender, +ve bowel sounds X4 quadrants. Extremities: Acyanotic, no edema, +ve pedal pulses. Skin: Warm and dry with no lesions. Neuro: Oriented to self, no focal neuro deficits noted. Psych: Withdrawn. Objective Data Vital Signs Vital Signs: Vital Signs - 24 hr 02/19/24 17:01 02/19/24 20:05 02/19/24 22:00 Temperature 98.3 F 97.0 F L Pulse Rate 86 76 58 L Respiratory Rate 14 19 14 Blood Pressure 120/56 L 123/59 L 106/50 L Pulse Oximetry 100 97 96 Oxygen Delivery 02/19/24 22:23 02/20/24 05:29 02/20/24 08:58 Temperature 97.2 F L Pulse Rate 55 L 64 Respiratory Rate 16 Blood Pressure 116/50 L Pulse Oximetry 94 Oxygen Delivery Room Air 02/20/24 09:04 02/20/24 14:00 Temperature 96.5 F L Pulse Rate 64 58 L Respiratory Rate 18 Blood Pressure 120/60 Pulse Oximetry 97 Oxygen Delivery Intake/Output Intake/Output: Intake & Output 02/17/24 02/18/24 02/19/24 02/20/24 23:59 23:59 23:59 23:59 Intake Total 1050 390 Output Total 750 Balance 1050 -360 Meds/Results Medications: Active Medications Generic Name Dose Route Start Last Admin Trade Name Freq PRN Reason Stop Dose Admin Acetaminophen 1,000 mg 02/19/24 23:56 02/20/24 11:47 Acetaminophen 500 Mg Tablet PO 1,000 mg Q6H PRN Administration Mild Pain (1-3) or Fever Al Hydrox/Mg Hydrox/Simethicone 30 ml 02/19/24 23:56 Mag Hydrox/Al Hydrox/Simeth 30 Ml Udc PO Q6H PRN Indigestion Amiodarone HCl 200 mg 02/20/24 08:00 02/20/24 08:58 Amiodarone Hcl 200 Mg Tablet PO 200 mg DAILY@0800 ABBEY Administration Apixaban 2.5 mg 02/20/24 09:00 02/20/24 08:58 Apixaban 2.5 Mg Tablet PO 2.5 mg Q12HR ABBEY Administration Empagliflozin 25 mg 02/20/24 09:00 02/20/24 08:59 Empagliflozin 25 Mg Tablet PO 25 mg QAM ABBEY Administration Levetiracetam 500 mg 02/19/24 23:55 02/20/24 08:59 Levetiracetam 500 Mg Tablet PO 500 mg Q12HR ABBEY Administration Metoprolol Tartrate 50 mg 02/20/24 09:00 02/20/24 09:04 Metoprolol Tartrate 50 Mg Tab PO 50 mg Q12HR ABBEY Administration Ondansetron HCl 4 mg 02/19/24 23:56 Ondansetron Inj 4 Mg/2 Ml Vial IV PUSH Q6H PRN Nausea And Vomiting Pantoprazole Sodium 40 mg 02/20/24 09:00 02/20/24 08:58 Pantoprazole 40 Mg Tablet PO 40 mg QAM ABBEY Administration Polyethylene Glycol 17 gm 02/19/24 23:56 Polyethylene Glycol 3350 17 Gm Powd.Pack PO QAM PRN Constipation Prednisone 2.5 mg 02/20/24 08:00 02/20/24 08:59 Prednisone 2.5 Mg Tablet PO 2.5 mg DAILY@0800 [facility] Administration Radiology Results: ITS Impressions Chest X-Ray 02/19/24 18:00 IMPRESSION: 1. Mild pulmonary edema. 2. Airspace opacities in left lower lung zone, consistent with atelectasis versus pneumonia. 3. Large hiatal hernia. Hip/Pelvis X-Ray 02/19/24 18:02 IMPRESSION: 1. Mild osteoarthritis of the hips. Head CT 02/19/24 18:03 IMPRESSION: 1. Stable 5.4 cm meningioma overlying left frontal lobe. 2. Stable 7 mm rightward midline shift. Cervical Spine CT 02/19/24 18:21 IMPRESSION: 1. No fracture. 2. Severe cervical spondylosis. Labs Labs: Laboratory Results - last 24 hr 02/19/24 02/19/24 02/19/24 17:04 17:40 17:42 WBC 8.1 RBC 3.73 L Hgb 11.1 L Hct 35.8 L MCV 96.0 MCH 29.8 MCHC 31.0 L RDW 16.9 H Plt Count 183 MPV 10.4 Immature Gran % (Auto) 4.8 H Neut % (Auto) 79.1 H Lymph % (Auto) 8.8 L [place] % (Auto) 6.9 Eos % (Auto) 0.0 Baso % (Auto) 0.4 Lymph # (Auto) 0.71 L [place] # (Auto) 0.6 Eos # (Auto) 0.0 Baso # (Auto) 0.0 Abs Immat Gran (auto) 0.39 H Absolute Neuts (auto) 6.4 Absolute Nucleated RBC 0.000 Nucleated RBC % 0.0 PT 14.9 H INR 1.1 APTT 26.1 Sodium 138 Potassium 4.1 Chloride 108 H Carbon Dioxide 26 Anion Gap 4 BUN 26 H Creatinine 0.80 Estim Creat Clear Calc Not Reportable Estimated GFR > 60 Glucose 189 H POC Capillary Glucose Lactic Acid Calcium 8.2 L Total Bilirubin 0.7 AST 27 ALT 16 Alkaline Phosphatase 100 Total Creatine Kinase < 20 L Troponin I NT-Pro-B Natriuret Pep Total Protein 5.0 L Albumin 2.5 L Procalcitonin Urine Color Yellow Urine Appearance Cloudy H Urine pH 5.0 Ur Specific [place] 1.035 Urine Protein Negative Urine Glucose (UA) 3+ H Urine Ketones Negative Ur Blood (Man) Negative Urine Nitrate Negative Urine Bilirubin Negative Urine Urobilinogen 0.2 Add Ur Microanalysis Reviewed Leukocyte Esterase Rfl Trace H Urine RBC 0-2 Urine WBC 51-100 H Ur Squamous Epith Cells None seen Urine Bacteria Rare Urine Casts 0-2 Urine Yeast (Budding) Present H 02/19/24 02/19/24 02/19/24 17:42 20:08 22:22 WBC RBC Hgb Hct MCV MCH MCHC RDW Plt Count MPV Immature Gran % (Auto) Neut % (Auto) Lymph % (Auto) [place] % (Auto) Eos % (Auto) Baso % (Auto) Lymph # (Auto) [place] # (Auto) Eos # (Auto) Baso # (Auto) Abs Immat Gran (auto) Absolute Neuts (auto) Absolute Nucleated RBC Nucleated RBC % PT INR APTT Sodium Potassium Chloride Carbon Dioxide Anion Gap BUN Creatinine Estim Creat Clear Calc Estimated GFR Glucose POC Capillary Glucose 120 H Lactic Acid 2.8 H Calcium Total Bilirubin AST ALT Alkaline Phosphatase Total Creatine Kinase Cancelled Troponin I 0.013 NT-Pro-B Natriuret Pep 1000 H Total Protein Albumin Procalcitonin Urine Color Urine Appearance Urine pH Ur Specific [place] Urine Protein Urine Glucose (UA) Urine Ketones Ur Blood (Man) Urine Nitrate Urine Bilirubin Urine Urobilinogen Add Ur Microanalysis Leukocyte Esterase Rfl Urine RBC Urine WBC Ur Squamous Epith Cells Urine Bacteria Urine Casts Urine Yeast (Budding) 02/19/24 02/20/24 23:32 12:54 WBC RBC Hgb Hct MCV MCH MCHC RDW Plt Count MPV Immature Gran % (Auto) Neut % (Auto) Lymph % (Auto) [place] % (Auto) Eos % (Auto) Baso % (Auto) Lymph # (Auto) [place] # (Auto) Eos # (Auto) Baso # (Auto) Abs Immat Gran (auto) Absolute Neuts (auto) Absolute Nucleated RBC Nucleated RBC % PT INR APTT Sodium Potassium Chloride Carbon Dioxide Anion Gap BUN Creatinine Estim Creat Clear Calc Estimated GFR Glucose POC Capillary Glucose Lactic Acid 1.5 Calcium Total Bilirubin AST ALT Alkaline Phosphatase Total Creatine Kinase Troponin I NT-Pro-B Natriuret Pep Total Protein Albumin Procalcitonin 0.1 Urine Color Urine Appearance Urine pH Ur Specific [place] Urine Protein Urine Glucose (UA) Urine Ketones Ur Blood (Man) Urine Nitrate Urine Bilirubin Urine Urobilinogen Add Ur Microanalysis Leukocyte Esterase Rfl Urine RBC Urine WBC Ur Squamous Epith Cells Urine Bacteria Urine Casts Urine Yeast (Budding) Quality VTE Prophylaxis VTE prophylaxis: mechanical ordered Hospitalist MIPS Advance Care Plan I have confirmed that the patient's Advanced Care Plan is present, code status is documented, or surrogate decision maker is listed in patient medical record.: Yes Medication Reconciliation I have utilized all available resources to obtain, update and review the patients current medications (includes all prescriptions, OTC, herbals, cannabis, and nutritional supplements).: Yes
[2024-02-20 18:39] LABS: Add Urine Microscopic? YES; Appearance Urine Cloudy (Clear); Bacteria Urine None Seen /hpf; Bilirubin Urine Negative (Negative); Blood Urine 2+ (Negative); Budding Yeast Urine Present /hpf; Color Urine Yellow (Yellow); Glucose Urine UA 3+ mg/dL (Negative); Ketones Urine Negative (Negative); Leukocyte Esterase Ur 2+ LEU/UL (Negative); Nitrate Urine Negative (Negative); Non Pathogenic Casts 0-2; Protein Urine Negative (Negative); RBC Urine 0-2 /hpf (0-2); Squamous Epithelial Cell Urine None Seen /hpf (Few); Urobilinogen Urine 0.2 mg/dL (<2.0); WBC Urine >100 /hpf (0-3)
[2024-02-20 20:03] VITALS: BP 110/60; PULSE 68; RESP 16; TEMP 36.5; O2SAT 95
[2024-02-20 23:21] LABS: Glucose Point of Care 219 mg/dl (65-105)
[2024-02-21] MEDS: ACETAMINOPHEN 500 MG TABLET 1000 MG PO (03:47)
[2024-02-21 05:21] VITALS: BP 112/41; PULSE 61; RESP 16; TEMP 36.5; O2SAT 96
[2024-02-21 07:34] LABS: Glucose Point of Care 120 mg/dl (65-105)
--- NOTE | 2024-02-21 07:42 | PCPTNOTE ---
Spoke with hospitalistSHAN to remove bedrest orders for pt to participate in skilled therapy.
[2024-02-21 08:29] VITALS: BP 108/48; PULSE 63; RESP 14; TEMP 36.2; O2SAT 97
[2024-02-21 08:36] VITALS: O2SAT 97
[2024-02-21] MEDS: PANTOPRAZOLE 40 MG TABLET PO (08:36)
[2024-02-21] MEDS: levETIRAcetam 500 MG TABLET PO ×2 (08:36→20:56)
[2024-02-21] MEDS: APIXABAN 2.5 MG TABLET PO ×2 (08:36→20:59)
[2024-02-21] MEDS: EMPAGLIFLOZIN 25 MG TABLET PO (08:37)
[2024-02-21] MEDS: predniSONE 2.5 MG TABLET PO (08:37)
[2024-02-21 11:42] LABS: Glucose Point of Care 237 mg/dl (65-105)
--- NOTE | 2024-02-21 12:00 | PCPTNOTE ---
Attempted PT evaluation, pt refused just shaking her head no when asked to participate in OOB activities. Nursing aware.
[2024-02-21] MEDS: INSULIN ASPART (*BKC) 100 UNITS/ML SUB-Q (12:07)
[2024-02-21 14:00] VITALS: BP 104/53; PULSE 69; RESP 18; TEMP 36.3; O2SAT 94
[2024-02-21 16:36] LABS: Glucose Point of Care 130 mg/dl (65-105)
--- NOTE | 2024-02-21 17:32 | PM.IMPN ---
Progress Note: A&P Assessment and Plan (1) Acute UTI: Code(s): N39.0 - Urinary tract infection, site not specified Status: Acute Assessment and Plan: - UA growing budding yeast with 51-100 WBC's and trace leukocyte esterase. - Repeat UA growing > 100K WBC's with 2+ Leukocyte Esterase. - Urine culture growing gram negative bacilli. - Blood culture NGTD. - WBC's remain wnl. - Unsure of urinary symptoms as pt confused. - Continue Ceftriaxone. - Continue to follow cultures. (2) Opacity of lung on imaging study: Code(s): R91.8 - Other nonspecific abnormal finding of lung field Status: Acute Assessment and Plan: CXR: IMPRESSION: 1. Mild pulmonary edema. 2. Airspace opacities in left lower lung zone, consistent with atelectasis versus pneumonia. 3. Large hiatal hernia. - Patient with no cardiopulmonary symptoms. - Good O2 sats > 90 % on RA. - Hold abx for now. - Follow cultures. - Repeat CXR in AM. (3) Acute hypotension: Code(s): I95.9 - Hypotension, unspecified Status: Acute Assessment and Plan: - Possibly secondary to BP medications and poor PO intake. - DBP trending low with episodes of bradycardia. ?Aortic Regurg. - Metoprolol dose reduced with hypotension. - Continue to monitor and adjust meds as needed. - Consider ECHO. (4) Dementia: Qualifiers: Dementia type: unspecified type Dementia severity: moderate Dementia behavioral or psychological symptom: without behavioral, psychotic, or mood disturbance or anxiety Qualified Code(s): F03.B0 - Unspecified dementia, moderate, without behavioral disturbance, psychotic disturbance, mood disturbance, and anxiety Code(s): F03.90 - Unspecified dementia, unspecified severity, without behavioral disturbance, psychotic disturbance, mood disturbance, and anxiety Status: Acute Assessment and Plan: - Appears stable. - Home meds resumed. - Assist with care. (5) Gait abnormality: Code(s): R26.9 - Unspecified abnormalities of gait and mobility Status: Acute Assessment and Plan: - PT eval and treatment. - Fall precautions. - May possibly need rehab placement. (6) Chronic low back pain: Code(s): M54.50 - Low back pain, unspecified; G89.29 - Other chronic pain Status: Acute Assessment and Plan: - Pain meds PRN. (7) Afib: Qualifiers: Atrial fibrillation type: paroxysmal Qualified Code(s): I48.0 - Paroxysmal atrial fibrillation Code(s): I48.91 - Unspecified atrial fibrillation Status: Acute Assessment and Plan: - Rate well controlled. - Continue amiodarone, metoprolol and apixaban. (8) Fall: Code(s): W19.XXXA - Unspecified fall, initial encounter Status: Acute Assessment and Plan: - Possibly secondary to deconditioning +/vs hypotension +/vs bradycardia vs other. - Orthostatic vitals ordered. - PT/OT eval and treatment. - Fall precautions. (9) Meningioma: Code(s): D32.9 - Benign neoplasm of meninges, unspecified Status: Chronic Assessment and Plan: - Stable per CT head. - Continue PO steroids. (10) Diabetes: Qualifiers: Diabetes mellitus type: type 2 Diabetes mellitus long distance operator insulin use: without long distance operator use Diabetes mellitus complication status: without complication Qualified Code(s): E11.9 - Type 2 diabetes mellitus without complications Code(s): E11.9 - Type 2 diabetes mellitus without complications Status: Acute Assessment and Plan: - Fairly well controlled due to poor PO intake. - Continue Jardiance. - Monitor BG closely AC & HS. - Low-dose SSI and adjust as needed. Plan Continue PT/OT treatment. Follow cultures and CXR. Safety monitoring and assist with care. May need placement. Time Spent With Patient Time with patient: 15 - 25 minutes Subjective Date/time seen: 02/21/24 17:32 Patient on bedrest and very withdrawn. States her name and current month then no other verbal responses, only staring at me during exam. Interval history: Patient calm on bedrest and looks to be in no acute distress. Pt very withdrawn and appears possibly depressed. Only stated her name and current month after multiple attempts. Review of Systems Review of Systems: ROS unobtainable: Yes unobtainable due to mental status Exam Narrative: General: Very weak and fragile appearing elderly female. HEENT: Atraumatic, PERRL, EOM, Moist mucosa. NECK: Supple. Lungs: Clear bilaterally. Heart: Irregularly irregular, Grade II-III sternal border murmur. Abdomen: Soft, non-tender, non-distended, +ve bowel sounds X4 quadrants. Extremities: Acyanotic, no edema, +ve pedal pulses. Skin: Warm and dry with no lesions. Neuro: Oriented to self, no focal neuro deficits noted. Psych: Withdrawn. Objective Data Vital Signs Vital Signs: Vital Signs - 24 hr 02/20/24 20:03 02/20/24 20:16 02/21/24 05:21 Temperature 97.7 F 97.7 F Pulse Rate 68 61 Respiratory Rate 16 16 Blood Pressure 110/60 112/41 L Pulse Oximetry 95 96 Oxygen Delivery Room Air 02/21/24 08:29 02/21/24 08:36 02/21/24 10:20 Temperature 97.2 F L Pulse Rate 63 Respiratory Rate 14 Blood Pressure 108/48 L Pulse Oximetry 97 97 Oxygen Delivery Room Air Room Air 02/21/24 14:00 Temperature 97.4 F L Pulse Rate 69 Respiratory Rate 18 Blood Pressure 104/53 L Pulse Oximetry 94 Oxygen Delivery Intake/Output Intake/Output: Intake & Output 02/18/24 02/19/24 02/20/24 02/21/24 23:59 23:59 23:59 23:59 Intake Total 1050 630 286 Output Total 1350 750 Balance 1050 720 -464 Meds/Results Medications: Active Medications Generic Name Dose Route Start Last Admin Trade Name Freq PRN Reason Stop Dose Admin Acetaminophen 1,000 mg 02/19/24 23:56 02/21/24 03:47 Acetaminophen 500 Mg Tablet PO 1,000 mg Q6H PRN Administration Mild Pain (1-3) or Fever Al Hydrox/Mg Hydrox/Simethicone 30 ml 02/19/24 23:56 Mag Hydrox/Al Hydrox/Simeth 30 Ml Udc PO Q6H PRN Indigestion Amiodarone HCl 200 mg 02/20/24 08:00 02/21/24 09:33 Amiodarone Hcl 200 Mg Tablet PO Not Given DAILY@0800 ABBEY Apixaban 2.5 mg 02/20/24 09:00 02/21/24 08:36 Apixaban 2.5 Mg Tablet PO 2.5 mg Q12HR ABBEY Administration Dextrose 12.5 gm 02/21/24 11:57 Dextrose 50% 25 Gm/50 Ml Syringe IV PUSH PRN PRN Hypoglycemia Protocol Empagliflozin 25 mg 02/20/24 09:00 02/21/24 08:37 Empagliflozin 25 Mg Tablet PO 25 mg QAM ABBEY Administration Glucagon 1 mg 02/21/24 11:57 Glucagon For Inj 1 Mg Vial IM PRN PRN Hypoglycemia Protocol Glucose 15 gm 02/21/24 11:57 Glucose Oral Gel 15 Gm Of Glucse In 37.5 Gm Tube PO PRN PRN Hypoglycemia Protocol Dextrose 1,000 mls @ 100 mls/hr 02/21/24 11:57 Dextrose 5% 1,000 Ml IVPB PRN PRN Hypoglycemia Protocol Insulin Aspart 2 - 5 units 02/21/24 12:00 02/21/24 17:18 Insulin Aspart (*Bkc) 100 Units/Ml SUB-Q Not Given TIDWM [facility] Protocol Levetiracetam 500 mg 02/19/24 23:55 02/21/24 08:36 Levetiracetam 500 Mg Tablet PO 500 mg Q12HR ABBEY Administration Metoprolol Tartrate 50 mg 02/20/24 09:00 02/20/24 09:04 Metoprolol Tartrate 50 Mg Tab PO 50 mg Q12HR ABBEY Administration Ondansetron HCl 4 mg 02/19/24 23:56 Ondansetron Inj 4 Mg/2 Ml Vial IV PUSH Q6H PRN Nausea And Vomiting Pantoprazole Sodium 40 mg 02/20/24 09:00 02/21/24 08:36 Pantoprazole 40 Mg Tablet PO 40 mg QAM ABBEY Administration Polyethylene Glycol 17 gm 02/19/24 23:56 Polyethylene Glycol 3350 17 Gm Powd.Pack PO QAM PRN Constipation Prednisone 2.5 mg 02/20/24 08:00 02/21/24 08:37 Prednisone 2.5 Mg Tablet PO 2.5 mg DAILY@0800 ABBEY Administration Radiology Results: ITS Impressions Chest X-Ray 02/19/24 18:00 IMPRESSION: 1. Mild pulmonary edema. 2. Airspace opacities in left lower lung zone, consistent with atelectasis versus pneumonia. 3. Large hiatal hernia. Hip/Pelvis X-Ray 02/19/24 18:02 IMPRESSION: 1. Mild osteoarthritis of the hips. Head CT 02/19/24 18:03 IMPRESSION: 1. Stable 5.4 cm meningioma overlying left frontal lobe. 2. Stable 7 mm rightward midline shift. Cervical Spine CT 02/19/24 18:21 IMPRESSION: 1. No fracture. 2. Severe cervical spondylosis. Labs Labs: Laboratory Results - last 24 hr 02/20/24 02/20/24 02/21/24 18:04 19:58 07:32 POC Capillary Glucose 219 H 120 H Urine Color Yellow Urine Appearance Cloudy H Urine pH 5.0 Ur Specific [place] 1.020 Urine Protein Negative Urine Glucose (UA) 3+ H Urine Ketones Negative Ur Blood (Man) 2+ H Urine Nitrate Negative Urine Bilirubin Negative Urine Urobilinogen 0.2 Ur Leukocyte Esterase 2+ H Urine RBC 0-2 Urine WBC >100 H Ur Squamous Epith Cells None seen Urine Bacteria None seen Urine Casts 0-2 Urine Yeast (Budding) Present H 02/21/24 02/21/24 11:38 16:33 POC Capillary Glucose 237 H 130 H Urine Color Urine Appearance Urine pH Ur Specific [place] Urine Protein Urine Glucose (UA) Urine Ketones Ur Blood (Man) Urine Nitrate Urine Bilirubin Urine Urobilinogen Ur Leukocyte Esterase Urine RBC Urine WBC Ur Squamous Epith Cells Urine Bacteria Urine Casts Urine Yeast (Budding) Quality VTE Prophylaxis VTE prophylaxis: mechanical ordered Hospitalist MIPS Advance Care Plan I have confirmed that the patient's Advanced Care Plan is present, code status is documented, or surrogate decision maker is listed in patient medical record.: Yes Medication Reconciliation I have utilized all available resources to obtain, update and review the patients current medications (includes all prescriptions, OTC, herbals, cannabis, and nutritional supplements).: Yes
[2024-02-21 20:15] VITALS: BP 124/50; PULSE 74; RESP 20; TEMP 36.8; O2SAT 94
[2024-02-21 20:33] LABS: Glucose Point of Care 266 mg/dl (65-105)
[2024-02-22] VITALS (7 sets, daily range): BP systolic 110–156; BP diastolic 50–119; PULSE 76–117; RESP 12–20; TEMP 36.5–36.6; O2SAT 95–100
[2024-02-22 06:54] LABS: Glucose Point of Care 119 mg/dl (65-105)
[2024-02-22] MEDS: DEXTROSE 50% 25 GM/50 ML SYRINGE IV PUSH (08:13)
[2024-02-22] MEDS: EMPAGLIFLOZIN 25 MG TABLET PO (08:24)
[2024-02-22] MEDS: predniSONE 2.5 MG TABLET PO (08:24)
[2024-02-22] MEDS: PANTOPRAZOLE 40 MG TABLET PO (08:24)
[2024-02-22] MEDS: levETIRAcetam 500 MG TABLET PO (08:24)
[2024-02-22] MEDS: AMIODARONE HCL 200 MG TABLET PO (08:24)
[2024-02-22] MEDS: APIXABAN 2.5 MG TABLET PO (08:24)
[2024-02-22 08:31] LABS: Glucose Point of Care 59 mg/dl (65-105)
[2024-02-22 08:32] LABS: Glucose Point of Care 158 mg/dl (65-105)
[2024-02-22 09:38] LABS: Hematocrit 42.8 % (37.0-47.0); Hemoglobin 12.7 g/dL (12.0-15.0); Mean Corpuscular HGB Conc 29.7 g/dl (32-36); Mean Corpuscular Volume 97.7 fl (80-100); Mean Platelet Volume 10.8 fl (7.4-10.4); Platelet Count Result 208 k/mm3 (150-375); Red Blood Count 4.38 M/mm3 (4.2-5.4); Red Cell Distribution Width 17.2 % (11.5-14.5); White Blood Count 10.2 K/mm3 (4.5-10.0)
[2024-02-22 09:56] LABS: Anion Gap 5 mmol/L (4-12); Blood Urea Nitrogen 13 mg/dL (7-17); Calcium 8.2 mg/dL (8.4-10.2); Carbon Dioxide 25 mmol/L (22-30); Chloride 107 mmol/L (98-107); Estimated CRCL calculation 41 ml/min; Estimated Glomerular Filt Rate > 60; Glucose 239 mg/dL (65-110); Potassium 3.6 mmol/L (3.4-5.0); Sodium 137 mmol/L (137-145)
[2024-02-22 11:22] LABS: Glucose Point of Care 231 mg/dl (65-105)
[2024-02-22] MEDS: INSULIN ASPART (*BKC) 100 UNITS/ML SUB-Q (12:03)
--- NOTE | 2024-02-22 15:08 | P.DS_ITS ---
DS: Admitting Diagnosis Discharge Date 02/22/24 Admitting Diagnosis AMS DS: Discharge Diagnosis Discharge Diagnosis (1) Acute UTI: Code(s): N39.0 - Urinary tract infection, site not specified Status: Acute (2) Opacity of lung on imaging study: Code(s): R91.8 - Other nonspecific abnormal finding of lung field Status: Acute (3) Acute hypotension: Code(s): I95.9 - Hypotension, unspecified Status: Acute (4) Dementia: Qualifiers: Dementia behavioral or psychological symptom: without behavioral, psychotic, or mood disturbance or anxiety Dementia severity: moderate Dementia type: unspecified type Qualified Code(s): F03.B0 - Unspecified dementia, moderate, without behavioral disturbance, psychotic disturbance, mood disturbance, and anxiety Code(s): F03.90 - Unspecified dementia, unspecified severity, without behavioral disturbance, psychotic disturbance, mood disturbance, and anxiety Status: Acute DS: Summary Hospital Course Hospital Course: UA growing budding yeast with 51-100 WBC's and trace leukocyte esterase. - Repeat UA growing > 100K WBC's with 2+ Leukocyte Esterase. - Urine culture growing gram negative bacilli. - Blood culture NGTD. - WBC's remain wnl. - Unsure of urinary symptoms as pt confused. - Continue Ceftriaxone. - Continue to follow cultures. patient with hypotension most likely due to dehydration 2/2 poor po intake patient was gently hydrated her BP has improved, patient urine is growing pseudomonas pansensitive, will discharge patient on cefdinir to assisted living. Time Spent with Patient Time attestation: Total time spent providing and/or coordinating discharge services: Exam Narrative: Patient is comfortable, NAD HEENT: eyes are clear and none icteric LUNGS:CTA HEART: RR S1S2 ABD: BS+, Soft and nontender Lower extremities: no edema SKIN: nonjaundiced Neuro: grossly intact. DS: Data Data Completed and Pending Labs on day of discharge: Labs from last 24 hours 02/22/24 02/22/24 02/22/24 11:13 09:08 08:29 WBC 10.2 H RBC 4.38 Hgb 12.7 Hct 42.8 MCV 97.7 MCH 29.0 MCHC 29.7 L RDW 17.2 H Plt Count 208 MPV 10.8 H Sodium 137 Potassium 3.6 Chloride 107 Carbon Dioxide 25 Anion Gap 5 BUN 13 D Creatinine 0.60 L Estim Creat Clear Calc 41 Estimated GFR > 60 Glucose 239 H POC Capillary Glucose 231 H 158 H Calcium 8.2 L Magnesium 2.0 02/22/24 02/21/24 02/21/24 08:03 20:20 16:33 WBC RBC Hgb Hct MCV MCH MCHC RDW Plt Count MPV Sodium Potassium Chloride Carbon Dioxide Anion Gap BUN Creatinine Estim Creat Clear Calc Estimated GFR Glucose POC Capillary Glucose 59 L* 266 H 130 H Calcium Magnesium 02/21/24 06:11 WBC RBC Hgb Hct MCV MCH MCHC RDW Plt Count MPV Sodium Potassium Chloride Carbon Dioxide Anion Gap BUN Creatinine Estim Creat Clear Calc Estimated GFR Glucose POC Capillary Glucose 119 H Calcium Magnesium Preliminary micro results at discharge 02/19/24 21:25 Blood Culture - Preliminary Blood 02/19/24 17:04 Urine Culture - Preliminary Urine Catheterized Gram negative bacilli isolated 02/19/24 20:08 Blood Culture - Preliminary Blood Discharge Plan Discharge Attending physician on discharge: Denton Owusu V. Consulting providers: Damir Araya; Farrukh Fregoso; Sammy Borjas V.; Alysia Rutherford; Shahla Gonzalez Discharging Clinician: Keith Miranda Patient Disposition: NH Half-Way/Asst Living Activity: as tolerated Diet: heart healthy Discharge Instructions: patient to follow up with her primary care as soon as possible. Per Care Coordination: A referral was made to [facility] for continued PT/OT eval and treat services to be done at your Assisted Living. [facility] will contact you prior to their first visit. [facility] can be contacted at [phone]. Nursing please fax discharge paperwork to [phone]. Patient Instructions: Antibiotic Form, Apixaban (By mouth) Stand Alone Forms: General Discharge Information Follow-up/Referrals: Tamiko Boyd MD [Primary Care Provider] - Discharge Medications: New polyethylene glycol 3350 [Miralax] 17 gram Powder In Packet 17 g PO QAM PRN (Reason: Constipation) Qty: 14 0RF cefdinir 300 mg capsule 300 mg PO Q12H Qty: 14 0RF Continued atorvastatin 40 mg tablet 40 mg PO QHS Hold Instructions: until seen by primary care provider Eliquis 2.5 mg tablet 2.5 mg PO BID calcium carbonate [Calcium 600] 600 mg calcium (1,500 mg) tablet 600 mg PO BID prednisone 20 mg tablet 20 mg PO DAILY acetaminophen [Mapap (acetaminophen)] 325 mg Tablet 650 mg PO Q6H PRN (Reason: Pain Rated 5 Or Less) Qty: 30 0RF prednisone 2.5 mg Tablet 2.5 mg PO DAILY@0800 Qty: 30 0RF levetiracetam 500 mg tablet 500 mg PO Q12H Qty: 60 0RF amiodarone [Pacerone] 200 mg tablet 200 mg PO DAILY@0800 Qty: 30 1RF omeprazole 20 mg capsule,delayed release(DR/EC) 20 mg PO DAILY Qty: 90 1RF metoprolol tartrate 50 mg tablet 50 mg PO BID cholecalciferol (vitamin D3) [Vitamin D3] 50 mcg (2,000 unit) tablet 2,000 unit PO DAILY Qty: 90 0RF (DME) hydrocolloid dressing 4 X 4 bandage See Rx Instructions .Route Qty: 5 0RF Rx Instructions: As directed Jardiance 25 mg tablet 25 mg PO QAM Qty: 90 1RF metformin 500 mg tablet extended release 24 hr 500 mg PO BID Qty: 180 0RF (DME) blood-glucose meter [Blood Glucose Monitoring] Kit See Rx Instructions .ROUTE .MEDSUPPLY Qty: 1 0RF Rx Instructions: check blood sugars t.i.d. a.c. As directed (DME) lancets 33 gauge misc See Rx Instructions .ROUTE .MEDSUPPLY Qty: 100 5RF Rx Instructions: check blood sugars t.i.d. a.c. As directed (DME) Blood Glucose Test Strip See Rx Instructions .ROUTE .MEDSUPPLY Qty: 100 5RF Rx Instructions: check blood sugars t.i.d. a.c. As directed (DME) Dexcom G7 Cashier And Salesperson Misc See Rx Instructions .Route Qty: 1 0RF Rx Instructions: use As directed No Action (DME) Dexcom G7 Sensor Device See Rx Instructions .Route Qty: 3 5RF Rx Instructions: use As directed Date of admission: 02/19/24 20:15 Primary Care Provider: Tamiko Boyd Admitting Provider: Denton Owusu V. Attending physician on admission: Keith Miranda Condition: Stable
--- NOTE | 2024-02-22 15:31 | PCPTNOTE ---
pt has DC'ing today, cleared by assisted living staff to go back
[2024-02-22 16:57] LABS: Glucose Point of Care 185 mg/dl (65-105)
== END 2024-02-22 17:10 ==
LOC: ANHED 19:43 → ANH3MEDSUR 02-20 15:40
PROVIDERS: Nurse Practitioner Adult Health; Admitting Provider Internal Medicine; Emergency Provider Physician Assistant; PCP Family Medicine; Visit Provider Family Medicine
DX: N39.0 Urinary tract infection, site not specified (principal); B96.5 Pseudomonas (aeruginosa) (mallei) (pseudomallei) as the cause of diseases classified elsewhere; I95.9 Hypotension, unspecified; R91.8 Other nonspecific abnormal finding of lung field; F03.B0 Unspecified dementia, moderate, without behavioral disturbance, psychotic disturbance, mood disturbance, and anxiety; R26.9 Unspecified abnormalities of gait and mobility; M54.50 Low back pain, unspecified; G89.29 Other chronic pain; I48.0 Paroxysmal atrial fibrillation; R53.1 Weakness; W19.XXXA Unspecified fall, initial encounter; D32.9 Benign neoplasm of meninges, unspecified; E11.9 Type 2 diabetes mellitus without complications; E78.5 Hyperlipidemia, unspecified; I10 Essential (primary) hypertension; M85.80 Other specified disorders of bone density and structure, unspecified site; M16.0 Bilateral primary osteoarthritis of hip; D69.6 Thrombocytopenia, unspecified; R29.6 Repeated falls; Z66 Do not resuscitate; Z86.0100 Personal history of colon polyps, unspecified; Z79.01 Long term (current) use of anticoagulants; Z79.84 Long term (current) use of oral hypoglycemic drugs; Z79.899 Other long term (current) drug therapy
CPT/HCPCS: 36415; 70450; 71045; 72125; 73521; 80048; 80053; 81001; 82550; 82948; 83605; 83735; 83880; 84145; 84484; 85025; 85027; 85610; 85730; 87040; 87077; 87086; 87088; 87186; 93005; 96361; 96365; 96375; 97166; 97530; 97535; 99285; A9270; G0378; J0456; J0696; J1815; J7030

== ENCOUNTER 2024-04-03 13:49 | Observation (INO) | payer OTHER, SELFPAY ==
[2024-04-03] VITALS (7 sets, daily range): BP systolic 114–141; BP diastolic 56–92; PULSE 63–93; RESP 14–25; TEMP 36.2–36.9; O2SAT 95–100; BMI 14.1
--- NOTE | ~2024-04-03 | XR_ITS ---
SINGLE AP VIEW PELVIS Ordering provider: José Herrera MD History: . pain . Comparison: None. FINDINGS: BONES: No acute fracture or dislocation. HIP JOINT SPACES: Moderate osteoarthritis bilaterally. SACROILIAC JOINT SPACES/LUMBAR SPINE: The sacroiliac joint spaces shows bilateral sacroiliacs. Mild d egenerative changes of the visualized lower lumbar spine. PUBIC SYMPHYSIS: Normal. SOFT TISSUES: Normal. IMPRESSION: No definite acute osseous abnormality pelvis. Degenerative changes of the spine. Bilateral hip mild to moderate osteoarthritic changes. Bilateral sacroiliitis. Reviewed, dictated and finalized at location A. T PROTECTION OFFICER
--- NOTE | ~2024-04-03 | XR_ITS ---
EXAMINATION: XR chest 1V DATE: 04/03/2024 15:57 INDICATION: Fall TECHNIQUE: frontal view of the chest was obtained. COMPARISON: Chest radiograph dated 02/21/24 FINDINGS: Rotation of the patient. Mild streaky linear discoid atelectasis/scarring at the right lung base. Lar ge retrocardiac opacity corresponding to a large hiatal hernia on thoracic spine CT dated 03/09/2022. There is additional airspace opacities in the lateral left mid and lower lung zones which could repre sent atelectasis or pneumonia. Blunting at the left costophrenic angle which appears to correspond to lingular atelectasis on the prior CT. No pulmonary edema, pneumothorax or right-sided pleural effusi on. Cardiomegaly. Lower thoracic and upper lumbar compression fractures. IMPRESSION: 1. Right basilar discoid atelectasis with additional opacities in the left and and lower lung zones m ore equivocal for atelectasis versus pneumonia. 2. Cardiomegaly. 3. Lower thoracic and upper lumbar compression fractures at least some of which are present on prior imaging. Reviewed, dictated and finalized at location B. OVEMENT RN IMPRESSION: 1. Right basilar discoid atelectasis with additional opacities in the left and and lower lung zones more equivocal for atelectasis versus pneumonia. 2. Cardiomegaly. 3. Lower thoracic and upper lumbar compression fractures at least some of which are present on prior imaging.
--- NOTE | ~2024-04-03 | CT_ITS ---
EXAMINATION: CT brain wo con DATE: 04/03/2024 16:09 INDICATION: Fall. TECHNIQUE: Computed tomography (CT) of the head was performed without intravenous contrast. The mA wa s adjusted according to patient size. Iterative reconstruction technique was employed. The dose-lengt h product was 681.00 mGy-cm. COMPARISON: Head CT 02/19/2024 FINDINGS: There is a 5.2 x 3.5 cm extra-axial mass with calcifications overlying left frontal lobe wi th surrounding vasogenic edema, consistent with a meningioma. There is no acute ischemic infarct or i ntracranial hemorrhage. There are scattered areas of low attenuation in the cerebral white matter, wh ich is within normal limits for the patient's age. The ventricles are normal in size. There is 9 mm r ightward midline shift anteriorly. There is mild mucosal thickening in the paranasal sinuses. There a re likely changes of ocular lens replacement surgeries. There are small bilateral mastoid effusions. IMPRESSION: 1. Stable 5.2 cm meningioma overlying left frontal lobe. 2. 9 mm rightward midline shift anteriorly, stable from the prior exam. Reviewed, dictated and finalized at location A. PMENT OPERATOR WAGE HAND
--- NOTE | ~2024-04-03 | XR_ITS ---
3 VIEWS LUMBAR SPINE Ordering provider: José Herrera MD History: . pain . Comparison: None. FINDINGS: VERTEBRAL BODIES:Compression fracture with loss of volume of about 50% and L1 and possibly T11. Other domínguez No visible fracture or subluxation. DISK SPACES: Narrowing of the disc L3-L4. SOFT TISSUES: Normal. IMPRESSION: No definite acute osseous abnormality lumbar spine. Old compression fracture of L1. If still suspicious MRI is advised. Reviewed, dictated and finalized at location A. OMER SUCCESS SPECIALIST
[2024-04-03 15:08] LABS: Basophils Absolute Auto 0.1 K/mm3 (0.0-0.1); Basophils Percent Auto 0.5 % (0.2-1.2); Hemoglobin 12.4 g/dL (12.0-15.0); Immature Granulocyte Absolute 0.29 K/mm3 (0.00-0.031); Immature Granulocyte Percent A 2.2 % (0-0.5); Lymphocytes Absolute Auto 0.43 K/mm3 (0.9-3.2); Lymphocytes Percent Auto 3.2 % (18.3-44.2); Mean Corpuscular HGB Conc 29.5 g/dl (32-36); Mean Corpuscular Hemoglobin 27.8 pg (26-34); Mean Corpuscular Volume 94.2 fl (80-100); Mean Platelet Volume 10.4 fl (7.4-10.4); Monocytes Absolute Auto 0.6 K/mm3 (0.1-0.6); Monocytes Percent Auto 4.6 % (2.6-8.5); Neutrophils Percent Auto 89.5 % (45.5-73.1); Nucleated Red Blood Cells Perc 0.1 % (0.0-0.2); Platelet Count Result 276 k/mm3 (150-375); Red Blood Count 4.46 M/mm3 (4.2-5.4); Red Cell Distribution Width 17.1 % (11.5-14.5); White Blood Count 13.4 K/mm3 (4.5-10.0)
--- NOTE | 2024-04-03 15:11 | PC.NURSE ---
Patient noted to have red area with dressing to upper lumbar, intact red/purple coccyx area
[2024-04-03 15:19] LABS: INR 1.1; Lactic Acid Reflex 5.3 mmol/L (0.7-2.0); Prothrombin Time 14.7 Seconds (11.1-14.7)
[2024-04-03 15:20] LABS: Add Urine Microscopic? YES; Appearance Urine Cloudy (Clear); Bacteria Urine None Seen /hpf; Bilirubin Urine Negative (Negative); Blood Urine 2+ (Negative); Color Urine Yellow (Yellow); Glucose Urine UA 3+ mg/dL (Negative); Ketones Urine Trace mg/dL (Negative); Leukocyte Esterase Ur 1+ LEU/UL (Negative); Need Manual Microscopic Reviewed; Nitrate Urine Negative (Negative); Non Pathogenic Casts 0-2; Partial Thromboplastin Time 25.7 Seconds (22.3-36.8); Protein Urine Trace mg/dL (Negative); RBC Urine 21-50 /hpf (0-2); Specific Grav Ur 1.036 (1.001-1.035); Squamous Epithelial Cell Urine None Seen /hpf (Few); WBC Urine >100 /hpf (0-3); pH Urine 5.5 (5.0-9.0)
[2024-04-03 15:22] LABS: Alanine Aminotransferase 19 U/L (6-35); Albumin Level 3.4 g/dL (3.5-5.1); Alkaline Phosphatase 133 U/L (38-126); Anion Gap 5 mmol/L (4-12); Aspartate Amino Transferase 27 U/L (14-36); Bilirubin,Total 0.9 mg/dL (0.2-1.3); Blood Urea Nitrogen 29 mg/dL (7-17); CRP 3.6 mg/dL (<1.0); Calcium 9.3 mg/dL (8.4-10.2); Carbon Dioxide 25 mmol/L (22-30); Chloride 110 mmol/L (98-107); Estimated CRCL calculation 36 ml/min; Estimated Glomerular Filt Rate > 60; Glucose 269 mg/dL (65-110); Potassium 4.4 mmol/L (3.4-5.0); Sodium 140 mmol/L (137-145)
[2024-04-03 15:27] LABS: Anisocytosis 1+; Crenated RBC 1+; Platelet Estimate Adequate (Adequate); Schistocytes Rare
[2024-04-03] MEDS: SODIUM CHLORIDE 0.9% IV 1,000 ML 999 ML IV CONT (15:37)
[2024-04-03] MEDS: SODIUM CHLORIDE 0.9% IV 500 ML 999 ML (15:40)
--- NOTE | 2024-04-03 17:45 | ED_ITS ---
HPI - General Adult General Chief complaint: Fall Stated complaint: GLF Time Seen by Provider: 04/03/24 14:18 History of Present Illness HPI narrative: Patient is an 84-year-old female with history of dementia who presents ER for a fall in facility. Has a skin tear to right upper arm. Daughter reports recent treatment for UTI with no chief Jagdish tone. Unsure patient had. Patient not giving any complaints at this time but does moan when repositioned. Related Data Home Medications ?Medication ?Instructions ?Recorded ?Confirmed ?Last Taken ?Type metoprolol tartrate 50 mg tablet 50 mg PO BID 04/24/22 02/19/24 Unknown History apixaban 2.5 mg tablet (Eliquis) 2.5 mg PO BID 10/10/22 02/19/24 Unknown History calcium carbonate (Calcium 600) 600 mg PO BID 10/10/22 02/19/24 Unknown History prednisone 20 mg tablet 20 mg PO DAILY 10/10/22 02/19/24 Unknown History atorvastatin 40 mg tablet 40 mg PO QHS 01/31/24 02/19/24 Unknown History Allergies Allergy/AdvReac Type Severity Reaction Status Date / Time dexamethasone (From Decadron) AdvReac Severe Hallucinati Verified 01/31/24 14:23 ng Review of Systems 2 Review of Systems: ROS unobtainable: Yes unobtainable due to mental status PMFSH Past Medical History Medical History Afib Closed compression fracture of L1 vertebra Compression fracture of first lumbar vertebra Dementia Diabetes Elevated troponin Gait abnormality GERD without esophagitis History of colon polyps Hyperlipidemia Hypertension Meningioma Osteopenia started Fosamax 12/2016? Poor weight gain in adult Postmenopausal status (age-related) (natural) Thrombocytopenia Weakness Surgical History Surgical History H/O cataract extraction H/O colonoscopy with polypectomy H/O dilation and curettage History of removal of pigmented skin lesion Family History Family History Mother Family history of heart disease in male family member before age 55 Social History Social History Social History: The patient is and lives alone. She has 2 children. 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 Her daughter is the durable power employment attorney for healthcare. She wishes to be DNR Smoking packs per day: 0 Smoking cigarettes per day: 0.0 Years smoked: 0 Smoking pack-years: 0.00 Smoking status: Never smoker Second hand tobacco smoke exposure: No Alcohol intake: never Substance use: never Substance use type: does not use Do You Feel Safe in your Home?: Yes Lack of Transportation: No Lack of Food: Never True Current Housing: I Have Housing Concerned About Future Housing: No Difficulty Paying Gas/Electric Bills: No Difficulty Paying for Meds: No Currently Unemployed: No Education: Bachelor's Degree Difficulty w/ Childcare or Family Care: No Living arrangements: assisted living Occupation/Education: retired Gender identity (if verbalized by the patient): Female Spiritual care concerns: No Exam 2 Narrative: GENERAL: Chronically ill-appearing, well-nourished, and in no acute distress. HEAD: Normocephalic, atraumatic. ENT: Mucous membranes moist. NECK: Supple. CHEST: Clear to auscultation. No respiratory distress. HEART: Regular rate and rhythm. Normal peripheral pulses. ABDOMEN: Soft, nontender, nondistended. EXTREMITIES: Normal range of motion. No edema. SKIN: Warm, dry, no rash. skin tears right upper extremity new and old. NEURO: awake alert, moans, at baseline. Course Course Emergency Course: Admit to hospitalist service. IV antibiotics started. Blood cultures were not drawn due to previous antibiotic therapy. She did receive 30 milliliter/kilogram bolus and is a bit more alert but is not speaking. Daughter present patient is DNR and they would not want any aggressive interventions such as a central line. Vital Signs Vital signs: Vital Signs Temperature 98.1 F 04/03/24 14:12 Pulse Rate 67 04/03/24 14:12 Respiratory Rate 19 04/03/24 14:12 Blood Pressure 114/83 04/03/24 14:12 Pulse Oximetry 95 04/03/24 14:12 Oxygen Delivery Room Air 04/03/24 14:12 Temperature 98.1 F 04/03/24 14:12 Pulse Rate 64 04/03/24 18:07 Respiratory Rate 25 H 04/03/24 18:07 Blood Pressure 119/59 L 04/03/24 18:07 Pulse Oximetry 96 04/03/24 18:07 Oxygen Delivery Room Air 04/03/24 14:12 Medical Decision Making Vital Signs Vital Signs: Vital Signs Temperature 98.1 F 04/03/24 14:12 Pulse Rate 67 04/03/24 14:12 Respiratory Rate 19 04/03/24 14:12 Blood Pressure 114/83 04/03/24 14:12 Pulse Oximetry 95 04/03/24 14:12 Oxygen Delivery Room Air 04/03/24 14:12 Temperature 98.1 F 04/03/24 14:12 Pulse Rate 64 04/03/24 18:07 Respiratory Rate 25 H 04/03/24 18:07 Blood Pressure 119/59 L 04/03/24 18:07 Pulse Oximetry 96 04/03/24 18:07 Oxygen Delivery Room Air 04/03/24 14:12 Lab Data 04/03/24 15:01 04/03/24 15:01 Labs: Lab Results 04/03/24 Range/Units 15:01 WBC 13.4 H (4.5-10.0) K/mm3 RBC 4.46 (4.2-5.4) M/mm3 Hgb 12.4 (12.0-15.0) g/dL Hct 42.0 (37.0-47.0) % MCV 94.2 (80-100) fl MCH 27.8 (26-34) pg MCHC 29.5 L (32-36) g/dl RDW 17.1 H (11.5-14.5) % Plt Count 276 (150-375) k/mm3 MPV 10.4 (7.4-10.4) fl Immature Gran % (Auto) 2.2 H (0-0.5) % Neut % (Auto) 89.5 H (45.5-73.1) % Lymph % (Auto) 3.2 L (18.3-44.2) % [place] % (Auto) 4.6 (2.6-8.5) % Eos % (Auto) 0.0 (0-4.4) % Baso % (Auto) 0.5 (0.2-1.2) % Lymph # (Auto) 0.43 L (0.9-3.2) K/mm3 [place] # (Auto) 0.6 (0.1-0.6) K/mm3 Eos # (Auto) 0.0 (0-0.3) K/mm3 Baso # (Auto) 0.1 (0.0-0.1) K/mm3 Abs Immat Gran (auto) 0.29 H (0.00-0.031) K/mm3 Absolute Neuts (auto) 12.0 H (1.3-6.7) K/mm3 Absolute Nucleated RBC 0.020 H (0.0-0.012) K/mm3 Nucleated RBC % 0.1 (0.0-0.2) % Platelet Estimate Adequate (Adequate) Anisocytosis 1+ Crenated Cell 1+ Schistocytes Rare PT 14.7 (11.1-14.7) Seconds INR 1.1 APTT 25.7 (22.3-36.8) Seconds Sodium 140 (137-145) mmol/L Potassium 4.4 (3.4-5.0) mmol/L Chloride 110 H (98-107) mmol/L Carbon Dioxide 25 (22-30) mmol/L Anion Gap 5 (4-12) mmol/L BUN 29 H D (7-17) mg/dL Creatinine 0.70 (0.7-1.0) mg/dL Estim Creat Clear Calc 36 ml/min Estimated GFR > 60 (59 - ) Glucose 269 H (65-110) mg/dL Lactic Acid 5.3 H* (0.7-2.0) mmol/L Calcium 9.3 (8.4-10.2) mg/dL Total Bilirubin 0.9 (0.2-1.3) mg/dL AST 27 (14-36) U/L ALT 19 (6-35) U/L Alkaline Phosphatase 133 H (38-126) U/L C-Reactive Protein 3.6 H (<1.0) mg/dL Total Protein 6.0 L (6.3-8.2) g/dL Albumin 3.4 L (3.5-5.1) g/dL Urine Color Yellow (Yellow) Urine Appearance Cloudy H (Clear) Urine pH 5.5 (5.0-9.0) Ur Specific [place] 1.036 H (1.001-1.035) Urine Protein Trace (Negative) mg/dL Urine Glucose (UA) 3+ H (Negative) mg/dL Urine Ketones Trace H (Negative) mg/dL Ur Blood (Man) 2+ H (Negative) Urine Nitrate Negative (Negative) Urine Bilirubin Negative (Negative) Urine Urobilinogen 1.0 (<2.0) mg/dL Add Ur Microanalysis Reviewed Leukocyte Esterase Rfl 1+ H (Negative) SHAILESH/UL Urine RBC 21-50 H (0-2) /hpf Urine WBC >100 H (0-3) /hpf Ur Squamous Epith Cells None seen (Few) /hpf Urine Bacteria None seen /hpf Urine Casts 0-2 Imaging Data Radiologist's impression: ITS Impressions Chest X-Ray 04/03/24 16:00 IMPRESSION: 1. Right basilar discoid atelectasis with additional opacities in the left and and lower lung zones more equivocal for atelectasis versus pneumonia. 2. Cardiomegaly. 3. Lower thoracic and upper lumbar compression fractures at least some of which are present on prior imaging. Lumbar Spine X-Ray 04/03/24 16:00 IMPRESSION: No definite acute osseous abnormality lumbar spine. Old compression fracture of L1. If still suspicious MRI is advised. Pelvis X-Ray 04/03/24 16:03 IMPRESSION: No definite acute osseous abnormality pelvis. Degenerative changes of the spine. Bilateral hip mild to moderate osteoarthritic changes. Bilateral sacroiliitis. Head CT 04/03/24 16:10 IMPRESSION: 1. Stable 5.2 cm meningioma overlying left frontal lobe. 2. 9 mm rightward midline shift anteriorly, stable from the prior exam. Discharge Plan Discharge Clinical Impression: Acute UTI, Skin tear Patient Disposition: Still a Patient Condition: Stable
[2024-04-03 18:06] LABS: Reflex Lactic Acid Yes or No Add Lactic
--- NOTE | 2024-04-03 21:28 | P.HP_ITS ---
H&P: HPI History of Present Illness Date/Time: 04/03/24 21:28 Chief Complaint: Fall Narrative: This is an 84-year-old female with a significant past medical history of dementia, thrombocytopenia, diabetes, AFib, osteopenia, compression fracture of L1, GERD, hyperlipidemia, hypertension who was brought in from her nursing facility for evaluation after a fall. She sustained a skin tear to the right upper arm during the fall. Patient too sleepy at the time of my evaluation to gain any meaningful history of presenting illness. Most of history of presenting illness was obtained from the EMR. Daughter was apparently at the bedside while in the ED and reported that she was undergoing treatment for UTI and was on Macrobid since this past Sunday. Workup in the hospital included a chest x-ray which showed right basilar discord atelectasis with additional opacities in the left and lower lung zones, cardiomegaly, lower thoracic and upper lumbar compression fractures at least some of which are present on prior imaging. Lumbar spine x-ray showed old compression fracture of L1, possible T11 compression fracture, no definitive acute osseous abnormalities of the lumbar spine. Pelvis x-ray was negative for any acute osseous abnormality of the pelvis, bilateral hip mild to moderate osteoarthritic changes. Head CT showed stable 5.2 cm meningioma overlying left frontal lobe, 9 mm rightward mid line shift anteriorly stable from the prior exam. Initial labs showed a white blood cell count of 13.4, chloride 110, creatinine was normal at 0.70, lactic acid 5.3>2.0, Alk phos 133, CRP 3.6. UA showed cloudy urine appearance, urine specific gravity of 1.036, 3+ urine glucose, trace ketone, 2+ urine blood, 1+ leukocyte, 21-50 urine RBC, greater than 100 urine WBC. Urine culture was obtained and pending. Patient was given 1350 mL of normal saline, and Rocephin while in the ED. Review of Systems Review of Systems: ROS unobtainable: Yes unobtainable due to mental status PMFSH Past Medical History Medical History Weakness Dementia Gait abnormality Poor weight gain in adult Thrombocytopenia Compression fracture of first lumbar vertebra Meningioma Elevated troponin Diabetes Closed compression fracture of L1 vertebra Afib History of colon polyps Osteopenia started Fosamax 12/2016? GERD without esophagitis Postmenopausal status (age-related) (natural) Hyperlipidemia Hypertension Surgical History Surgical History H/O dilation and curettage H/O cataract extraction History of removal of pigmented skin lesion H/O colonoscopy with polypectomy Family History Family History Mother Family history of heart disease in male family member before age 55 Social History Social History Social History: The patient is and lives alone. She has 2 children. 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 Her daughter is the durable power director of diagnostic imaging for healthcare. She wishes to be DNR Smoking packs per day: 0 Smoking cigarettes per day: 0.0 Years smoked: 0 Smoking pack-years: 0.00 Smoking status: Never smoker Second hand tobacco smoke exposure: No Alcohol intake: never Substance use: never Substance use type: does not use Do You Feel Safe in your Home?: Yes Lack of Transportation: No Lack of Food: Never True Current Housing: I Have Housing Concerned About Future Housing: No Difficulty Paying Gas/Electric Bills: No Difficulty Paying for Meds: No Currently Unemployed: No Education: Bachelor's Degree Difficulty w/ Childcare or Family Care: No Living arrangements: assisted living Occupation/Education: retired Gender identity (if verbalized by the patient): Female Spiritual care concerns: No Meds Home Medications and Allergies Home Medications ?Medication ?Instructions ?Recorded ?Confirmed ?Type acetaminophen 325 mg tablet (Mapap 650 mg (2 x 325 mg) PO Q6H PRN 03/13/22 04/03/24 Rx (acetaminophen)) Pain Rated 5 Or Less #30 tabs amiodarone 200 mg tablet (Pacerone) 200 mg PO DAILY@0800 #30 tabs 04/11/22 04/03/24 Rx omeprazole 20 mg capsule,delayed 20 mg PO DAILY #90 caps 04/20/22 04/03/24 Rx release metoprolol tartrate 50 mg tablet 50 mg PO BID 04/24/22 04/03/24 History levetiracetam 500 mg tablet 500 mg PO Q12H #60 tabs 05/04/22 04/03/24 Rx prednisone 2.5 mg tablet 2.5 mg PO DAILY@0800 #30 tabs 05/04/22 04/03/24 Rx cholecalciferol (vitamin D3) 50 2,000 unit PO DAILY #90 tabs 05/08/22 04/03/24 Rx mcg (2,000 unit) tablet (Vitamin D3) apixaban 2.5 mg tablet (Eliquis) 2.5 mg PO BID 10/10/22 04/03/24 History calcium carbonate (Calcium 600) 600 mg PO BID 10/10/22 04/03/24 History prednisone 20 mg tablet 20 mg PO DAILY 10/10/22 04/03/24 History hydrocolloid dressing 4 X 4 #5 ea 08/06/23 04/03/24 Rx atorvastatin 40 mg tablet 40 mg PO QHS 01/31/24 04/03/24 History blood sugar diagnostic (Blood #100 ea 02/06/24 04/03/24 Rx Glucose Test strips) blood-glucose meter (Blood Glucose #1 ea 02/06/24 04/03/24 Rx Monitoring kit) empagliflozin 25 mg tablet 25 mg PO QAM #90 tabs 02/06/24 04/03/24 Rx (Jardiance) lancets 33 gauge #100 ea 02/06/24 04/03/24 Rx metformin 500 mg tablet,extended 500 mg PO BID #180 tabs 02/06/24 04/03/24 Rx release 24 hr blood-glucose meter,continuous #1 ea 02/20/24 04/03/24 Rx (Dexcom G7 Shared Services Manager) polyethylene glycol 3350 17 gram 17 g PO QAM PRN Constipation #14 ea 02/22/24 04/03/24 Rx oral powder packet (Miralax) blood-glucose sensor (Dexcom G7 #3 ea 03/03/24 04/03/24 Rx Sensor device) nitrofurantoin 100 mg PO Q12H 7 days #14 caps 03/31/24 04/03/24 Rx monohydrate/macrocrystals 100 mg capsule (Macrobid) Allergies Allergy/AdvReac Type Severity Reaction Status Date / Time dexamethasone (From Decadron) AdvReac Severe Hallucinati Verified 01/31/24 14:23 ng Vital Signs Vital Signs - 24 hr 04/03/24 14:12 04/03/24 14:28 04/03/24 15:16 Temperature 98.1 F Pulse Rate 67 66 67 Respiratory Rate 19 Blood Pressure 114/83 117/73 Pulse Oximetry 95 95 Oxygen Delivery Room Air 04/03/24 17:03 04/03/24 18:07 04/03/24 20:13 Temperature 97.1 F L Pulse Rate 63 64 93 Respiratory Rate 18 25 H 18 Blood Pressure 121/56 L 119/59 L 133/92 H Pulse Oximetry 100 96 97 Oxygen Delivery Exam Narrative: General: In no acute distress, well nourished Head: atraumatic, no encephalopathy Eyes: PERRLA, sclera clear ENT: moist mucous membranes, nasal passages clear Neck: supple, no JVD, no adenopathy, trachea midline Cardiac: Normal S1 and S2. Murmur noted. No gallops or friction rubs, peripheral pulses intact. Respiratory: Lungs clear to auscultation, no adventitious lung sounds, currently on room air Gastrointestinal: soft, non-distended, non-tender, normoactive bowel sounds. : voiding without difficulty. Extremities: moves all extremities well, no edema Skin: Skin tear to right upper arm Neuro: Alert to voice, cranial nerves intact, no neuro deficits. Psych: minimally interactive H&P: Results Labs Labs: Short CBC 04/03/24 Range/Units 15:01 WBC 13.4 H (4.5-10.0) K/mm3 Hgb 12.4 (12.0-15.0) g/dL Hct 42.0 (37.0-47.0) % Plt Count 276 (150-375) k/mm3 BMP 04/03/24 15:01 Sodium 140 Potassium 4.4 Chloride 110 H Carbon Dioxide 25 BUN 29 H D Creatinine 0.70 Glucose 269 H Calcium 9.3 Liver Function 04/03/24 Range/Units 15:01 Total Bilirubin 0.9 (0.2-1.3) mg/dL AST 27 (14-36) U/L ALT 19 (6-35) U/L Alkaline Phosphatase 133 H (38-126) U/L Albumin 3.4 L (3.5-5.1) g/dL Urine 04/03/24 Range/Units 15:01 Urine Color Yellow (Yellow) Urine Appearance Cloudy H (Clear) Urine pH 5.5 (5.0-9.0) Ur Specific [place] 1.036 H (1.001-1.035) Urine Protein Trace (Negative) mg/dL Urine Glucose (UA) 3+ H (Negative) mg/dL Imaging Lumbar spine x-ray: Radiologist's impression: 3 VIEWS LUMBAR SPINE Ordering provider: José Herrera MD History: . pain . Comparison: None. FINDINGS: VERTEBRAL BODIES:Compression fracture with loss of volume of about 50% and L1 and possibly T11. Otherwise No visible fracture or subluxation. DISK SPACES: Narrowing of the disc L3-L4. SOFT TISSUES: Normal. IMPRESSION: No definite acute osseous abnormality lumbar spine. Old compression fracture of L1. If still suspicious MRI is advised. Reviewed, dictated and finalized at location A. R TIER Chest x-ray: Radiologist's impression: EXAMINATION: XR chest 1V DATE: 04/03/2024 15:57 INDICATION: Fall TECHNIQUE: frontal view of the chest was obtained. COMPARISON: Chest radiograph dated 02/21/24 FINDINGS: Rotation of the patient. Mild streaky linear discoid atelectasis/scarring at the right lung base. Large retrocardiac opacity corresponding to a large hiatal hernia on thoracic spine CT dated 03/09/2022. There is additional airspace opacities in the lateral left mid and lower lung zones which could represent atelectasis or pneumonia. Blunting at the left costophrenic angle which appears to correspond to lingular atelectasis on the prior CT. No pulmonary edema, pneumothorax or right-sided pleural effusion. Cardiomegaly. Lower thoracic and upper lumbar compression fractures. IMPRESSION: 1. Right basilar discoid atelectasis with additional opacities in the left and and lower lung zones more equivocal for atelectasis versus pneumonia. 2. Cardiomegaly. 3. Lower thoracic and upper lumbar compression fractures at least some of which are present on prior imaging. Reviewed, dictated and finalized at location B. R TIER Pelvis x-ray: Radiologist's impression: SINGLE AP VIEW PELVIS Ordering provider: José Herrera MD History: . pain . Comparison: None. FINDINGS: BONES: No acute fracture or dislocation. HIP JOINT SPACES: Moderate osteoarthritis bilaterally. SACROILIAC JOINT SPACES/LUMBAR SPINE: The sacroiliac joint spaces shows bilateral sacroiliacs. Mild degenerative changes of the visualized lower lumbar spine. PUBIC SYMPHYSIS: Normal. SOFT TISSUES: Normal. IMPRESSION: No definite acute osseous abnormality pelvis. Degenerative changes of the spine. Bilateral hip mild to moderate osteoarthritic changes. Bilateral sacroiliitis. Reviewed, dictated and finalized at location A. R TIER CT scan - head: Radiologist's impression: EXAMINATION: CT brain wo con DATE: 04/03/2024 16:09 INDICATION: Fall. TECHNIQUE: Computed tomography (CT) of the head was performed without intravenous contrast. The mA was adjusted according to patient size. Iterative reconstruction technique was employed. The dose-length product was 681.00 mGy- cm. COMPARISON: Head CT 02/19/2024 FINDINGS: There is a 5.2 x 3.5 cm extra-axial mass with calcifications overlying left frontal lobe with surrounding vasogenic edema, consistent with a meningioma. There is no acute ischemic infarct or intracranial hemorrhage. There are scattered areas of low attenuation in the cerebral white matter, which is within normal limits for the patient's age. The ventricles are normal in size. There is 9 mm rightward midline shift anteriorly. There is mild mucosal thickening in the paranasal sinuses. There are likely changes of ocular lens replacement surgeries. There are small bilateral mastoid effusions. IMPRESSION: 1. Stable 5.2 cm meningioma overlying left frontal lobe. 2. 9 mm rightward midline shift anteriorly, stable from the prior exam. Reviewed, dictated and finalized at location A. R TIER Assessment and Plan Assessment and plan (1) Acute UTI: Code(s): N39.0 - Urinary tract infection, site not specified Status: Acute Assessment and Plan: Recently treated on an outpatient basis for rate acute UTI with Macrobid however failed oral antibiotics presenting with worsening symptoms * UA showing cloudy urine appearance, urine specific gravity of 1.036, 3+ urine glucose, trace urine ketones, 2+ urine blood, 1+ leukocyte, 21-50 urine RBC, greater than 100 urine WBC. * Urine culture was obtained and pending * She was given 1350 mL normal saline while in the ED * Continue Rocephin * White blood cell count 13.4--vital signs are stable, not meeting SIRS criteria (2) Fall: Code(s): W19.XXXA - Unspecified fall, initial encounter Status: Acute Assessment and Plan: Status post ground level fall at [facility] assisted living * Lumbar spine x-ray showing old compression fracture of L1 with possible T11 compression fracture, no acute osseous abnormality seen. * Pelvic x-ray showed degenerative changes of the spine, no acute osseous abnormality of the pelvis, mild to moderate osteoarthritic changes * Head CT showed stable 5.2 cm meningioma overlying left frontal lobe, 9 mm rightward midline shift anteriorly stable from prior exam * PT and OT ordered * Continue fall precautions (3) Weakness: Code(s): R53.1 - Weakness Status: Acute Assessment and Plan: * PT and OT ordered (4) Diabetes: Qualifiers: Diabetes mellitus complication status: without complication Diabetes mellitus alf insulin use: without letter of credit document examiner use Diabetes mellitus type: type 2 Qualified Code(s): E11.9 - Type 2 diabetes mellitus without complications Code(s): E11.9 - Type 2 diabetes mellitus without complications Status: Chronic Assessment and Plan: * Blood sugars ranging 185-269 * Hgb A1C 10.7 on 01/31/2024 * Will recheck hemoglobin A1c * Accu checks AC/HS * Low-dose SSI ordered * hypoglycemic protocol in place * Diabetic diet ordered * Dietitian consult * Hold Jardiance, metformin, and glipizide (5) Hyperlipidemia: Qualifiers: Hyperlipidemia type: unspecified Qualified Code(s): E78.5 - H yperlipidemia, unspecified Code(s): E78.5 - Hyperlipidemia, unspecified Status: Chronic Assessment and Plan: * Continue atorvastatin (6) Hypertension: Qualifiers: Hypertension type: essential hypertension Qualified Code(s): I10 - Essential (primary) hypertension Code(s): I10 - Essential (primary) hypertension Status: Chronic Assessment and Plan: * Blood pressure ranging 119/59 to 141/62 * Continue metoprolol 50 mg b.i.d. (7) Afib: Qualifiers: Atrial fibrillation type: paroxysmal Qualified Code(s): I48.0 - Paroxysmal atrial fibrillation Code(s): I48.91 - Unspecified atrial fibrillation Status: Chronic Assessment and Plan: * Continue Eliquis and metoprolol (8) Compression fracture of first lumbar vertebra: Code(s): S32.010A - Wedge compression fracture of first lumbar vertebra, initial encounter for closed fracture Status: Chronic Assessment and Plan: * Lumbar spine x-ray showing old compression fracture of L1 with possible T11 compression fracture * History of osteopenia (9) Osteopenia: Qualifiers: Osteopenia location: unspecified Qualified Code(s): M85.80 - Other specified disorders of bone density and structure, unspecified site Code(s): M85.80 - Other specified disorders of bone density and structure, unspecified site Status: Chronic Assessment and Plan: See above (10) GERD without esophagitis: Code(s): K21.9 - Gastro-esophageal reflux disease without esophagitis Status: Chronic Assessment and Plan: * Start Protonix (11) Dementia: Qualifiers: Dementia behavioral or psychological symptom: without behavioral, psychotic, or mood disturbance or anxiety Dementia severity: moderate Dementia type: unspecified type Qualified Code(s): F03.B0 - Unspecified dementia, moderate, without behavioral disturbance, psychotic disturbance, mood disturbance, and anxiety Code(s): F03.90 - Unspecified dementia, unspecified severity, without behavioral disturbance, psychotic disturbance, mood disturbance, and anxiety Status: Chronic Assessment and Plan: * Lives at [facility] living * Not currently on any home medications for dementia (12) Meningioma: Code(s): D32.9 - Benign neoplasm of meninges, unspecified Status: Chronic Assessment and Plan: * Head CT showing 5.2 cm meningioma overlying the left frontal lobe, 9 mm rightward midline shift anteriorly stable from the prior exam * Continue Keppra and Prednisone (13) Severe protein-calorie malnutrition: Code(s): E43 - Unspecified severe protein-calorie malnutrition Status: Chronic Assessment and Plan: * BMI 14.1, 39.6 kg * Dietitian consult Quality VTE Prophylaxis VTE prophylaxis: pharmacologic ordered Hospitalist MIPS Advance Care Plan I have confirmed that the patient's Advanced Care Plan is present, code status is documented, or surrogate decision maker is listed in patient medical record.: Yes Medication Reconciliation I have utilized all available resources to obtain, update and review the patients current medications (includes all prescriptions, OTC, herbals, c annabis, and nutritional supplements).: Yes
[2024-04-03 22:28] LABS: Hemoglobin A1C 8.2 % (<5.7)
[2024-04-03] MEDS: levETIRAcetam 500 MG TABLET PO (23:33)
[2024-04-03 23:35] LABS: Glucose Point of Care 110 mg/dl (65-105)
[2024-04-04 07:34] LABS: Basophils Percent Auto 0.4 % (0.2-1.2); Eosinophils Percent Auto 0.3 % (0-4.4); Hematocrit 38.1 % (37.0-47.0); Hemoglobin 10.9 g/dL (12.0-15.0); Immature Granulocyte Absolute 0.17 K/mm3 (0.00-0.031); Immature Granulocyte Percent A 1.6 % (0-0.5); Lymphocytes Absolute Auto 1.75 K/mm3 (0.9-3.2); Lymphocytes Percent Auto 16.8 % (18.3-44.2); Mean Corpuscular HGB Conc 28.6 g/dl (32-36); Mean Corpuscular Hemoglobin 27.6 pg (26-34); Mean Corpuscular Volume 96.5 fl (80-100); Mean Platelet Volume 10.4 fl (7.4-10.4); Monocytes Absolute Auto 0.6 K/mm3 (0.1-0.6); Monocytes Percent Auto 5.3 % (2.6-8.5); Neutrophils Absolute Auto 7.9 K/mm3 (1.3-6.7); Neutrophils Percent Auto 75.6 % (45.5-73.1); Platelet Count Result 235 k/mm3 (150-375); Red Blood Count 3.95 M/mm3 (4.2-5.4); Red Cell Distribution Width 17.1 % (11.5-14.5); White Blood Count 10.4 K/mm3 (4.5-10.0)
[2024-04-04 07:53] LABS: Alanine Aminotransferase 14 U/L (6-35); Albumin Level 2.8 g/dL (3.5-5.1); Alkaline Phosphatase 89 U/L (38-126); Anion Gap 1 mmol/L (4-12); Aspartate Amino Transferase 23 U/L (14-36); Bilirubin,Total 0.9 mg/dL (0.2-1.3); Blood Urea Nitrogen 22 mg/dL (7-17); Calcium 8.3 mg/dL (8.4-10.2); Carbon Dioxide 25 mmol/L (22-30); Chloride 114 mmol/L (98-107); Estimated CRCL calculation 43 ml/min; Estimated Glomerular Filt Rate > 60; Glucose 100 mg/dL (65-110); Magnesium 1.8 mg/dL (1.6-2.3); Potassium 3.5 mmol/L (3.4-5.0); Sodium 140 mmol/L (137-145)
[2024-04-04 08:28] LABS: Anisocytosis 1+; Crenated RBC 2+; Ovalocytes 1+; Platelet Estimate Adequate (Adequate); Schistocytes None Seen
[2024-04-04 08:35] LABS: Glucose Point of Care 111 mg/dl (65-105)
[2024-04-04 10:00] VITALS: BP 129/81
[2024-04-04] MEDS: predniSONE 20 MG TABLET PO (10:03)
[2024-04-04] MEDS: PANTOPRAZOLE 40 MG TABLET PO (10:04)
[2024-04-04] MEDS: levETIRAcetam 500 MG TABLET PO (10:04)
[2024-04-04] MEDS: APIXABAN 2.5 MG TABLET PO ×2 (10:04→21:39)
[2024-04-04] MEDS: CHOLECALCIFEROL 1,000 UNITS TABLET 2000 UNITS PO (10:04)
[2024-04-04 10:08] VITALS: PULSE 72
[2024-04-04] MEDS: METOPROLOL TARTRATE 50 MG TAB PO (10:08)
[2024-04-04 11:11] VITALS: BMI 14.1
--- NOTE | 2024-04-04 11:31 | P.PNIM_ITS ---
Progress Note: A&P Assessment and Plan (1) Acute UTI: Code(s): N39.0 - Urinary tract infection, site not specified Status: Acute Assessment and Plan: Recently treated on an outpatient basis for rate acute UTI with Macrobid however failed oral antibiotics presenting with worsening symptoms * UA showing cloudy urine appearance, urine specific gravity of 1.036, 3+ urine glucose, trace urine ketones, 2+ urine blood, 1+ leukocyte, 21-50 urine RBC, greater than 100 urine WBC. * Urine culture was obtained and pending * She was given 1350 mL normal saline while in the ED * Continue Rocephin * White blood cell count 13.4--vital signs are stable, not meeting SIRS criteria 1/3 * Urine culture pending * Continue Rocephin * Daughter at bedside requesting information about hospice, medical services coordinator consulted. (2) Fall: Code(s): W19.XXXA - Unspecified fall, initial encounter Status: Acute Assessment and Plan: Status post ground level fall at [facility] assisted living * Lumbar spine x-ray showing old compression fracture of L1 with possible T11 compression fracture, no acute osseous abnormality seen. * Pelvic x-ray showed degenerative changes of the spine, no acute osseous abnormality of the pelvis, mild to moderate osteoarthritic changes * Head CT showed stable 5.2 cm meningioma overlying left frontal lobe, 9 mm rightward midline shift anteriorly stable from prior exam * PT and OT ordered * Continue fall precautions 1/3 * Will hold off on PT and OT considering daughter wants to discuss hospice/comfort. * Continue fall precautions (3) Weakness: Code(s): R53.1 - Weakness Status: Acute Assessment and Plan: * PT and OT ordered /3 * FTT--Case management consulted for hospice referral (4) Diabetes: Qualifiers: Diabetes mellitus complication status: without complication Diabetes mellitus detention insulin use: without termite inspector use Diabetes mellitus type: type 2 Qualified Code(s): E11.9 - Type 2 diabetes mellitus without complica tions Code(s): E11.9 - Type 2 diabetes mellitus without complications Status: Chronic Assessment and Plan: * Blood sugars ranging 100-118 * Hgb A1C 10.7 on 01/31/2024 * Will recheck hemoglobin A1c * Accu checks AC/HS * Low-dose SSI ordered * hypoglycemic protocol in place * Diabetic diet ordered * Dietitian consult * Hold Jardiance, metformin, and glipizide (5) Hyperlipidemia: Qualifiers: Hyperlipidemia type: unspecified Qualified Code(s): E78.5 - Hyperlipidemia, unspecified Code(s): E78.5 - Hyperlipidemia, unspecified Status: Chronic Assessment and Plan: * Continue atorvastatin (6) Hypertension: Qualifiers: Hypertension type: essential hypertension Qualified Code(s): I10 - Essential (primary) hypertension Code(s): I10 - Essential (primary) hypertension Status: Chronic Assessment and Plan: * Blood pressure ranging 119/59 to 141/62 * Continue metoprolol 50 mg b.i.d. (7) Afib: Qualifiers: Atrial fibrillation type: paroxysmal Qualified Code(s): I48.0 - Paroxysmal atrial fibrillation Code(s): I48.91 - Unspecified atrial fibrillation Status: Chronic Assessment and Plan: * Continue Eliquis and metoprolol (8) Compression fracture of first lumbar vertebra: Code(s): S32.010A - Wedge compression fracture of first lumbar vertebra, initial encounter for closed fracture Status: Chronic Assessment and Plan: * Lumbar spine x-ray showing old compression fracture of L1 with possible T11 compression fracture * History of osteopenia * continue pain control (9) Osteopenia: Qualifiers: Osteopenia location: unspecified Qualified Code(s): M85.80 - Other specified disorders of bone density and structure, unspecified site Code(s): M85.80 - Other specified disorders of bone density and structure, unspecified site Status: Chronic Assessment and Plan: See above (10) GERD without esophagitis: Code(s): K21.9 - Gastro-esophageal reflux disease without esophagitis Status: Chronic Assessment and Plan: * Start Protonix (11) Dementia: Qualifiers: Dementia behavioral or psychological symptom: without behavioral, ps ychotic, or mood disturbance or anxiety Dementia severity: moderate Dementia type: unspecified type Qualified Code(s): F03.B0 - Unspecified dementia, moderate, without behavioral disturbance, psychotic disturbance, mood disturbance, and anxiety Code(s): F03.90 - Unspecified dementia, unspecified severity, without behavioral disturbance, psychotic disturbance, mood disturbance, and anxiety Status: Chronic Assessment and Plan: * Lives at [facility] living * Not currently on any home medications for dementia (12) Meningioma: Code(s): D32.9 - Benign neoplasm of meninges, unspecified Status: Chronic Assessment and Plan: * Head CT showing 5.2 cm meningioma overlying the left frontal lobe, 9 mm rightward midline shift anteriorly stable from the prior exam * Continue Keppra and Prednisone (13) Severe protein-calorie malnutrition: Code(s): E43 - Unspecified severe protein-calorie malnutrition Status: Chronic Assessment and Plan: * BMI 14.1, 39.6 kg--severe protein calorie malnutrition * Dietitian consult 04/04 * Case management consulted for hospice referral Time Spent With Patient Time with patient: 25 - 35 minutes Subjective Date/time seen: 04/04/24 11:31 Interval history: Interval history: This is an 84-year-old female with a significant past medical history of dementia, thrombocytopenia, diabetes, AFib, osteopenia, compression fracture of L1, GERD, hyperlipidemia, hypertension who was brought in from her nursing facility for evaluation after a fall. She sustained a skin tear to the right upper arm during the fall. Patient too sleepy at the time of my evaluation to gain any meaningful history of presenting illness. Most of history of presenting illness was obtained from the EMR. Daughter was apparently at the bedside while in the ED and reported that she was undergoing treatment for UTI and was on Macrobid since this past Sunday. Workup in the hospital included a chest x-ray which showed right basilar discord atelectasis with additional opacities in the left and lower lung zones, cardiomegaly, lower thoracic and upper lumbar compression fractures at least some of which are present on prior imaging. Lumbar spine x-ray showed old compression fracture of L1, possible T11 compression fracture, no definitive acute osseous abnormalities of the lumbar spine. Pelvis x-ray was negative for any acute osseous abnormality of the pelvis, bilateral hip mild to moderate osteoarthritic changes. Head CT showed stable 5.2 cm meningioma overlying left frontal lobe, 9 mm rightward mid line shift anteriorly stable from the prior exam. Initial labs showed a white blood cell count of 13.4, chloride 110, creatinine was normal at 0.70, lactic acid 5.3>2.0, Alk phos 133, CRP 3.6. UA showed cloudy urine appearance, urine specific gravity of 1.036, 3+ urine glucose, trace ketone, 2+ urine blood, 1+ leukocyte, 21-50 urine RBC, greater than 100 urine WBC. Urine culture was obtained and pending. Patient was given 1350 mL of normal saline, and Rocephin while in the ED. Subjective: Patient minimally interactive today. Opens eyes to voice however drifts back off to sleep. Daughter at bedside wishes to discuss hospice and comfort measures at this time. She states that her mother has been on a slow decline for the past 2 years and more recently has been declining fast over the last 6 weeks. She has struggled with UTI's and reinfections as well as not eating or drinking. Patient definitely fits the diagnosis of failure to thrive and this is not unreasonable at this phase of her life to consider hospice. Labs and cultures reviewed. Review of Systems Review of Systems: ROS unobtainable: Yes unobtainable due to mental status Exam Narrative: General: In no acute distress, well nourished Cardiac: Normal S1 and S2. Murmur noted. No gallops or friction rubs, peripheral pulses intact. Respiratory: Lungs clear to auscultation, no adventitious lung sounds, currently on room air Gastrointestinal: soft, non-distended, non-tender, normoactive bowel sounds. : voiding without difficulty. Neuro: Alert to voice, minimally interactive Objective Data Vital Signs Vital Signs: Vital Signs - 24 hr 04/03/24 14:12 04/03/24 14:28 04/03/24 15:16 Temperature 98.1 F Pulse Rate 67 66 67 Respiratory Rate 19 Blood Pressure 114/83 117/73 Pulse Oximetry 95 95 Oxygen Delivery Room Air 04/03/24 17:03 04/03/24 18:07 04/03/24 20:13 Temperature 97.1 F L Pulse Rate 63 64 93 Respiratory Rate 18 25 H 18 Blood Pressure 121/56 L 119/59 L 133/92 H Pulse Oximetry 100 96 97 Oxygen Delivery 04/03/24 21:33 04/04/24 10:08 Temperature 98.4 F Pulse Rate 68 72 Respiratory Rate 14 Blood Pressure 141/62 H Pulse Oximetry 96 Oxygen Delivery Intake/Output Intake/Output: Intake & Output 04/01/24 04/02/24 04/03/24 04/04/24 23:59 23:59 23:59 23:59 Intake Total 1450 170 Output Total 90 200 Balance 1360 -30 Meds/Results Medications: Active Medications Generic Name Dose Route Start Last Admin Trade Name Freq PRN Reason Stop Dose Admin Acetaminophen 650 mg 04/03/24 18:03 Acetaminophen 325 Mg Tablet PO Q4H PRN Mild Pain (1-3) or Fever Hydrocodone Bitart/Acetaminophen 1 tab 04/03/24 18:03 Hydrocodone/Acetaminophen (*Crx) 5-325 Mg Tablet PO Q4H PRN Pain Rated 4-6 Apixaban 2.5 mg 04/04/24 09:00 04/04/24 10:04 Apixaban 2.5 Mg Tablet PO 2.5 mg Q12HR ABBEY Administration Atorvastatin Calcium 40 mg 04/04/24 21:00 Atorvastatin 40 Mg Tablet PO QHS ABBEY Dextrose 12.5 gm 04/03/24 22:03 Dextrose 50% 25 Gm/50 Ml Syringe IV PUSH PRN PRN Hypoglycemia Protocol Glucagon 1 mg 04/03/24 22:03 Glucagon For Inj 1 Mg Vial IM PRN PRN Hypoglycemia Protocol Glucose 15 gm 04/03/24 22:03 Glucose Oral Gel 15 Gm Of Glucse In 37.5 Gm Tube PO PRN PRN Hypoglycemia Protocol Ceftriaxone Sodium 1 gm in 50 mls @ 100 mls/hr 04/04/24 12:00 Rocephin 1 Gm/Ns 50 Ml IVPB Q24H ABBEY Dextrose 1,000 mls @ 100 mls/hr 04/03/24 22:03 Dextrose 5% 1,000 Ml IVPB PRN PRN Hypoglycemia Protocol Insulin Aspart 2 - 5 units 04/04/24 08:00 04/04/24 09:52 Insulin Aspart (*Bkc) 100 Units/Ml SUB-Q Not Given [facility] Protocol Insulin Aspart 1 - 2 units 04/04/24 21:00 Insulin Aspart (*Bkc) 100 Units/Ml SUB-Q HS [facility] Protocol Levetiracetam 500 mg 04/03/24 22:50 04/04/24 10:04 Levetiracetam 500 Mg Tablet PO 500 mg Q12H ABBEY Administration Metoprolol Tartrate 50 mg 04/04/24 09:00 04/04/24 10:08 Metoprolol Tartrate 50 Mg Tab PO 50 mg Q12HR ABBEY Administration Ondansetron HCl 4 mg 04/03/24 18:03 Ondansetron Inj 4 Mg/2 Ml Vial IV PUSH Q4H PRN Nausea Pantoprazole Sodium 40 mg 04/04/24 09:00 04/04/24 10:04 Pantoprazole 40 Mg Tablet PO 40 mg QAM ABBEY Administration Polyethylene Glycol 17 gm 04/03/24 22:49 Polyethylene Glycol 3350 17 Gm Powd.Pack PO QAM PRN Constipation Prednisone 20 mg 04/04/24 09:00 04/04/24 10:03 Prednisone 20 Mg Tablet PO 20 mg DAILY ABBEY Administration Prednisone 2.5 mg 04/04/24 08:00 Prednisone 2.5 Mg Tablet PO DAILY@0800 ABBEY Vitamin D 2,000 units 04/04/24 09:00 04/04/24 10:04 Cholecalciferol 1,000 Units Tablet PO 2,000 units DAILY ABBEY Administration Radiology Results: ITS Impressions Chest X-Ray 04/03/24 16:00 IMPRESSION: 1. Right basilar discoid atelectasis with additional opacities in the left and and lower lung zones more equivocal for atelectasis versus pneumonia. 2. Cardiomegaly. 3. Lower thoracic and upper lumbar compression fractures at least some of which are present on prior imaging. Lumbar Spine X-Ray 04/03/24 16:00 IMPRESSION: No definite acute osseous abnormality lumbar spine. Old compression fracture of L1. If still suspicious MRI is advised. Pelvis X-Ray 04/03/24 16:03 IMPRESSION: No definite acute osseous abnormality pelvis. Degenerative changes of the spine. Bilateral hip mild to moderate osteoarthritic changes. Bilateral sacroiliitis. Head CT 04/03/24 16:10 IMPRESSION: 1. Stable 5.2 cm meningioma overlying left frontal lobe. 2. 9 mm rightward midline shift anteriorly, stable from the prior exam. Labs Labs: Laboratory Results - last 24 hr 04/03/24 04/03/24 04/03/24 15:00 15:01 18:38 WBC 13.4 H RBC 4.46 Hgb 12.4 Hct 42.0 MCV 94.2 MCH 27.8 MCHC 29.5 L RDW 17.1 H Plt Count 276 MPV 10.4 Immature Gran % (Auto) 2.2 H Neut % (Auto) 89.5 H Lymph % (Auto) 3.2 L [place] % (Auto) 4.6 Eos % (Auto) 0.0 Baso % (Auto) 0.5 Lymph # (Auto) 0.43 L [place] # (Auto) 0.6 Eos # (Auto) 0.0 Baso # (Auto) 0.1 Abs Immat Gran (auto) 0.29 H Absolute Neuts (auto) 12.0 H Absolute Nucleated RBC 0.020 H Nucleated RBC % 0.1 Platelet Estimate Adequate Anisocytosis 1+ Ovalocytes Crenated Cell 1+ Schistocytes Rare PT 14.7 INR 1.1 APTT 25.7 Sodium 140 Potassium 4.4 Chloride 110 H Carbon Dioxide 25 Anion Gap 5 BUN 29 H D Creatinine 0.70 Estim Creat Clear Calc 36 Estimated GFR > 60 Glucose 269 H POC Capillary Glucose Hemoglobin A1c 8.2 H Lactic Acid 5.3 H* 2.0 Calcium 9.3 Magnesium Total Bilirubin 0.9 AST 27 ALT 19 Alkaline Phosphatase 133 H C-Reactive Protein 3.6 H Total Protein 6.0 L Albumin 3.4 L TSH 13.500 H Urine Color Yellow Urine Appearance Cloudy H Urine pH 5.5 Ur Specific [place] 1.036 H Urine Protein Trace Urine Glucose (UA) 3+ H Urine Ketones Trace H Ur Blood (Man) 2+ H Urine Nitrate Negative Urine Bilirubin Negative Urine Urobilinogen 1.0 Add Ur Microanalysis Reviewed Leukocyte Esterase Rfl 1+ H Urine RBC 21-50 H Urine WBC >100 H Ur Squamous Epith Cells None seen Urine Bacteria None seen Urine Casts 0-2 04/03/24 04/04/24 04/04/24 23:33 07:13 08:28 WBC 10.4 H RBC 3.95 L Hgb 10.9 L Hct 38.1 MCV 96.5 MCH 27.6 MCHC 28.6 L RDW 17.1 H Plt Count 235 MPV 10.4 Immature Gran % (Auto) 1.6 H Neut % (Auto) 75.6 H Lymph % (Auto) 16.8 L [place] % (Auto) 5.3 Eos % (Auto) 0.3 Baso % (Auto) 0.4 Lymph # (Auto) 1.75 [place] # (Auto) 0.6 Eos # (Auto) 0.0 Baso # (Auto) 0.0 Abs Immat Gran (auto) 0.17 H Absolute Neuts (auto) 7.9 H Absolute Nucleated RBC 0.000 Nucleated RBC % 0.0 Platelet Estimate Adequate Anisocytosis 1+ Ovalocytes 1+ Crenated Cell 2+ Schistocytes None seen PT INR APTT Sodium 140 Potassium 3.5 Chloride 114 H Carbon Dioxide 25 Anion Gap 1 L BUN 22 H Creatinine 0.50 L Estim Creat Clear Calc 43 Estimated GFR > 60 Glucose 100 POC Capillary Glucose 110 H 111 H Hemoglobin A1c Lactic Acid Calcium 8.3 L Magnesium 1.8 Total Bilirubin 0.9 AST 23 ALT 14 Alkaline Phosphatase 89 C-Reactive Protein Total Protein 5.0 L Albumin 2.8 L TSH Urine Color Urine Appearance Urine pH Ur Specific [place] Urine Protein Urine Glucose (UA) Urine Ketones Ur Blood (Man) Urine Nitrate Urine Bilirubin Urine Urobilinogen Add Ur Microanalysis Leukocyte Esterase Rfl Urine RBC Urine WBC Ur Squamous Epith Cells Urine Bacteria Urine Casts Quality VTE Prophylaxis VTE prophylaxis: pharmacologic ordered
--- NOTE | 2024-04-04 11:39 | PC.NURSE ---
RN gave update to Zenaida at [facility] in regards to patient status.
[2024-04-04 11:43] LABS: Glucose Point of Care 118 mg/dl (65-105)
--- NOTE | 2024-04-04 12:22 | P.CDI_ITS ---
CDI Query Clarification Request BMI: 14.1 Nutritional Diagnostic Statement: Please refer to the comprehensive nutrition assessment for further information. If you agree with diagnosis of Severe Protein Calorie Malnutrition as related to inadequate protein-energy intake with increased protein-energy needs as evidenced by minimal oral intake for > 1 month: significant weight loss of 11%(11ibs ) in 6 wks; severe subcutaneous fat loss (orbital fat pads) and muscle wasting (temporalis, clavicle). Please specify severity if known: * Mild * Moderate * Severe * Other/Unknown <Nikki Sifuentes RN - Last Filed: 04/04/24 12:26> Provider Comments severe <Sheri Mckinney APRN - Last Filed: 04/04/24 12:33>
[2024-04-04 14:00] VITALS: BP 102/44; PULSE 64; RESP 16; TEMP 36.2; O2SAT 100
[2024-04-04 17:26] LABS: Glucose Point of Care 304 mg/dl (65-105)
[2024-04-04] MEDS: INSULIN ASPART (*BKC) 100 UNITS/ML SUB-Q ×2 (17:55→21:28)
[2024-04-04 21:16] VITALS: BP 131/58; PULSE 68; RESP 16; TEMP 36.9; O2SAT 92
[2024-04-04 22:38] LABS: Glucose Point of Care 327 mg/dl (65-105)
[2024-04-04] MEDS: levETIRAcetam 500MG/NACL 100ML 500 MG/100 ML BAG 400 MG IVPB (22:58)
[2024-04-05 06:00] VITALS: BP 105/57; PULSE 81; RESP 16; TEMP 36.3; O2SAT 94
[2024-04-05 06:42] LABS: Basophils Percent Auto 0.2 % (0.2-1.2); Eosinophils Percent Auto 0.1 % (0-4.4); Hematocrit 39.5 % (37.0-47.0); Hemoglobin 11.3 g/dL (12.0-15.0); Immature Granulocyte Absolute 0.16 K/mm3 (0.00-0.031); Immature Granulocyte Percent A 1.1 % (0-0.5); Lymphocytes Absolute Auto 0.73 K/mm3 (0.9-3.2); Lymphocytes Percent Auto 5.1 % (18.3-44.2); Mean Corpuscular HGB Conc 28.6 g/dl (32-36); Mean Corpuscular Hemoglobin 27.8 pg (26-34); Mean Corpuscular Volume 97.3 fl (80-100); Mean Platelet Volume 11.1 fl (7.4-10.4); Monocytes Absolute Auto 0.5 K/mm3 (0.1-0.6); Monocytes Percent Auto 3.4 % (2.6-8.5); Neutrophils Absolute Auto 12.8 K/mm3 (1.3-6.7); Neutrophils Percent Auto 90.1 % (45.5-73.1); Nucleated Red Blood Cells Perc 0.3 % (0.0-0.2); Platelet Count Result 226 k/mm3 (150-375); Red Blood Count 4.06 M/mm3 (4.2-5.4); Red Cell Distribution Width 17.2 % (11.5-14.5); White Blood Count 14.2 K/mm3 (4.5-10.0)
[2024-04-05 07:07] LABS: Alanine Aminotransferase 15 U/L (6-35); Albumin Level 2.9 g/dL (3.5-5.1); Alkaline Phosphatase 90 U/L (38-126); Anion Gap 6 mmol/L (4-12); Aspartate Amino Transferase 24 U/L (14-36); Bilirubin,Total 0.8 mg/dL (0.2-1.3); Blood Urea Nitrogen 30 mg/dL (7-17); Calcium 8.8 mg/dL (8.4-10.2); Carbon Dioxide 20 mmol/L (22-30); Chloride 114 mmol/L (98-107); Estimated CRCL calculation 36 ml/min; Estimated Glomerular Filt Rate > 60; Glucose 225 mg/dL (65-110); Potassium 3.9 mmol/L (3.4-5.0); Sodium 140 mmol/L (137-145)
[2024-04-05 07:17] LABS: Anisocytosis 1+; Crenated RBC 1+; Platelet Estimate Adequate (Adequate); Schistocytes 1+
[2024-04-05 09:22] LABS: Glucose Point of Care 223 mg/dl (65-105)
[2024-04-05] MEDS: INSULIN ASPART (*BKC) 100 UNITS/ML SUB-Q (09:58)
--- NOTE | 2024-04-05 11:04 | PCPTNOTE ---
1054 Patient with nursing getting a new IV placed. Talked to patient's daughter and they would like us to try and move the patient as able. Physical therapy will attempt again as time allows.
[2024-04-05] MEDS: levETIRAcetam 500MG/NACL 100ML 500 MG/100 ML BAG 400 MG IVPB ×2 (12:00→20:39)
[2024-04-05 12:38] LABS: Glucose Point of Care 185 mg/dl (65-105)
[2024-04-05 14:00] VITALS: BP 92/54; PULSE 76; RESP 20; TEMP 36.2; O2SAT 95
--- NOTE | 2024-04-05 15:04 | PM.IMPN ---
Progress Note: A&P Assessment and Plan (1) Acute UTI: Code(s): N39.0 - Urinary tract infection, site not specified Status: Acute Assessment and Plan: Recently treated on an outpatient basis for rate acute UTI with Macrobid however failed oral antibiotics presenting with worsening symptoms UA showing cloudy urine appearance, urine specific gravity of 1.036, 3+ urine glucose, trace urine ketones, 2+ urine blood, 1+ leukocyte, 21-50 urine RBC, greater than 100 urine WBC. Urine culture was obtained and pending She was given 1350 mL normal saline while in the ED Continue Rocephin White blood cell count 13.4--vital signs are stable, not meeting SIRS criteria Urine culture pending Continue Rocephin pending hospice, career based intervention coordinator consulted- awaiting a final decision fro both daughters (2) Fall: Code(s): W19.XXXA - Unspecified fall, initial encounter Status: Acute Assessment and Plan: Status post ground level fall at [facility] living Lumbar spine x-ray showing old compression fracture of L1 with possible T11 compression fracture, no acute osseous abnormality seen. Pelvic x-ray showed degenerative changes of the spine, no acute osseous abnormality of the pelvis, mild to moderate osteoarthritic changes Head CT showed stable 5.2 cm meningioma overlying left frontal lobe, 9 mm rightward midline shift anteriorly stable from prior exam PT and OT ordered Continue fall precautions Will hold off on PT and OT considering daughter wants to discuss hospice/comfort. Continue fall precautions (3) Weakness: Code(s): R53.1 - Weakness Status: Acute Assessment and Plan: PT and OT ordered FTT--Case management consulted for hospice referral (4) Diabetes: Qualifiers: Diabetes mellitus type: type 2 Diabetes mellitus custodial insulin use: without press tender long goods use Diabetes mellitus complication status: without complication Qualified Code(s): E11.9 - Type 2 diabetes mellitus without complications Code(s): E11.9 - Type 2 diabetes mellitus without complications Status: Chronic Assessment and Plan: Blood sugars ranging 100-118 Hgb A1C 10.7 on 01/31/2024 Will recheck hemoglobin A1c Accu checks AC/HS Low-dose SSI ordered hypoglycemic protocol in place Diabetic diet ordered Dietitian consult Hold Jardiance, metformin, and glipizide (5) Hyperlipidemia: Qualifiers: Hyperlipidemia type: unspecified Qualified Code(s): E78.5 - Hyperlipidemia, unspecified Code(s): E78.5 - Hyperlipidemia, unspecified Status: Chronic Assessment and Plan: Continue atorvastatin (6) Hypertension: Qualifiers: Hypertension type: essential hypertension Qualified Code(s): I10 - Essential (primary) hypertension Code(s): I10 - Essential (primary) hypertension Status: Chronic Assessment and Plan: Blood pressure reviewed-stable Continue metoprolol 50 mg b.i.d. (7) Afib: Qualifiers: Atrial fibrillation type: paroxysmal Qualified Code(s): I48.0 - Paroxysmal atrial fibrillation Code(s): I48.91 - Unspecified atrial fibrillation Status: Chronic Assessment and Plan: Continue Eliquis and metoprolol (8) Compression fracture of first lumbar vertebra: Code(s): S32.010A - Wedge compression fracture of first lumbar vertebra, initial encounter for closed fracture Status: Chronic Assessment and Plan: Lumbar spine x-ray showing old compression fracture of L1 with possible T11 compression fracture History of osteopenia continue pain control (9) Osteopenia: Qualifiers: Osteopenia location: unspecified Qualified Code(s): M85.80 - Other specified disorders of bone density and structure, unspecified site Code(s): M85.80 - Other specified disorders of bone density and structure, unspecified site Status: Chronic Assessment and Plan: See above (10) GERD without esophagitis: Code(s): K21.9 - Gastro-esophageal reflux disease without esophagitis Status: Chronic Assessment and Plan: Start Protonix (11) Dementia: Qualifiers: Dementia type: unspecified type Dementia severity: moderate Dementia behavioral or psychological symptom: without behavioral, psychotic, or mood disturbance or anxiety Qualified Code(s): F03.B0 - Unspecified dementia, moderate, without behavioral disturbance, psychotic disturbance, mood disturbance, and anxiety Code(s): F03.90 - Unspecified dementia, unspecified severity, without behavioral disturbance, psychotic disturbance, mood disturbance, and anxiety Status: Chronic Assessment and Plan: Lives at [facility] assisted living Not currently on any home medications for dementia (12) Meningioma: Code(s): D32.9 - Benign neoplasm of meninges, unspecified Status: Chronic Assessment and Plan: Head CT showing 5.2 cm meningioma overlying the left frontal lobe, 9 mm rightward midline shift anteriorly stable from the prior exam Continue Keppra and Prednisone (13) Severe protein-calorie malnutrition: Code(s): E43 - Unspecified severe protein-calorie malnutrition Status: Chronic Assessment and Plan: BMI 14.1, 39.6 kg--severe protein calorie malnutrition Dietitian consult /3 Case management consulted for hospice referral Time Spent With Patient Time with patient: Greater than 35 minutes Subjective Date/time seen: 04/05/24 15:04 Interval history: Interval history: This is an 84-year-old female with a significant past medical history of dementia, thrombocytopenia, diabetes, AFib, osteopenia, compression fracture of L1, GERD, hyperlipidemia, hypertension who was brought in from her nursing facility for evaluation after a fall. She sustained a skin tear to the right upper arm during the fall. Patient too sleepy at the time of my evaluation to gain any meaningful history of presenting illness. Most of history of presenting illness was obtained from the EMR. Daughter was apparently at the bedside while in the ED and reported that she was undergoing treatment for UTI and was on Macrobid since this past Sunday. Workup in the hospital included a chest x-ray which showed right basilar discord atelectasis with additional opacities in the left and lower lung zones, cardiomegaly, lower thoracic and upper lumbar compression fractures at least some of which are present on prior imaging. Lumbar spine x-ray showed old compression fracture of L1, possible T11 compression fracture, no definitive acute osseous abnormalities of the lumbar spine. Pelvis x-ray was negative for any acute osseous abnormality of the pelvis, bilateral hip mild to moderate osteoarthritic changes. Head CT showed stable 5.2 cm meningioma overlying left frontal lobe, 9 mm rightward mid line shift anteriorly stable from the prior exam. Initial labs showed a white blood cell count of 13.4, chloride 110, creatinine was normal at 0.70, lactic acid 5.3>2.0, Alk phos 133, CRP 3.6. UA showed cloudy urine appearance, urine specific gravity of 1.036, 3+ urine glucose, trace ketone, 2+ urine blood, 1+ leukocyte, 21-50 urine RBC, greater than 100 urine WBC. Urine culture was obtained and pending. Patient was given 1350 mL of normal saline, and Rocephin while in the ED. Subjective: Patient minimally interactive today. Opens eyes to voice however drifts back off to sleep. Daughter at bedside wishes to discuss hospice and comfort measures at this time. She states that her mother has been on a slow decline for the past 2 years and more recently has been declining fast over the last 6 weeks. She has struggled with UTI's and reinfections as well as not eating or drinking. Patient definitely fits the diagnosis of failure to thrive and this is not unreasonable at this phase of her life to consider hospice. Labs and cultures reviewed. 04/05 PT IS SEEN and examined. Earlier in the morning, she was restless, anxious, appears to be in pain. BUt at the time i was examining her, she was comfortable. Not able to interact mush at all, opens her eyes randomly. calm. one of the daughters at the bedside, states that family want to go comfort measures and possibly hospice but she was waiting for her sister to make decisions. Review of Systems Review of Systems: ROS unobtainable: Yes unobtainable due to mental status Exam Narrative: General: In no acute distress, well nourished Cardiac: Normal S1 and S2. Murmur noted. No gallops or friction rubs, peripheral pulses intact. Respiratory: Lungs clear to auscultation, no adventitious lung sounds, currently on room air Gastrointestinal: soft, non-distended, non-tender, normoactive bowel sounds. : voiding without difficulty. Neuro: Alert to voice, minimally interactive Objective Data Vital Signs Vital Signs: Vital Signs - 24 hr 04/04/24 21:16 04/05/24 06:00 04/05/24 09:30 Temperature 98.4 F 97.3 F L Pulse Rate 68 81 Respiratory Rate 16 16 Blood Pressure 131/58 L 105/57 L Pulse Oximetry 92 94 Oxygen Delivery Room Air Intake/Output Intake/Output: Intake & Output 04/02/24 04/03/24 04/04/24 04/05/24 23:59 23:59 23:59 23:59 Intake Total 1450 1160 100 Output Total 90 600 700 Balance 1360 560 -600 Meds/Results Medications: Active Medications Generic Name Dose Route Start Last Admin Trade Name Freq PRN Reason Stop Dose Admin Acetaminophen 650 mg 04/03/24 18:03 Acetaminophen 325 Mg Tablet PO Q4H PRN Mild Pain (1-3) or Fever Hydrocodone Bitart/Acetaminophen 1 tab 04/03/24 18:03 Hydrocodone/Acetaminophen (*Crx) 5-325 Mg Tablet PO Q4H PRN Pain Rated 4-6 Apixaban 2.5 mg 04/04/24 09:00 04/05/24 12:30 Apixaban 2.5 Mg Tablet PO Not Given Q12HR [facility] Atorvastatin Calcium 40 mg 04/04/24 21:00 04/04/24 22:31 Atorvastatin 40 Mg Tablet PO Not Given QHS [facility] Dextrose 12.5 gm 04/03/24 22:03 Dextrose 50% 25 Gm/50 Ml Syringe IV PUSH PRN PRN Hypoglycemia Protocol Glucagon 1 mg 04/03/24 22:03 Glucagon For Inj 1 Mg Vial IM PRN PRN Hypoglycemia Protocol Glucose 15 gm 04/03/24 22:03 Glucose Oral Gel 15 Gm Of Glucse In 37.5 Gm Tube PO PRN PRN Hypoglycemia Protocol Ceftriaxone Sodium 1 gm in 50 mls @ 100 mls/hr 04/04/24 12:00 04/05/24 12:20 Rocephin 1 Gm/Ns 50 Ml IVPB 100 mls/hr Q24H [facility] Administration Dextrose 1,000 mls @ 100 mls/hr 04/03/24 22:03 Dextrose 5% 1,000 Ml IVPB PRN PRN Hypoglycemia Protocol Levetiracetam 500 mg in 100 mls @ 400 mls/hr 04/04/24 23:00 04/05/24 12:15 Keppra Iv IVPB Infused Q12HR [facility] Infusion Insulin Aspart 2 - 5 units 04/04/24 08:00 04/05/24 12:53 Insulin Aspart (*Bkc) 100 Units/Ml SUB-Q Not Given TIDWM [facility] Protocol Insulin Aspart 1 - 2 units 04/04/24 21:00 04/04/24 21:28 Insulin Aspart (*Bkc) 100 Units/Ml SUB-Q 2 units HS [facility] Administration Protocol Metoprolol Tartrate 50 mg 04/04/24 09:00 04/05/24 12:30 Metoprolol Tartrate 50 Mg Tab PO Not Given Q12HR [facility] Ondansetron HCl 4 mg 04/03/24 18:03 Ondansetron Inj 4 Mg/2 Ml Vial IV PUSH Q4H PRN Nausea Pantoprazole Sodium 40 mg 04/04/24 09:00 04/05/24 12:30 Pantoprazole 40 Mg Tablet PO Not Given QAM [facility] Polyethylene Glycol 17 gm 04/03/24 22:49 Polyethylene Glycol 3350 17 Gm Powd.Pack PO QAM PRN Constipation Prednisone 20 mg 04/04/24 09:00 04/05/24 12:30 Prednisone 20 Mg Tablet PO Not Given DAILY ABBEY Vitamin D 2,000 units 04/04/24 09:00 04/05/24 12:30 Cholecalciferol 1,000 Units Tablet PO Not Given DAILY ABBEY Radiology Results: ITS Impressions Chest X-Ray 04/03/24 16:00 IMPRESSION: 1. Right basilar discoid atelectasis with additional opacities in the left and and lower lung zones more equivocal for atelectasis versus pneumonia. 2. Cardiomegaly. 3. Lower thoracic and upper lumbar compression fractures at least some of which are present on prior imaging. Lumbar Spine X-Ray 04/03/24 16:00 IMPRESSION: No definite acute osseous abnormality lumbar spine. Old compression fracture of L1. If still suspicious MRI is advised. Pelvis X-Ray 04/03/24 16:03 IMPRESSION: No definite acute osseous abnormality pelvis. Degenerative changes of the spine. Bilateral hip mild to moderate osteoarthritic changes. Bilateral sacroiliitis. Head CT 04/03/24 16:10 IMPRESSION: 1. Stable 5.2 cm meningioma overlying left frontal lobe. 2. 9 mm rightward midline shift anteriorly, stable from the prior exam. Labs Labs: Laboratory Results - last 24 hr 04/04/24 04/04/24 04/05/24 17:20 21:19 06:21 WBC 14.2 H RBC 4.06 L Hgb 11.3 L Hct 39.5 MCV 97.3 MCH 27.8 MCHC 28.6 L RDW 17.2 H Plt Count 226 MPV 11.1 H Immature Gran % (Auto) 1.1 H Neut % (Auto) 90.1 H Lymph % (Auto) 5.1 L [place] % (Auto) 3.4 Eos % (Auto) 0.1 Baso % (Auto) 0.2 Lymph # (Auto) 0.73 L [place] # (Auto) 0.5 Eos # (Auto) 0.0 Baso # (Auto) 0.0 Abs Immat Gran (auto) 0.16 H Absolute Neuts (auto) 12.8 H Absolute Nucleated RBC 0.040 H Nucleated RBC % 0.3 H Platelet Estimate Adequate Anisocytosis 1+ Crenated Cell 1+ Schistocytes 1+ Sodium 140 Potassium 3.9 Chloride 114 H Carbon Dioxide 20 L Anion Gap 6 BUN 30 H Creatinine 0.60 L Estim Creat Clear Calc 36 Estimated GFR > 60 Glucose 225 H POC Capillary Glucose 304 H 327 H Calcium 8.8 Total Bilirubin 0.8 AST 24 ALT 15 Alkaline Phosphatase 90 Total Protein 5.0 L Albumin 2.9 L 04/05/24 04/05/24 09:20 12:32 WBC RBC Hgb Hct MCV MCH MCHC RDW Plt Count MPV Immature Gran % (Auto) Neut % (Auto) Lymph % (Auto) [place] % (Auto) Eos % (Auto) Baso % (Auto) Lymph # (Auto) [place] # (Auto) Eos # (Auto) Baso # (Auto) Abs Immat Gran (auto) Absolute Neuts (auto) Absolute Nucleated RBC Nucleated RBC % Platelet Estimate Anisocytosis Crenated Cell Schistocytes Sodium Potassium Chloride Carbon Dioxide Anion Gap BUN Creatinine Estim Creat Clear Calc Estimated GFR Glucose POC Capillary Glucose 223 H 185 H Calcium Total Bilirubin AST ALT Alkaline Phosphatase Total Protein Albumin Quality VTE Prophylaxis VTE prophylaxis: pharmacologic ordered
--- NOTE | 2024-04-05 17:28 | PCSTNOTE ---
Speech Therapy Note - Attempted BSE Patient was very lethargic this date. ST unable to arouse to complete a safe bedside swallow evaluation. When asked if ST could sit pt up, pt shook head no. Pt unable to keep eyes open despite encouragement. Hospitalist progress note on 04/05 stating that pt is not able to interact much at all, opens her eyes randomly. calm. one of the daughters at the bedside, states that family wants to go comfort measures and possible hospice but she was waiting for her sister to make decisions . Additionally, progress note on 04/05 states that daughter verbalized her mother have been on a slow decline for the past 2 years and more recently has been declining fast over the last 6 weeks . Due to the lack of arousal and participation, ST to discharge BSE order until pt is able to safely participate in oral intake. Thank you for this referral.
--- NOTE | 2024-04-05 18:26 | PC.NURSE ---
Spoke with pt's daughter, Nicci (POA), about pt's BP of 92/54 at 1530. Rechecked BP at 1810 and was 88/50. Updated Nicci that the pt has been sleeping all day and not wanting to eat or drink anything. Asked if she was wanting the pt to receive IV fluid resuscitation or other drastic measures to which Nicci replied she just wanted her mom to be comfortable. Notified TIMA Mayorga and received ok to place comfort measures orders.
[2024-04-05 18:31] LABS: Glucose Point of Care 130 mg/dl (65-105)
[2024-04-05 20:30] VITALS: BP 95/51; PULSE 74; RESP 12; TEMP 36.6; O2SAT 93
[2024-04-06 05:47] VITALS: BP 116/56; PULSE 72; RESP 16; TEMP 36.1; O2SAT 99
--- NOTE | 2024-04-06 07:40 | P.PNIM_ITS ---
Progress Note: A&P Assessment and Plan (1) Acute UTI: Code(s): N39.0 - Urinary tract infection, site not specified Status: Acute Assessment and Plan: Recently treated on an outpatient basis for rate acute UTI with Macrobid however failed oral antibiotics presenting with worsening symptoms * UA showing cloudy urine appearance, urine specific gravity of 1.036, 3+ urine glucose, trace urine ketones, 2+ urine blood, 1+ leukocyte, 21-50 urine RBC, greater than 100 urine WBC. * Urine culture was obtained and pending * She was given 1350 mL normal saline while in the ED * Continue Rocephin * White blood cell count 13.4--vital signs are stable, not meeting SIRS criteria * Urine culture pending * Continue Rocephin * pending hospice, gis coordinator consulted- awaiting a final decision fro both daughters (2) Fall: Code(s): W19.XXXA - Unspecified fall, initial encounter Status: Acute Assessment and Plan: Status post ground level fall at [facility] assisted living * Lumbar spine x-ray showing old compression fracture of L1 with possible T11 compression fracture, no acute osseous abnormality seen. * Pelvic x-ray showed degenerative changes of the spine, no acute osseous abnormality of the pelvis, mild to moderate osteoarthritic changes * Head CT showed stable 5.2 cm meningioma overlying left frontal lobe, 9 mm rightward midline shift anteriorly stable from prior exam * PT and OT ordered * Continue fall precautions * Will hold off on PT and OT considering daughter wants to discuss hospice/comfort. * Continue fall precautions (3) Weakness: Code(s): R53.1 - Weakness Status: Acute Assessment and Plan: * PT and OT ordered * FTT--Case management consulted for hospice referral (4) Diabetes: Qualifiers: Diabetes mellitus complication status: without complication Diabetes mellitus extermination supervisor insulin use: without extermination supervisor use Diabetes mellitus type: type 2 Qualified Code(s): E11.9 - Type 2 diabetes mellitus without complications Code(s): E11.9 - Type 2 diabetes mellitus without complications Status: Chronic Assessment and Plan: * Blood sugars ranging 100-118 * Hgb A1C 10.7 on 01/31/2024 * Will recheck hemoglobin A1c * Accu checks AC/HS * Low-dose SSI ordered * hypoglycemic protocol in place * Diabetic diet ordered * Dietitian consult * Hold Jardiance, metformin, and glipizide (5) Hyperlipidemia: Qualifiers: Hyperlipidemia type: unspecified Qualified Code(s): E78.5 - Hyperlipidemia, unspecified Code(s): E78.5 - Hyperlipidemia, unspecified Status: Chronic Assessment and Plan: * Continue atorvastatin (6) Hypertension: Qualifiers: Hypertension type: essential hypertension Qualified Code(s): I10 - Es sential (primary) hypertension Code(s): I10 - Essential (primary) hypertension Status: Chronic Assessment and Plan: * Blood pressure reviewed-stable * Continue metoprolol 50 mg b.i.d. (7) Afib: Qualifiers: Atrial fibrillation type: paroxysmal Qualified Code(s): I48.0 - Paroxysmal atrial fibrillation Code(s): I48.91 - Unspecified atrial fibrillation Status: Chronic Assessment and Plan: * Continue Eliquis and metoprolol (8) Compression fracture of first lumbar vertebra: Code(s): S32.010A - Wedge compression fracture of first lumbar vertebra, initial encounter for closed fracture Status: Chronic Assessment and Plan: * Lumbar spine x-ray showing old compression fracture of L1 with possible T11 compression fracture * History of osteopenia * continue pain control (9) Osteopenia: Qualifiers: Osteopenia location: unspecified Qualified Code(s): M85.80 - Other specified disorders of bone density and structure, unspecified site Code(s): M85.80 - Other specified disorders of bone density and structure, unspecified site Status: Chronic Assessment and Plan: See above (10) GERD without esophagitis: Code(s): K21.9 - Gastro-esophageal reflux disease without esophagitis Status: Chronic Assessment and Plan: * Start Protonix (11) Dementia: Qualifiers: Dementia behavioral or psychological symptom: without behavioral, psychotic, or mood disturbance or anxiety Dementia severity: moderate Dementia type: unspecified type Qualified Code(s): F03.B0 - Unspecified dementia, moderate, without behavioral disturbance, psychotic disturbance, mood disturbance, and anxiety Code(s): F03.90 - Unspecified dementia, unspecified severity, without behavioral disturbance, psychotic disturbance, mood disturbance, and anxiety Status: Chronic Assessment and Plan: * Lives at [facility] living * Not currently on any home medications for dementia (12) Meningioma: Code(s): D32.9 - Benign neoplasm of meninges, unspecified Status: Chronic Assessment and Plan: * Head CT showing 5.2 cm meningioma overlying the left frontal lobe, 9 mm rightward midline shift anteriorly stable from the prior exam * Continue Keppra and Prednisone (13) Severe protein-calorie malnutrition: Code(s): E43 - Unspecified severe protein-calorie malnutrition Status: Chronic Assessment and Plan: * BMI 14.1, 39.6 kg--severe protein calorie malnutrition * Dietitian consult 04/04 * Case management consulted for hospice referral Time Spent With Patient Time with patient: 25 - 35 minutes Subjective Date/time seen: 04/06/24 07:40 Interval history: Interval history: This is an 84-year-old female with a significant past medical history of dementia, thrombocytopenia, diabetes, AFib, osteopenia, compression fracture of L1, GERD, hyperlipidemia, hypertension who was brought in from her nursing facility for evaluation after a fall. She sustained a skin tear to the right upper arm during the fall. Patient too sleepy at the time of my evaluation to gain any meaningful history of presenting illness. Most of history of presenting illness was obtained from the EMR. Daughter was apparently at the bedside while in the ED and reported that she was undergoing treatment for UTI and was on Macrobid since this past Sunday. Workup in the hospital included a chest x-ray which showed right basilar discord atelectasis with additional opacities in the left and lower lung zones, cardiomegaly, lower thoracic and upper lumbar compression fractures at least some of which are present on prior imaging. Lumbar spine x-ray showed old compression fracture of L1, possible T11 compression fracture, no definitive acute osseous abnormalities of the lumbar spine. Pelvis x-ray was negative for any acute osseous abnormality of the pelvis, bilateral hip mild to moderate osteoarthritic changes. Head CT showed stable 5.2 cm meningioma overlying left frontal lobe, 9 mm rightward mid line shift anteriorly stable from the prior exam. Initial labs showed a white blood cell count of 13.4, chloride 110, creatinine was normal at 0.70, lactic acid 5.3>2.0, Alk phos 133, CRP 3.6. UA showed cloudy urine appearance, urine specific gravity of 1.036, 3+ urine glucose, trace ketone, 2+ urine blood, 1+ leukocyte, 21-50 urine RBC, greater than 100 urine WBC. Urine culture was obtai bree and pending. Patient was given 1350 mL of normal saline, and Rocephin while in the ED. Subjective: Patient minimally interactive today. Opens eyes to voice however drifts back off to sleep. Daughter at bedside wishes to discuss hospice and comfort measures at this time. She states that her mother has been on a slow decline for the past 2 years and more recently has been declining fast over the last 6 weeks. She has struggled with UTI's and reinfections as well as not eating or drinking. Patient definitely fits the diagnosis of failure to thrive and this is not unreasonable at this phase of her life to consider hospice. Labs and cultures reviewed. 04/05 PT IS SEEN and examined. Earlier in the morning, she was restless, anxious, appears to be in pain. BUt at the time i was examining her, she was comfortable. Not able to interact mush at all, opens her eyes randomly. calm. one of the daughters at the bedside, states that family want to go comfort measures and possibly hospice but she was waiting for her sister to make decisions. 04/06- pt is seen and examined. somewhat hypotensive last night but better this am. Overall no acute changes. waiting for family decision for comfort vs hospice- care coordination is on board Review of Systems Review of Systems: resting in bed ROS unobtainable: Yes unobtainable due to mental status Exam Narrative: General: In no acute distress, well nourished Cardiac: Normal S1 and S2. Murmur noted. No gallops or friction rubs, peripheral pulses intact. Respiratory: Lungs clear to auscultation, no adventitious lung sounds, currently on room air Gastrointestinal: soft, non-distended, non-tender, normoactive bowel sounds. : voiding without difficulty. Neuro: Alert to voice, minimally interactive Objective Data Vital Signs Vital Signs: Vital Signs - 24 hr 04/05/24 09:30 04/05/24 14:00 04/05/24 20:30 Temperature 97.2 F L 98 F Pulse Rate 76 74 Respiratory Rate 20 12 Blood Pressure 92/54 L 95/51 L Pulse Oximetry 95 93 Oxygen Delivery Room Air 04/06/24 05:47 Temperature 97 F L Pulse Rate 72 Respiratory Rate 16 Blood Pressure 116/56 L Pulse Oximetry 99 Oxygen Delivery Intake/Output Intake/Output: Intake & Output 04/03/24 04/04/24 04/05/24 04/06/24 23:59 23:59 23:59 23:59 Intake Total 1450 1160 250 Output Total 90 600 1050 Balance 1360 560 -800 Meds/Results Medications: Active Medications Generic Name Dose Route Start Last Admin Trade Name Freq PRN Reason Stop Dose Admin Acetaminophen 650 mg 04/03/24 18:03 Acetaminophen 325 Mg Tablet PO Q4H PRN Mild Pain (1-3) or Fever Hydrocodone Bitart/Acetaminophen 1 tab 04/03/24 18:03 Hydrocodone/Acetaminophen (*Crx) 5-325 Mg Tablet PO Q4H PRN Pain Rated 4-6 Apixaban 2.5 mg 04/04/24 09:00 04/05/24 20:41 Apixaban 2.5 Mg Tablet PO Not Given Q12HR ABBEY Atorvastatin Calcium 40 mg 04/04/24 21:00 04/05/24 20:41 Atorvastatin 40 Mg Tablet PO Not Given QHS ABBEY Dextrose 12.5 gm 04/03/24 22:03 Dextrose 50% 25 Gm/50 Ml Syringe IV PUSH PRN PRN Hypoglycemia Protocol Glucagon 1 mg 04/03/24 22:03 Glucagon For Inj 1 Mg Vial IM PRN PRN Hypoglycemia Protocol Glucose 15 gm 04/03/24 22:03 Glucose Oral Gel 15 Gm Of Glucse In 37.5 Gm Tube PO PRN PRN Hypoglycemia Protocol Ceftriaxone Sodium 1 gm in 50 mls @ 100 mls/hr 04/04/24 12:00 04/05/24 12:50 Rocephin 1 Gm/Ns 50 Ml IVPB Infused Q24H ABBEY Infusion Dextrose 1,000 mls @ 100 mls/hr 04/03/24 22:03 Dextrose 5% 1,000 Ml IVPB PRN PRN Hypoglycemia Protocol Levetiracetam 500 mg in 100 mls @ 400 mls/hr 04/04/24 23:00 04/05/24 20:54 Keppra Iv IVPB Infused Q12HR ABBEY Infusion Metoprolol Tartrate 50 mg 04/04/24 09:00 04/05/24 20:42 Metoprolol Tartrate 50 Mg Tab PO Not Given Q12HR ABBEY Ondansetron HCl 4 mg 04/03/24 18:03 Ondansetron Inj 4 Mg/2 Ml Vial IV PUSH Q4H PRN Nausea Pantoprazole Sodium 40 mg 04/04/24 09:00 04/05/24 12:30 Pantoprazole 40 Mg Tablet PO Not Given QAM ABBEY Polyethylene Glycol 17 gm 04/03/24 22:49 Polyethylene Glycol 3350 17 Gm Powd.Pack PO QAM PRN Constipation Prednisone 20 mg 04/04/24 09:00 04/05/24 12:30 Prednisone 20 Mg Tablet PO Not Given DAILY ABBEY Vitamin D 2,000 units 04/04/24 09:00 04/05/24 12:30 Cholecalciferol 1,000 Units Tablet PO Not Given DAILY [facility] Radiology Results: ITS Impressions Chest X-Ray 04/03/24 16:00 IMPRESSION: 1. Right basilar discoid atelectasis with additional opacities in the left and and lower lung zones more equivocal for atelectasis versus pneumonia. 2. Cardiomegaly. 3. Lower thoracic and upper lumbar compression fractures at least some of which are present on prior imaging. Lumbar Spine X-Ray 04/03/24 16:00 IMPRESSION: No definite acute osseous abnormality lumbar spine. Old compression fracture of L1. If still suspicious MRI is advised. Pelvis X-Ray 04/03/24 16:03 IMPRESSION: No definite acute osseous abnormality pelvis. Degenerative changes of the spine. Bilateral hip mild to moderate osteoarthritic changes. Bilateral sacroiliitis. Head CT 04/03/24 16:10 IMPRESSION: 1. Stable 5.2 cm meningioma overlying left frontal lobe. 2. 9 mm rightward midline shift anteriorly, stable from the prior exam. Labs Labs: Laboratory Results - last 24 hr 04/05/24 04/05/24 04/05/24 09:20 12:32 18:27 POC Capillary Glucose 223 H 185 H 130 H Quality VTE Prophylaxis VTE prophylaxis: pharmacologic ordered
--- NOTE | 2024-04-06 08:02 | PCPTNOTE ---
Nursing reports patient is now on comfort care and will be discharging her orders.
[2024-04-06 08:26] LABS: Glucose Point of Care 103 mg/dl (65-105)
[2024-04-06 09:50] LABS: Basophils Percent Auto 0.3 % (0.2-1.2); Eosinophils Percent Auto 0.1 % (0-4.4); Hematocrit 39.8 % (37.0-47.0); Hemoglobin 11.5 g/dL (12.0-15.0); Immature Granulocyte Absolute 0.17 K/mm3 (0.00-0.031); Immature Granulocyte Percent A 1.5 % (0-0.5); Lymphocytes Absolute Auto 0.74 K/mm3 (0.9-3.2); Lymphocytes Percent Auto 6.7 % (18.3-44.2); Mean Corpuscular HGB Conc 28.9 g/dl (32-36); Mean Corpuscular Hemoglobin 28.2 pg (26-34); Mean Corpuscular Volume 97.5 fl (80-100); Mean Platelet Volume 10.6 fl (7.4-10.4); Monocytes Absolute Auto 0.6 K/mm3 (0.1-0.6); Monocytes Percent Auto 5.1 % (2.6-8.5); Neutrophils Absolute Auto 9.5 K/mm3 (1.3-6.7); Neutrophils Percent Auto 86.3 % (45.5-73.1); Platelet Count Result 236 k/mm3 (150-375); Red Blood Count 4.08 M/mm3 (4.2-5.4); Red Cell Distribution Width 17.5 % (11.5-14.5)
[2024-04-06 10:03] LABS: Alanine Aminotransferase 20 U/L (6-35); Albumin Level 3.1 g/dL (3.5-5.1); Alkaline Phosphatase 92 U/L (38-126); Anion Gap 7 mmol/L (4-12); Aspartate Amino Transferase 41 U/L (14-36); Bilirubin,Total 0.8 mg/dL (0.2-1.3); Blood Urea Nitrogen 27 mg/dL (7-17); Calcium 8.7 mg/dL (8.4-10.2); Carbon Dioxide 22 mmol/L (22-30); Chloride 116 mmol/L (98-107); Estimated CRCL calculation 36 ml/min; Estimated Glomerular Filt Rate > 60; Glucose 112 mg/dL (65-110); Potassium 3.5 mmol/L (3.4-5.0); Sodium 145 mmol/L (137-145)
[2024-04-06 10:21] LABS: Acanthocytes 1+; Anisocytosis 1+; Crenated RBC 1+; Platelet Estimate Adequate (Adequate); Schistocytes Rare; Tear Drop Cells 1+
[2024-04-06 13:59] VITALS: BP 99/57; PULSE 72; RESP 16; TEMP 36.4; O2SAT 100
[2024-04-06] MEDS: levETIRAcetam 500MG/NACL 100ML 500 MG/100 ML BAG 400 MG IVPB (20:48)
[2024-04-06 21:00] VITALS: PULSE 77; RESP 18; O2SAT 100
[2024-04-06 22:00] VITALS: BP 111/51; PULSE 77; RESP 18; TEMP 36.4; O2SAT 100
[2024-04-07 05:24] VITALS: BP 132/68; PULSE 79; RESP 16; TEMP 36.3; O2SAT 94
[2024-04-07] MEDS: levETIRAcetam 500MG/NACL 100ML 500 MG/100 ML BAG 400 MG IVPB (10:25)
--- NOTE | 2024-04-07 10:58 | P.PNIM_ITS ---
Progress Note: A&P Assessment and Plan (1) Acute UTI: Code(s): N39.0 - Urinary tract infection, site not specified Status: Acute Assessment and Plan: Recently treated on an outpatient basis for rate acute UTI with Macrobid however failed oral antibiotics presenting with worsening symptoms * UA showing cloudy urine appearance, urine specific gravity of 1.036, 3+ urine glucose, trace urine ketones, 2+ urine blood, 1+ leukocyte, 21-50 urine RBC, greater than 100 urine WBC. * Urine culture was obtained and pending * She was given 1350 mL normal saline while in the ED * Continue Rocephin * White blood cell count 13.4--vital signs are stable, not meeting SIRS criteria * Urine culture pending * Continue Rocephin * pending hospice, agency service coordinator consulted- awaiting a final decision fro both daughters * called Nicci- [phone]. discussed plan of care- all questions answered. Pt is able to eat and drink some- but coughing and aspirating. Family is aware. They want to proceed with hospice. Berna healthcare architect is notified. * 1/ finishing up antibiotics today (2) Fall: Code(s): W19.XXXA - Unspecified fall, initial encounter Status: Acute Assessment and Plan: Status post ground level fall at [facility] assisted living * Lumbar spine x-ray showing old compression fracture of L1 with possible T11 compression fracture, no acute osseous abnormality seen. * Pelvic x-ray showed degenerative changes of the spine, no acute osseous abnormality of the pelvis, mild to moderate osteoarthritic changes * Head CT showed stable 5.2 cm meningioma overlying left frontal lobe, 9 mm rightward midline shift anteriorly stable from prior exam * PT and OT ordered * Continue fall precautions * Will hold off on PT and OT considering daughter wants to discuss hospice/comfort. * Continue fall precautions (3) Weakness: Code(s): R53.1 - Weakness Status: Acute Assessment and Plan: * PT and OT ordered * FTT--Case management consulted for hospice referral (4) Diabetes: Qualifiers: Diabetes mellitus complication status: without complication Diabetes mellitus director long term care insulin use: without director long term care use Diabetes mellitus type: type 2 Qualified Code(s): E11.9 - Type 2 diabetes mellitus without complications Code(s): E11.9 - Type 2 diabetes mellitus without complications Status: Chronic Assessment and Plan: * Blood sugars ranging 100-118 * Hgb A1C 10.7 on 01/31/2024 * Will recheck hemoglobin A1c * Accu checks AC/HS * Low-dose SSI ordered * hypoglycemic protocol in place * Diabetic diet ordered * Dietitian consult * Hold Jardiance, metformin, and glipizide (5) Hyperlipidemia: Qualifiers: Hyperlipidemia type: unspecified Qualified Code(s): E78.5 - Hyperlipidemia, unspecified Code(s): E78.5 - Hyperlipidemia, unspecified Status: Chronic Assessment and Plan: * Continue atorvastatin (6) Hypertension: Qualifiers: Hypertension type: essential hypertension Qualified Code(s): I10 - Essential (primary) hypertension Code(s): I10 - Essential (primary) hypertension Status: Chronic Assessment and Plan: * Blood pressure reviewed-stable * Continue metoprolol 50 mg b.i.d. (7) Afib: Qualifiers: Atrial fibrillation type: paroxysmal Qualified Code(s): I48.0 - Paroxysmal atrial fibrillation Code(s): I48.91 - Unspecified atrial fibrillation Status: Chronic Assessment and Plan: * Continue Eliquis and metoprolol (8) Compression fracture of first lumbar vertebra: Code(s): S32.010A - Wedge compression fracture of first lumbar vertebra, initial encounter for closed fracture Status: Chronic Assessment and Plan: * Lumbar spine x-ray showing old compression fracture of L1 with possible T11 compression fracture * History of osteopenia * continue pain control (9) Osteopenia: Qualifiers: Osteopenia location: unspecified Qualified Code(s): M85.80 - Other specified disorders of bone density and structure, unspecified site Code(s): M85.80 - Other specified disorders of bone density and structure, unspecified site Status: Chronic Assessment and Plan: See above (10) GERD without esophagitis: Code(s): K21.9 - Gastro-esophageal reflux disease without esophagitis Status: Chronic Assessment and Plan: * Start Protonix (11) Dementia: Qualifiers: Dementia behavioral or psychological symptom: without behavioral, psychotic, or mood disturbance or anxiety Dementia severity: moderate Dementia type: unspecified type Qualified Code(s): F03.B0 - Unspecified dementia, moderate, without behavioral disturbance, psychotic disturbance, mood disturbance, and anxiety Code(s): F03.90 - Unspecified dementia, unspecified severity, without behavioral disturbance, psychotic disturbance, mood disturbance, and anxiety Status: Chronic Assessment and Plan: * Lives at [facility] * Not currently on any home medications for dementia (12) Meningioma: Code(s): D32.9 - Benign neoplasm of meninges, unspecified Status: Chronic Assessment and Plan: * Head CT showing 5.2 cm meningioma overlying the left frontal lobe, 9 mm rightward midline shift anteriorly stable from the prior exam * Continue Keppra and Prednisone (13) Severe protein-calorie malnutrition: Code(s): E43 - Unspecified severe protein-calorie malnutrition Status: Chronic Assessment and Plan: * BMI 14.1, 39.6 kg--severe protein calorie malnutrition * Dietitian consult 04/04 * Case management consulted for hospice referral Time Spent With Patient Time with patient: 25 - 35 minutes Subjective Date/time seen: 04/07/24 10:58 Interval history: Interval history: This is an 84-year-old female with a significant past medical history of dementia, thrombocytopenia, diabetes, AFib, osteopenia, compression fracture of L1, GERD, hyperlipidemia, hypertension who was brought in from her nursing facility for evaluation after a fall. She sustained a skin tear to the right upper arm during the fall. Patient too sleepy at the time of my evaluation to gain any meaningful history of presenting illness. Most of history of presenting illness was obtained from the EMR. Daughter was apparently at the bedside while in the ED and reported that she was undergoing treatment for UTI and was on Macrobid since this past Sunday. Workup in the hospital included a chest x-ray which showed right basilar discord atelectasis with additional opacities in the left and lower lung zones, cardiomegaly, lower thoracic and upper lumbar compression fractures at least some of which are present on prior imaging. Lumbar spine x-ray showed old compression fracture of L1, possible T11 compression fracture, no definitive acute osseous abnormalities of the lumbar spine. Pelvis x-ray was negative for any acute osseous abnormality of the pelvis, bilateral hip mild to moderate osteoarthritic changes. Head CT showed stable 5.2 cm meningioma overlying left frontal lobe, 9 mm rightward mid line shift anteriorly stable from the prior exam. Initial labs showed a white blood cell count of 13.4, chloride 110, creatinine was normal at 0.70, lactic acid 5.3>2.0, Alk phos 133, CRP 3.6. UA showed cloudy urine appearance, urine specific gravity of 1.036, 3+ urine glucose, trace ketone, 2+ urine blood, 1+ leukocyte, 21-50 urine RBC, greater than 100 urine WBC. Urine culture was obtained and pending. Patient was given 1350 mL of normal saline, and Rocephin while in the ED. Subjective: Patient minimally interactive today. Opens eyes to voice however drifts back off to sleep. Daughter at bedside wishes to discuss hospice and comfort measures at this time. She states that her mother has been on a slow decline for the past 2 years and more recently has been declining fast over the last 6 weeks. She has struggled with UTI's and reinfections as well as not eating or drinking. Patient definitely fits the diagnosis of failure to thrive and this is not unreasonable at this phase of her life to consider hospice. Labs and cultures reviewed. 04/05 PT IS SEEN and examined. Earlier in the morning, she was restless, anxious, appears to be in pain. BUt at the time i was examining her, she was comfortable. Not able to interact mush at all, opens her eyes randomly. calm. one of the daughters at the bedside, states that family want to go comfort measures and possibly hospice but she was waiting for her sister to make decisions. 04/06- pt is seen and examined. somewhat hypotensive last night but better this am. Overall no acute changes. waiting for family decision for comfort vs hospice- care coordination is on board. 04/07 called Nicci- [phone]. discussed plan of care- all questions answered. Pt is able to eat and drink some- but coughing and aspirating. Family is aware. They want to proceed with hospice. Berna, healthcare architect is notified. Pt is comfortable in bed, no resp distress. Doesnot appear to be in pain. Finishing up IV antibiotics today. Review of Systems Review of Systems: resting in bed ROS unobtainable: Yes unobtainable due to mental status Exam Narrative: General: In no acute distress, well nourished Cardiac: Normal S1 and S2. Murmur noted. No gallops or friction rubs, peripheral pulses intact. Respiratory: Lungs clear to auscultation, no adventitious lung sounds, currently on room air Gastrointestinal: soft, non-distended, non-tender, normoactive bowel sounds. : voiding without difficulty. Neuro: Alert to voice, minimally interactive Objective Data Vital Signs Vital Signs: Vital Signs - 24 hr 04/06/24 13:59 04/06/24 21:00 04/06/24 22:00 Temperature 97.5 F L 97.5 F L Pulse Rate 72 77 77 Respiratory Rate 16 18 18 Blood Pressure 99/57 L 111/51 L Pulse Oximetry 100 100 100 Oxygen Delivery Room Air 04/07/24 05:24 Temperature 97.4 F L Pulse Rate 79 Respiratory Rate 16 Blood Pressure 132/68 Pulse Oximetry 94 Oxygen Delivery Intake/Output Intake/Output: Intake & Output 04/04/24 04/05/24 04/06/24 04/07/24 23:59 23:59 23:59 23:59 Intake Total 1160 250 150 100 Output Total 600 1050 300 200 Balance 560 -800 -150 -100 Meds/Results Medications: Active Medications Generic Name Dose Route Start Last Admin Trade Name Freq PRN Reason Stop Dose Admin Acetaminophen 650 mg 04/03/24 18:03 Acetaminophen 325 Mg Tablet PO Q4H PRN Mild Pain (1-3) or Fever Hydrocodone Bitart/Acetaminophen 1 tab 04/03/24 18:03 Hydrocodone/Acetaminophen (*Crx) 5-325 Mg Tablet PO Q4H PRN Pain Rated 4-6 Apixaban 2.5 mg 04/04/24 09:00 04/07/24 10:17 Apixaban 2.5 Mg Tablet PO Not Given Q12HR ABBEY Atorvastatin Calcium 40 mg 04/04/24 21:00 04/06/24 22:06 Atorvastatin 40 Mg Tablet PO Not Given QHS ABBEY Dextrose 12.5 gm 04/03/24 22:03 Dextrose 50% 25 Gm/50 Ml Syringe IV PUSH PRN PRN Hypoglycemia Protocol Glucagon 1 mg 04/03/24 22:03 Glucagon For Inj 1 Mg Vial IM PRN PRN Hypoglycemia Protocol Glucose 15 gm 04/03/24 22:03 Glucose Oral Gel 15 Gm Of Glucse In 37.5 Gm Tube PO PRN PRN Hypoglycemia Protocol Ceftriaxone Sodium 1 gm in 50 mls @ 100 mls/hr 04/04/24 12:00 04/06/24 14:30 Rocephin 1 Gm/Ns 50 Ml IVPB Infused Q24H ABBEY Infusion Dextrose 1,000 mls @ 100 mls/hr 04/03/24 22:03 Dextrose 5% 1,000 Ml IVPB PRN PRN Hypoglycemia Protocol Levetiracetam 500 mg in 100 mls @ 400 mls/hr 04/04/24 23:00 04/07/24 10:40 Keppra Iv IVPB Infused Q12HR ABBEY Infusion Metoprolol Tartrate 50 mg 04/04/24 09:00 04/07/24 10:17 Metoprolol Tartrate 50 Mg Tab PO Not Given Q12HR ABBEY Ondansetron HCl 4 mg 04/03/24 18:03 Ondansetron Inj 4 Mg/2 Ml Vial IV PUSH Q4H PRN Nausea Pantoprazole Sodium 40 mg 04/04/24 09:00 04/07/24 10:17 Pantoprazole 40 Mg Tablet PO Not Given QAM ABBEY Polyethylene Glycol 17 gm 04/03/24 22:49 Polyethylene Glycol 3350 17 Gm Powd.Pack PO QAM PRN Constipation Prednisone 20 mg 04/04/24 09:00 04/07/24 10:17 Prednisone 20 Mg Tablet PO Not Given DAILY ABBEY Vitamin D 2,000 units 04/04/24 09:00 04/07/24 10:17 Cholecalciferol 1,000 Units Tablet PO Not Given DAILY ABBEY Radiology Results: ITS Impressions Chest X-Ray 04/03/24 16:00 IMPRESSION: 1. Right basilar discoid atelectasis with additional opacities in the left and and lower lung zones more equivocal for atelectasis versus pneumonia. 2. Cardiomegaly. 3. Lower thoracic and upper lumbar compression fractures at least some of which are present on prior imaging. Lumbar Spine X-Ray 04/03/24 16:00 IMPRESSION: No definite acute osseous abnormality lumbar spine. Old compression fracture of L1. If still suspicious MRI is advised. Pelvis X-Ray 04/03/24 16:03 IMPRESSION: No definite acute osseous abnormality pelvis. Degenerative changes of the spine. Bilateral hip mild to moderate osteoarthritic changes. Bilateral sacroiliitis. Head CT 04/03/24 16:10 IMPRESSION: 1. Stable 5.2 cm meningioma overlying left frontal lobe. 2. 9 mm rightward midline shift anteriorly, stable from the prior exam. Quality VTE Prophylaxis VTE prophylaxis: pharmacologic ordered
--- NOTE | 2024-04-07 13:34 | PCNFU ---
Nutrition Follow-Up Complete: Severe Protein Calorie Malnutrition as related to inadequate protein-energy intake with increased protein-energy needs as evidenced by minimal oral intake for > 1 month: significant weight loss of 11%(11ibs ) in 6 wks; severe subcutaneous fat loss (orbital fat pads) and muscle wasting (temporalis, clavicle). goal: Meet estimated nutritional needs. Patient has limited progress towards goal. We will continue current goal. Pt current nutrition is NPO x 2 days Last recorded weight is 39.6 kg, no new weight to report. Bowel Motility: Last reported BM 1 Labs Reviewed: Glu 112, Cr 0.6, BUN 27, Alb 3.1 Meds Noted: No Meds given. Skin: Stage II-back. Additional Notes: Spoke with nursing today regarding plan of care. Hospitalist is in discussions with the family regarding hospice care. Oral Intake has been very poor. Last reported po intake 1/3 of 10-40% of meals. At this time patient is NPO 2/2 to aspiration. Will monitor weight, labs, skin, oral intake, meds every 3 days.
[2024-04-07 15:00] VITALS: BP 159/92; PULSE 89; RESP 20; O2SAT 95
--- NOTE | 2024-04-07 16:47 | PC.NURSE ---
Patient removed IV herself. Patient is a difficult and RN placed this IV yesterday. RN informed Hospitalist Okay for patient to not have an IV.
[2024-04-07 19:41] VITALS: BP 125/66; PULSE 84; RESP 16; TEMP 36.3; O2SAT 100
[2024-04-08 05:14] VITALS: BP 136/71; PULSE 62; RESP 20; TEMP 36.1; O2SAT 93
--- NOTE | 2024-04-08 07:59 | P.DS_ITS ---
DS: Admitting Diagnosis Discharge Date 04/08 Admitting Diagnosis fall, uti DS: Discharge Diagnosis Discharge Diagnosis (1) Acute UTI: Code(s): N39.0 - Urinary tract infection, site not specified Status: Acute (2) Fall: Code(s): W19.XXXA - Unspecified fall, initial encounter Status: Acute (3) Weakness: Code(s): R53.1 - Weakness Status: Acute (4) Diabetes: Qualifiers: Diabetes mellitus type: type 2 Diabetes mellitus usp insulin use: without long term care pharmacist use Diabetes mellitus complication status: without complication Qualified Code(s): E11.9 - Type 2 diabetes mellitus without complications Code(s): E11.9 - Type 2 diabetes mellitus without complications Status: Chronic (5) Hyperlipidemia: Qualifiers: Hyperlipidemia type: unspecified Qualified Code(s): E78.5 - Hyperlipidemia, unspecified Code(s): E78.5 - Hyperlipidemia, unspecified Status: Chronic (6) Hypertension: Qualifiers: Hypertension type: essential hypertension Qualified Code(s): I10 - Essential (primary) hypertension Code(s): I10 - Essential (primary) hypertension Status: Chronic (7) Afib: Qualifiers: Atrial fibrillation type: paroxysmal Qualified Code(s): I48.0 - Paroxysmal atrial fibrillation Code(s): I48.91 - Unspecified atrial fibrillation Status: Chronic (8) Compression fracture of first lumbar vertebra: Code(s): S32.010A - Wedge compression fracture of first lumbar vertebra, initial encounter for closed fracture Status: Chronic (9) Osteopenia: Qualifiers: Osteopenia location: unspecified Qualified Code(s): M85.80 - Other specified disorders of bone density and structure, unspecified site Code(s): M85.80 - Other specified disorders of bone density and structure, unspecified site Status: Chronic (10) GERD without esophagitis: Code(s): K21.9 - Gastro-esophageal reflux disease without esophagitis Status: Chronic (11) Dementia: Qualifiers: Dementia type: unspecified type Dementia severity: moderate Dementia behavioral or psychological symptom: without behavioral, psychotic, or mood disturbance or anxiety Qualified Code(s): F03.B0 - Unspecified dementia, moderate, without behavioral disturbance, psychotic disturbance, mood disturbance, and anxiety Code(s): F03.90 - Unspecified dementia, unspecified severity, without behavioral disturbance, psychotic disturbance, mood disturbance, and anxiety Status: Chronic (12) Meningioma: Code(s): D32.9 - Benign neoplasm of meninges, unspecified Status: Chronic (13) Severe protein-calorie malnutrition: Code(s): E43 - Unspecified severe protein-calorie malnutrition Status: Chronic DS: Summary Hospital Course Hospital Course: This is an 84-year-old female with a significant past medical history of dementia, thrombocytopenia, diabetes, AFib, osteopenia, compression fracture of L1, GERD, hyperlipidemia, hypertension who was brought in from her nursing facility for evaluation after a fall. She sustained a skin tear to the right upper arm during the fall. Patient too sleepy at the time of my evaluation to gain any meaningful history of presenting illness. Most of history of presenting illness was obtained from the EMR. Daughter was apparently at the bedside while in the ED and reported that she was undergoing treatment for UTI and was on Macrobid since this past Sunday. Workup in the hospital included a chest x-ray which showed right basilar discord atelectasis with additional opacities in the left and lower lung zones, cardiomegaly, lower thoracic and upper lumbar compression fractures at least some of which are present on prior imaging. Lumbar spine x-ray showed old compression fracture of L1, possible T11 compression fracture, no definitive acute osseous abnormalities of the lumbar spine. Pelvis x-ray was negative for any acute osseous abnormality of the pelvis, bilateral hip mild to moderate osteoarthritic changes. Head CT showed stable 5.2 cm meningioma overlying left frontal lobe, 9 mm rightward mid line shift anteriorly stable from the prior exam. Initial labs showed a white blood cell count of 13.4, chloride 110, creatinine was normal at 0.70, lactic acid 5.3>2.0, Alk phos 133, CRP 3.6. UA showed cloudy urine appearance, urine specific gravity of 1.036, 3+ urine glucose, trace ketone, 2+ urine blood, 1+ leukocyte, 21-50 urine RBC, greater than 100 urine WBC. Urine culture was obtained and pending. Patient was given 1350 mL of normal saline, and Rocephin while in the ED. Subjective: Patient minimally interactive today. Opens eyes to voice however drifts back off to sleep. Daughter at bedside wishes to discuss hospice and comfort measures at this time. She states that her mother has been on a slow decline for the past 2 years and more recently has been declining fast over the last 6 weeks. She has struggled with UTI's and reinfections as well as not eating or drinking. Patient definitely fits the diagnosis of failure to thrive and this is not unreasonable at this phase of her life to consider hospice. Labs and cultures reviewed. Pt failed swallow test and was not able to work with PT/OT as was not able to follow any instructions. Multiple discussions with family about goals of care and decision was made to proceed with comfort/hospice. Care coordination working with family on arranging it. Following issues were addressed: # UTI Recently treated on an outpatient basis for rate acute UTI with Macrobid however failed oral antibiotics presenting with worsening symptoms * UA showing cloudy urine appearance, urine specific gravity of 1.036, 3+ urine glucose, trace urine ketones, 2+ urine blood, 1+ leukocyte, 21-50 urine RBC, greater than 100 urine WBC. * Urine culture was obtained and pending * She was given 1350 mL normal saline while in the ED * Completed Rocephin- completed # fall Status post ground level fall at [facility] assisted living * Lumbar spine x-ray showing old compression fracture of L1 with possible T11 compression fracture, no acute osseous abnormality seen. * Pelvic x-ray showed degenerative changes of the spine, no acute osseous abnormality of the pelvis, mild to moderate osteoarthritic changes * Head CT showed stable 5.2 cm meningioma overlying left frontal lobe, 9 mm rightward midline shift anteriorly stable from prior exam * PT and OT ordered * Continue fall precautions * Will hold off on PT and OT considering daughter wants to discuss hospice/comfort. * Continue fall precautions # meningioma Head CT showing 5.2 cm meningioma overlying the left frontal lobe, 9 mm rightward midline shift anteriorly stable from the prior exam * on Keppra and Prednisone Status at Discharge Functional status at discharge: wheelchair bound Overall status at discharge: other (comfort. Hospice care) Time Spent with Patient Time attestation: Total time spent providing and/or coordinating discharge services: Time spent: Greater than 30 minutes Exam Narrative: General: In no acute distress Cardiac: Normal S1 and S2. Murmur noted. No gallops or friction rubs, peripheral pulses intact. Respiratory: Lungs clear to auscultation, no adventitious lung sounds, currently on room air Gastrointestinal: soft, non-distended, non-tender, normoactive bowel sounds. : voiding without difficulty. Neuro: Alert to voice, minimally interactive Const: General: comfortable Discharge Plan Discharge Attending physician on discharge: Cameron Schwarz Discharging Clinician: Tierra Bonds Patient Disposition: Hospice - Medical Facility Activity: july shower Diet: as tolerated and regular Discharge Instructions: Pt is to return to her activity with Hospice care. Will continue all meds until seen and eval per hospice. Further medication management per hospice. Patient Instructions: Apixaban (By mouth) Patient Language: Slovenian Stand Alone Forms: General Discharge Information Discharge Medications: Continued calcium carbonate [Calcium 600] 600 mg calcium (1,500 mg) tablet 600 mg PO BID acetaminophen [Mapap (acetaminophen)] 325 mg Tablet 650 mg PO Q6H PRN (Reason: Pain Rated 5 Or Less) Qty: 30 0RF polyethylene glycol 3350 [Miralax] 17 gram Powder In Packet 17 g PO QAM PRN (Reason: Constipation) Qty: 14 0RF levetiracetam 500 mg tablet 500 mg PO Q12H Qty: 60 0RF omeprazole 20 mg capsule,delayed release(DR/EC) 20 mg PO DAILY Qty: 90 1RF metoprolol tartrate 50 mg tablet 50 mg PO BID (DME) hydrocolloid dressing 4 X 4 bandage See Rx Instructions .Route Qty: 5 0RF Rx Instructions: As directed (DME) blood-glucose meter [Blood Glucose Monitoring] Kit See Rx Instructions .ROUTE .MEDSUPPLY Qty: 1 0RF Rx Instructions: check blood sugars t.i.d. a.c. As directed (DME) lancets 33 gauge misc See Rx Instructions .ROUTE .MEDSUPPLY Qty: 100 5RF Rx Instructions: check blood sugars t.i.d. a.c. As directed (DME) Blood Glucose Test Strip See Rx Instructions .ROUTE .MEDSUPPLY Qty: 100 5RF Rx Instructions: check blood sugars t.i.d. a.c. As directed (DME) Dexcom G7 [employer] Misc See Rx Instructions .Route Qty: 1 0RF Rx Instructions: use As directed (DME) Dexcom G7 Sensor Device See Rx Instructions .Route Qty: 3 5RF Rx Instructions: use As directed Held atorvastatin 40 mg tablet 40 mg PO QHS Hold Instructions: Resume on 04/15/24. Further medication management per hospice. Eliquis 2.5 mg tablet 2.5 mg PO BID Hold Instructions: Resume on 04/15/24. Further medication management per hospice. prednisone 20 mg tablet 20 mg PO DAILY Hold Instructions: Resume on 04/15/24. Further medication management per hospice. prednisone 2.5 mg Tablet 2.5 mg PO DAILY@0800 Qty: 30 0RF Hold Instructions: Resume on 04/15/24. Further medication management per hospice. amiodarone [Pacerone] 200 mg tablet 200 mg PO DAILY@0800 Qty: 30 1RF Hold Instructions: Resume on 04/15/24. Further medication management per hospice. Discontinued cholecalciferol (vitamin D3) [Vitamin D3] 50 mcg (2,000 unit) tablet 2,000 unit PO DAILY Qty: 90 0RF Jardiance 25 mg tablet 25 mg PO QAM Qty: 90 1RF metformin 500 mg tablet extended release 24 hr 500 mg PO BID Qty: 180 0RF nitrofurantoin monohyd/m-cryst [Macrobid] 100 mg capsule 100 mg PO Q12H 7 Days Qty: 14 0RF Rx Instructions: must administer with a meal/food Date of admission: 04/03/24 18:03 Primary Care Provider: Tamiko Boyd Admitting Provider: Kristopher Mdcowell Attending physician on admission: Kristopher Mcdowell Condition: Guarded Prognosis Quality VTE Prophylaxis VTE prophylaxis: pharmacologic ordered Hospitalist MIPS Heart Failure (Exclusion) Patient has history of Heart Transplant or Left Ventricular Assistive Device?: No IF YES, STOP HERE Heart Failure (Qualifier) Patient has current or prior documentation of LVEF less than or equal to 40%, or mod/servere depressed LVSF?: No IF NO, STOP HERE
== END 2024-04-08 14:10 | disposition hospice, home (50) ==
LOC: ANHED 14:41 → ANH3MEDSUR 19:40 → ANH3MED 23:30
PROVIDERS: Nurse Practitioner Acute Care; Admitting Provider General Practice; Emergency Provider Emergency Medicine; PCP Family Medicine; Visit Provider Internal Medicine
DX: N39.0 Urinary tract infection, site not specified (principal); S41.111A Laceration without foreign body of right upper arm, initial encounter; W18.30XA Fall on same level, unspecified, initial encounter; D32.9 Benign neoplasm of meninges, unspecified; R53.1 Weakness; E11.9 Type 2 diabetes mellitus without complications; E78.5 Hyperlipidemia, unspecified; I10 Essential (primary) hypertension; I48.0 Paroxysmal atrial fibrillation; S32.010A Wedge compression fracture of first lumbar vertebra, initial encounter for closed fracture; M85.80 Other specified disorders of bone density and structure, unspecified site; K21.9 Gastro-esophageal reflux disease without esophagitis; F03.B0 Unspecified dementia, moderate, without behavioral disturbance, psychotic disturbance, mood disturbance, and anxiety; E43 Unspecified severe protein-calorie malnutrition; Z68.1 Body mass index [BMI] 19.9 or less, adult; R62.7 Adult failure to thrive; D69.6 Thrombocytopenia, unspecified; Z66 Do not resuscitate; Z79.84 Long term (current) use of oral hypoglycemic drugs; Z79.01 Long term (current) use of anticoagulants; Z79.899 Other long term (current) drug therapy
CPT/HCPCS: 36415; 70450; 71045; 72100; 72170; 80053; 81001; 82948; 83036; 83605; 83735; 84443; 85025; 85610; 85730; 86140; 87086; 96365; 96375; 96376; 97165; 99212; 99285; A9270; G0378; G0463; J0696; J1815; J1953; J7030; J7040; J7512